=== PATIENT | male | born 1945 | race Caucasian/White ===

== ENCOUNTER → 2018-05-30 06:32 | Outpatient (CLI) | payer MEDICARE, OTHER, SELFPAY ==
[2018-05-16 11:15] VITALS: BMI 34.4
--- NOTE | 2018-05-30 09:03 | STRESSREP_ITS ---
Stress Test Report Pharmacologic myocardial perfusion stress test. 73-year-old man with a history of chest pain. Medications: Amlodipine aspirin simvastatin and lisinopril. Stress protocol: Resting EKG demonstrates normal sinus rhythm with a rate of 77 bpm resting blood pressures 152/74 mmHg. 0.4 mg of regadenoson was infused per usual protocol followed by rapid intravenous saline flush injection continuous EKG monitoring was performed. The maximum heart rate attained was 113 bpm which was 76% of maximum predicted heart rate the maximum workload was 1 metabolic equivalent. At rest there were no ST or T wave changes noted suggest abnormal flow reserve at peak infusion nonspecific ST-T wave changes were noted with normally the criteria for ischemia. No clinical angina was noted resting blood pressures 152/74 final blood pressure 738/62. Myocardial perfusion protocol. 14.6 mCi of technetium 99m sestamibi was injected at rest. 0.4 mg of reg adenoson was infused per usual protocol peak infusion 44.7 mCi of technetium 99m sestamibi was injected stress images were obtained stress and rest images were reconstructed in comparing the short axis vertical long horizontal long axis. Gated images were also obtained Perfusion SPECT analysis: Review of the stress images demonstrate normal uptake of tracer noted in all areas of the myocardium the resting images similarly demonstrate normal uptake of tracer noted in all areas of the myocardium. No areas of reversibility are noted suggest ischemia no previous infarct is noted. Gated SPECT analysis: The gated ejection fraction is noted to be 71%. Conclusion: Normal pharmacologic myocardial perfusion stress test. Preserved ejection fraction.
== END ==
PROVIDERS: Family Provider Family Medicine; PCP Family Medicine; Referring Provider Internal Medicine Cardiovascular Disease; Visit Provider Internal Medicine Cardiovascular Disease
DX: I10 Essential (primary) hypertension (principal); R53.83 Other fatigue; R07.9 Chest pain, unspecified
CPT/HCPCS: 78452; 93017; A9500; A4216; J2785

== ENCOUNTER → 2020-01-13 09:43 | Outpatient (CLI) | payer MEDICARE, OTHER, SELFPAY ==
[2019-12-10 10:30] VITALS: BMI 34.4
--- NOTE | 2020-01-13 09:44 | ECHOCS_ITS ---
Reason For Study: Nonrheumatic aortic stenosis Procedure This was a 2D Doppler, Color Flow transthoracic echocardiogram. Exam performed in department. Left Ventricle Normal LV size. Left ventricular systolic function is normal. The estimated ejection fraction is 60 %. Normal diastology for age. No regional wall motion abnormalities noted. Atria The left atrium is moderately enlarged. Normal right atrium. Mitral Valve Normal mitral valve. Tricuspid Valve Normal tricuspid valve. Aortic Valve Trisinus/trileaflet aortic valve. Peak aortic valve gradient 34 mmHg. Mean aortic valve gradient 21 mmHg. Mild to moderate aortic stenosis. Calculated aortic valve area (continuity equation) is 1.0 cm2. Pulmonic Valve The pulmonic valve is not well visualized. Great Vessels Normal aortic root. The pulmonary artery is normal size. Normal inferior vena cava. Pericardium/Pleural No pericardial effusion. MMode/2D Measurements & Calculations LVIDd: 5.3 cm IVSd: 1.1 cm LVOT diam: 2.0 cm LVIDs: 3.4 cm LVPWd: 1.0 cm LVOT area: 3.1 cm2 RVDd: 3.4 cm FS: 36.2 % Ao root diam: 3.0 cm LAV(MOD-bp): 94.3 ml LA A4 area: 27.3 cm2 LAV(MOD-bp) Indexed: 42.8 ml/m2 LAV(MOD-sp2): 85.4 ml LAV(MOD-sp4): 94.7 ml LA dimension(2D): 4.3 cm RA A4 area: 18.7 cm2 Time Measurements MV dec time: 0.17 sec Doppler Measurements & Calculations MV E max aron: 101.4 cm/sec Lat Peak E' Aron: 11.0 cm/sec Med Peak E' Aron: 6.8 cm/sec MV A max aron: 76.5 cm/sec E/E' lat: 9.2 E/E' med: 14.8 MV E/A: 1.3 Ao V2 max: 293.1 cm/sec LV V1 max: 96.0 cm/sec SV(LVOT): 77.0 ml Ao max P.4 mmHg LV V1 max P.7 mmHg Ao V2 mean: 222.5 cm/sec LV V1 mean P.2 mmHg Ao mean P.2 mmHg LV V1 mean: 71.8 cm/sec Ao V2 VTI: 73.4 cm LV V1 VTI: 24.8 cm HIMANSHU(I,D): 1.0 cm2 HIMANSHU(V,D): 1.0 cm2 PA V2 max: 93.5 cm/sec Interpretation Summary Mean aortic valve gradient 21 mmHg. Mild to moderate aortic stenosis. Normal LV size. Left ventricular systolic function is normal. The estimated ejection fraction is 60 %. Normal diastology for age. Ordering Physician: Donald Holder Referring Physician: Wiliam Ross Performed By: Chani Caraballo, DARCY, RVT
== END ==
PROVIDERS: PCP Family Medicine; Referring Provider Internal Medicine Cardiovascular Disease; Visit Provider Internal Medicine Cardiovascular Disease
DX: I35.0 Nonrheumatic aortic (valve) stenosis (principal)
CPT/HCPCS: 93306; Q9957; A4216; C8929

== ENCOUNTER → 2020-05-04 12:50 | Outpatient (CLI) | payer MEDICARE, OTHER, SELFPAY ==
[2019-12-10 10:30] VITALS: BMI 34.4
--- NOTE | 2020-05-04 12:52 | US_ITS ---
STUDY: RENAL ULTRASOUND - COMPLETE REASON FOR EXAM: Male, 75 years old. CKD TECHNIQUE: Ultrasound evaluation of the kidneys was performed with real-time and static miranda-scale imaging. COMPARISON: None. FINDINGS: RIGHT KIDNEY: Normal location of the right kidney, which is normal in size. The right kidney measures 12 cm x 5.5 cm x 5.8 cm. There is a normal cortex of the right kidney. The renal cortex measures 1.5 cm. There is no right renal mass or cyst. There are no right renal calculi. There is no right hydronephrosis. DISTAL RIGHT URETER: There is non-visualization of the distal right ureter. There is no demonstrated right ureterovesical junction calculus. There is a visualized right ureteral jet. LEFT KIDNEY: Normal location of the left kidney, which is normal in size. The left kidney measures 14.3 cm x 4.9 cm x 7.8 cm. There is a normal cortex of the left kidney. The renal cortex measures 1.9 cm. There is a 1.4 cm x 1.77 x 1.3 cm cyst. There are no left renal calculi. There is no left hydronephrosis. DISTAL LEFT URETER: There is non-visualization of the distal left ureter. There is no demonstrated left ureterovesical junction calculus. There is a visualized left ureteral jet. BLADDER: The distended urinary bladder has a volume of 126 ml. There is a normal wall thickness of the distended urinary bladder. There is no demonstrated mass within the urinary bladder. There are no demonstrated bladder calculi. US/Kidney and Bladder IMPRESSION: Normal ultrasound of the kidneys and urinary bladder. Small left renal cyst. Electronically Signed: Calin Crow MD at 14:16 EST , Service support ,
== END ==
PROVIDERS: PCP Family Medicine; Referring Provider Internal Medicine; Visit Provider Internal Medicine
DX: N18.32 Chronic kidney disease, stage 3b (principal)
CPT/HCPCS: 76770

== ENCOUNTER → 2020-05-12 13:08 | Outpatient (CLI) | payer MEDICARE, OTHER, SELFPAY ==
[2019-12-10 10:30] VITALS: BMI 34.4
[2020-05-12 13:14] LABS: Mucous, Urine 0 SEEN /hpf (<or=2+); Red Blood Cells-Urine 0 SEEN /hpf (0-5); Squamous Epithelial Cells - UA 0 SEEN /hpf (0-5); White Blood Cells 0 SEEN /hpf (0-5)
[2020-05-12 13:38] LABS: 24 Hour Urine Protein 165.6 mg/24HR (<150 MG/24HR); 24HR. UA Prot. Total Volume 2400 mL; Urine Protein (24 Hour) 6.9 mg/dL (<11.9)
[2020-05-12 13:39] LABS: 24HR. Urine Creatinine 1.91 g/24 HR (0.90-2.10)
[2020-05-12 13:56] LABS: Protein:Creat Ratio 116 mg/g CRE (0-200)
[2020-05-12 14:04] LABS: Color, Urine Yellow (Yellow); Glucose, Dipstick 50 mg/dl (Normal); Ketone-Dipstick 5 mg/dl (Negative); Leukocyte Esterase-Dipstick Negative /ul (Negative); Nitrite-Dipstick Negative (Negative); Occult Blood-Urine Negative /ul (Negative); Protein-Dipstick 30 mg/dl (Negative); Specific Gravity, Urine 1.025 (1.002-1.030); Urine Bilirubin Dipstick Negative (Negative); Urine Clarity Sl. Cloudy (Clear); Urine Urobilinogen Normal (Normal)
[2020-05-12 14:08] LABS: Anion Gap 7 (5-15); BUN 17 mg/dL (7-18); Calcium,Total 9.3 mg/dL (8.5-10.1); Chloride 107 mmol/L (98-107); Creatinine, Serum 1.42 mg/dL (0.70-1.30); EST Glomerular Filtration Rate 52 mL/min (>60); Est Glom Filt Rate - Afr Amer 63 mL/min (>60); Glucose 244 mg/dL (74-106); Phosphorus 2.7 mg/dL (2.5-4.9); Potassium 4.1 mmol/L (3.5-5.1); Sodium Level 140 mmol/L (136-145)
[2020-05-12 14:09] LABS: PTHIN 45.8 pg/mL (18.4-80.1)
[2020-05-12 14:10] LABS: Bacteria RARE /hpf (None Seen)
[2020-05-12 14:13] LABS: Vitamin D,25 Hydroxy 19.6 ng/mL
[2020-05-12 14:16] LABS: Creat.Clear Total Volume 2400 mL; Creatinine Clearance 93 ml/min (100-200); Creatinine Serum Creat 1.4 mg/dL (0.8-1.3); Creatinine Urine 78.8 mg/dL (NO RANGE EST.); EST Glomerular Filtration Rate 52 mL/min (>60); Est Glom Filt Rate - Afr Amer 63 mL/min (>60)
[2020-05-15 20:07] LABS: PROEL- A/G Ratio 1.2 (0.7-1.7); PROEL- Albumin 3.8 g/dL (2.9-4.4); PROEL- Alpha-1 Globulin 0.2 g/dL (0.0-0.4); PROEL- Alpha-2 Globulin 0.9 g/dL (0.4-1.0); PROEL- Beta Globulin 1.3 g/dL (0.7-1.3); PROEL- Globulin, Total 3.3 g/dL (2.2-3.9); PROEL- TOTAL PROTEIN 7.1 g/dL (6.0-8.5); PROELU- Alpha-1-Globulin,Ur 1.8 % (.); PROELU- Beta Globulin, Ur 18.7 % (.); PROELU- Gamma Globulin, Ur 15.4 % (.); Total Protein, Ur 18.8 mg/dL (Not Estab.)
== END ==
PROVIDERS: PCP Family Medicine; Referring Provider Internal Medicine; Visit Provider Internal Medicine
DX: N18.32 Chronic kidney disease, stage 3b (principal)
CPT/HCPCS: 36415; 80048; 81001; 81050; 82306; 82570; 82575; 83970; 84100; 84156; 84165; 84166

== ENCOUNTER → 2020-12-03 09:18 | Outpatient (CLI) | payer MEDICARE, OTHER, SELFPAY ==
[2020-12-03 09:47] LABS: Color, Urine Yellow (Yellow); Glucose, Dipstick Normal (Normal); Ketone-Dipstick Negative (Negative); Leukocyte Esterase-Dipstick Negative /ul (Negative); Nitrite-Dipstick Negative (Negative); Occult Blood-Urine Negative /ul (Negative); Protein-Dipstick Negative (Negative); Specific Gravity, Urine 1.015 (1.002-1.030); Urine Bilirubin Dipstick Negative (Negative); Urine Clarity Clear (Clear); Urine Urobilinogen Normal (Normal)
[2020-12-03 09:56] LABS: Protein, Urine (Random) 10.6 mg/dL (<11.9); Protein:Creat Ratio 87 mg/g CRE (0-200)
[2020-12-03 10:42] LABS: PTHIN 54.9 pg/mL (18.4-80.1)
[2020-12-03 10:44] LABS: Anion Gap 4 (5-15); BUN 23 mg/dL (7-18); BUN/Creat Ratio 15.1 RATIO (10-20); Calcium,Total 8.8 mg/dL (8.5-10.1); Chloride 110 mmol/L (98-107); Creatinine, Serum 1.52 mg/dL (0.70-1.30); EST Glomerular Filtration Rate 48 mL/min (>60); Est Glom Filt Rate - Afr Amer 58 mL/min (>60); Glucose 153 mg/dL (74-106); Phosphorus 3.3 mg/dL (2.5-4.9); Potassium 4.3 mmol/L (3.5-5.1); Sodium Level 138 mmol/L (136-145)
[2020-12-03 10:47] LABS: Vitamin D,25 Hydroxy 33.2 ng/mL
== END ==
PROVIDERS: PCP Family Medicine; Referring Provider Internal Medicine; Visit Provider Internal Medicine
DX: N18.32 Chronic kidney disease, stage 3b (principal)
CPT/HCPCS: 36415; 80048; 81002; 82306; 82570; 83970; 84100; 84156

== ENCOUNTER → 2021-12-27 | Outpatient (CLI) | payer MEDICARE, OTHER, SELFPAY ==
[2021-12-27 13:39] LABS: Hematocrit 33.8 % (40-54); Hemoglobin 10.7 g/dL (13.0-16.5); Mean Corp Hgb Conc 31.7 g/dL (32-36); Mean Corpuscular Hgb 33.5 pg (27.0-32.0); Mean Platelet Vol. 10.5 fl (6.2-12.0); Platelet Count 216 K/mm3 (150-450); RBC Distribution Width CV 12.5 % (11.6-14.6); Red Blood Count 3.19 M/mm3 (4.6-6.2); White Blood Count 8.7 K/mm3 (4.4-11.0)
[2021-12-27 13:50] LABS: Protein, Urine (Random) 12.4 mg/dL (<11.9); Protein:Creat Ratio 141 mg/g CRE (0-200)
[2021-12-27 14:03] LABS: Albumin, Serum 3.3 g/dL (3.2-5.0); BUN 21 mg/dL (7-18); Calcium,Total 9.3 mg/dL (8.5-10.1); Chloride 110 mmol/L (98-107); Creatinine, Serum 1.75 mg/dL (0.70-1.30); EST Glomerular Filtration Rate 41 mL/min (>60); Est Glom Filt Rate - Afr Amer 49 mL/min (>60); Glucose 207 mg/dL (74-106); Phosphorus 3.3 mg/dL (2.5-4.9); Potassium 4.3 mmol/L (3.5-5.1); Sodium Level 145 mmol/L (136-145)
[2021-12-27 14:09] LABS: Vitamin D,25 Hydroxy 37.1 ng/mL
[2021-12-27 14:19] LABS: PTHIN 59.2 pg/mL (18.4-80.1)
== END | disposition home or self-care (01) ==
LOC: LAB 13:13
PROVIDERS: PCP Family Medicine; Referring Provider Internal Medicine Nephrology; Visit Provider Internal Medicine Nephrology
DX: I12.9 Hypertensive chronic kidney disease with stage 1 through stage 4 chronic kidney disease, or unspecified chronic kidney disease (principal); N18.32 Chronic kidney disease, stage 3b; E55.9 Vitamin D deficiency, unspecified; R80.9 Proteinuria, unspecified
CPT/HCPCS: 36415; 80069; 82306; 82570; 83970; 84156; 85027

== ENCOUNTER → 2022-01-17 | Outpatient (CLI) | payer MEDICARE, OTHER, SELFPAY ==
--- NOTE | 2022-01-17 12:57 | ECHOCS_ITS ---
Reason For Study: MURMUR Procedure This was a 2D Doppler, Color Flow transthoracic echocardiogram. The study was technically difficult. Contrast injection was performed. Exam performed in department. Left Ventricle Normal LV size. Left ventricular systolic function is normal. The estimated ejection fraction is 65 %. No regional wall motion abnormalities noted. Right Ventricle Normal RV size. Normal systolic function. Atria The left atrium is moderately enlarged. The right atrium is mildly enlarged. Mitral Valve Bileaflet diffuse mitral valve thickening. Tricuspid Valve Normal tricuspid valve. Mild to moderate (1-2+) tricuspid valve insufficiency. Pulmonary artery systolic pressure is 52 mmHg. Aortic Valve Trisinus/trileaflet aortic valve. Moderate focal aortic valve calcification. Peak aortic valve gradient 27 mmHg. Mean aortic valve gradient 17 mmHg. Mild aortic stenosis. Pulmonic Valve Normal pulmonic valve. Great Vessels Normal aortic root. The pulmonary artery is normal size. Normal inferior vena cava. Pericardium/Pleural No pericardial effusion. Medication 22 gauge I.V. with prn adaptor inserted into right arm. Diluted definity 3ml given slow IV push to enhance endocardial definition. MMode/2D Measurements & Calculations LVIDd: 6.2 cm IVSd: 1.00 cm LVOT diam: 2.2 cm LVIDs: 3.9 cm LVPWd: 0.83 cm FS: 36.0 % LVOT area: 3.8 cm2 Ao root diam: 3.4 cm LAV(MOD-sp4): 108.1 ml LVAd ap4: 44.5 cm2 LVLd ap4: 9.0 cm EDV(MOD-sp4): 181.8 ml EDV(sp4-el): 187.1 ml LVAs ap4: 22.2 cm2 LVLs ap4: 7.4 cm ESV(MOD-sp4): 54.4 ml ESV(sp4-el): 56.6 ml EF(MOD-sp4): 70.1 % EF(sp4-el): 69.7 % SV(MOD-sp4): 127.4 ml SV(sp4-el): 130.5 ml LA A4 area: 29.2 cm2 LA dimension(2D): 4.8 cm Time Measurements MV dec time: 0.17 sec Doppler Measurements & Calculations MV E max aron: 100.5 cm/sec Lat Peak E' Aron: 12.0 cm/sec Med Peak E' Aron: 7.6 cm/sec MV A max aron: 81.6 cm/sec E/E' lat: 8.4 E/E' med: 13.2 MV E/A: 1.2 MV V2 max: 98.4 cm/sec Ao V2 max: 260.1 cm/sec MV max P.9 mmHg MV dec slope: 605.2 cm/sec2 Ao max P.7 mmHg MV V2 mean: 64.1 cm/sec Ao V2 mean: 187.7 cm/sec MV mean P.9 mmHg Ao mean P.4 mmHg MV V2 VTI: 33.0 cm Ao V2 VTI: 65.7 cm MVA(VTI): 2.9 cm2 HIMANSHU(I,D): 1.4 cm2 HIMANSHU(V,D): 1.3 cm2 LV V1 max: 90.2 cm/sec SV(LVOT): 94.2 ml PA V2 max: 100.1 cm/sec LV V1 max P.3 mmHg PA V2 mean: 70.8 cm/sec LV V1 mean P.0 mmHg LV V1 mean: 65.8 cm/sec LV V1 VTI: 24.7 cm TR max aron: 342.3 cm/sec TR max P.9 mmHg ECHO/Echo Complete W/ Contrast Interpretation Summary Normal LV size. Left ventricular systolic function is normal. The estimated ejection fraction is 65 %. Moderate focal aortic valve calcification. Peak aortic valve gradient 27 mmHg. Pulmonary artery systolic pressure is 52 mmHg. Mean aortic valve gradient 17 mmHg. Mild aortic stenosis. Contrast injection was performed. Ordering Physician: Hannah Kendrick Referring Physician: Hannah Kendrick Performed By: Demetria Osborn RCS
== END | disposition home or self-care (01) ==
LOC: CVS 12:57
PROVIDERS: PCP Family Medicine; Referring Provider Physician Assistant Medical; Visit Provider Physician Assistant Medical
DX: I35.0 Nonrheumatic aortic (valve) stenosis (principal)
CPT/HCPCS: 93306; Q9957; A4216; C8929

== ENCOUNTER → 2022-11-07 | Outpatient (CLI) | payer MEDICARE, OTHER, SELFPAY ==
[2022-11-07 11:38] LABS: Anion Gap 6 (5-15); BUN 25 mg/dL (7-18); BUN/Creat Ratio 14.1 RATIO (10-20); Calcium,Total 8.8 mg/dL (8.5-10.1); Chloride 117 mmol/L (98-107); Creatinine, Serum 1.77 mg/dL (0.70-1.30); EST Glomerular Filtration Rate 40 mL/min (>60); Est Glom Filt Rate - Afr Amer 48 mL/min (>60); Glucose 144 mg/dL (74-106); Potassium 4.7 mmol/L (3.5-5.1); Protein, Urine (Random) 39.2 mg/dL (<11.9); Protein:Creat Ratio 248 mg/g CRE (0-200); Sodium Level 144 mmol/L (136-145)
[2022-11-07 12:49] LABS: Vitamin D,25 Hydroxy 28.4 ng/mL
== END | disposition home or self-care (01) ==
LOC: LAB 10:46
PROVIDERS: PCP Family Medicine; Referring Provider Internal Medicine Nephrology; Visit Provider Internal Medicine Nephrology
DX: E55.9 Vitamin D deficiency, unspecified (principal); N18.32 Chronic kidney disease, stage 3b; R80.9 Proteinuria, unspecified
CPT/HCPCS: 36415; 80048; 82306; 82570; 84156

== ENCOUNTER → 2023-01-31 | Outpatient (CLI) | payer MEDICARE, OTHER, SELFPAY ==
--- NOTE | 2023-01-31 12:42 | ECHOCS_ITS ---
Reason For Study: Non Rheumatic Aortic Stenosis Procedure This was a 2D Doppler, Color Flow transthoracic echocardiogram. The study was technically difficult. Contrast injection was performed. Exam performed in department. Left Ventricle Normal LV size. Moderate concentric left ventricular hypertrophy. Left ventricular systolic function is normal. The estimated ejection fraction is 55 %. No regional wall motion abnormalities noted. Right Ventricle Normal RV size. Normal systolic function. Atria Normal left atrium. Normal right atrium. Mitral Valve Mitral valve not well visualized. Tricuspid Valve The tricuspid valve is not well visualized. Mild (1+) tricuspid valve insufficiency. Pulmonary artery systolic pressure is 40 mmHg. Aortic Valve Trisinus/trileaflet aortic valve. Mild focal aortic valve calcification. Peak aortic valve gradient 46 mmHg. Mean aortic valve gradient 30 mmHg. Pulmonic Valve The pulmonic valve is not well visualized. Great Vessels Normal aortic root. Pericardium/Pleural No pericardial effusion. Medication 22 gauge I.V. with prn adaptor inserted into right arm. Diluted definity 3ml given slow IV push to enhance endocardial definition. MMode/2D Measurements & Calculations LVIDd: 4.4 cm IVSd: 1.6 cm LVOT diam: 2.1 cm LVIDs: 3.5 cm LVPWd: 1.5 cm RVDd: 3.8 cm FS: 19.0 % LVOT area: 3.3 cm2 Ao root diam: 3.4 cm LAV(MOD-bp): 131.2 ml LA A4 area: 32.3 cm2 LA dimension: 5.1 cm LAV(MOD-bp) Indexed: 61.7 ml/m2 LAV(MOD-sp2): 130.0 ml LAV(MOD-sp4): 123.1 ml TAPSE: 2.1 cm Time Measurements MV dec time: 0.17 sec Doppler Measurements & Calculations MV E max aron: 110.4 cm/sec Lat Peak E' Aron: 12.2 cm/sec Med Peak E' Aron: 9.4 cm/sec MV A max aron: 88.8 cm/sec E/E' lat: 9.0 E/E' med: 11.8 MV E/A: 1.2 MV V2 max: 127.2 cm/sec MV dec slope: 657.0 cm/sec2 Ao V2 max: 340.4 cm/sec MV max P.5 mmHg Ao max P.4 mmHg MV V2 mean: 75.3 cm/sec Ao V2 mean: 260.9 cm/sec MV mean P.7 mmHg Ao mean P.0 mmHg MV V2 VTI: 35.9 cm Ao V2 VTI: 95.4 cm MVA(VTI): 2.4 cm2 AV (velocity ratio): 0.27 HIMANSHU(I,D): 0.90 cm2 HIMANSHU(V,D): 0.94 cm2 LV V1 max: 95.8 cm/sec SV(LVOT): 85.6 ml PA V2 max: 125.8 cm/sec LV V1 max P.7 mmHg PA V2 mean: 96.2 cm/sec LV V1 mean P.1 mmHg LV V1 mean: 68.1 cm/sec LV V1 VTI: 25.6 cm TR max aron: 303.0 cm/sec TR max P.7 mmHg ECHO/Echo Complete W/ Contrast Interpretation Summary Normal LV size. Left ventricular systolic function is normal. The estimated ejection fraction is 55 %. Moderate concentric left ventricular hypertrophy. Mean aortic valve gradient 30 mmHg. Mild focal aortic valve calcification. Compared to the previous the aortic valve gradients are worse and now in the mo derate range, of severity. Contrast injection was performed. Ordering Physician: Donald Holder Referring Physician: Donald Holder Performed By: Kristopher Camacho RCS
== END | disposition home or self-care (01) ==
LOC: CVS 12:41
PROVIDERS: PCP Family Medicine; Referring Provider Internal Medicine Cardiovascular Disease; Visit Provider Internal Medicine Cardiovascular Disease
DX: I35.0 Nonrheumatic aortic (valve) stenosis (principal)
CPT/HCPCS: 93306; Q9957; A4216; C8929

== ENCOUNTER → 2023-11-07 | Outpatient (CLI) | payer MEDICARE, OTHER, SELFPAY ==
[2023-11-07 09:59] LABS: Hematocrit 30.6 % (40-54); Hemoglobin 9.3 g/dL (13.0-16.5); Mean Corp Hgb Conc 30.4 g/dL (32-36); Mean Corpuscular Hgb 32.4 pg (27.0-32.0); Mean Corpuscular Volume 106.6 fL (80-94); Platelet Count 155 K/mm3 (150-450); RBC Distribution Width CV 13.3 % (11.6-14.6); RBC Distribution Width SD 51.9 fl (35.1-43.9); Red Blood Count 2.87 M/mm3 (4.6-6.2); White Blood Count 7.8 K/mm3 (4.4-11.0)
[2023-11-07 11:59] LABS: PTHIN 80.4 pg/mL (18.4-80.1)
[2023-11-07 12:02] LABS: Vitamin D,25 Hydroxy 32.3 ng/mL
[2023-11-07 12:31] LABS: Albumin, Serum 3.2 g/dL (3.2-5.0); BUN 33 mg/dL (7-18); BUN/Creat Ratio 17.6 RATIO (10-20); Calcium,Total 8.9 mg/dL (8.5-10.1); Chloride 115 mmol/L (98-107); Creatinine, Serum 1.88 mg/dL (0.70-1.30); EST Glomerular Filtration Rate 37 mL/min (>60); Est Glom Filt Rate - Afr Amer 45 mL/min (>60); Glucose 151 mg/dL (74-106); Phosphorus 3.2 mg/dL (2.5-4.9); Potassium 4.8 mmol/L (3.5-5.1); Sodium Level 145 mmol/L (136-145)
[2023-11-07 14:43] LABS: Microalbumin,Random Urine 89.5 mg/L (NO RANGE EST.); Microalbumin:Creatinine Ratio 92.4 mg/g CRE (<30 mg/g CRE)
== END | disposition home or self-care (01) ==
PROVIDERS: PCP Family Medicine; Referring Provider Internal Medicine Nephrology; Visit Provider Internal Medicine Nephrology
DX: E55.9 Vitamin D deficiency, unspecified (principal); N18.32 Chronic kidney disease, stage 3b; D47.2 Monoclonal gammopathy
CPT/HCPCS: 36415; 80069; 82043; 82306; 82570; 83970; 85027

== ENCOUNTER → 2024-01-01 | Outpatient (CLI) | payer MEDICARE, OTHER, SELFPAY ==
--- NOTE | 2024-01-01 12:49 | ECHOCS_ITS ---
Reason For Study: MURMUR Procedure This was a 2D Doppler, Color Flow transthoracic echocardiogram. The study was technically difficult. Contrast injection was performed. Exam performed in department. Left Ventricle Normal LV size. Left ventricular systolic function is normal. The left ventricular ejection fraction is 65 %. No regional wall motion abnormalities noted. Right Ventricle Normal RV size. Normal systolic function. Atria Normal left atrium. Normal right atrium. Mitral Valve There is mild mitral annular calcification. Mild-Moderate (1-2+) eccentric mitral valve insufficiency. Tricuspid Valve Normal tricuspid valve. Aortic Valve Trisinus/trileaflet aortic valve. Moderate focal aortic valve calcification. Peak aortic valve gradient 47 mmHg. Mean aortic valve gradient 30 mmHg. Moderate aortic stenosis. Pulmonic Valve The pulmonic valve is not well visualized. Great Vessels Normal aortic root. The pulmonary artery is normal size. Normal inferior vena cava. Pericardium/Pleural No pericardial effusion. Medication 22 gauge I.V. with prn adaptor inserted into right arm. Diluted definity 2ml given slow IV push to enhance endocardial definition. MMode/2D Measurements & Calculations LVOT diam: 2.0 cm Ao root diam: 3.5 cm LAV(MOD-sp4): 58.7 ml LVOT area: 3.3 cm2 SV(MOD-sp4): 129.6 ml SV(sp4-el): 139.9 ml LVAd ap4: 48.4 cm2 LVLd ap4: 9.3 cm EDV(MOD-sp4): 202.5 ml EDV(sp4-el): 213.5 ml LVAs ap4: 26.3 cm2 LVLs ap4: 8.0 cm ESV(MOD-sp4): 72.9 ml ESV(sp4-el): 73.6 ml EF(MOD-sp4): 64.0 % EF(sp4-el): 65.5 % LA dimension(2D): 5.0 cm LA A4 area: 20.5 cm2 RA A4 area: 17.4 cm2 Time Measurements MV dec time: 0.19 sec Doppler Measurements & Calculations MV E max aron: 111.6 cm/sec Lat Peak E' Aron: 12.0 cm/sec Med Peak E' Aron: 5.3 cm/sec MV A max aron: 93.3 cm/sec E/E' lat: 9.3 E/E' med: 21.2 MV E/A: 1.2 MV V2 max: 111.5 cm/sec MV dec slope: 586.8 cm/sec2 Ao V2 max: 341.0 cm/sec MV max P.0 mmHg Ao max P.5 mmHg MV V2 mean: 72.9 cm/sec Ao V2 mean: 263.5 cm/sec MV mean P.6 mmHg Ao mean P.2 mmHg MV V2 VTI: 31.4 cm Ao V2 VTI: 96.4 cm MVA(VTI): 3.9 cm2 AV (velocity ratio): 0.39 HIMANSHU(I,D): 1.3 cm2 HIMANSHU(V,D): 1.4 cm2 LV V1 max: 145.7 cm/sec SV(LVOT): 122.6 ml PA V2 max: 113.6 cm/sec LV V1 max P.5 mmHg PA V2 mean: 87.6 cm/sec LV V1 mean P.6 mmHg LV V1 mean: 97.8 cm/sec LV V1 VTI: 37.3 cm ECHO/Echo Complete W/ Contrast Interpretation Summary Normal LV size. Left ventricular systolic function is normal. The left ventricular ejection fraction is 65 %. Moderate focal aortic valve calcification. Moderate aortic stenosis. Mild-Moderate (1-2+) eccentric mitral valve insufficiency. Contrast injection was performed. Ordering Physician: Hannah Kendrick Referring Physician: Hannah Kendrick Performed By: Demetria Osborn RCS
--- NOTE | 2024-01-01 12:49 | CDU_ITS ---
Reason For Study: Carotid bruit Rt. Velocities/BP Lt. Velocities/BP Prox CCA 86.1/9.1 cm/sec. Prox CCA 88.2/17 cm/sec. Mid CCA 81.7/11.3 cm/sec. Mid CCA 66.3/9.7 cm/sec. Dist CCA 81.7/17.9 cm/sec. Dist CCA 77.7/15.1 cm/sec. Prox ICA 187.2/40.2 cm/sec. Prox ICA 83.9/18.8 cm/sec. Mid ICA 177/37.1 cm/sec. Mid ICA 104.7/27.9 cm/sec. Dist ICA 90/20.6 cm/sec. Dist ICA 117.4/27.9 cm/sec. Rt. ICA/CCA = 2.29. Lt. ICA/CCA = 1.77. Prox ECA 81.4 cm/sec. Prox ECA 74 cm/sec. Rt. Vert. 61.7/14.5 cm/sec. Lt. Vert. 60.8/11.5 cm/sec. Right Extracranial There is homogeneous, smooth atherosclerotic plaque noted in the right common carotid artery. There is heterogeneous, irregular atherosclerotic plaque noted in the right internal carotid artery. There is heterogeneous, irregular atherosclerotic plaque noted in the right external carotid artery. Antegrade flow is noted in the right vertebral artery. Left Extracranial There is heterogeneous, irregular atherosclerotic plaque noted in the left common carotid artery. There is heterogeneous, irregular atherosclerotic plaque noted in the left internal carotid artery. There is heterogeneous, irregular atherosclerotic plaque noted in the left external carotid artery. Antegrade flow is noted in the left vertebral artery. Procedure Carotid Duplex [id number]. This is a Carotid Duplex examination using B-mode, color flow and specral Doppler. Definity contrast agent used on echocardiogram prior to duplex. Exam performed in department. VL/Carotid Duplex Ultrasound Interpretation Summary Moderate (50-69%) stenosis right extracranial internal carotid. Mild (<50%) stenosis left extracranial internal carotid. Patent and antegrade vertebrals bilaterally. Ordering Physician: Hannah Kendrick Referring Physician: Wiliam Ross Performed By: Kathy Ortiz RVT
== END | disposition home or self-care (01) ==
LOC: CVS 12:49
PROVIDERS: PCP Family Medicine; Referring Provider Physician Assistant Medical; Visit Provider Physician Assistant Medical
DX: I65.23 Occlusion and stenosis of bilateral carotid arteries (principal); I35.0 Nonrheumatic aortic (valve) stenosis
CPT/HCPCS: 93306; 93880; Q9957; A4216; C8929

== ENCOUNTER → 2024-10-24 | Outpatient (CLI) | payer MEDICARE, OTHER, SELFPAY ==
[2024-10-24 15:13] LABS: Hematocrit 31.0 % (40-54); Hemoglobin 9.7 g/dL (13.0-16.5); Immature Granulocytes Count 0.030 X10^3/uL (0.0-0.0); Mean Corp Hgb Conc 31.3 g/dL (32-36); Mean Corpuscular Volume 106.2 fL (80-94); Mean Platelet Vol. 11.5 fl (6.2-12.0); NRBC Flagged by Analyzer 0 % (0-5); Platelet Count 181 K/mm3 (150-450); RBC Distribution Width CV 13.9 % (11.6-14.6); RBC Distribution Width SD 54.4 fl (35.1-43.9); Red Blood Count 2.92 M/mm3 (4.6-6.2); White Blood Count 8.0 K/mm3 (4.4-11.0)
[2024-10-24 16:18] LABS: CPK Total, Creatine Kinase 112 U/L (24-195); Ferritin 56 ng/mL (37-417); Free T3 2.1 pg/mL (2.18-3.98); Vitamin B12 1621 pg/mL (180-914)
[2024-10-24 16:40] LABS: CRP < 3.00 mg/L (0.0-3.0); Iron 99 ug/dL (65-175); LDH 209 U/L (87-241)
[2024-10-30 22:07] LABS: Egg, White 2.78 kU/L (Class III); SCALLOP 0.16 kU/L (Class 0/I); SESAME SEED 0.56 kU/L (Class II); Walnut, (Food) 0.28 kU/L (Class 0/I)
== END | disposition home or self-care (01) ==
LOC: LAB 14:24
PROVIDERS: PCP Family Medicine; Referring Provider Internal Medicine Gastroenterology; Visit Provider Internal Medicine Gastroenterology
DX: D64.9 Anemia, unspecified (principal); R19.7 Diarrhea, unspecified; E03.9 Hypothyroidism, unspecified
CPT/HCPCS: 36415; 82085; 82525; 82550; 82607; 82728; 82784; 83516; 83540; 83615; 84165; 84439; 84443; 84481; 85025; 85652; 86003; 86036; 86037; 86140; 86255; 86334; 86671

== ENCOUNTER → 2024-10-29 | Outpatient (CLI) | payer MEDICARE, OTHER, SELFPAY ==
[2024-10-31 08:09] LABS: Calprotectin, Stool 11 ug/g (0-120); Fats, Neutral Normal (.); Fats, Total Normal (.); Pancreatic Elastase, Fecal 517 (>200)
== END | disposition home or self-care (01) ==
LOC: LABSPEC 09:30
PROVIDERS: PCP Family Medicine; Referring Provider Internal Medicine Gastroenterology; Visit Provider Internal Medicine Gastroenterology
DX: R19.7 Diarrhea, unspecified (principal); K58.9 Irritable bowel syndrome, unspecified
CPT/HCPCS: 82274; 82653; 82705; 83630; 83993; 87177; 87209; 87329; 87493

== ENCOUNTER → 2024-11-04 | Outpatient (CLI) | payer MEDICARE, OTHER, SELFPAY ==
[2024-11-04 15:07] LABS: Hematocrit 32.2 % (40-54); Hemoglobin 9.8 g/dL (13.0-16.5); Mean Corp Hgb Conc 30.4 g/dL (32-36); Mean Corpuscular Volume 109.5 fL (80-94); Mean Platelet Vol. 12.0 fl (6.2-12.0); Platelet Count 171 K/mm3 (150-450); RBC Distribution Width CV 14.0 % (11.6-14.6); RBC Distribution Width SD 56.8 fl (35.1-43.9); Red Blood Count 2.94 M/mm3 (4.6-6.2); White Blood Count 8.6 K/mm3 (4.4-11.0)
[2024-11-04 15:55] LABS: PTHIN 76 pg/mL (11-61)
[2024-11-04 16:20] LABS: Albumin, Serum 3.7 g/dL (3.4-4.8); Anion Gap 13 (5-15); BUN 31 mg/dL (4-19); BUN/Creat Ratio 16.9 RATIO (10-20); Calcium,Total 8.9 mg/dL (7.6-11.0); Carbon Dioxide 16.9 mmol/L (21.0-32.0); Chloride 113 mmol/L (98-108); Glucose 238 mg/dL (70-99); Potassium 5.3 mmol/L (3.3-5.1); Vitamin D,25 Hydroxy 24.9 ng/mL (30-100)
[2024-11-04 18:20] LABS: Creatinine, Urine (random) 127.00 mg/dL (39.00-259.00); Microalbumin,Random Urine 85.7 mg/L (<20 mg/L)
== END | disposition home or self-care (01) ==
LOC: LAB 13:28
PROVIDERS: PCP Family Medicine; Referring Provider Internal Medicine Nephrology; Visit Provider Internal Medicine Nephrology
DX: N18.32 Chronic kidney disease, stage 3b (principal); D47.2 Monoclonal gammopathy; E55.9 Vitamin D deficiency, unspecified
CPT/HCPCS: 36415; 80069; 82043; 82306; 82570; 83970; 85027

== ENCOUNTER → 2024-11-18 | Outpatient (CLI) | payer MEDICARE, OTHER, SELFPAY ==
--- NOTE | 2024-11-18 09:57 | US_ITS ---
PROCEDURE: ABD LIMITED W/ ELASTOGRAPHY REASON FOR EXAM: FATTY LIVER DISEASE COMPARISON: None. TECHNIQUE: Procedure Code: [id number] Modality: US Procedure: ABD LIMITED W/ ELASTOGRAPHY Right upper quadrant abdominal ultrasound. [employer] ElastQ Imaging shear wave elastography for non-invasive assessment of liver tissue stiffness. [employer] EPIQ Elite. FINDINGS: LIVER: Size: Unremarkable Length: 15.9 cm Echotexture: Normal Contour: Normal Lesions: None identified Elastography: EQI Med: 6.7 kPa EQI Med Aron: 1.49 m/s IQR/Med: 26.5 %* GALLBLADDER: Diffuse thickening of the wall and region of the fundus. There is a 8 mm x 8 mm cyst. COMMON BILE DUCT: Normal measuring 4 mm . PANCREAS: Obscured by bowel gas. Visualized portions of the right kidney are unremarkable. No right upper quadrant ascites. US/ABD Limited w/ Elastography IMPRESSION: NO TO MILD HEPATIC FIBROSIS Diffuse thickening of the fundal portion of the gallbladder wall with evidence of a small cyst. Reference Values: SRU <1.37 m/s (5.7kPa): No to mild fibrosis 1.37 m/s - 2.2 m/s: Moderate to severe fibrosis >2.2 m/s (15kPa): Significant fibrosis / cirrhosis METAVIR Score F2 or higher: 1.34 m/s (5.7kPa) F3 or higher: 1.55 m/s (7.3kPa) F4: 1.80 m/s (10kPa) * If the IQR/Med is >30%, the variance in the measurements is a large and the a ccuracy of the measurement may be in question. Reading Location: [id number]
== END | disposition home or self-care (01) ==
LOC: US 09:54
PROVIDERS: PCP Family Medicine; Referring Provider Internal Medicine Gastroenterology; Visit Provider Internal Medicine Gastroenterology
DX: R19.7 Diarrhea, unspecified (principal); K76.0 Fatty (change of) liver, not elsewhere classified
CPT/HCPCS: 76705; 76981

== ENCOUNTER 2024-11-28 07:50 | Day surgery (SDC) | payer MEDICARE, OTHER, SELFPAY ==
--- NOTE | 2024-11-26 13:37 | PAT.ANE_ITS ---
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 When Was Last Pacemaker Check QUESTION #4 FULL TEXT: You/Your Family Experience fever (hyperthermia) with Anesthesia Last Oral Intake Last Oral intake: Last Oral Intake NPO since Meds taken in AM with sips of water? Meds patient instructed to take am of surgery PONV PONV - accounting practice manager: PONV - accounting practice manager Female No 11/26/24 09:01 HX of Motion Sickness No 11/26/24 09:01 HX of N/V After Surgery No 11/26/24 09:01 Non-Smoker Yes 11/26/24 09:01 Duration of Surgery greater No 11/26/24 09:01 than 60 minutes Number of Risk Factors 1 11/26/24 09:01 PONV Score Low Risk 11/26/24 09:01 Height & Weight Height & Weight: Anesthesia: Height & Weight Height 5 ft 9 in 12/14/23 11:27 Respiratory Assessment Respiratory Assessment - accounting practice manager: Respiratory Tract Infection Hx - accounting practice manager Hx Respiratory Tract Infection No 11/26/24 09:01 STOP Sleep Apnea STOP Sleep Apnea - accounting practice manager: STOP Sleep Apnea - accounting practice manager Hx Hypertension No 11/26/24 09:01 Hx Sleep Apnea No 11/26/24 09:01 CPAP BIPAP Do you snore loudly (louder No 11/26/24 09:01 than talking or can be heard Do you often feel tired/ No 11/26/24 09:01 fatigued/ sleepy during daytime? Has anyone observed you stop No 11/26/24 09:01 breathing during sleep? STOP Results Negative 11/26/24 09:01 QUESTION #5 FULL TEXT : Do you snore loudly (louder than talking or can be heard through closed doors)? 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 Specify any problems Hx of Preganancy in last 3 N/A 11/26/24 09:01 Months Nurse Filling Out Transfusion [email or web address] 11/26/24 09:01 & Questions: Date: 11/26/24 11/26/24 09:01 Time: 09:10 11/26/24 09:01 Patient unable to answer at this time (ie. confused, unrespo /Reproduction History /Reproductive History - accounting practice manager: /Reproductive Hx- accounting practice manager Hx Now Gestational Age (in weeks): EDC: Hx Hx Para Hx Section SAB PFSH Medical History (Updated 11/26/24 @ 09:18 by Butch Singh) Wears glasses Low iron Gastric reflux Former smoker Kidney stones Leg cramps History of echocardiogram History of stress test Cardiology follow-up encounter Non-rheumatic aortic stenosis Obstructive chronic bronchitis History of radioactive iodine thyroid ablation Ocular histoplasmosis syndrome of left eye Obesity Glaucoma GERD (gastroesophageal reflux disease) Diabetic peripheral neuropathy Benign neoplasm of rectum Hypothyroidism Hyperlipidemia Essential (primary) hypertension Type 2 diabetes mellitus Home Medications ?Medication ?Instructions ?Recorded ?Last Taken ?Type aspirin 81 mg tablet,delayed 81 mg PO DAILY 05/11/18 0 11/24/24 History release (Adult Aspirin Regimen) latanoprost 0.005 % eye drops 1 drp ophthalmic (eye) Q PM 05/11/18 Unknown History (Xalatan) levothyroxine 125 mcg capsule 125 mcg PO DAILY 9 Unknown History pioglitazone 45 mg tablet (Actos) 45 mg PO DAILY 05/11 Unknown History timolol maleate 0.5 % once daily 1 drp ophthalmic (eye ) BID 05/11/18 Unknown History eye drops (Istalol) omega-3 fatty acids 1,000 mg 1,000 mg PO BID 12/10/19 Unknown History capsule (Fish Oil Concentrate) cholecalciferol (vitamin D3) 50 50 mcg PO DAILY Unknown History mcg (2,000 unit) tablet linagliptin 5 mg tablet (Tradjenta) 2.5 mg PO DAILY Unknown History cyanocobalamin (vitamin B-12) 1,000 mcg PO BID 3 Unknown History 1,000 mcg capsule folic acid 1 mg tablet 1 mg PO DAILY 12/13/22 Unkno wn History simvastatin 20 mg tablet 20 mg PO DAILY 12/13/22 Unkn own History copper gluconate 2 mg tablet 2 mg PO QDAY 10/24/24 Unk nown History dexamethasone 0.5 mg/5 mL oral 0.5 mg PO QDAY 11/19/24 Unknown History solution Allergy/AdvReac Type Severity Reaction Status Date / Time [facility] AdvReac myalgia Verified 11/26/24 08:55 Family History Mother Myocardial infarction Diabetes Heart disease Father CVA (cerebral vascular accident) Cancer lung Sister Heart disease Surgical History History of colonoscopy (12/20/16) History of colonoscopy with polypectomy (12/30/03) Social History Smoking Status: Former smoker how long ago did patient quit smokin years, smoked a pipe alcohol intake: current alcohol intake frequency: holidays/special occasions only substance use type: does not use caffeine: Yes what type of physical activity do you participate in: none frequency: does not exercise Audit: Pertinent Findings Pertinent Findings Stress test pertinent findings: 05/30/2018. EF of 71%. No areas of reversibility to suggest ischemia. No previous infarct. Echo (EF%) pertinent findings: 01/01/2024. EF of 65%. Moderate aortic stenosis noted. Peak aortic gradient is 47 mmHg. Mean aortic gradient is 30 mmHg. Consult pertinent findings: 12/14/2023. Mireille COPELAND. 1. Hypertension-controlled. Continue lisinopril and amlodipine. 2. Nonrheumatic aortic stenosis-echo from 2022 demonstrated moderate to severe aortic stenosis. He remained completely asymptomatic. Repeat echo to evaluate for stability. (See above). 3. Carotid stenosis, bilateral-duplex from 2022 shows moderate to severe disease. Repeat to check stability. Additional pertinent findings: 01/01/2024. Carotid duplex. 1. Moderate 50 to 69% stenosis in the right internal carotid. 2. Mild less than 50% stenosis in the left internal carotid. 3. Patent and antegrade vertebral artery bilaterally. Current Visit Impressions Current Visit Impressions: Hemoglobin is 9.8 on 11/04/2024. Potassium is slightly high at 5.3. Recommendation Anesthesia Recommendation Anesthesia recommendation: OPTIMIZED for anesthesia (Potassium is 5.3 on labs from 11/04/2024. Recheck potassium on arrival day of surgery.)
[2024-11-28] VITALS (8 sets, daily range): BP systolic 104–141; BP diastolic 46–85; PULSE 66–74; RESP 16; TEMP 36.2–36.6; O2SAT 98–100; BMI 31.2
[2024-11-28] MEDS: Lactated Ringers 1,000 ML 15 ML IV (08:19)
--- NOTE | 2024-11-28 08:31 | PCM.PRE.AN2 ---
ASA Classification* ASA Classification ASA Classification: 3 Assessment & Plan Anesthesia* Anesthesia Assessment Anesthesia Assessment: Discussed sedation and/or anesthesia options, risks, benefits, and alternatives with patient/parents/legal guardian/POA. Questions invited. The patient/parents/legal guardian/POA seems to understand and agrees to proceed with anesthesia plan. Reviewed the physical assessment, medical history, allergy history and patient home medications list prior to surgery/procedure/anesthetic and documented any changes. Performed airway and anesthesia risk assessments. Anesthesia Type Anesthesia Type: MAC (Patient has moderate aortic stenosis. Avoid increased heart rate and decrease blood pressure. Phenylephrine is drug of choice.) History Source History Obtained from:: Patient and Chart Anesthesia Focused Assessment* Temperature: 97.8 F Pulse Rate: 74 Blood Pressure: 141/85 Respiratory Rate: 16 Pulse Ox: 100 Oxygen Delivery Method: Room Air Airway Assessment Mouth opens: 2 cm Mallampati Score: IV Teeth Condition: Implants (Patient has a couple implants. They are tight.) Neck Range of motion (ROM): Limited ROM (Severe Restriction) Labs Anesthesia Preop lab: CBC WBC, (4.4-11.0) 8.6 K/mm3 11/04/24, 13:30 RBC, (4.6-6.2) 2.94 M/mm3 L 11/04/24, 13:30 Hgb, (13.0-16.5) 9.8 g/dL L 11/04/24, 13:30 Hct, (40-54) 32.2 % L 11/04/24, 13:30 Plt Count, (150-450) 171 K/mm3 11/04/24, 13:30 CHEMISTRY Potassium, (3.3-5.1) 5.3 mmol/L H 11/04/24, 13:30 Sodium, (133-145) 143 mmol/L 11/04/24, 13:30 Phosphorus, (2.7-4.5) 3.2 mg/dL 11/04/24, 13:30 BUN, (4-19) 31 mg/dL H 11/04/24, 13:30 Creatinine, (0.70-1.20) 1.80 mg/dL H 11/04/24, 13:30 Glucose, (70-99) 238 mg/dL H 11/04/24, 13:30 TSH, (0.300-4.200) 0.758 uIU/mL 10/24/24, 14:28 COAG Pre-Assessment Diagnosis/Proposed Procedure Planned Operative Procedure(s): EGD Anesthesia History 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 When Was Last Pacemaker Check QUESTION #4 FULL TEXT: You/Your Family Experience fever (hyperthermia) with Anesthesia Last Oral Intake Last Oral intake: Last Oral Intake NPO since 20:00 11/28/24 08:16 Meds taken in AM with sips of No 11/28/24 08:16 water? Meds patient instructed to take am of surgery PONV PONV - batch records clerk: PONV - batch records clerk Female No 11/26/24 09:01 HX of Motion Sickness No 11/26/24 09:01 HX of N/V After Surgery No 11/26/24 09:01 Non-Smoker Yes 11/26/24 09:01 Duration of Surgery greater No 11/26/24 09:01 than 60 minutes Number of Risk Factors 1 11/26/24 09:01 PONV Score Low Risk 11/26/24 09:01 Height & Weight Height & Weight: Anesthesia: Height & Weight Height 5 ft 9 in 11/28/24 08:16 Weight: 96 kg 11/28/24 08:16 Body Mass Index (BMI) 31.2 11/28/24 08:16 Respiratory Assessment Respiratory Assessment - batch records clerk: Respiratory Tract Infection Hx - batch records clerk Hx Respiratory Tract Infection No 11/26/24 09:01 Any additional information?: Yes Hx Respiratory Tract Infection: Yes History of Anesthesia Respiratory Infection details: Patient has a cough recently. Currently not coughing. STOP Sleep Apnea STOP Sleep Apnea - batch records clerk: STOP Sleep Apnea - batch records clerk Hx Hypertension No 11/26/24 09:01 Hx Sleep Apnea No 11/26/24 09:01 CPAP BIPAP Do you snore loudly (louder No 11/26/24 09:01 than talking or can be heard Do you often feel tired/ No 11/26/24 09:01 fatigued/ sleepy during daytime? Has anyone observed you stop No 11/26/24 09:01 breathing during sleep? STOP Results Negative 11/26/24 09:01 QUESTION #5 FULL TEXT : Do you snore loudly (louder than talking or can be heard through closed doors)? 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 Specify any problems Hx of Preganancy in last 3 N/A 11/26/24 09:01 Months Nurse Filling Out Transfusion [email or web address] 11/26/24 09:01 & Questions: Date: 11/26/24 11/26/24 09:01 Time: 09:10 11/26/24 09:01 Patient unable to answer at this time (ie. confused, unrespo /Reproduction History /Reproductive History - batch records clerk: /Reproductive Hx- batch records clerk Hx Now Gestational Age (in weeks): EDC: Hx Hx Para Hx Section SAB Active Medications Active Medications: Current Medications Generic Name Dose Route Start Last Admin Trade Name Freq PRN Reason Stop Dose Admin Lactated Ringer's 1,000 mls @ 15 mls/hr 11/28/24 08:00 11/28/24 08:19 IV 15 mls/hr .Q48H ROXANNE Administration PFSH Medical History Wears glasses Low iron Gastric reflux Former smoker Kidney stones Leg cramps History of echocardiogram History of stress test Cardiology follow-up encounter Non-rheumatic aortic stenosis Obstructive chronic bronchitis History of radioactive iodine thyroid ablation Ocular histoplasmosis syndrome of left eye Obesity Glaucoma GERD (gastroesophageal reflux disease) Diabetic peripheral neuropathy Benign neoplasm of rectum Hypothyroidism Hyperlipidemia Essential (primary) hypertension Type 2 diabetes mellitus Home Medications ?Medication ?Instructions ?Recorded ?Last Taken ?Type aspirin 81 mg tablet,delayed 81 mg PO DAILY 05/11/18 11/24/24 History release (Adult Aspirin Regimen) latanoprost 0.005 % eye drops 1 drp ophthalmic (eye) QPM 05/11/18 Unknown History (Xalatan) levothyroxine 125 mcg capsule 125 mcg PO DAILY 05/11/18 Unknown History pioglitazone 45 mg tablet (Actos) 45 mg PO DAILY 05/11/18 Unknown History timolol maleate 0.5 % once daily 1 drp ophthalmic (eye) BID 05/11/18 Unknown History eye drops (Istalol) omega-3 fatty acids 1,000 mg 1,000 mg PO BID 12/10/19 Unknown History capsule (Fish Oil Concentrate) cholecalciferol (vitamin D3) 50 50 mcg PO DAILY 10/01/20 Unknown History mcg (2,000 unit) tablet linagliptin 5 mg tablet (Tradjenta) 2.5 mg PO DAILY 10/01/20 11/24/24 History cyanocobalamin (vitamin B-12) 1,000 mcg PO BID 12/13/22 Unknown History 1,000 mcg capsule folic acid 1 mg tablet 1 mg PO DAILY 12/13/22 Unknown History simvastatin 20 mg tablet 20 mg PO DAILY 12/13/22 Unknown History copper gluconate 2 mg tablet 2 mg PO QDAY 10/24/24 Unknown History dexamethasone 0.5 mg/5 mL oral 0.5 mg PO QDAY 11/19/24 Unknown History solution Allergy/AdvReac Type Severity Reaction Status Date / Time sitagliptin (From ) AdvReac myalgia Verified 11/28/24 08:15 Family History Mother Myocardial infarction Diabetes Heart disease Father CVA (cerebral vascular accident) Cancer lung Sister Heart disease Surgical History History of colonoscopy (12/20/16) History of colonoscopy with polypectomy (12/30/03) Social History Smoking Status: Former smoker how long ago did patient quit smokin years, smoked a pipe alcohol intake: current alcohol intake frequency: holidays/special occasions only substance use type: does not use caffeine: Yes what type of physical activity do you participate in: none frequency: does not exercise Review of Systems (Anesthesia) ROS Narrative System reviewed and no additional complaints, except as documented.
--- NOTE | 2024-11-28 08:48 | PCM.HP.STD ---
HPI - General General Date of Admission: 11/28/24 Date of Service: 11/28/24 Chief Complaint: Diarrhea HPI Narrative JOSE BRYANT, is a 79 M who presents with the Chief Complaint: Loose stool I established October 2024 with chronic diarrhea for brian past 6-8 months associated with nausea and abdominal pain. last colonoscopy 5-6 years ago. US with elastography NO TO MILD HEPATIC FIBROSIS Diffuse thickening of the fundal portion of the gallbladder wall with evidence of a small cyst. Biochemical work up; celiac and food allergens positive OV 9.9.25 patient here today for follow-up to review results of testing. He continues to have daily loose stool. He endorses that this has been happening for 20 years. He notes that his daughter and granddaughter have celiac disease. [facility] Medical History Wears glasses Low iron Gastric reflux Former smoker Kidney stones Leg cramps History of echocardiogram History of stress test Cardiology follow-up encounter Non-rheumatic aortic stenosis Obstructive chronic bronchitis History of radioactive iodine thyroid ablation Ocular histoplasmosis syndrome of left eye Obesity Glaucoma GERD (gastroesophageal reflux disease) Diabetic peripheral neuropathy Benign neoplasm of rectum Hypothyroidism Hyperlipidemia Essential (primary) hypertension Type 2 diabetes mellitus Home Medications ?Medication ?Instructions ?Recorded ?Last Taken ?Type aspirin 81 mg tablet,delayed 81 mg PO DAILY 05/11/18 11/24/24 History release (Adult Aspirin Regimen) latanoprost 0.005 % eye drops 1 drp ophthalmic (eye) QPM 05/11/18 Unknown History (Xalatan) levothyroxine 125 mcg capsule 125 mcg PO DAILY 05/11/18 Unknown History pioglitazone 45 mg tablet (Actos) 45 mg PO DAILY 05/11/18 Unknown History timolol maleate 0.5 % once daily 1 drp ophthalmic (eye) BID 05/11/18 Unknown History eye drops (Istalol) omega-3 fatty acids 1,000 mg 1,000 mg PO BID 12/10/19 Unknown History capsule (Fish Oil Concentrate) cholecalciferol (vitamin D3) 50 50 mcg PO DAILY 10/01/20 Unknown History mcg (2,000 unit) tablet linagliptin 5 mg tablet (Tradjenta) 2.5 mg PO DAILY 10/01/20 11/24/24 History cyanocobalamin (vitamin B-12) 1,000 mcg PO BID 12/13/22 Unknown History 1,000 mcg capsule folic acid 1 mg tablet 1 mg PO DAILY 12/13/22 Unknown History simvastatin 20 mg tablet 20 mg PO DAILY 12/13/22 Unknown History copper gluconate 2 mg tablet 2 mg PO QDAY 10/24/24 Unknown History dexamethasone 0.5 mg/5 mL oral 0.5 mg PO QDAY 11/19/24 Unknown History solution Allergy/AdvReac Type Severity Reaction Status Date / Time sitagliptin (From Mar) AdvReac myalgia Verified 11/28/24 08:15 Family History Mother Myocardial infarction Diabetes Heart disease Father CVA (cerebral vascular accident) Cancer lung Sister Heart disease Surgical History History of colonoscopy (12/20/16) History of colonoscopy with polypectomy (12/30/03) Social History Smoking Status: Former smoker how long ago did patient quit smokin years, smoked a pipe alcohol intake: current alcohol intake frequency: holidays/special occasions only substance use type: does not use caffeine: Yes what type of physical activity do you participate in: none frequency: does not exercise ROS Constitutional Constitutional: Denies fatigue, fever(s), poor appetite, weight gain or weight loss Gastrointestinal Gastrointestinal: Denies belching, bloating, change in bowel habits, change in stool character, chewing difficulty, coffee ground emesis, constipation, cramping, diarrhea, dyspepsia, dysphagia, early satiety, excessive flatus, fecal incontinence, heartburn, hematemesis, hematochezia, hemorrhoids, loose stools, melena, nausea, odynophagia, rectal bleeding, tenesmus, vomiting or weight changes Vital Signs Vital Signs Vital Signs: 11/28/24 08:16 11/28/24 08:16 11/28/24 08:38 Temperature 97.8 F 97.8 F Temperature Source Temporal Pulse Rate 74 74 Respiratory Rate 16 16 Respiratory Pattern Normal Blood Pressure 141/85 H 141/85 H Blood Pressure Mean 103 Blood Pressure Source Monitor Blood Pressure Position Sitting Blood Pressure Location Left Arm Pulse Ox 100 100 Oxygen Delivery Method Room Air Room Air Weight Weight: 211 lb 10.3 oz Body Mass Index (BMI) 31.2 Physical Exam Const alert, oriented x3, no apparent distress and healthy appearing General Appearance: cooperative GI normal to inspection, nondistended, normoactive bowel sounds, soft to palpation, non-tender and non-distended Percussion: normal to percussion Rectal Exam: deferred Assessment & Plan Assessment/Plan (1) Diarrhea: PLAN: Assessment and Plan Assessment and Plan (1) Diarrhea: Status: Acute Plan: Jose is a 79-year-old male patient who established with GI office for chronic diarrhea for the past 20 years. Patient underwent extensive biochemical workup which revealed numerous food allergies and celiac disease. Patient had class III allergy to shrimp and egg white. Patient notes that his daughter believes she has celiac. He was advised to avoid shrimp, egg, peanut butter and gluten. He is already scheduled for upper endoscopy and will have evaluation of his duodenum for celiac disease. He continues to have daily diarrhea. Stool testing was positive for blood but negative for inflammation. He prefers to hold off for on colonoscopy at this time. We may consider colonoscopy in the future if diarrhea is refractory to diet change. - Recommend gluten-free diet - Avoid shrimp, peanut butter and egg white - Proceed with EGD - Consider colonoscopy
--- NOTE | 2024-11-28 09:00 | EGD_PTH ---
PATIENT: MEG BRYANT LOC: EN U#:[id number] AGE/SX: 79/M ROOM: RE11/28/[address]: Dr. Caleb Allen DO : 1945 BED: DIS: 11/28/2024 SPEC #: [id number] RECD: 11/28/24 09:37 STATUS: DONA TOMAS #: [id number] MUNDO: 11/28/24 09:[address]: Caleb Allen DEPT: SURGICAL PATHOLOGY RECD BY: Pepito Hansen ENTERED: 11/28/24 10:32 SP TYPE: EGD BIOPSY RONALD DR: Dr. Wiliam Ross MD Tissues: A - Duodenum, NOS Procedures: Surgery Specimen Level IV HEADER OPERATION: EGD, biopsy PRE-OP DIAGNOSIS: Abdominal pain TISSUE SUBMITTED: A- Duodenal ulcer biopsy MICROSCOPIC DIAGNOSIS A. Duodenum, ulcer, biopsy: * Focal granulation tissue consistent with erosion/ulceration. * [place] gland hyperplasia, gastric mucin cell metaplasia and focal acute inflammation, suggestive of peptic injury. * Negative for increased intraepithelial lymphocytes. MICROSCOPIC DESCRIPTION Slides are reviewed. GROSS DESCRIPTION A. Received in fixative is one container labeled with the patient's name and designated Duodenal ulcer biopsy. The specimen consists of three irregular fragments of light gallegos soft tissue, each measuring 0.5 cm. The specimen is totally submitted in one cassette. [place] 11/28/2024 CPT:[id number]
--- NOTE | 2024-11-28 09:14 | PCM.POST.ANE ---
Anesthesia: Postop Eval I Current Vital Signs Temperature: 97.6 F Pulse Rate: 68 Blood Pressure: 104/50 Respiratory Rate: 16 Pulse Ox: 98 Oxygen Delivery Method: Room Air Assessment Airway patent: Yes Spontaneous unlabored respirations: Yes Mental status: Awake and Calm nausea: No Vomiting: No Anesthesia Complication: No Fluid Hydration Crystalloid volume administer (ml): 200 Total IV fluid infused: 200 Progress Note Anesthesia document: Postop Eval 1 completed: Yes
--- NOTE | 2024-11-28 09:16 | OP.PROVAT_ITS ---
11/28/2024 Wiliam Ross MD Re : Upper GI endoscopy procedure for Jose Landrum Dear Dr. Ross This procedure was performed on November. My impressions and recommendations are as follows: Impressions : - Normal esophagus. - Normal stomach. - Non-bleeding duodenal ulcer with no stigmata of bleeding. Biopsied. Recommendations : - Discharge patient to home. - Resume previous diet. - Continue present medications. - Await pathology results. - Use Protonix (pantoprazole) 40 mg PO BID. My findings are described in the full procedure note, which is enclosed. If I can be of further assistance, please feel free to contact me at . Sincerely, Caleb Allen, 11/28/2024 9:15:52 AM This report has been signed electronically.
--- NOTE | 2024-11-28 09:16 | OP.EGD_ITS ---
Patient Name: Jose Landrum Procedure Date: 11/28/2024 8:55 AM Date of : 1945 Age: 79 Procedure: Upper GI endoscopy Indications: Epigastric abdominal pain, Abdominal pain in the left upper quadrant Providers: Caleb Allen DO Referring MD: Wiliam Ross MD Medicines: Monitored Anesthesia Care Patient Profile: This is a 79 year old male. Refer to note in patient chart for documentation of history and physical. Patient has symptoms of acute left upper quadrant abdominal pain and acute epigastric abdominal pain. Complications: No immediate complications. Procedure: Pre-Anesthesia Assessment: - Prior to the procedure, a History and Physical was performed, and patient medications and allergies were reviewed. The patient is competent. The risks and benefits of the procedure and the sedation options and risks were discussed with the patient. All questions were answered and informed consent was obtained. Patient identification and proposed procedure were verified by the physician in the pre-procedure area. Mental Status Examination: alert and oriented. Airway Examination: normal oropharyngeal airway and neck mobility. Respiratory Examination: clear to auscultation. CV Examination: normal. Prophylactic Antibiotics: The patient does not require prophylactic antibiotics. Prior Anticoagulants: The patient has taken no anticoagulant or antiplatelet agents except for NSAID medication. ASA Grade Assessment: II - A patient with mild systemic disease. After reviewing the risks and benefits, the patient was deemed in satisfactory condition to undergo the procedure. The anesthesia plan was to use monitored anesthesia care (MAC). Immediately prior to administration of medications, the patient was re-assessed for adequacy to receive sedatives. The heart rate, respiratory rate, oxygen saturations, blood pressure, adequacy of pulmonary ventilation, and response to care were monitored throughout the procedure. The physical status of the patient was re-assessed after the procedure. After obtaining informed consent, the endoscope was passed under direct vision. Throughout the procedure, the patient's blood pressure, pulse, and oxygen saturations were monitored continuously. The gastroscope was introduced through the mouth, and advanced to the fourth part of the duodenum. Small bowel enteroscopy was deemed necessary. The upper GI endoscopy was accomplished without difficulty. The patient tolerated the procedure well. Scope In: 9:02:12 AM Scope Out: 9:06:56 AM Total Procedure Duration Time 0 hours 4 minutes 44 seconds Findings: The examined esophagus was normal. The entire examined stomach was normal. One non-bleeding cratered duodenal ulcer with no stigmata of bleeding was found in the first portion of the duodenum. The lesion was 20 mm in largest dimension. Biopsies were taken with a cold forceps for histology. Verification of patient identification for the specimen was done. Estimated blood loss was minimal. Impression: - Normal esophagus. - Normal stomach. - Non-bleeding duodenal ulcer with no stigmata of bleeding. Biopsied. Recommendation: - Discharge patient to home. - Resume previous diet. - Continue present medications. - Await pathology results. - Use Protonix (pantoprazole) 40 mg PO BID. Procedure Code(s): --- Professional --- 08705, Small intestinal endoscopy, enteroscopy beyond second portion of duodenum, not including ileum; with biopsy, single or multiple CPT copyright 2021 [employer]. All rights reserved. The codes documented in this report are preliminary and upon jointer machine review may be revised to meet current compliance requirements. Caleb Allen DO 11/28/2024 9:15:52 AM This report has been signed electronically. Number of Addenda: 0 Note Initiated On: 11/28/2024 8:55 AM
--- NOTE | 2024-11-28 12:50 | POSTOPAN2_ITS ---
Anesthesia Postop Eval I Sum Postop Eval Completion status Anesthesia document: Postop Eval 1 completed: Yes Anesthesia Postop Eval I Summary Anesthesia Postop Eval I Summary: Anesthesia Postop Eval I: Assessment Summary Airway patent Yes 11/28/24 09:14 [email or web address] Spontaneous unlabored Yes 11/28/24 09:14 [email or web address] [email or web address] respirations Mental status Awake,Calm 11/28/24 09:14 [email or web address] [email or web address] nausea No 11/28/24 09:14 PRINTING [email or web address] Vomiting No 11/28/24 09:14 [email or web address] Anesthesia Postop Eval I: Fluid Summary Crystalloid volume administer 200 11/28/24 09:14 [email or web address] (ml) Colloids volume administered ( ml) Blood Product volume administered (ml) Total IV fluid infused 200 11/28/24 09:14 [email or web address] [email or web address] Anesthesia Postop Eval I: Summary Notes Anesthesia Complication No 11/28/24 09:14 [email or web address] [email or web address] Anesthesia Complication Comment: Post-operative progress note Anesthesia: Postop Eval II Evaluation Mental status: Awake and Calm Pain Level: 0 nausea: No Vomiting: No Complications Anesthesia Complication: No
--- NOTE | 2024-11-28 12:50 | PCM.POSTANE2 ---
Anesthesia Postop Eval I Sum Postop Eval Completion status Anesthesia document: Postop Eval 1 completed: Yes Anesthesia Postop Eval I Summary Anesthesia Postop Eval I Summary: Anesthesia Postop Eval I: Assessment Summary Airway patent Yes 11/28/24 09:14 HAND II [email or web address] Spontaneous unlabored Yes 11/28/24 09:14 HAND II [email or web address] respirations Mental status Awake,Calm 11/28/24 09:14 HAND II [email or web address] nausea No 11/28/24 09:14 HAND II THERMAL [email or web address] Vomiting No 11/28/24 09:14 HAND II [email or web address] Anesthesia Postop Eval I: Fluid Summary Crystalloid volume administer 200 11/28/24 09:14 HAND II [email or web address] (ml) Colloids volume administered ( ml) Blood Product volume administered (ml) Total IV fluid infused 200 11/28/24 09:14 HAND II [email or web address] [email or web address] Anesthesia Postop Eval I: Summary Notes Anesthesia Complication No 11/28/24 09:14 HAND II [email or web address] [email or web address] Anesthesia Complication Comment: Post-operative progress note Anesthesia: Postop Eval II Evaluation Mental status: Awake and Calm Pain Level: 0 nausea: No Vomiting: No Complications Anesthesia Complication: No
== END 2024-11-28 09:57 | disposition home or self-care (01) ==
LOC: EN 07:51 → AC 07:53
PROVIDERS: PCP Family Medicine; Referring Provider Family Medicine; Visit Provider Internal Medicine Gastroenterology
PROC: 0DJ08ZZ Inspection of Upper Intestinal Tract, Via Natural or Artificial Opening Endoscopic (ICD-10-PCS; CPT 43235; principal; 2024-11-28 08:55)
DX: K31.A19 Gastric intestinal metaplasia without dysplasia, unspecified site (principal); E11.42 Type 2 diabetes mellitus with diabetic polyneuropathy; E78.5 Hyperlipidemia, unspecified; Z87.891 Personal history of nicotine dependence; K26.9 Duodenal ulcer, unspecified as acute or chronic, without hemorrhage or perforation; Z79.82 Long term (current) use of aspirin; I10 Essential (primary) hypertension; K21.9 Gastro-esophageal reflux disease without esophagitis; K29.80 Duodenitis without bleeding
CPT/HCPCS: 44361; 82962; 88305; J2405

== ENCOUNTER → 2025-01-09 | Outpatient (CLI) | payer MEDICARE, OTHER, SELFPAY ==
--- NOTE | 2025-01-09 19:47 | STRESSREP_ITS ---
Stress Test Report
--- NOTE | 2025-01-09 19:47 | STRESSREP ---
Stress Test Report Pharmacologic myocardial perfusion stress test. 79-year-old man with a history of dyspnea on exertion. Resting EKG demonstrates normal sinus rhythm with a rate of 68 bpm. Premature ventricular complexes. Resting blood pressure is 128/74 mmHg. 0.4 mg of regadenoson was infused per usual protocol followed by rapid intravenous saline flush injection. Continuous EKG monitoring was performed. The maximum heart rate was 122 bpm which was 85% of max impacted heart rate the maximum workload was 1 metabolic equivalent. At rest there were no ST or T wave changes noted to suggest ischemia and at peak infusion nonspecific ST changes were noted which did not meet the criteria for ischemia. No clinical angina is noted. The final blood pressure was 108/60 mmHg. Myocardial perfusion protocol. 8.8 mCi of technetium 99m sestamibi was injected at rest. 0.4 mg of regadenoson was infused per usual protocol. At peak infusion 33.3 mCi of technetium 99m sestamibi was injected stress images were obtained stress and rest images were reconstructed and compared in the short axis vertical long and horizontal long axis. Gated images were also obtained. Perfusion SPECT analysis: Review of the stress images demonstrate normal uptake of tracer noted in all areas of the myocardium. The resting images similar demonstrated normal uptake of tracer noted in all areas of the myocardium. No areas of reversibility are noted to suggest ischemia and no previous infarct is noted. Gated SPECT analysis: The gated ejection fraction is 43%. Conclusion: Normal pharmacologic myocardial perfusion stress test. Mildly reduced ejection fraction.
== END | disposition home or self-care (01) ==
PROVIDERS: PCP Family Medicine; Referring Provider Family Medicine; Visit Provider Family Medicine
DX: R06.02 Shortness of breath (principal); R06.09 Other forms of dyspnea; R53.83 Other fatigue
CPT/HCPCS: 78452; 93017; A9500; A4216; J2785

== ENCOUNTER → 2025-01-23 | Outpatient (CLI) | payer MEDICARE, OTHER, SELFPAY ==
--- NOTE | 2025-01-23 14:53 | RAD_ITS ---
PROCEDURE: CHEST PA AND LATERAL 01/23/2025 REASON FOR EXAM: CARDIAC CATH TECHNIQUE: Procedure Code: RADCXR Modality: DX Procedure: CHEST PA AND LATERAL COMPARISON: None FINDINGS: Hardware: None Heart: Heart size and configuration are within normal limits. Arteriosclerotic vascular disease of the aorta is noted. Mediastinum: Mediastinal silhouette is unremarkable. Lungs: Trachea is midline. There is a small left pleural effusion with adjacent compressive atelectasis of the lung base. Left upper lung field is clear. There is fluid in the major fissure. There is no pneumothorax, atelectasis, consolidation, effusion or pneumonic infiltrate of the right lung. Bones: Bony demineralization of the bony thorax is noted. Spondylosis of the thoracic spine is noted. RAD/Chest PA and Lateral IMPRESSION: Small left pleural effusion with adjacent compressive atelectasis of the left l jessica base Arteriosclerotic vascular disease of the aorta. Reading Location: [id number]
[2025-01-23 16:22] LABS: Hematocrit 34.6 % (40-54); Hemoglobin 10.7 g/dL (13.0-16.5); Immature Granulocytes Count 0.020 X10^3/uL (0.0-0.0); Mean Corp Hgb Conc 30.9 g/dL (32-36); Mean Corpuscular Volume 106.1 fL (80-94); Mean Platelet Vol. 11.1 fl (6.2-12.0); NRBC Flagged by Analyzer 0 % (0-5); Platelet Count 177 K/mm3 (150-450); RBC Distribution Width CV 13.3 % (11.6-14.6); RBC Distribution Width SD 52.3 fl (35.1-43.9); Red Blood Count 3.26 M/mm3 (4.6-6.2); White Blood Count 7.1 K/mm3 (4.4-11.0)
[2025-01-23 17:00] LABS: Anion Gap 10 (5-15); BUN 17 mg/dL (4-19); BUN/Creat Ratio 9.7 RATIO (10-20); Calcium,Total 8.6 mg/dL (7.6-11.0); Carbon Dioxide 24.7 mmol/L (21.0-32.0); Chloride 111 mmol/L (98-108); Glucose 166 mg/dL (70-99); Potassium 4.0 mmol/L (3.3-5.1); Pro- Brain NATRIURETIC PEPTIDE 14288 pg/mL (<=1800)
== END | disposition home or self-care (01) ==
LOC: RAD 14:52
PROVIDERS: PCP Family Medicine; Referring Provider Nurse Practitioner Gerontology; Visit Provider Nurse Practitioner Gerontology
DX: I35.0 Nonrheumatic aortic (valve) stenosis (principal); R06.02 Shortness of breath
CPT/HCPCS: 36415; 71046; 80048; 83880; 85025

== ENCOUNTER 2025-02-17 06:46 | Day surgery (SDC) | payer MEDICARE, OTHER, SELFPAY ==
[2025-02-03 15:23] LABS: Anion Gap 14 (5-15); BUN 23 mg/dL (4-19); BUN/Creat Ratio 12.3 RATIO (10-20); Calcium,Total 8.1 mg/dL (7.6-11.0); Carbon Dioxide 22.6 mmol/L (21.0-32.0); Chloride 105 mmol/L (98-108); Glucose 257 mg/dL (70-99); Potassium 4.0 mmol/L (3.3-5.1); Pro- Brain NATRIURETIC PEPTIDE 10409 pg/mL (<=1800)
[2025-02-14 08:10] VITALS: BMI 31.6
--- OUTSIDE RECORDS SUMMARY | 2025-02-17 06:51 | XMS RPT_ITS | CCD ---
Author Organization [facility] Care Team Providers Care Knife Edger Name Role Phone Wiliam Mandel MD Primary Care Provider Eden Dove MD Unavailable [phone] Dr. Wiliam Mandel Primary Care Provider Dr. Wiliam Mandel Referring Provider Dr. Donald Holder Attending Provider DARNELL Ramirez NP Attending Provider Wiliam Mandel MD Primary Care Provider Eden Dove MD R Unavailable Wiliam Mandel MD Primary Care Provider Wiliam Mandel MD Primary Care Provider Brianna CARMONA.Nima MALAVE Unavailable Lilliam Monaco PA-C Unavailable Brianna CARMONA.ANANDA, Nima Unavailable Lilliam Monaco PA-C Unavailable Dr. Wiliam Mandel MD Primary Care Provider Dr. Wiliam Mandel MD Referring Provider Dr. Caleb Allen DO Attending Provider Dr. Caleb Allen DO Referring Provider Dr. Lisa Dove MD Attending Provider Dr. Lisa Dove MD Referring Provider Eden Dove MD R Unavailable Alice Alvarado Attending Provider [phone] Dr. Wiliam Mandel MD Primary Care Physician Dr. Caleb Allen DO Attending Physician Petty CHAMBERLAIN, Dr. Gonzalez Attending Physician Alice Alvarado Attending Physician [phone] Dr. Caleb Allen DO Nurse Practitioner MINISTERIO, WILIAM A Primary Care Unavailable MASCI, A Referring Unavailable MINISTERIO, WILIAM A Primary Care Unavailable MASCI, A Referring Unavailable MINISTERIO, WILIAM A Referring Unavailable MINISTERIO, WILIAM A Primary Care Unavailable MINISTERIO, WILIAM A Referring Unavailable MINISTERIO, WILIAM A Primary Care Unavailable NIMA HOBBS Attending Unavailable MINISTERIO, WILIAM A Primary Care Unavailable MINISTERIO, WILIAM A Referring Unavailable MINISTERIO, WILIAM A Primary Care Unavailable MINISTERIO, WILIAM A Attending Unavailable MINISTERIO, WILIAM A Primary Care Unavailable MINISTERIO, WILIAM A Primary Care Unavailable MASCI, A Attending Unavailable MINISTERIO, WILIAM A Primary Care Unavailable MINISTERIO, WILIAM A Primary Care Unavailable MASCI, A Referring Unavailable MINISTERIO, WILIAM A Primary Care Unavailable MASCI, A Referring Unavailable MINISTERIO, WILIAM A Primary Care Unavailable MASCI, A Referring Unavailable MINISTERIO, WILIAM A Attending Unavailable MINISTERIO, WILIAM A Primary Care Unavailable Ministerio, Wiliam Referring Unavailable Stacy Ramsey Attending Unavailable Ministerio, Wiliam Primary Care Unavailable Ministerio, Wiliam Referring Unavailable Ministerio, Wiliam Primary Care Unavailable Caleb Allen Consulting Unavailable Caleb Allen Attending Unavailable Ministerio, Wiliam Referring Unavailable Ministerio, Wiliam Consulting Unavailable Donald Holder Attending Unavailable Ministerio, Wiliam Primary Care Unavailable Ministerio, Wiliam Primary Care Unavailable Caleb Allen Attending Unavailable Caleb Allen Referring Unavailable MinisterioWiliam fung Attending Unavailable Ministerio, Wiliam Referring Unavailable Ministerio, Wiliam Primary Care Unavailable Lisa Dove Referring Unavailable Ministerio, Wiliam Primary Care Unavailable Lisa Dove Attending Unavailable Ministerio, Wiliam Primary Care Unavailable Caleb Allen Referring Unavailable FriendCaleb Attending Unavailable Ministerio, Wiliam Primary Care Unavailable FriendCaleb Attending Unavailable FriendCaleb Referring Unavailable Wiliam Mandel Referring Unavailable Wiliam Mandel Primary Care Unavailable Friend, Caleb Attending Unavailable Wiliam Mandel Primary Care Unavailable Wiliam Mandel Referring Unavailable Friend, Caleb Attending Unavailable Alice Trejo Attending Unavailable Wiliam Mandel Referring Unavailable Wiliam Mandel Primary Care Unavailable Allergies Allergy Classification Reported Allergen(s) Allergy Type Date of Onset Reaction(s) Facility (20 sources) SITagliptin; Translations: [SITAGLIPTIN] Drug Allergy 12-01-[address] [facility] Work Phone: (1 source) SITagliptin Drug Allergy 11-28-2024 [facility] Medications Current Medications Medication Drug Class(es) Dates Sig (Normalized) Sig (Original) acetaminophen 325 mg / HYDROcodone bitartrate 5 mg oral tablet (2 sources) Opioid Agonist Start: 05-22-2024 End: 05-29-2024 take 1 tablet by mouth every six hours as needed for pain HYDROcodone-acet aminophen (NORCO) 5-325 mg per tablet Indications: Kidney stone Take 1 tablet by mouth every 6 hours as needed for pain for up to 7 days. 15 tablet 05/22/2024 05/29/2024 Active amoxicillin 875 mg / clavulanate 125 mg oral tablet (1 source) Penicillin-class Antibacterial Start: 01-31-2023 End: 02-07-2023 take 1 tablet by mouth twice daily amoxicillin-clav ulanate potassium (AUGMENTIN) 875-125 mg per tablet Indications: Acute otitis media, right Take 1 tablet by mouth two times a day for 7 days. 14 tablet 0 01/31/2023 02/07/2023 Active Comment on above: Take 1 tablet by annita th two times a day for 7 days. aspirin 81 mg delayed release oral tablet (20 sources) Platelet Aggregation Inhibitor, Nonsteroidal Anti-inflammatory Drug Start: 05-11-2018 take 1 tablet by mouth once daily Start: 10-24-2005 take 1 tablet by annita th once daily ASPIRIN 81 MG TAB Take 81 mg by mouth once daily. 0 10/24/2005 Active Comment on above: Take one(1) tablet d ailjn. cholecalciferol 0.05 mg oral tablet (20 sources) Vitamin D Start: 10-01-2020 take 1 tablet by mouth once daily take 1 tablet by mouth once alize y cholecalciferol (VITAMIN D3) 50 mcg (2,000 unit) tablet Take 2,000 Units by mouth once daily. Active Comment on above: Take 2,000 Units by mouth once daily. copper citrate 2 mg capsule (20 sources) take 1 capsule by mouth once daily copper citrate 2 mg capsule Take 2 mg by mouth once daily. Active take 1 capsule by mouth once tyler ly copper citrate 2 mg capsule Take 2 mg by mouth once daily. 0 Active take 1 capsule by mouth twice da scooter copper citrate 2 mg capsule Take 2 mg by mouth twice daily. 0 Active Comment on above: Take 2 mg by mouth t wice daily. Take 2 mg by mouth o nce daily. copper gluconate 2 mg oral tablet (7 sources) Start: 10-24-2024 take 1 tablet by mouth once daily dexamethasone 0.1 mg/ml oral solution (17 sources) Corticosteroid Start: 11-19-2024 take 0.5 mg by mouth once daily End: 11-22-2022 dexAMETHasone (DECADRON) 0.5 mg/5 mL mouthwash Swish & spit 0.5oz by mouth 3-4 times daily as needed. 0 11/22/2022 Discontinued Comment on above: Swish & spit 0.5oz b y mouth 3-4 times daily as needed. DOCOSAHEXANOIC ACID/EPA (FISH OIL ORAL) (20 sources) take 1000 mg by mouth once daily DOCOSAHEXANOIC ACID/EPA (FISH OIL ORAL) Take 1,000 mg by mouth once daily. Active take 1000 mg by mouth once daily DOCOSAHEXANOIC ACID/EPA (FISH OIL ORAL) Take 1,000 mg by mouth once daily. 0 Active take 1000 mg by mouth twice alize y DOCOSAHEXANOIC ACID/EPA (FISH OIL ORAL) Take 1,000 mg by mouth twice daily. 0 Active Comment on above: Take 1,000 mg by annita th twice daily. Take 1,000 mg by annita th once daily. doxycycline hyclate 100 mg oral tablet (1 source) Tetracycline-class Drug Start: 03-13-19 End: 03-20-19 24 take 1 tablet by mouth twice daily doxycycline (VIBRA-TABS) 100 mg tablet Take 1 tablet by mouth two times a day for 7 days. 14 tablet 0 03/13/2023 03/20/2023 Active Comment on above: Take 1 tablet by annita two times a day for 7 days. fluticasone propionate 0.05 mg/actuat metered dose nasal spray (20 sources) Corticosteroid Start: 03-13-19 End: 11-27-19 25 take 1 spray(s) nasal route once daily fluticasone (FLONASE ALLERGY RELIEF) 50 mcg/actuation nasal spray Use 1 [place] in each nostril once daily. 11.1 mL 11/22/2023 11/26/2024 Discontinued Start: 06-25-2018 End: 11-22-2023 take 2 spray(s) by mouth once daily fluticasone (FLONASE) 50 mcg/actuation nasal spray Indications: Dizziness , Dysfunction of both eustachian tubes Use 2 Sprays in each nostril once daily. Rinse mouth after use. 1 Bottle 1 06/25/2018 11/22/2023 Discontinued (Duplicate Entry) Comment on above: Use 2 Sprays in each nostril once daily. Rinse mouth after use. Use 1 Vilas in each nostril once daily. folic acid 1 mg oral tablet (20 sources) Start: 3 End: 5 take 1 tablet by mouth once daily Comment on above: Take 1 tablet by annita once daily. 12 hr guaiFENesin 600 mg extended release oral tablet (1 source) Start: 4 End: 4 take 1 tablet by mouth twice daily as needed guaiFENesin (MUCINEX) 600 mg 12 hr tablet Take 1 tablet by mouth two times a day as needed for cold/allergy symptoms (cough) for up to 7 days. 14 tablet 0 03/13/2023 03/20/2023 Active Comment on above: Take 1 tablet by annita two times a day as needed for cold/allergy symptoms (cough) for up to 7 days. latanoprost 0.05 mg/ml ophthalmic solution (20 sources) Prostaglandin Analog Start: 9 Start: 01-24-2006 take 1 drop(s) into the eye(s) at bedtime XALATAN 0.005 % EYE DROPS one drop each at bedtime 0 01/24/2006 Active Comment on above: one drop each at bed time levothyroxine sodium 0.125 mg oral tablet (20 sources) l-Thyroxine Start: 1 End: 5 take 1 tablet by mouth once daily levothyroxine (SYNTHROID) 125 mcg tablet Take 1 tablet by mouth once daily. 90 tablet 1 08/19/2024 Active Start: 05-11-2018 take 1 capsule by mouth once d aily Comment on above: Take 1 tablet by annita th once daily. linagliptin 5 mg oral tablet (20 sources) Dipeptidyl Peptidase 4 Inhibitor Start: 4 End: 5 take 1 tablet by mouth once daily linaGLIPtin (TRADJENTA) 5 mg tab Indications: type 2 diabetes mellitus Take 1 tablet by mouth once daily. 90 tablet 1 05/01/2024 Active Start: 03-24-2021 End: 11-11-2021 take 1 tablet by mouth once daily linaGLIPtin (TRADJENTA) 5 mg tab Indications: type 2 diabetes mellitus Take 1 tablet by mouth once daily. 90 tablet 1 03/24/2021 11/11/2021 Discontinued Start: 10-01-2020 Start: 05-11-2018 End: 10-01-2020 take 1 tablet by mouth once daily Linagliptin (Tradjenta) 5 mg tablet Discontinued 5 mg PO DAILY May 11, 2018 1:00am October 01, 2020 12:42pm Comment on above: Take 1 tablet by annita once daily. methylPREDNISolone (5 sources) Corticosteroid Start: 2023 End: 2023 methylPREDNISolone (MEDROL, SAMEER,) 4 mg Dose-Pack Follow dosing instructions, take with food. 21 tablet 12/08/2023 12/14/2023 Active Harleigh-3 Fatty Acids (Fish Oil Concentrate) 1,000 mg capsule (9 sources) Start: 2019 take 1 capsule by mouth twice daily Start: 12-10-2019 take 1 capsule by mo uth twice daily Harleigh-3 Fatty Acids (Fish Oil Concentrate) 1,000 mg capsule Active 1000 mg PO TWICE A DAY December 10, 2019 12:00am Start: 12-10-2019 take 1 capsule by mo uth twice daily Harleigh-3 Fatty Acids (Fish Oil Concentrate) 1,000 mg capsule Active 1000 MG PO TWICE A DAY December 09, 2019 11:00pm Start: 12-10-2019 take 1 capsule by mo [facility] twice daily Harleigh-3 Fatty Acids (Fish Oil Concentrate) 1,000 mg capsule Active 1000 MG PO TWICE A DAY December 10, 2019 12:00am pantoprazole 40 mg delayed release oral tablet (1 source) Proton Pump Inhibitor Start: 11-28-2024 take 1 tablet by mouth twice daily pioglitazone 45 mg oral tablet (20 sources) Peroxisome Proliferator Receptor alpha Agonist, Peroxisome Proliferator Receptor gamma Agonist, Thiazolidinedione Start: 05-11-2018 End: 11-18-2024 take 1 tablet by mouth once daily Comment on above: [facility] simvastatin 20 mg oral tablet (20 sources) HMG-CoA Reductase Inhibitor Start: 03-24-2021 End: 10-13-2023 take 1 tablet by mouth once daily simvastatin (ZOCOR) 20 mg tablet Take 1 tablet by mouth once daily. 90 tablet 1 07/30/2024 Active Start: 03-24-2021 End: 03-24-2021 take 1 tablet by mouth every other day simvastatin (ZOCOR) 20 mg tablet Take 1 tablet by mouth every other day. 90 tablet 1 03/24/2021 03/24/2021 Discontinued (Dosage adjustment) Start: 12-08-2020 End: 12-13-2022 Simvastatin 20 mg tablet Discontinued 40 mg PO .QODAY December 08, 2020 10:05am December 13, 2022 11:34am Start: 12-08-2020 End: 12-13-2022 Simvastatin Discontinued 40 MG PO .QODAY December 08, 2020 9:05am December 13, 2022 10:34am Start: 05-11-2018 End: 12-08-2020 Simvastatin 20 mg tablet Discontinued 20 mg PO .QODAY October 01, 2020 12:40pm December 08, 2020 10:06am Comment on above: [facility] Timolol Maleate (20 sources) beta-Adrenergic Aundrea Start: 05-11-2018 Start: 05-11-2018 Timolol Maleat e (Istalol) 0.5 % drops, once daily Active 1 NMA OPHTHALMIC TWICE A DAY May 11, 2018 1:00am Start: 05-11-2018 Timolol Maleat e (Istalol) 0.5 % drops, once daily Active 1 DRP OPHTHALMIC TWICE A DAY May 11, 2018 12:00am Start: 05-11-2018 Timolol Maleat e (Istalol) 0.5 % drops, once daily Active 1 DRP OPHTHALMIC TWICE A DAY May 11, 2018 1:00am Start: 12-14-2009 take 1 drop(s) into the eye(s) once daily timolol maleate (ISTALOL) 0.5 % OPHTHALMIC DrpD Use 1 Drop in the left eye once daily. 12/14/2009 Active Comment on above: One drop daily in le ft eye vitamin b12 1 mg oral tablet (20 sources) Vitamin B12 Start: 05-22-2024 take 1 tablet by mouth once daily cyanocobalamin (VITAMIN B-12) 1,000 mcg tab Take 1 tablet by mouth once daily. 05/22/2024 Active Start: 11-22-2023 End: 05-22-2024 take 1 tablet by mouth twice daily cyanocobalamin (VITAMIN B-12) 1,000 mcg tab Take 1 tablet by mouth two times a day. 11/22/2023 05/22/2024 Discontinued Start: 12-13-2022 take 1 capsule by mo ut twice daily Start: 05-11-2018 End: 12-13-2022 take 2 capsules by mouth once daily Cyanocobalamin (Vitamin B-12) 1,000 mcg capsule Discontinued 2000 ug PO DAILY May 11, 2018 1:00am December 13, 2022 11:34am Start: 05-11-2018 End: 12-13-2022 take 2000 ug by mouth once daily Cyanocobalamin (Vitamin B-12) Discontinued 2000 MCG PO DAILY May 11, 2018 12:00am December 13, 2022 10:34am Start: 10-21-2017 End: 11-22-2023 take 2 tablets by mouth once daily cyanocobalamin (VITAMIN B-12) 1,000 mcg tab Take 2 tablets by mouth once daily. 10/21/2017 11/22/2023 Discontinued (Adjust Sig - Block E-Cancel) Comment on above: Take 2 tablets by mo uth once daily. Completed/Discontinued Medications Medication Drug Class(es) Dates Sig (Normalized) Sig (Original) amLODIPine 2.5 mg oral tablet (20 sources) Dihydropyridine Calcium Channel Aundrea Start: 05-11-2018 End: 12-14-2023 take 1 tablet by mouth once daily Amlodipine 2.5 mg tablet Discontinued 2.5 mg PO DAILY May 11, 2018 1:00am December 14, 2023 11:26am Comment on above: Take 1 tablet by annita th once daily. colchicine 0.6 mg oral tablet (7 sources) Start: 04-12-2021 End: 08-12-2021 colchicine 0.6 mg tablet Indications: Acute wrist pain, right Take 2 tabs by mouth then take 1 tab 1 hour later. 3 tablet 0 04/12/2021 08/12/2021 Discontinued Comment on above: Take 2 tabs by mouth then take 1 tab 1 hour later. docosahexaenoic acid 100 mg oral capsule (7 sources) Start: 05-11-2018 End: 05-16-2018 Docosahexaenoic Acid 100 mg capsule Discontinued mg PO 0 May 11, 2018 1:00am May 16, 2018 12:18pm docosahexanoic acid 100 mg capsule (2 sources) Start: 05-11-2018 End: 05-16-2018 docosahexanoic acid 100 mg capsule Discontinued MG PO May 11, 2018 12:00am May 16, 2018 11:18am Start: 05-11-2018 End: 05-16-2018 docosahexanoic acid 100 mg c apsule Discontinued MG PO May 11, 2018 1:00am May 16, 2018 12:18pm enteric contrast (will be provided with radiology test) (1 source) Start: 03-24-2021 End: 03-24-2021 take 1 dose by mouth once, then take 1 dose by mouth once enteric contrast (will be provided with radiology test) Indications: LLQ pain Take 1 Each by mouth one time only for [address] ABD/PEL WO Routine order Administer, As Directed One Time Only, via Oral, Rectal, both Oral and Rectal, Enteric Tube, Stoma or Indwelling Catheter, Enteric Contrast as designated per enteric contrast guidelines 1 Each 03/24/2021 03/24/2021 lisinopril 10 mg oral tablet (20 sources) Angiotensin Converting Enzyme Inhibitor Start: 12-14-2023 End: 11-19-2024 take 2 tablets by mouth once daily Lisinopril 10 mg tablet Discontinued 20 mg PO DAILY December 14, 2023 11:24am November 19, 2024 1:34pm Start: 11-22-2023 End: 11-26-2024 take 1 tablet by mouth once daily lisinopril (ZESTRIL) 20 mg tablet Take 1 tablet by mouth once daily. 11/22/2023 11/26/2024 Discontinued Start: 11-22-2023 End: 11-22-2023 take 2 tablets by mouth once daily lisinopril (ZESTRIL) 10 mg tablet Take 2 tablets by mouth once daily. 11/22/2023 11/22/2023 Discontinued (Adjust Sig - Block E-Cancel) Start: 12-10-2019 End: 12-14-2023 take 1 tablet by mouth once daily Lisinopril 10 mg tablet Discontinued 10 mg PO DAILY December 10, 2019 12:00am December 14, 2023 11:26am Start: 05-16-2018 End: 12-10-2019 take 10 mg by mouth once daily Lisinopril 20 mg tablet Discontinued 10 mg PO DAILY May 16, 2018 12:16pm December 10, 2019 10:34am Start: 05-16-2018 End: 12-10-2019 take 10 mg by mouth once daily Lisinopril Discontinued 10 MG PO DAILY May 16, 2018 11:16am December 10, 2019 9:34am Start: 05-11-2018 End: 05-16-2018 take 1 tablet by mouth once daily Lisinopril 20 mg tablet Discontinued 20 mg PO DAILY May 11, 2018 1:00am May 16, 2018 12:18pm Comment on above: Take 1 tablet by annita th once daily. meclizine hydrochloride 12.5 mg oral tablet (9 sources) Antiemetic Start: 09-20-19 19 End: 08-13-19 22 take 1 tablet by mouth every six hours as needed for dizziness and dizziness meclizine (ANTIVERT) 12.5 mg tab Indications: Dizziness Take 1 tablet by mouth every 6 hours as needed (dizziness). 30 tablet 09/19/2018 08/12/2021 Discontinued Comment on above: Take 1 tablet by annita th every 6 hours as needed (dizziness). metFORMIN hydrochloride 1000 mg oral tablet (20 sources) Biguanide Start: 12-14-19 24 End: 10-25-19 25 Metformin 1,000 mg tablet Discontinued 500 mg PO ONCE December 14, 2023 11:25am October 24, 2024 1:01pm Start: 11-22-2022 End: 05-22-2024 take 1 tablet by mouth once daily at breakfast metFORMIN ER (GLUCOPHAGE XR) 500 mg 24 hr tablet Take 1 tablet by mouth daily with breakfast. 90 tablet 1 11/22/2023 05/22/2024 Discontinued (Discontinued by Patient) Start: 05-11-2018 End: 12-14-2023 take 1 tablet by mouth twice daily Metformin 1,000 mg tablet Discontinued 1000 mg PO TWICE A DAY May 11, 2018 1:00am December 14, 2023 11:26am Comment on above: Take 1 tablet by annita th twice daily. Take 1 tablet by annita th daily with breakfast. omeprazole 20 mg delayed release oral capsule (9 sources) Proton Pump Inhibitor Start: 2 End: 2 take 1 capsule by mouth once daily before breakfast omeprazole (PRILOSEC) 20 mg capsule Take 1 capsule by mouth daily before breakfast. 1/2 hr before meal. 90 capsule 03/24/2021 08/12/2021 Discontinued Comment on above: Take 1 capsule by mo ut daily before breakfast. 1/2 hr before meal. Problems Active Problems Problem Classification Problem Date Documented Da te Episodic/Chronic Abdominal pain (7 sources) Abdominal pain; Translations: [Unspecified abdominal pain] 10-24-2024 Episodic Chronic kidney disease (20 sources) Chronic kidney disease stage 3; Translations: [CKD (chronic kidney disease) stage 3, GFR 30-59 ml/min] Onset: 9 09-16-2020 Chronic Chronic kidney disease (2 sources) Chronic kidney disease; Translations: [Stage 3a chronic kidney disease (HCC)] Onset: 2 Chronic obstructive pulmonary disease and bronchiectasis (20 sources) Acute exacerbation of chronic bronchitis; Translations: [Chronic obstructive pulmonary disease with (acute) exacerbation] Onset: 9 11-20-2014 Chronic Chronic obstructive pulmonary disease and bronchiectasis (1 source) Chronic obstructive pulmonary disease and bronchiectasis; Translations: [Obstructive chronic bronchitis (HCC)] Onset: 5 Deficiency and other anemia (20 sources) Anemia co-occurrent and due to chronic kidney disease stage 3; Translations: [Anemia due to stage 3a chronic kidney disease (HCC)] Onset: 3 Chronic Deficiency and other anemia (3 sources) Anemia in chronic kidney disease; Translations: [Anemia due to stage 3a chronic kidney disease (HCC)] Onset: 4 Chronic Deficiency and other anemia (1 source) Anemia, unspecified; Translations: [Anemia, unspecified] Onset: 5 Episodic Deficiency and other anemia (3 sources) Deficiency and other anemia; Translations: [Anemia due to stage 3a chronic kidney disease (HCC)] Onset: 4 Diabetes mellitus with complications (20 sources) Type 2 diabetes mellitus; Translations: [Type 2 diabetes mellitus with diabetic nephropathy] Onset: 2 03-22-2021 Chronic Diabetes mellitus without complication (1 source) Type 2 diabetes mellitus without complications; Translations: [Diabetic eye exam ([facility])] Onset: 3 Chronic Diabetes mellitus without complication (1 source) Diabetes mellitus without complication; Translations: [Controlled type 2 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 disease, without long-term current use of insulin ([facility])] Onset: 3 Disorders of lipid metabolism (20 sources) Mixed hyperlipidemia; Translations: [Mixed hyperlipidemia] Onset: 1 09-17-2020 Chronic Esophageal disorders (20 sources) Gastroesophageal reflux disease without esophagitis; Translations: [Gastro-esophageal reflux disease without esophagitis] Onset: 6 04-07-2015 Chronic Essential hypertension (20 sources) Essential hypertension; Translations: [Essential (primary) hypertension] Onset: 6 08-19-2015 Chronic Fluid and electrolyte disorders (1 source) Hyperkalemia; Translations: [Hyperkalemia] Episodic Glaucoma (20 sources) Glaucoma; Translations: [Unspecified glaucoma] 02-27-2019 Chronic Gout and other crystal arthropathies (20 sources) Primary gout; Translations: [Idiopathic gout, unspecified site] Onset: 4 12-11-2023 Chronic Heart valve disorders (20 sources) Nonrheumatic aortic (valve) stenosis; Translations: [Aortic valve disorders] Onset: 9 10-23-2018 Chronic Hepatitis (4 sources) Nonalcoholic steatohepatitis; Translations: [Nonalcoholic steatohepatitis ([facility])] Onset: 5 11-18-2024 Chronic Hyperplasia of prostate (20 sources) Benign prostatic hyperplasia; Translations: [Benign prostatic hyperplasia without lower urinary tract symptoms] Onset: 6 08-19-2015 Chronic Malaise and fatigue (1 source) Other fatigue; Translations: [Decreased stamina] Onset: 5 Episodic Miscellaneous mental health disorders (20 sources) Psychosexual dysfunction; Translations: [Unspecified sexual dysfunction not due to a substance or known physiological condition] Onset: 8 11-20-2014 Chronic Mycoses (20 sources) Histoplasmosis syndrome of left eye; Translations: [Histoplasmosis, unspecified] 2021 Episodic Neoplasms of unspecified nature or uncertain behavior (1 source) Monoclonal gammopathy (clinical); Translations: [Monoclonal gammopathy] Chronic Nonspecific chest pain (1 source) Chest pain; Translations: [Chest pain, unspecified] 11-22-2023 Episodic Occlusion or stenosis of precerebral arteries (20 sources) Bilateral stenosis of carotid arteries; Translations: [Occlusion and stenosis of bilateral carotid arteries] Onset: 9 09-23-2020 Chronic Other and unspecified benign neoplasm (20 sources) History of polyp of colon; Translations: [Personal history of colonic polyps] 11-20-2014 Episodic Other ear and sense organ disorders (1 source) Impacted cerumen in left ear; Translations: [Impacted cerumen, left ear] 05-02-2023 Episodic Other gastrointestinal disorders (1 source) Malabsorption - iron; Translations: [Intestinal malabsorption, unspecified] Onset: 5 11-26-2024 Chronic Other gastrointestinal disorders (1 source) Intestinal malabsorption, unspecified; Translations: [Iron malabsorption (HCC)] Onset: 5 Chronic Other gastrointestinal disorders (18 sources) Diarrhea; Translations: [Diarrhea, unspecified] 05-24-2023 Episodic Other gastrointestinal disorders (2 sources) Diarrhea, unspecified; Translations: [Diarrhea, unspecified] Onset: 5 Episodic Other lower respiratory disease (2 sources) Dyspnea on exertion; Translations: [Other forms of dyspnea] 11-22-2023 Episodic Other lower respiratory disease (3 sources) Shortness of breath; Translations: [SOB (shortness of breath)] Onset: 5 Episodic Other lower respiratory disease (2 sources) Other forms of dyspnea; Translations: [KEY (dyspnea on exertion)] Onset: 5 Episodic Other male genital disorders (1 source) Other specified disorders of the male genital organs; Translations: [Skin ulcer of scrotum] Onset: 5 Episodic Other non-traumatic joint disorders (2 sources) Acute ankle pain; Translations: [Pain in left ankle and joints of left foot] 12-08-2023 Episodic Other non-traumatic joint disorders (1 source) Pain in wrist; Translations: [Pain in right wrist] 04-12-2021 Episodic Other non-traumatic joint disorders (1 source) Bilateral chronic pain of upper limbs; Translations: [Pain in right shoulder] 03-24-2021 Episodic Other nutritional; endocrine; and metabolic disorders (20 sources) Obesity; Translations: [Other obesity due to excess calories] Onset: 8 10-05-2017 Chronic Other nutritional; endocrine; and metabolic disorders (20 sources) Obesity caused by energy imbalance; Translations: [Other obesity due to excess calories] Onset: 8 10-05-2017 Chronic Other nutritional; endocrine; and metabolic disorders (1 source) Other obesity due to excess calories; Translations: [Class 1 obesity due to excess calories without serious comorbidity with body mass index (BMI) of 34.0 to 34.9 in adult] Onset: 8 Chronic Other nutritional; endocrine; and metabolic disorders (1 source) Body mass index (BMI) 34.0-34.9, adult; Translations: [Class 1 obesity due to excess calories without serious comorbidity with body mass index (BMI) of 34.0 to 34.9 in adult] Onset: 8 Chronic Otitis media and related conditions (2 sources) Acute right otitis media; Translations: [Otitis media, unspecified, right ear] 01-31-2023 Episodic Residual codes; unclassified (1 source) Left before being seen; Translations: [Procedure and treatment not carried out due to patient leaving prior to being seen by health care provider] Episodic Residual codes; unclassified (4 sources) Active living will ; Translations: [Personal history of other specified conditions] Onset: 2 Episodic Screening and history of mental health and substance abuse codes (2 sources) Encounter for screening examination for other mental health and behavioral disorders; Translations: [Encounter for screening for depression] Onset: 5 Episodic Thyroid disorders (20 sources) Acquired hypothyroidism; Translations: [Hypothyroidism, unspecified] Onset: 6 04-07-2015 Chronic Unclassified (20 sources) Active living will ; Translations: [Living will on file] Onset: 2 11-11-2021 Unclassified (1 source) Class 1 obesity due to excess calories without serious comorbidity with body mass index (BMI) of 34.0 to 34.9 in adult; Translations: [Class 1 obesity due to excess calories without serious comorbidity with body mass index (BMI) of 34.0 to 34.9 in adult] Onset: 8 Past or Other Problems Problem Classification Problem Date Documented Date Episodic/Chronic Administrative/social admission (20 sources) Advance directive discussed with patient; Translations: [Other specified counseling] Onset: 11-11-2021 Episodic Allergic reactions (20 sources) Inflammatory dermatosis; Translations: [Dermatitis, unspecified] Onset: 11-16-2018 02-27-2019 Episodic Biliary tract disease (20 sources) Cholelithiasis AND cholecystitis without obstruction; Translations: [Calculus of gallbladder with chronic cholecystitis without obstruction] Onset: 03-27-2021 03-27-2021 Episodic Calculus of urinary tract (15 sources) Kidney stone; Translations: [Calculus of kidney] Onset: 05-22-2024 05-22-2024 Episodic Coagulation and hemorrhagic disorders (20 sources) Platelet count below reference range; Translations: [Thrombocytopenia, unspecified] Onset: 01-18-2023 Resolved: 05-25-2023 01-18-2023 Chronic Deficiency and other anemia (20 sources) Vitamin B12 deficiency anemia due to dietary causes; Translations: [Other dietary vitamin B12 deficiency anemia] Onset: 04-06-2017 03-19-2020 Episodic Deficiency and other anemia (20 sources) Macrocytic anemia; Translations: [Nutritional anemia, unspecified] Onset: 06-15-2020 09-16-2020 Episodic Deficiency and other anemia (1 source) Other dietary vitamin B12 deficiency anemia; Translations: [Other dietary vitamin B12 deficiency anemia] Onset: 03-19-2020 Episodic Deficiency and other anemia (1 source) Nutritional anemia, unspecified; Translations: [Macrocytic anemia] Onset: 09-10-2021 Episodic Genitourinary symptoms and ill-defined conditions (20 sources) Albuminuria ; Translations: [Proteinuria, unspecified] Onset: 03-26-2020 03-26-2020 Episodic Noninfectious gastroenteritis (20 sources) Chronic diarrhea; Translations: [Noninfective gastroenteritis and colitis, unspecified] Onset: 11-11-2021 Episodic Other aftercare (20 sources) Patient encounter status; Translations: [Other terminologist (current) drug therapy] Onset: 08-19-2015 09-16-2020 Episodic Other aftercare (1 source) Other terminologist (current) drug therapy; Translations: [Medication management] Onset: 09-16-2020 Episodic Other and unspecified benign neoplasm (20 sources) Benign neoplasm of rectum and anal canal; Translations: [Benign neoplasm of rectum] Onset: 04-05-2011 11-20-2014 Episodic Other ear and sense organ disorders (20 sources) Tinnitus; Translations: [Tinnitus, unspecified ear] Onset: 05-27-2008 11-20-2014 Episodic Other inflammatory condition of skin (20 sources) Lichen simplex chronicus; Translations: [Lichen simplex chronicus] Onset: 11-16-2018 02-27-2019 Episodic Other male genital disorders (20 sources) Disorder of prostate; Translations: [Disorder of prostate, unspecified] Onset: 04-07-2015 04-07-2015 Episodic Other male genital disorders (1 source) Disorder of prostate, unspecified; Translations: [Disorder of prostate] Onset: 04-07-2015 Episodic Other skin disorders (20 sources) Actinic keratosis; Translations: [Actinic keratosis] Onset: 10-23-2018 02-27-2019 Episodic Residual codes; unclassified (18 sources) History of colonoscopy; Translations: [Other specified postprocedural states] Onset: 12-30-2003 12-07-2020 Episodic Comment on above: 04/05/2011 Results Test Name Value Interpretation Reference Range Facility [facility] 01-10-2025 CNOV Office Visit (FAMPWS ) ----- MEG BRYANT ([id number]) 1945 M Date Time Provider Department 01/10/25 2:40 PM NIMA HOBBS During your visit today, we recorded the following information about you: Pulse Blood pressure Weight 74/minute 146/75 96 kg Nima Hobbs APRN.CONGRESSIONAL DISTRICT AIDE 01/10/2025 3:23 PM Signed Chief Complaint Patient presents with: Follow Up HPI Meg Bryant is a 79 year old male who presents here today for Above Complaints. Patient presents for 4 week BP follow up. States that he still has intermittent dizziness that occurs for a few minutes at night while laying in bed. Denies dizziness throughout the day. Has been checking Bps at home running 130-140/60-70. Primarily has noticed an increase in Shortness of Breath but that has been increasing in the last 3 months. States that since last visit he has noticed swelling to bilateral legs with right leg swelling worse and going up to thigh while left is mostly foot/ankle. Pitting edea noted to bilateral legs with right larger than left. Patient denies any pain. Swelling worse at the end of the day. Does not take diuretics. Scheduled to see cardiology January 23. Past medical history, appointments, medications, allergies reviewed. Previous Medical History PAST MEDICAL HISTORY Diagnosis Date Advance directive discussed with patient 11/11/2021 Discussed 10/2021 AK (actinic keratosis) 10/23/2018 right frontal scalp treated with Cryo 10/23/2018 Albuminuria 03/26/2020 Anemia due to stage 3 chronic kidney disease (HCC) 07/28/2022 Arthritis Benign neoplasm of rectum and anal canal Benign non-nodular prostatic hyperplasia without lower urinary tract symptoms 08/19/2015 Bilateral carotid artery stenosis 10/24/2018 US 10/2018: 20-40% tere Calculus of gallbladder with chronic cholecystitis without obstruction 03/27/2021 CT 03/2021 Chronic diarrhea 11/11/2021 Class 1 obesity due to excess calories without serious comorbidity with body mass index (BMI) of 34.0 to 34.9 in adult 10/05/2017 Controlled type 2 diabetes mellitus with diabetic nephropathy, without long-term current use of insulin ([facility]) 08/19/2015 Coronary artery disease Dermatitis 11/16/2018 thigh lesion removed 10/2018 Diabetic eye exam ([facility]) 04/09/2015 Last done: 08/01/2018 No Retinopathy Diabetic peripheral neuropathy (HCC) 03/16/2011 Duodenal ulcer 11/28/2024 On EGD 11/[address] Allen Essential hypertension with goal blood pressure less than 130/85 08/19/2015 Gastroesophageal reflux disease without esophagitis 04/07/2015 Glaucoma Hypothyroidism (acquired) Idiopathic gout 12/11/2023 Idiopathic gout 12/11/2023 Left ankle: patient declined Allopurinol 12/11/2023 Iron malabsorption (HCC) 11/26/2024 Lichenoid dermatitis 11/16/2018 left chest, removed 10/2018 Living will on file 11/11/2021 DPA: Michelle () Macrocytic anemia 06/15/2020 Medicare annual wellness visit, subsequent 09/29/2016 last done: 02/27/2019 Metabolic dysfunction-associated steatohepatitis (MASH) 11/18/[address] Allen. Elestography showed mild to no fibrosis Mixed hyperlipidemia Moderate aortic stenosis 05/03/[address] Holder Obstructive chronic bronchitis with exacerbation ([facility]) 07/29/2008 Ocular histoplasmosis syndrome of left eye at 19yo, vision loss Other dietary vitamin B12 deficiency anemia 04/06/2017 Hg typically 11-11.5 Other proteinuria 03/26/2020 Personal history of colonic polyps Colon polyps Platelets decreased 01/18/2023 Psychosexual dysfunction, unspecified 01/28/2008 Renal stones 05/22/2024 Unspecified tinnitus 05/27/2008 Previous Surgical History PAST SURGICAL HISTORY Procedure Laterality Date 2D ECHO (EXEP) 01/13/2020 EF=60%, mild-mod , COLONOSCOPY AND POLYPECTOMY 12/30/2003 COLONOSCOPY FLX DX W/COLLJ SPEC WHEN PFRMD 04/05/2011 Colonoscopy repeat 5 yrs COLONOSCOPY FLX DX W/COLLJ SPEC WHEN PFRMD 12/20/2016 Colonoscopy EGD W/O BRSH SPEC VARICIES INJ N/A 11/28/2024 NUCLEAR STRESS LEXISCAN (CARD) 05/30/2018 negative REMV CATARACT EXTRACAP,INSERT LENS Right 10/30/2023 SKIN BIOPSY HX Family History FAMILY HISTORY Problem Relation Age of Onset Diabetes Mother Heart Mother IN Stroke Father Cancer Father lung Heart Sister Patient Allergies ALLERGIES Allergen Reactions Januvia [Sitaglipti* Myalgia Current Medications Current Outpatient Medications on File Prior to Visit Medication Sig pantoprazole DR (PROTONIX) 40 mg tablet Take 1 tablet by mouth every 12 hours. lisinopril (ZESTRIL) 5 mg tablet Take 1 tablet by mouth once daily. pioglitazone (ACTOS) 30 mg tablet Take 1 tablet by mouth once daily. dexAMETHasone (DECADRON) 0.5 mg/5 mL oral liquid Take 0.5 mg by mouth once daily. levothyroxine (SYNTHROID) 125 mcg tablet Take 1 tablet by mouth once daily. simvastatin (ZOCOR) 20 mg table (more content not included)... Normal [facility] 01-10-2025 [facility] MEG BRYANT ([id number]) 1945 M Date Time Provider Department 01/10/25 [facility] MANDEL [facility] During your visit today, we recorded the following information about you: Luma Judge MA 01/10/2025 8:23 AM Signed Scan on 01/09/2025 7:52 PM by Provider, DINORAH Lopes: Stress Test Wiliam Mandel MD 01/10/2025 10:39 AM Signed Let patient know his stress test showed no areas of decreased blood flow. It dose show a decrease in function of the left lower chamber. Advise him we will be sending a copy to his coffee maker servicer, Dr. Holder. On cover letter tell them FYI. Even though this stress test is read as normal he appears to have a decrease in his ejection fraction from mid 50's to low 40's. Luma Judge MA 01/10/2025 11:00 AM Signed Call to pt and spoke with his (pt able to hear as well) and notified her of results of below. asked that results be sent to them in mychart message as well. Unsure how well this will help when Dr. Holder's appt in January has been changed to see see a PA/PROSTHETIC AIDES TEACHER [place] also notes pt has an appt with DK this afternoon and pt is supposed to bring BP cuff. expressed agitation with all the questions and constant things on mychart when she goes to look in it and stating it's not user friendly for elderly. Also noting the check in process at the office. Advised pt to not do the stuff on line and to go to a desk in the lobby when checking in. Stress test faxed to [facility] at [phone]. Luam Judge MA Allergies As of Date: 01/10/2025 Noted Allergy Reaction JANUVIA (SITAGLIPTIN) 12/01/2014 17 - Myalgia Date Reviewed: 12/18/2024 Reviewed by: Katie Case RN - Fully Assessed Reason for Visit: Results [95] Cmt: Stress Test Prescriptions as of 01/10/2025 - pantoprazole DR (PROTONIX) 40 mg tablet Take 1 tablet by mouth every 12 hours. - lisinopril (ZESTRIL) 5 mg tablet Take 1 tablet by mouth once daily. - pioglitazone (ACTOS) 30 mg tablet Take 1 tablet by mouth once daily. - dexAMETHasone (DECADRON) 0.5 mg/5 mL oral liquid Take 0.5 mg by mouth once daily. - levothyroxine (SYNTHROID) 125 mcg tablet Take 1 tablet by mouth once daily. - simvastatin (ZOCOR) 20 mg tablet Take 1 tablet by mouth once daily. - folic acid 1 mg tablet Take 1 tablet by mouth once daily. - cyanocobalamin (VITAMIN B-12) 1,000 mcg tab Take 1 tablet by mouth once daily. - linaGLIPtin (TRADJENTA) 5 mg tab Take 1 tablet by mouth once daily. - copper citrate 2 mg capsule Take 2 mg by mouth once daily. - cholecalciferol (VITAMIN D3) 50 mcg (2,000 unit) tablet Take 2,000 Units by mouth once daily. - DOCOSAHEXANOIC ACID/EPA (FISH OIL ORAL) Take 1,000 mg by mouth once daily. - blood sugar diagnostic (BLOOD GLUCOSE TEST) test strip Test blood sugar(s) 1 time daily. Dx: E11.9. Insulin: No - timolol maleate (ISTALOL) 0.5 % OPHTHALMIC DrpD Use 1 Drop in the left eye once daily. - XALATAN 0.005 % EYE DROPS one drop each at bedtime - ASPIRIN 81 MG TAB Take 81 mg by mouth once daily. Problem List As Of Date 01/10/2025 Noted Resolved Mixed hyperlipidemia [E78.2] Hypothyroidism (acquired) [E03.9] Personal history of colonic polyps [Z86.0100] Psychosexual dysfunction, unspecified [F52.9] 01/28/2008 Unspecified tinnitus [H93.19] 05/27/2008 Obstructive chronic bronchitis (HCC) [J44.89] 07/29/2008 Ocular histoplasmosis syndrome of left eye [B39* Benign neoplasm of rectum and anal canal [D12.8*04/05/2011 Gastroesophageal reflux disease without esophag*04/07/2015 Disorder of prostate [N42.9] 04/07/2015 Diabetic eye exam (HCC) [Z01.00, E11.9] 04/09/2015 Essential hypertension with goal blood pressure*08/19/2015 Controlled type 2 diabetes mellitus with stage *08/19/2015 Benign non-nodular prostatic hyperplasia withou*08/19/2015 Colon cancer screening [Z12.11] 08/19/2015 Diabetic peripheral neuropathy (HCC) [E11.42] 03/16/2011 Medicare annual wellness visit, subsequent [Z00*09/29/2016 Other dietary vitamin B12 deficiency anemia [D5*04/06/2017 Class 1 obesity due to excess calories without *10/05/2017 Moderate aortic stenosis [I35.0] 05/03/2018 Glaucoma [H40.9] AK (actinic keratosis) [L57.0] 10/23/2018 Bilateral carotid artery stenosis [I65.23] 10/24/2018 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] 11/16/2018 Dermatitis [L30.9] 11/16/2018 Stage 3a chronic kidney disease (HCC) [N18.31] 02/27/2019 Albuminuria [R80.9] 03/26/2020 Other proteinuria [R80.8] 03/26/2020 Macrocytic anemia [D53.9] 06/15/2020 Medication management [Z79.899] 09/16/2020 Calculus of gallbladder with chronic cholecysti*03/27/2021 Living will on file [ALG2182] 11/11/2021 Advance directive discussed with patient [Z71.8*11/11/2021 Chronic diarrhea [K52.9] 11/11/2021 Anemia due to stage 3 chronic kidney disease (H*07/28/2022 Platelets decreased (H (more content not included)... Normal [facility] Stress Reporton 01-09-2025 Stress Report [facility] [address] [place] [address] MR#: [id number] Acct: [id number] Name: MEG BRYANT Rep #: [id number] : 1945 79 From: Donald Holder MD Primary Care: Dr. Wiliam Mandel MD Status: REG CLI Referring Dr: Wiliam Mandel MD Sex: M C Stress Test Report Pharmacologic myocardial perfusion stress test. 79-year-old man with a history of dyspnea on exertion. Resting EKG demonstrates normal sinus rhythm with a rate of 68 bpm. Premature ventricular complexes. Resting blood pressure is 128/74 mmHg. 0.4 mg of regadenoson was infused per usual protocol followed by rapid intravenous saline flush injection. Continuous EKG monitoring was performed. The maximum heart rate was 122 bpm which was 85% of max impacted heart rate the maximum workload was 1 metabolic equivalent. At rest there were no ST or T wave changes noted to suggest ischemia and at peak infusion nonspecific ST changes were noted which did not meet the criteria for ischemia. No clinical angina is noted. The final blood pressure was 108/60 mmHg. Myocardial perfusion protocol. 8.8 mCi of technetium 99m sestamibi was injected at rest. 0.4 mg of regadenoson was infused per usual protocol. At peak infusion 33.3 mCi of technetium 99m sestamibi was injected stress images were obtained stress and rest images were reconstructed and compared in the short axis vertical long and horizontal long axis. Gated images were also obtained. Perfusion SPECT analysis: Review of the stress images demonstrate normal uptake of tracer noted in all areas of the myocardium. The resting images similar demonstrated normal uptake of tracer noted in all areas of the myocardium. No areas of reversibility are noted to suggest ischemia and no previous infarct is noted. Gated SPECT analysis: The gated ejection fraction is 43%. Conclusion: Normal pharmacologic myocardial perfusion stress test. Mildly reduced ejection fraction. 01/09/251947 Date Donald Holder MD CC: Dr. Wiliam Mandel MD Date Dictated: 01/09/251946 Date Transcribed: 01/09/251946 Law Instructor: [place] Signed Normal [facility] ECHOon 12-25-2024 Echocardiography Echocardiography Rep ort: Transthoracic Echo [facility] Date of service: 12/25/2024 1:21:02 PM SUPPORT CONSULTANT Ordering physician: WILIAM MANDEL Exam indication: Routine surveillance of moderate or severe valvular stenosis (>1yr) Technologist: Anila Mansfield RUST Interpreting physician: Mima Lundy MD PATIENT: Name: MR. MEG BRYANT : 1945 Age: 79 years Gender: M History of hypertension, diabetes mellitus and dyslipidemia. Primary rhythm: sinus. Secondary rhythm: PVC. Height: 172.10 cm BSA: 2.13 m Weight: 95.07 kg BMI: 32.1 kg/m Heart rate 75 bpm Blood pressure 119/74 mmHg Technically difficult exam due to suboptimal positioning, body habitus and probe sensitivity. Color Doppler was utilized to interrogate the cardiac valves assessed and spectral Doppler was utilized to determine the flow velocities and pressure gradients reported in this exam. MEASUREMENTS: Value Indexed Normal Max aortic dimension 3.6 cm Ao < 3.8 Left atrial volume 118 ml (biplane A-L) 55 ml/m Delmis <= 34 LV ID (diastole) 5.0 cm (2D) 2.36 cm/m LV ID (systole) 4.0 cm (2D) 1.86 cm/m IVS, leaflet tips 1.2 cm (2D) Posterior wall thickness 1.3 cm (2D) Left ventricular mass 239 g (2D) 112 g/m LV stroke volume 83 ml (2D biplane) LVOT stroke volume 57 ml 27 ml/m LV end diastolic volume 164 ml (2D biplane) 76.9 ml/m 34<=EDVi<75 LV end systolic volume 81 ml (2D biplane) 37.9 ml/m Ejection Fraction 51 % (2D biplane) EF > 52 FINDINGS: LEFT VENTRICLE The left ventricle is mildly dilated. There is mild concentric left ventricular hypertrophy. Left ventricular systolic function is mildly decreased. Indeterminate left ventricular diastolic function. Wall Motion: All scored segments are normal. RIGHT VENTRICLE The right ventricle is normal in size. Right ventricular systolic function is normal. RV systolic tissue Doppler velocity is 9.0 cm/s. Tricuspid annular displacement is 2.1 cm. Estimated right ventricular systolic pressure is 78 mmHg consistent with moderately severe pulmonary hypertension. Estimated right atrial pressure is 3 mmHg (although IVC not seen). LEFT ATRIUM The left atrial cavity is severely dilated. RIGHT ATRIUM The right atrial cavity is mildly dilated (RA area = 22.0 cm ). Inferior Vena Cava: The inferior vena cava appears dilated measuring 2.20 cm. MITRAL VALVE There is moderate mitral annular calcification observed anterior and posterior. There is mild (1+ - 2+) mitral valve regurgitation. Regurgitant orifice area (PISA) is 0.16 cm . TRICUSPID VALVE The tricuspid valve leaflets are structurally normal. There is mild (1+ - 2+) tricuspid valve regurgitation. AORTIC VALVE There is severe aortic valve stenosis caused by calcified valve. There is trace aortic valve regurgitation. Tricuspid aortic valve. There is severe thickening. There is severe calcification. The peak gradient is 44 mmHg (peak velocity = 332.2 cm/s). The mean gradient is 28 mmHg. The LVOT mean velocity is 47.0 cm/s. The LVOT diameter is 2.2 cm. The aortic VTI is 85.9 cm. The mean velocity in the aortic valve is 249.4 cm/s. The dimensionless valve index is 0.18. AV area is 0.66 cm (0.31 cm /m ) by continuity, VTI. The LVOT stroke volume index is 27 ml/m . PULMONIC VALVE The pulmonic valve cusps are structurally normal. There is trace (trace - 1+) pulmonic valve regurgitation. AORTA The visualized aorta is normal in size. Measurements - Aortic valve annulus 1.7 cm. Mid ascending aorta 3.3 cm. Distal ascending aorta 3.6 cm. INTERATRIAL SEPTUM There is no evidence of intracardiac shunting as detected by Doppler. PERICARDIUM There is no pericardial effusion. There is an epicardial fat pad. CONCLUSIONS: - Technically difficult exam due to suboptimal positioning, body habitus and probe sensitivity. - Exam indication: Routine surveillance of moderate or severe valvular stenosis (>1yr) - The left ventricle is mildly dilated. There is mild concentric left ventricular hypertrophy. Left ventricular systolic function is mildly decreased. EF = 51 5% (2D biplane) Indeterminate left ventricular diastolic function. - The right ventricle is normal in size. Right ventricular systolic function is normal. - The left atrial cavity is severely dilated. - The right atrial cavity is mildly dilated. - Tricuspid aortic valve. There is severe aortic valve stenosis caused by calcified valve. AV area is 0.66 cm (0.31 cm /m ) by continuity, VTI. The peak gradient is 44 mmHg, the mean gradient is 28 mmHg and the dimensionless valve index is 0.18. Prior pk/mn gradients were 37/22 mmHg. - Estimated right ventricular systolic pressure is 78 mmHg consistent with moderately severe pulmonary hypertension. Estimated right atrial pressure is 3 mmHg (although IVC not seen). - Exam was compared with the prior echocardiographic exam pe (more content not included)... Normal [facility] CAROTID ARTERIES TERE VAS LABon 12-25-2024 US CAROTID ARTERIES TERE VAS LAB Non-Invasive Vascular Laboratory [facility] Carotid Duplex Bilateral/Complete Date of service/time: 12/25/2024 12:26:42 PM Name: MR. MEG BRYANT Date of : 1945 Age: 79 years Gender: M Clinical Indication Follow-up study on a patient with known carotid disease. TECHNIQUE -------- A carotid duplex ultrasound examination was performed, including grayscale imaging and color Doppler and spectral Doppler examination of the below mentioned arteries. FINDINGS -------- RIGHT SIDE Common carotid artery: Origin: PSV: 206 cm/s. EDV: 23 cm/s. Proximal: PSV: 91 cm/s. EDV: 10 cm/s. Mid: PSV: 93 cm/s. EDV: 19 cm/s. Distal: PSV: 70 cm/s. EDV: 12 cm/s. Mild heterogeneous plaque at distal. Internal carotid artery: Origin: PSV: 252 cm/s. EDV: 55 cm/s. Proximal: PSV: 296 cm/s. EDV: 56 cm/s. Mid: PSV: 117 cm/s. EDV: 29 cm/s. Distal: PSV: 113 cm/s. EDV: 21 cm/s. Moderate heterogeneous plaque from origin to proximal. ICA/CCA Ratio: 4.2 External carotid artery: Proximal: PSV: 161 cm/s. EDV: 0 cm/s. Moderate heterogeneous plaque at origin. Subclavian artery: Origin: PSV: 250 cm/s. EDV: 29 cm/s. Proximal: PSV: 261 cm/s. EDV: 0 cm/s. Innominate artery: PSV: 90 cm/s. EDV: 13 cm/s. Vertebral artery: PSV: 78 cm/s. EDV: 12 cm/s. LEFT SIDE Common carotid artery: Proximal: PSV: 108 cm/s. EDV: 18 cm/s. Mid: PSV: 88 cm/s. EDV: 20 cm/s. Distal: PSV: 91 cm/s. EDV: 16 cm/s. Moderate heterogeneous plaque from mid to distal. Internal carotid artery: Origin: PSV: 87 cm/s. EDV: 19 cm/s. Proximal: PSV: 160 cm/s. EDV: 43 cm/s. Mid: PSV: 180 cm/s. EDV: 36 cm/s. Distal: PSV: 105 cm/s. EDV: 25 cm/s. Moderate heterogeneous plaque from origin to proximal. ICA/CCA Ratio: 1.8 External carotid artery: Proximal: PSV: 188 cm/s. EDV: 0 cm/s. Moderate heterogeneous plaque from origin to proximal. Subclavian artery: Proximal: PSV: 160 cm/s. EDV: 0 cm/s. Vertebral artery: PSV: 54 cm/s. EDV: 10 cm/s. IMPRESSION Please note: the new carotid interpretation criteria are used as recommended by [employer]. Dr. August Mandel was notified with results at 1:23PM. When compared with the prior study, of 12/25/2024 progression of disease is noted on the right side and progression of disease is noted on the left side. RIGHT SIDE Common carotid artery: Plaque visualized without evidence of hemodynamically significant stenosis. Tortuous vessel at proximal . Internal carotid artery: >70% stenosis consistent with severe carotid artery disease. External carotid artery: Elevated velocities and plaque noted. Vertebral artery: Patent and antegrade flow noted. Innominate artery: Patent. Subclavian artery: 50-99% stenosis. LEFT SIDE Common carotid artery: Plaque visualized without evidence of hemodynamically significant stenosis. Internal carotid artery: <50% stenosis consistent with mild carotid artery disease. External carotid artery: Elevated velocities and plaque noted. Vertebral artery: Patent and antegrade flow noted. Subclavian artery: Patent. Technologist: Denise Mckeon RVT Ordering physician: WILIAM MANDEL Interpreting physician: Keon Mi MD, NICOLE Final CC [employer] Medical Image : [id number] See Link below for Image Normal [facility] CNOVon 12-13-2024 CNOV Office Visit (FAMPWS ) ----- MEG BRYANT ([id number]) 1945 M Date Time Provider Department 12/13/24 2:40 PM WILIAM MANDEL FAMPWS During your visit today, we recorded the following information about you: Pulse Respiration Blood pressure Weight 66/minute 18/minute 96/52 95.1 kg Wiliam Mandel MD 12/13/2024 5:13 PM Signed Chief Complaint Patient presents with: F/U 6 Month HPI Meg Bryant is a 79 year old male who presents here today for a routine follow up. Patient with Hx of DM 2, neuropathy, hyperlipidemia, HTN, obesity, hypothyroidism, carotid stenosis, diabetic proteinuria, GERD, mod aortic Stenosis, COPD, macrocytic anemia as well as those reviewed and addressed below and in ROS. Follows with Nephrology. Due to an episode of lightheadedness Nephrology d/c his Lisinopril completely. Patient states he started taking it again because he knows his body. Currently taking 10 mg daily. Asking for Rx for 10 mg. states that shortness of breath is getting is worse. Was recently started on Protonix 40 mg bid. Meg reports progressively worsening dyspnea over the past 6-8 months, with a noticeable decline in stamina. He experiences dyspnea both at rest and with exertion, and notes a whistle sound occasionally when breathing. He denies any gurgling sounds, but does report chest heaviness, particularly after consuming peanut butter, which he has eaten his entire life. He denies any recent fevers, neck swelling, or palpitations, but does note a dry mouth and difficulty breathing after eating peanut butter-filled pretzels. He denies any lower extremity swelling, heartburn, headaches, seizures, tremors, or syncope. He does not experience dyspnea when lying flat and finds it easier to breathe when on his back. He does not wake up at night with dyspnea unless he has consumed peanut butter. He denies any symptoms of hypoglycemia. Meg also reports a non-healing lesion at the base of the penis, which bleeds occasionally, especially when straining during bowel movements. The lesion is not painful, itchy, or burning, but does leak fluid. He has been applying Neosporin without improvement. He denies any recent trauma or shaving in the area. Meg has a history of multiple kidney stones, with three episodes since his last visit. He describes the most recent episode as particularly painful. He denies any dysuria or hematuria. Meg has been experiencing constipation since discontinuing lisinopril on 11/13. He reports severe pain associated with constipation, stating it was more painful than his kidney stones. He denies any recent diarrhea. Meg has a history of a large gastric ulcer, which caused significant pain, particularly at night. He reports that eating bread and drinking water would alleviate the pain if he acted quickly. He denies any recent ulcer-related pain since starting medication. He is following with Gastro. Meg has been taking 2.5 mg of Tradjenta daily for several months, prior to his last visit. He is currently off metformin. He has a history of allergies to peanut butter, wheat, cow's milk, shrimp, scallops, and clams. He denies any recent eye exams, but has a cataract surgery scheduled for his left eye. 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 He denies any recent trips or vacations. Past medical history, appointments, medications, allergies reviewed. Previous Medical History PAST MEDICAL HISTORY Diagnosis Date Advance directive discussed with patient 11/11/2021 Discussed 10/2021 AK (actinic keratosis) 10/23/2018 right frontal scalp treated with Cryo 10/23/2018 Albuminuria 03/26/2020 Anemia due to stage 3 chronic kidney disease (HCC) 07/28/2022 Arthritis Benign neoplasm of rectum and anal canal Benign non-nodular prostatic hyperplasia without lower urinary tract symptoms 08/19/2015 Bilateral carotid artery stenosis 10/24/2018 US 10/2018: 20-40% tere Calculus of gallbladder with chronic cholecystitis without obstruction 03/27/2021 CT 03/2021 Chronic diarrhea 11/11/2021 Class 1 obesity due to excess calories without serious comorbidity with body mass index (BMI) of 34.0 to 34.9 in adult 10/05/2017 Controlled type 2 diabetes mellitus with diabetic nephropathy, without long-term current use of insulin ([facility]) 08/19/2015 Coronary artery disease Dermatitis 11/16/2018 thigh lesion removed 10/2018 Diabetic eye exam ([facility]) 04/09/2015 Last done: 08/01/2018 No Retinopathy Diabetic peripheral neuropathy (HCC) 03/16/2011 Duodenal ulcer 11/28/2024 On EGD 11/[address] Allen Essential hypertension with goal blood pressure less than 130/85 08/19/2015 Gastroesophageal reflux disease without esophagitis 04/07/2015 Glaucoma Hypothyroidism (acquired) Idiopathic gout 12/11/2023 Idiopat (more content not included)... Normal [facility] Surgical pathology reportOrd ered By: Chandni Almonte on 12-05-2024 Surgical pathology study [facility] Bedside Glucoseon 11-28-2024 FINGERSTICK GLU 172 mg/dL High 74-106 [facility] Comment on above: Result Comment: GENESIS MAYBERRY OF PATIENT CARE PER NURSING PROTOCOL Performed By: #### L 501.080 #### [facility] [address] [place], [address] EGD Reporton 11-28-2024 EGD Report [facility] Medical Records Department [address] [place] [address] EGD Report MR#: [id number] Acct: [id number] Name: MEG BRYANT Rep #: [id number] : 1945 79 From: Caleb Allen DO PCP: Dr. Wiliam Mandel MD Status:REG [facility] Patient Name: Meg Bryant Procedure Date: 11/28/2024 8:55 AM Date of : 1945 Age: 79 Procedure: Upper GI endoscopy Indications: Epigastric abdominal pain, Abdominal pain in the left upper quadrant Providers: Caleb Allen DO Referring MD: Wiliam Mandel MD Medicines: Monitored Anesthesia Care Patient Profile: This is a 79 year old male. Refer to note in patient chart for documentation of history and physical. Patient has symptoms of acute left upper quadrant abdominal pain and acute epigastric abdominal pain. Complications: No immediate complications. Procedure: Pre-Anesthesia Assessment: - Prior to the procedure, a History and Physical was performed, and patient medications and allergies were reviewed. The patient is competent. The risks and benefits of the procedure and the sedation options and risks were discussed with the patient. All questions were answered and informed consent was obtained. Patient identification and proposed procedure were verified by the physician in the pre-procedure area. Mental Status Examination: alert and oriented. Airway Examination: normal oropharyngeal airway and neck mobility. Respiratory Examination: clear to auscultation. CV Examination: normal. Prophylactic Antibiotics: The patient does not require prophylactic antibiotics. Prior Anticoagulants: The patient has taken no anticoagulant or antiplatelet agents except for NSAID medication. ASA Grade Assessment: II - A patient with mild systemic disease. After reviewing the risks and benefits, the patient was deemed in satisfactory condition to undergo the procedure. The anesthesia plan was to use monitored anesthesia care (MAC). Immediately prior to administration of medications, the patient was re-assessed for adequacy to receive sedatives. The heart rate, respiratory rate, oxygen saturations, blood pressure, adequacy of pulmonary ventilation, and response to care were monitored throughout the procedure. The physical status of the patient was re-assessed after the procedure. After obtaining informed consent, the endoscope was passed under direct vision. Throughout the procedure, the patient's blood pressure, pulse, and oxygen saturations were monitored continuously. The gastroscope was introduced through the mouth, and advanced to the fourth part of the duodenum. Small bowel enteroscopy was deemed necessary. The upper GI endoscopy was accomplished without difficulty. The patient tolerated the procedure well. Scope In: 9:02:12 AM Scope Out: 9:06:56 AM Total Procedure Duration Time 0 hours 4 minutes 44 seconds Findings: The examined esophagus was normal. The entire examined stomach was normal. One non-bleeding cratered duodenal ulcer with no stigmata of bleeding was found in the first portion of the duodenum. The lesion was 20 mm in largest dimension. Biopsies were taken with a cold forceps for histology. Verification of patient identification for the specimen was done. Estimated blood loss was minimal. Impression: - Normal esophagus. - Normal stomach. - Non-bleeding duodenal ulcer with no stigmata of bleeding. Biopsied. Recommendation: - Discharge patient to home. - Resume previous diet. - Continue present medications. - Await pathology results. - Use Protonix (pantoprazole) 40 mg PO BID. Procedure Code(s): --- Professional --- 77367, Small intestinal endoscopy, enteroscopy beyond second portion of duodenum, not including ileum; with biopsy, single or multiple CPT copyright 2021 [employer]. All rights reserved. The codes documented in this report are preliminary and upon workers compensation analyst review may be revised to meet current compliance requirements. Caleb Allen DO 11/28/2024 9:15:52 AM This report has been signed electronically. Number of Addenda: 0 Note Initiated On: 11/28/2024 8:55 AM 11/28/24 0916 Date Caleb Allen DO Cosigner Signature: Date (if indicated) CC: Dr. Wiliam Mandel MD; Caleb Allen DO Date Dictated: 11/28/24854 Date Transcribed: Law Instructor: RF Signed Normal [facility] Glucose measurement at bedsi deOrdered By: Caleb Allen on 11-28-2024 Glucose [Mass/Vol] 172 mg/dL High 74-106 [facility] Comment on above: MANAGEMENT OF PATIEN T CARE PER NURSING PROTOCOL MR/OP.PR[facility]ATon [facility]-28[facility]24 [facility] Medical Records Department [address] [place] [address] Provation Physician Letter MR#: [id number] Acct: [id number] Name: MEG BRYANT Rep #: [id number] : 1945 79 From: Caleb Allen DO PCP: Dr. Wiliam Mandel MD Status:REG [facility] 11/28/2024 Wiliam Mandel MD Re : Upper GI endoscopy procedure for Meg Bryant Dear Dr. Mandel This procedure was performed on November. My impressions and recommendations are as follows: Impressions : - Normal esophagus. - Normal stomach. - Non-bleeding duodenal ulcer with no stigmata of bleeding. Biopsied. Recommendations : - Discharge patient to home. - Resume previous diet. - Continue present medications. - Await pathology results. - Use Protonix (pantoprazole) 40 mg PO BID. My findings are described in the full procedure note, which is enclosed. If I can be of further assistance, please feel free to contact me at . Sincerely, Caleb Allen DO 11/28/2024 9:15:52 AM This report has been signed electronically. 11/28/24915 Date Caleb Allen DO Cosigner Signature: Date (if indicated) CC: Dr. Wiliam Mandel MD; Caleb Friend, DO Date Dictated: 11/28/24854 Date Transcribed: Law Instructor: JULIANN Signed [facility] MR/POSTOP.ANEon 11-28-2024 MR/POSTOP.[facility] Medical Records Department [address] [place] [address] Anesthesia Postop Eval I 11/28/24 0914 MR#: [id number] Acct: [id number] Name: MEG BRYANT Rep #: [id number] : 1945 79 From: Evelyn Varela CRNA PCP: Dr. Wiliam Mandel MD Status:REG SDC Y Race: C Location: [place] [address] Anesthesia: Postop Eval I Current Vital Signs Temperature: 97.6 F Pulse Rate: 68 Blood Pressure: 104/50 Respiratory Rate: 16 Pulse Ox: 98 Oxygen Delivery Method: Room Air Assessment Airway patent: Yes Spontaneous unlabored respirations: Yes Mental status: Awake and Calm nausea: No Vomiting: No Anesthesia Complication: No Fluid Hydration Crystalloid volume administer (ml): 200 Total IV fluid infused: 200 Progress Note Anesthesia document: Postop Eval 1 completed: Yes 11/28/24913 Date Evelyn Varela CRNA Cosigner Signature: Date CC: Signed [facility] MR/[id number] 11-28-2024 MR/POSTOPAN2 [facility] Medical Records Department [address] [place] [address] Anesthesia Postop Eval II 11/28/24 1250 MR#: [id number] Acct: [id number] Name: MEG BRYANT Rep #: [id number] : 1945 79 From: Evelyn Varela CRNA PCP: Dr. Wiliam Mandel MD Status:REG SDC Y Race: C Location: [place] [address] Anesthesia Postop Eval I Sum Postop Eval Completion status Anesthesia document: Postop Eval 1 completed: Yes Anesthesia Postop Eval I Summary Anesthesia Postop Eval I Summary: Anesthesia Postop Eval I: Assessment Summary Airway patent Yes 11/28/24 09:14 GAS [email or web address] Spontaneous unlabored Yes 11/28/24 09:14 GAS [email or web address] respirations Mental status Awake,Calm 11/28/24 09:14 GAS [email or web address] nausea No 11/28/24 09:14 GAS [email or web address].[email or web address] Vomiting No 11/28/24 09:14 GAS [email or web address] Anesthesia Postop Eval I: Fluid Summary Crystalloid volume administer 200 11/28/24 09:14 GAS [email or web address] (ml) Colloids volume administered ( ml) Blood Product volume administered (ml) Total IV fluid infused 200 11/28/24 09:14 GAS [email or web address] Anesthesia Postop Eval I: Summary Notes Anesthesia Complication No 11/28/24 09:14 GAS [email or web address] Anesthesia Complication Comment: Post-operative progress note Anesthesia: Postop Eval II Evaluation Mental status: Awake and Calm Pain Level: 0 nausea: No Vomiting: No Complications Anesthesia Complication: No 11/28/24 1250 Date Evelyn Varela GAS TECHNICIAN Cosigner Signature: Date CC: Signed Normal [facility] Surgery Specimen Level Sandy 11-28-2024 Surgery Specimen Level IV Patient Age/Sex Location Account Attending Physician MEG BRYANT 79/M EN [id number] Caleb Allen DO Specimen: [id number] Received: 11/28/24 Status: DONA Nick Num: [id number] Spec Type: EGD BIOPSY Subm Dr: DO LATRELL Farah OPERATION: EGD, biopsy PRE-OP DIAGNOSIS: Abdominal pain TISSUE SUBMITTED: A- Duodenal ulcer biopsy MICROSCOPIC DIAGNOSIS A. Duodenum, ulcer, biopsy: * Focal granulation tissue consistent with erosion/ulceration. * [place] gland hyperplasia, gastric mucin cell metaplasia and focal acute inflammation, suggestive of peptic injury. * Negative for increased intraepithelial lymphocytes. MICROSCOPIC DESCRIPTION Slides are reviewed. GROSS DESCRIPTION A. Received in fixative is one container labeled with the patient's name and designated Duodenal ulcer biopsy. The specimen consists of three irregular fragments of light gallegos soft tissue, each measuring 0.5 cm. The specimen is totally submitted in one cassette. NE 11/28/2024 CPT:35249 Patient Age/Sex Location Account Attending Physician MEG BRYANT 79/M EN [id number] Caleb Allen DO Signed (signature on file) Dr. Chandni Almonte MD 12/05/24 1517 [facility] Comment on above: Performed By: #### L 503.0106, L503.6550, L503.6150, L501.6710, L100.0100, L501.3620, L2100.0000, L3300.1200, L3300.0100, L504.2610, L5500.0410, L3410.2350, L3100.7000, L506.0400, L501.32279, L501.9520, L3100.3425, L101.9900 #### [facility] [place], [address] [facility] 11-26-2024 [facility] Telephone (FAMPWS) ----- ANNETTEMEG Rogers ([id number]) 1945 M Date Time Provider Department 11/26/24 [facility] During your visit today, we recorded the following information about you: Francisca Aldana RN 11/26/2024 1:22 PM Signed Patient calling in and states he has self-diagnosed himself with a kidney stone and requesting pain medication/tx today. Limited information obtained. Advised pt that he would need an evaluation first to determine most appropriate plan of care. No same-day appts available for pt this afternoon, Pt advised to go to for non-severe sx's. Pt agreeable. Francisca Aldana RN Allergies As of Date: 11/26/2024 Noted Allergy Reaction JANUVIA (SITAGLIPTIN) 12/01/2014 17 - Myalgia Date Reviewed: 11/25/2024 Reviewed by: Radha Gomes Ma, MA - Fully Assessed Reason for Visit: Patient Call [Other] Prescriptions as of 11/26/2024 - dexAMETHasone (DECADRON) 0.5 mg/5 mL oral liquid Take 0.5 mg by mouth once daily. - pioglitazone (ACTOS) 45 mg tablet Take 1 tablet by mouth once daily. - levothyroxine (SYNTHROID) 125 mcg tablet Take 1 tablet by mouth once daily. - simvastatin (ZOCOR) 20 mg tablet Take 1 tablet by mouth once daily. - folic acid 1 mg tablet Take 1 tablet by mouth once daily. - cyanocobalamin (VITAMIN B-12) 1,000 mcg tab Take 1 tablet by mouth once daily. - linaGLIPtin (TRADJENTA) 5 mg tab Take 1 tablet by mouth once daily. - copper citrate 2 mg capsule Take 2 mg by mouth once daily. - cholecalciferol (VITAMIN D3) 50 mcg (2,000 unit) tablet Take 2,000 Units by mouth once daily. - DOCOSAHEXANOIC ACID/EPA (FISH OIL ORAL) Take 1,000 mg by mouth once daily. - blood sugar diagnostic (BLOOD GLUCOSE TEST) test strip Test blood sugar(s) 1 time daily. Dx: E11.9. Insulin: No - timolol maleate (ISTALOL) 0.5 % OPHTHALMIC DrpD Use 1 Drop in the left eye once daily. - XALATAN 0.005 % EYE DROPS one drop each at bedtime - ASPIRIN 81 MG TAB Take 81 mg by mouth once daily. 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 [D12.8*04/05/2011 Gastroesophageal reflux disease without esophag*04/07/2015 Disorder of prostate [N42.9] 04/07/2015 Diabetic eye exam (HCC) [Z01.00, E11.9] 04/09/2015 Essential hypertension with goal blood pressure*08/19/2015 Controlled type 2 diabetes mellitus with stage *08/19/2015 Benign non-nodular prostatic hyperplasia withou*08/19/2015 Colon cancer screening [Z12.11] 08/19/2015 Diabetic peripheral neuropathy (HCC) [E11.42] 03/16/2011 Medicare annual wellness visit, subsequent [Z00*09/29/2016 Other dietary vitamin B12 deficiency anemia [D5*04/06/2017 Class 1 obesity due to excess calories without *10/05/2017 Moderate aortic stenosis [I35.0] 05/03/2018 Glaucoma [H40.9] AK (actinic keratosis) [L57.0] 10/23/2018 Bilateral carotid artery stenosis [I65.23] 10/24/2018 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] 11/16/2018 Dermatitis [L30.9] 11/16/2018 Stage 3a chronic kidney disease (HCC) [N18.31] 02/27/2019 Albuminuria [R80.9] 03/26/2020 Other proteinuria [R80.8] 03/26/2020 Macrocytic anemia [D53.9] 06/15/2020 Medication management [Z79.899] 09/16/2020 Calculus of gallbladder with chronic cholecysti*03/27/2021 Living will on file [NGD1701] 11/11/2021 Advance directive discussed with patient [Z71.8*11/11/2021 Chronic diarrhea [K52.9] 11/11/2021 Anemia due to stage 3 chronic kidney disease (H*07/28/2022 Platelets decreased (HCC) [D69.6] 01/18/2023 05/25/2023 Idiopathic gout [M10.00] 12/11/2023 Nonrheumatic mitral valve regurgitation [I34.0] 01/02/2024 Renal stones [N20.0] 05/22/2024 Metabolic dysfunction-associated steatohepatiti*11/18/2024 Encounter Status:Closed by FRANCISCA ALDANA on 11/26/24 [facility] Telephone (HEMTRINI) ----- MEG BRYANT ([id number]) 1945 M Date Time Provider Department 11/26/24 PAUL ARZOLA During your visit today, we recorded the following information about you: Paul Arzola, DO 11/26/2024 2:14 PM Signed Can let her know the finalized lab results show that his iron is low for degree of kidney function. Please schedule for 5 doses of iron sucrose. We did discuss this at yesterday's office visit. He should then have a repeat CBC and iron studies at about 4 to 6 weeks after completing iron. Deanna Merrill LPN 11/26/2024 3:15 PM Signed Patient notified. Please schedule for Iron and labs 4-6 weeks after last iron infusion. Deanna Merrill LPN Danika Julienlyn 11/28/2024 9:45 AM Signed Called patient and left a vm to return our call Jazmine Siegel 11/28/2024 3:11 PM Signed Patient's spouse called back and scheduled. She said to advise Dr. Arzola that his test this morning at [facility] shows he has an ulcer. Sommer Moreno LPN 11/28/2024 3:34 PM Signed EGD report printed and given to Dr. Arzola. LIAT Estrada Paul A, DO 11/29/2024 4:32 PM Signed Thank you. Lets proceed with intravenous iron. I think will help. He probably had some bleeding from the ulcer at 1 point. 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 - pioglitazone (ACTOS) 45 mg tablet Take 1 tablet by mouth once daily. - levothyroxine (SYNTHROID) 125 mcg tablet Take 1 tablet by mouth once daily. - simvastatin (ZOCOR) 20 mg tablet Take 1 tablet by mouth once daily. - folic acid 1 mg tablet Take 1 tablet by mouth once daily. - cyanocobalamin (VITAMIN B-12) 1,000 mcg tab Take 1 tablet by mouth once daily. - linaGLIPtin (TRADJENTA) 5 mg tab Take 1 tablet by mouth once daily. - copper citrate 2 mg capsule Take 2 mg by mouth once daily. - cholecalciferol (VITAMIN D3) 50 mcg (2,000 unit) tablet Take 2,000 Units by mouth once daily. - DOCOSAHEXANOIC ACID/EPA (FISH OIL ORAL) Take 1,000 mg by mouth once daily. - blood sugar diagnostic (BLOOD GLUCOSE TEST) test strip Test blood sugar(s) 1 time daily. Dx: E11.9. Insulin: No - timolol maleate (ISTALOL) 0.5 % OPHTHALMIC DrpD Use 1 Drop in the left eye once daily. - XALATAN 0.005 % EYE DROPS one drop each at bedtime - ASPIRIN 81 MG TAB Take 81 mg by mouth once daily. 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 [D12.8*04/05/2011 Gastroesophageal reflux disease without esophag*04/07/2015 Disorder of prostate [N42.9] 04/07/2015 Diabetic eye exam (HCC) [Z01.00, E11.9] 04/09/2015 Essential hypertension with goal blood pressure*08/19/2015 Controlled type 2 diabetes mellitus with stage *08/19/2015 Benign non-nodular prostatic hyperplasia withou*08/19/2015 Colon cancer screening [Z12.11] 08/19/2015 Diabetic peripheral neuropathy (HCC) [E11.42] 03/16/2011 Medicare annual wellness visit, subsequent [Z00*09/29/2016 Other dietary vitamin B12 deficiency anemia [D5*04/06/2017 Class 1 obesity due to excess calories without *10/05/2017 Moderate aortic stenosis [I35.0] 05/03/2018 Glaucoma [H40.9] AK (actinic keratosis) [L57.0] 10/23/2018 Bilateral carotid artery stenosis [I65.23] 10/24/2018 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] 11/16/2018 Dermatitis [L30.9] 11/16/2018 Stage 3a chronic kidney disease (HCC) [N18.31] 02/27/2019 Albuminuria [R80.9] 03/26/2020 Other proteinuria [R80.8] 03/26/2020 Macrocytic anemia [D53.9] 06/15/2020 Medication management [Z79.899] 09/16/2020 Calculus of gallbladder with chronic cholecysti*03/27/2021 Living will on file [[id number]] 11/11/2021 Advance directive discussed with patient [Z71.8*11/11/2021 Chronic diarrhea [K52.9] 11/11/2021 Anemia due to stage 3 chronic kidney disease (H*07/28/2022 Platelets decreased (HCC) [D69.6] 01/18/2023 05/25/2023 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 Normal [facility] MR/PAT.ANEon 11-26-2024 MR/PAT.[facility] Medical Records Department [address] [place] [address] PAT - Anesthesia 11/26/24 1337 MR#: [id number] Acct: [id number] Name: MEG BRYANT Rep #: [id number] : 1945 79 From: Henok Wall MD PCP: Dr. 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 When Was Last Pacemaker Check QUESTION #4 FULL TEXT: You/Your Family Experience fever (hyperthermia) with Anesthesia Last Oral Intake Last Oral intake: Last Oral Intake NPO since Meds taken in AM with sips of water? Meds patient instructed to take am of surgery PONV PONV - cafe team member: PONV - cafe team member Female No 11/26/24 09:01 HX of Motion Sickness No 11/26/24 09:01 HX of N/V After Surgery No 11/26/24 09:01 Non-Smoker Yes 11/26/24 09:01 Duration of Surgery greater No 11/26/24 09:01 than 60 minutes Number of Risk Factors 1 11/26/24 09:01 PONV Score Low Risk 11/26/24 09:01 Height Weight Height Weight: Anesthesia: Height Weight Height 5 ft 9 in 12/14/23 11:27 Respiratory Assessment Respiratory Assessment - cafe team member: Respiratory Tract Infection Hx - cafe team member Hx Respiratory Tract Infection No 11/26/24 09:01 STOP Sleep Apnea STOP Sleep Apnea - cafe team member: STOP Sleep Apnea - cafe team member Hx Hypertension No 11/26/24 09:01 Hx Sleep Apnea No 11/26/24 09:01 CPAP BIPAP Do you snore loudly (louder No 11/26/24 09:01 than talking or can be heard Do you often feel tired/ No 11/26/24 09:01 fatigued/ sleepy during daytime? Has anyone observed you stop No 11/26/24 09:01 breathing during sleep? STOP Results Negative 11/26/24 09:01 QUESTION #5 FULL TEXT : Do you snore loudly (louder than talking or can be heard through closed doors)? Tobacco Use History Tobacco Use History - cafe team member: Tobacco Use History - cafe team member Tobacco Use Smoking Status Former smoker 11/26/24 09:01 Hx Tobacco Use No 11/26/24 09:01 Years Smoking Packs Smoked per Day Smoking Cessation Date was No - quit smoking greater 11/26/24 09:01 within the last 15 years than 15 years ago Hx Smoking Cessation Date Hx Smoking Cessation Counseling Hematologic Medial History Hematologic Hx - cafe team member: Hematologic Medical Hx - rn international Hx of Blood Transfusion No 11/26/24 09:01 Hx of Transfusion in last 3 No 11/26/24 09:01 Months Date of Last Transfusion (if within last 3 months) Ever experience any problems No 11/26/24 09:01 with transfusion(s)? Specify any problems Hx of Preganancy in last 3 N/A 11/26/24 09:01 Months Nurse Filling Out Transfusion [email or web address] 11/26/24 09:01 Questions: Date: 11/26/24 11/26/24 09:01 Time: 09:10 11/26/24 09:01 Patient unable to answer at this time (ie. confused, unrespo /Reproduction History /Reproductive History - cafe team member: /Reproductive Hx- cafe team member Hx Now Gestational Age (in weeks): EDC: Hx Hx Para Hx Section SAB PFSH Medical History (Updated 11/26/24 @ 09:18 by Butch Singh) Wears glasses Low iron Gastric reflux Former smoker Kidney stones Leg cramps History of echocardiogram History of stress test Cardiology follow-up encounter Non-rheumatic aortic stenosis Obstructive chronic bronchitis History of radioactive iodine thyroid ablation Ocular histoplasmosis syndrome of left eye Obesity Glaucoma GERD (gastroesophageal reflux disease) Diabetic peripheral neuropathy Benign neoplasm of rectum Hypothyroidism Hyperlipidemia Essential (primary) hypertension Type 2 diabetes mellitus Home Medications ???Medication ???Instructions ???Recorded ???Last Taken ???Type aspirin 81 mg tablet,delayed 81 mg PO DAILY 05/11/18 11/24/24 H istory release (Adult Aspirin Regimen) latanoprost 0.005 % eye drops 1 drp ophthalmic (eye) QPM 9 Unknown History (Xalatan) levothyroxine 125 mcg capsule 125 mcg PO DAILY 05/11/18 Unknown History pioglitazone 4 (more content not included)... Normal [facility] Basic metabolic 2000 panelon 11-25-2024 Anion gap [Moles/Vol] 10 mmol/L Normal 8-15 [facility] Comment on above: Order Comment: Speci men Type: BLOOD SPECIMENOrdering Facility: [facility] Address: [address] [place] [address] [place] [address] Performed By: #### 2 4321-2 ####[facility] [id number] [place] [id number] [place] Calcium [Mass/Vol] 9.2 mg/dL Normal 8.5-10.2 [facility] Comment on above: Order Comment: Speci men Type: BLOOD SPECIMENOrdering Facility: [facility] Address: [address] [place] [address] Performed By: #### 2 4321-2 ####[facility] JOHNWNCLIA [id number] [place] [address] [place] Chloride [Moles/Vol] 107 mmol/L Normal 98-107 [facility] Comment on above: Order Comment: Speci men Type: BLOOD SPECIMENOrdering Facility: [facility] Address: [address] [place] [address] Performed By: #### 2 4321-2 ####[facility] [id number] [place] [address] [place] CO2 [Moles/Vol] 23 mmol/L Normal 22-30 [facility] Comment on above: Order Comment: Speci men Type: BLOOD SPECIMENOrdering Facility: [facility] Address: [address] [place] [address] Performed By: #### 2 4321-2 ####[facility] [id number] [place] [address] [place] Creatinine [Mass/Vol] 1.57 mg/dL High 0.73-1.22 [facility] Comment on above: Order Comment: Speci men Type: BLOOD SPECIMENOrdering Facility: [facility] Address: [address] [place] [address] Performed By: #### 2 4321-2 ####[facility] [id number] [place] [address] [place] eGFRcr SerPlBld CKD-EPI 2020 45 mL/min/1.73m??? Low >=60 [facility] Comment on above: Order Comment: Speci men Type: BLOOD SPECIMENOrdering Facility: [facility] Address: [address], [place] [address] Result Comment: Teresita mated Glomerular Filtration Rate (eGFR) is calculated using the 2020 CKD-EPI creatinine equation. This equation utilizes serum creatinine, sex, and age as parameters. The creatinine assay has traceable calibration to isotope dilution-mass spectrometry. Refer to KDIGO guidelines for clinical interpretation. In patients with unstable renal function, e.g. those with acute kidney injury, the eGFR may not accurately reflect actual GFR. Performed By: #### 2 4321-2 ####[facility] [id number] [place] [address] [place] Glucose [Mass/Vol] 227 mg/dL High 74-99 [facility] Comment on above: Order Comment: Cabrera aguilera Type: BLOOD SPECIMENOrdering Facility: [facility] Address: [address] [place] [address] Result Comment: The [place] Diabetes Association (ADA) provides guidance for cutoff values for fasting glucose and random glucose. The ADA defines fasting as no caloric intake for at least 8 hours. Fasting plasma glucose results between 100 to 125 mg/dL indicate increased risk for diabetes (prediabetes). Fasting plasma glucose results greater than or equal to 126 mg/dL meet the criteria for diagnosis of diabetes. In the absence of unequivocal hyperglycemia, results should be confirmed by repeat testing. In a patient with classic symptoms of hyperglycemia or hyperglycemic crisis, random plasma glucose results greater than or equal to 200 mg/dL meet the criteria for diagnosis of diabetes. Reference: Standards of Medical Care in Diabetes 2016, [place] [employer] Association. Diabetes Care. 2016.39(Suppl 1). Performed By: #### 2 4321-2 ####[facility] [id number] [place] [address] [place] Potassium [Moles/Vol] 4.6 mmol/L Normal 3.7-5.1 [facility] Comment on above: Order Comment: Cabrera aguilera Type: BLOOD SPECIMENOrdering Facility: [facility] Address: [address] [place] [address] Performed By: #### 2 4321-2 ####[facility] [id number] [place] [address] [place] Sodium [Moles/Vol] 140 mmol/L Normal 136-144 [facility] Comment on above: Order Comment: Speci men Type: BLOOD SPECIMENOrdering Facility: [facility] Address: [address] [place] [address] Performed By: #### 2 4321-2 ####[facility] JOHNSTEVENWLISAA [id number] [place] [address] [place] Urea nitrogen [Mass/Vol] 22 mg/dL Normal 9-24 [facility] Comment on above: Order Comment: Speci men Type: BLOOD SPECIMENOrdering Facility: [facility] Address: [address] [place] [address] Performed By: #### 2 4321-2 ####[facility] JOHNEloiseNCLIA [id number] [place] [address] [place] CBC W Auto Differential pane l (Bld)on 11-25-2024 Basophils (Bld) [#/Vol] 0.09 10*3/uL Normal <0.11 [facility] Comment on above: Order Comment: Speci men Type: BLOOD SPECIMENOrdering Facility: [facility] Address: [address] [place] [address] Performed By: #### 5 7021-8 ####[facility] [id number] [place] [address] [place] Basophils/100 WBC (Bld) 1.0 % Normal [facility] Comment on above: Order Comment: Speci men Type: BLOOD SPECIMENOrdering Facility: [facility] Address: [address] [place] [address] Performed By: #### 5 7021-8 ####[facility] JOHNZILLAHNCLIA [id number] [place] [address] [place] Differential cell count method Nom (Bld) Auto Normal [facility] Comment on above: Order Comment: Speci men Type: BLOOD SPECIMENOrdering Facility: [facility] Address: [address] [place] [address] Performed By: #### 5 7021-8 ####[facility] JOHNMAURICIO [id number] [place] [address] [place] Eosinophils (Bld) [#/Vol] 0.28 10*3/uL Normal <0.46 [facility] Comment on above: Order Comment: Speci men Type: BLOOD SPECIMENOrdering Facility: [facility] Address: [address] [place] [address] Performed By: #### 5 7021-8 ####[facility] [id number] [place] [address] [place] Eosinophils/100 WBC (Bld) 3.0 % Normal [facility] Comment on above: Order Comment: Speci men Type: BLOOD SPECIMENOrdering Facility: [facility] Address: [address] [place] [address] Performed By: #### 5 7021-8 ####[facility]ONCDiya [id number] [place] [address] [place] Erythrocyte distribution width (RBC) [Ratio] 13.1 % Normal 11.5-15.0 [facility] Comment on above: Order Comment: Speci men Type: BLOOD SPECIMENOrdering Facility: [facility] Address: [address] [place] [address] Performed By: #### 5 7021-8 ####[facility] [id number] [place] [address] [place] Hematocrit (Bld) [Volume fraction] 29.3 % Low 39.0-51.0 [facility] Comment on above: Order Comment: Speci men Type: BLOOD SPECIMENOrdering Facility: [facility] Address: [address] [place] [address] Performed By: #### 5 7021-8 ####[facility] [id number] [place] [address] [place] Hemoglobin (Bld) [Mass/Vol] 9.4 g/dL Low 13.0-17.0 [facility] Comment on above: Order Comment: Speci men Type: BLOOD SPECIMENOrdering Facility: [facility] Address: [address] [place] [address] Performed By: #### 5 7021-8 ####[facility] H[facility]ITALL[facility] [id number] [place] [address] [place] Immature granulocytes (Bld) [#/Vol] 0.05 10*3/uL Normal <0.10 [facility] Comment on above: Order Comment: Speci men Type: BLOOD SPECIMENOrdering Facility: [facility] Address: [address] [place] [address] Performed By: #### 5 7021-8 ####[facility] [id number] [place] [address] [place] Immature granulocytes/100 WBC (Bld) 0.5 % Normal [facility] Comment on above: Order Comment: Speci men Type: BLOOD SPECIMENOrdering Facility: [facility] Address: [address] [place] [address] Performed By: #### 5 7021-8 ####[facility] H[facility]ITALL[facility] [id number] [place] [address] [place] Lymphocytes (Bld) [#/Vol] 2.06 10*3/uL Normal 1.00-4.0 0 [facility] Comment on above: Order Comment: Speci men Type: BLOOD SPECIMENOrdering Facility: [facility] Address: [address] [place] [address] Performed By: #### 5 7021-8 ####[facility] [id number] [place] [address] [place] Lymphocytes/100 WBC (Bld) 22.2 % Normal [facility] Comment on above: Order Comment: Speci men Type: BLOOD SPECIMENOrdering Facility: [facility] Address: [address] [place] [address] Performed By: #### 5 7021-8 ####[facility] [id number] [place] [address] [place] MCH (RBC) [Entitic mass] 34.1 pg High 26.0-34.0 [facility] Comment on above: Order Comment: Speci men Type: BLOOD SPECIMENOrdering Facility: [facility] Address: [address] [place] [address] Performed By: #### 5 7021-8 ####[facility] [id number] [place] [address] [place] MCHC (RBC) [Mass/Vol] 32.1 g/dL Normal 30.5-36.0 [facility] Comment on above: Order Comment: Speci men Type: BLOOD SPECIMENOrdering Facility: [facility] Address: [address] [place] [address] Performed By: #### 5 7021-8 ####[facility] [id number] [place] [address] [place] MCV (RBC) [Entitic vol] 106.2 fL High 80.0-100.0 [facility] Comment on above: Order Comment: Speci men Type: BLOOD SPECIMENOrdering Facility: [facility] Address: [address] [place] [address] Performed By: #### 5 7021-8 ####[facility] [id number] [place] [address] [place] Monocytes (Bld) [#/Vol] 1.15 10*3/uL High <0.87 [facility] Comment on above: Order Comment: Speci men Type: BLOOD SPECIMENOrdering Facility: [facility] Address: [address] [place] [address] Performed By: #### 5 7021-8 ####[facility] [id number] [place] [address] [place] Monocytes/100 WBC (Bld) 12.4 % Normal [facility] Comment on above: Order Comment: Speci men Type: BLOOD SPECIMENOrdering Facility: [facility] Address: [address] [place] [address] Performed By: #### 5 7021-8 ####[facility] [id number] [place] [address] [place] Neutrophils (Bld) [#/Vol] 5.65 10*3/uL Normal 1.45-7.5 0 [facility] Comment on above: Order Comment: Speci men Type: BLOOD SPECIMENOrdering Facility: [facility] Address: [address] [place] [address] Performed By: #### 5 7021-8 ####[facility] [id number] [place] [address] [place] Neutrophils/100 WBC (Bld) 60.9 % Normal [facility] Comment on above: Order Comment: Speci men Type: BLOOD SPECIMENOrdering Facility: [facility] Address: [address] [place] [address] Performed By: #### 5 7021-8 ####[facility] [id number] [place] [address] [place] Nucleated RBC (Bld) [#/Vol] 10*3/uL Normal <0.01 [facility] Comment on above: Order Comment: Speci men Type: BLOOD SPECIMENOrdering Facility: [facility] Address: [address] [place] [address] Performed By: #### 5 7021-8 ####[facility] JOHNZILLAHNCLIA [id number] [place] [address] [place] Nucleated RBC/100 WBC (Bld) [Ratio] 0.0 /100 WBC Normal [facility] Comment on above: Order Comment: Speci men Type: BLOOD SPECIMENOrdering Facility: [facility] Address: [address] [place] [address] Performed By: #### 5 7021-8 ####[facility] [id number] [place] [address] [place] Platelet mean volume (Bld) [Entitic vol] 10.1 fL Normal 9.0-12.7 [facility] Comment on above: Order Comment: Speci men Type: BLOOD SPECIMENOrdering Facility: [facility] Address: [address] [place] [address] Performed By: #### 5 7021-8 ####[facility] [id number] [place] [address] [place] Platelets (Bld) [#/Vol] 182 10*3/uL Normal 150-400 [facility] Comment on above: Order Comment: Speci men Type: BLOOD SPECIMENOrdering Facility: [facility] Address: [address] [place] [address] Performed By: #### 5 7021-8 ####[facility] [id number] [place] [address] [place] RBC (Bld) [#/Vol] 2.76 10*6/uL Low 4.20-6.[address] [facility] Comment on above: Order Comment: Speci men Type: BLOOD SPECIMENOrdering Facility: [facility] Address: [address] [place] [address] Performed By: #### 5 7021-8 ####[facility] [id number] [place] [address] [place] WBC (Bld) [#/Vol] 9.28 10*3/uL Normal 3.70-11.[address] [facility] Comment on above: Order Comment: Speci men Type: BLOOD SPECIMENOrdering Facility: [facility] Address: [address] [place] [address] Performed By: #### 5 7021-8 ####[facility] [id number] [place] [address] [place] CNOVSPon 11-25-2024 CNOVSP Visit (SP) Office (HEMAWS) ----- MEG BRYANT ([id number]) 1945 M Date Time Provider Department 11/25/24 2:50 PM PAUL ARZOLA During your visit today, we recorded the following information about you: Temperature Pulse Blood pressure Weight 98.5 degrees 69/minute 120/81 96.6 kg Paul Arzola DO 11/26/2024 6:12 AM Signed Hematologic problem(s): 1) 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 2) Anemia. HPI: The patient is a 79 year-old male with a past medical history significant for hypothyroidism (received radioactive ablation for hyperthyroidism ~1989), hypertension, type 2 diabetes (Dx ~25 years ago; neuropathy), hypercholesterolemia, GERD, stage 3b chronic kidney disease and B12 deficiency. Patient was noted to have elevated creatinine of 1.27 in August 2019. It was 1.68 in March 2020. UA in March 2020 demonstrated 1+ protein with no evidence of RBCs or WBCs. Creatinine on 03/24/2020 was 1.47 g/dL whereas it had been 1.68 mg/dL on 03/16/2020. He had an ultrasound of the kidneys on 05/04/2020. Was interpreted as a normal ultrasound kidneys and urinary bladder. Patient's recent lab work from 05/12/2020 includes a chemistry panel showing a serum creatinine of 1.42 mg/dL. Serum calcium was 9.3 mg/dL. Patient had a protein electrophoresis of the serum and a random urine sample performed. No M spike was observed on the urine protein electrophoresis but on the serum protein electrophoresis note was made of a faint band in the gamma region suspicious for monoclonal immunoglobulin. However was thought to possibly represent a benign spike as seen in older individuals or potential paraprotein. Immunofixation of the urine and serum had not been performed. Has sensory neuropathy of feet. Noticed ulcers on posterior lower gum about 6-8 months ago. Saw oral surgeon. Biopsy c/w mucous membrane pemphigoid. On steroid mouth rinse and has follow up in August. Seems to be helping. Serum folate from last summer recently posted and was low. Presents for ongoing hematologic management. Interim history: Fatigued. PMH, medications and allergies personally reviewed by me today. Any changes documented in appropriate section. ROS: Constitutional: Denies episodes of fever and night sweats. Not significantly fatigued. Decreased appetite. Neuro: Denies GUTIERREZ, vertigo and dizziness. +Chronic imbalance. HEENT: No recent change in voice, vision or hearing. Resp: Denies cough, wheeze and hemoptysis. Denies shortness of breath at rest. Denies KEY. CVS: Denies exertional chest pain, PND, orthopnea and LE edema. GI: Denies dysgeusia. Denies symptoms of stomatitis. Denies dysphagia and odynophagia. Denies n/v, change in bowel habits and abdominal pain. : Denies dysuria or gross hematuria. No symptoms of bladder outlet obstruction. Endo: Denies hot flashes. Denies polyuria and polydipsia. Denies heat and cold intolerance. Musculoskeletal: Joint pain all the time. Attributes it to his statin drug. Derm: Denies rash. Denies jaundice and diffuse pruritis. Heme: Denies unusual bleeding and unexplained bruising. Psych: Normal mood. PHYSICAL EXAM: Vitals: Blood pressure 120/81, pulse 69, temperature 36.9 ?C (98.5 ?F), temperature source Temporal, weight 96.6 kg (213 lb), SpO2 97%. Well-appearing and in no acute distress. EYES: Sclerae are anicteric bilaterally. LYMPHATIC: There is no palpable cervical or supraclavicular adenopathy. RESPIRATORY: Inspiratory breath sounds are of normal intensity in all peres. No rales, wheezes or rhonchi. CARDIOVASCULAR: Rhythm is regular. ABDOMEN: The abdomen is nondistended. No organomegaly. No tenderness. SKIN: No jaundice or rash. PATHOLOGY: Bone marrow biopsy 08/18/2021: A-C. Bone marrow, aspirate smear and core biopsy, with clot section: - Cellular marrow (variable, 10-40%) with trilineage hematopoiesis. - Multiple lymphoid aggregates, favor reactive process. - Stainable iron present. - See comment. D. Peripheral blood smear: - Macrocytic anemia and monocytosis. The patient has a history of macrocytic anemia. Flow cytometry on this specimen shows no immunophenotypic evidence of lymphoproliferative disorder or abnormal blast population (see flow report). Correlation with clinical findings and pending cytogenetic result to rule out clonal neoplasm is suggested. 2% PCs. DIAGNOSIS: 46,XY[20] INTERPRETATION: Normal, male karyotype ASSESSMENT/PLAN: (D53.9) Macrocytic anemia (primary encounter diagnosis) Assessment: -The patient is a 79-year-old male who has a history of chronic kidney disease. Found to have a questionable serum monoclonal protein on electrophoresis. -Renal function had been stable dating to at least March 2017. -Repeat testing here significant only for a poorly defined region of restricted mobility in the lambda rafita potentiall (more content not included)... Normal [facility] COPPER BLOODon 11-25-2024 Copper [Mass/Vol] 77 ug/dL Normal 70-140 [facility] Comment on above: Order Comment: Speci men Type: BLOOD SPECIMENOrdering Facility: [facility] Address: [address] [place] [address] Result Comment: This test was developed, and its performance characteristics determined by the [facility] Department of Pathology and Laboratory Medicine. It has not been cleared or approved by the FDA. The [facility] Department of Pathology and Laboratory Medicine is regulated under CLIA as qualified to perform high-complexity testing. This test is used for clinical purposes. It should not be regarded as investigational or for research. Performed By: #### C OPPER ####[facility] LABCLIA [id number] [place] [address] [place] Ferritin SerPl-mCncon 2024 Ferritin [Mass/Vol] 60.1 ng/mL Normal 30.3-565.[address] [facility] Comment on above: Order Comment: Speci men Type: BLOOD SPECIMENOrdering Facility: [facility] Address: [address] [place] [address] Performed By: #### 5 0190-8, 2276-4, LIPNF ####[facility] LABCLIA [id number] [place] [address] [place] Folate SerPl-mCncon 11-26-19 25 Folate [Mass/Vol] ng/mL Normal >4.7 [facility] Comment on above: Order Comment: [facility] Type: BLOOD SPECIMENOrdering Facility: [facility] Address: [address] [place] [address] Result Comment: A re sult of > 20 ng/mL is not necessarily indicative of a pathologic or treatable condition: it reflects a limitation of the test methodology. Assay reference range: 4.8 to 24.2 ng/mL. Suitable for detection of folate deficiency. Reference: Folate III (Folate III) [package insert V 1.0 Slovak]. [facility], [place], [place]: January 2015. Performed By: #### 2 132-9, 2284-8 ####[facility] LABCLIA [id number] [place] [address] [place] HbA1c (Bld)on 11-25-2024 Average glucose Estimated from glycated hemoglobin (Bld) [Mass/Vol] 128 mg/dL Normal [facility] Comment on above: Order Comment: Speci men Type: BLOOD SPECIMENOrdering Facility: [facility] Address: [address] [place] [address] Result Comment: eAG: (Estimated average glucose) is a calculated value from HgbA1c and is route sales representative of the average blood glucose level in the last 2-3 month period. Performed By: #### 5 5454-3 ####[facility] LABCLIA [id number] [place] [address] [place] HbA1c (Bld) [Mass fraction] 6.1 % High 4.3-5.6 [facility] Comment on above: Order Comment: Speci men Type: BLOOD SPECIMENOrdering Facility: [facility] Address: [address] [place] [address] Result Comment: Amer ican Diabetes Association guidelines indicate that patients with HgbA1c in the range 5.7-6.4% are at increased risk for development of diabetes, and intervention by lifestyle modification may be beneficial. HgbA1c greater or equal to 6.5% is considered diagnostic of diabetes. Performed By: #### 5 5454-3 ####[facility] LABIA [id number] [place] [address] [place] Iron and Iron binding capaci ty panel 11-25-2024 Iron [Mass/Vol] 71 ug/dL Normal 41-186 [facility] Comment on above: Order Comment: Speci men Type: BLOOD SPECIMENOrdering Facility: [facility] Address: [address] [place] [address] Performed By: #### 5 0190-8, 2276-4, LIPNF ####[facility] [id number] [address] [place] Iron binding capacity [Mass/Vol] 301 ug/dL Normal 232-386 [facility] Comment on above: Order Comment: Speci men Type: BLOOD SPECIMENOrdering Facility: [facility] Address: [address] [place] [address] Performed By: #### 5 0190-8, 2276-4, LIPNF ####[facility] LABIA [id number] [place] [address] [place] Iron/TIBC [Molar ratio] 23.6 % Normal 15.0-57.0 [facility] Comment on above: Order Comment: Speci men Type: BLOOD SPECIMENOrdering Facility: [facility] Address: [address] [place], [place] [address] Performed By: #### 5 0190-8, 6-4, LIPNF ####[facility] LABCLIA [id number] [address] [place] LIPID PANEL, NONFASTINGon Cholesterol [Mass/Vol] 144 mg/dL Normal <200 [facility] Comment on above: Order Comment: Speci men Type: BLOOD SPECIMENOrdering Facility: [facility] Address: [address] [place] [address] Result Comment: <200 mg/dL, Desirable 200-239 mg/dL, Borderline high >239 mg/dL, High Performed By: #### 5 0190-8, 2275-4, LIPNF ####[facility] LABCLIA [id number] [address] [place] HDL CHOLESTEROL, NF 39 mg/dL Low >[address] [facility] Comment on above: Order Comment: Speci men Type: BLOOD SPECIMENOrdering Facility: [facility] Address: [address] [place] [address] Result Comment: 40-5 9 mg/dL, Acceptable >59 mg/dL, High: Negative risk factor for coronary heart disease <40 mg/dL, Low: Positive risk factor for coronary heart disease Performed By: #### 5 0190-8, 2275-4, LIPNF ####[facility] LABIA [id number] [address] [place] LDL CHOLESTEROL CALCULATED, NF 91 mg/dL Normal <100 [facility] Comment on above: Order Comment: Speci [facility] Type: BLOOD SPECIMENOrdering Facility: [facility] Address: [address] [place] [address] Result Comment: <100 mg/dL, Optimal 100-129 mg/dL, Near optimal/above optimal 130-159 mg/dL, Borderline high 160-189 mg/dL, High >189 mg/dL, Very high Secondary prevention optimal LDL Cholesterol levels are recommended to be <70 mg/dL LDL cholesterol is calculated using the Bragg-NIH equation. Performed By: #### 5 0190-8, 6-4, LIPNF ####[facility] LABCLIA [id number] [place] [id number] [place] LDL/HDL RATIO, NF 2.33 mg/dL Normal <2.54 [facility] Comment on above: Order Comment: Speci men Type: BLOOD SPECIMENOrdering Facility: [facility] Address: [address] [place] [address] Result Comment: Refe farhanace: 1. National Cholesterol Education Program ATP III Guideline At-A-Glance Quick Desk Reference: National Heart, Lung, and Blood [place]. National Institutes of Health. 2001: NIH Publication No. 01-3305. 2. An International Atherosclerosis Society position paper: global recommendations for the management of dyslipidemia: executive summary, Atherosclerosis. 2014: 232(2):410-413. Performed By: #### 5 0190-8, 2275-4, LIPNF ####[facility] LABIA [id number] [place] [address] [place] NON HDL CHOL, NF 105 mg/dL Normal <130 [facility] Comment on above: Order Comment: Speci men Type: BLOOD SPECIMENOrdering Facility: [facility] Address: [address] [place] [address] Result Comment: <130 mg/dL, Optimal 130-159 mg/dL, Near optimal/above optimal 160-189 mg/dL, Borderline high 190-219 mg/dL, High >219 mg/dL, Very high Secondary prevention optimal non HDL Cholesterol levels are recommended to be <100 mg/dL Performed By: #### 5 0190-8, 2275-4, LIPNF ####[facility] LABIA [id number] [place] [id number] [place] T CHOL/HDL RATIO NF 3.69 mg/dL Normal <5.[address] [facility] Comment on above: Order Comment: Speci men Type: BLOOD SPECIMENOrdering Facility: [facility] Address: [address] [place] [address] Performed By: #### 5 0190-8, 2276-4, LIPNF ####[facility] LABCLIA [id number] [address] [place] [address] [place] TRIGLYCERIDES, NF 72 mg/dL Normal <150 [facility] Comment on above: Order Comment: Speci men Type: BLOOD SPECIMENOrdering Facility: [facility] Address: [address] [place] [address] Result Comment: <150 mg/dL, Normal 150-199 mg/dL, Borderline high 200-499 mg/dL, High >499 mg/dL, Very high Performed By: #### 5 0190-8, 2276-4, LIPNF ####[facility] LABCLIA [id number] [place] [id number] [place] VLDL CHOLESTEROL, NF 11 mg/dL Normal <30 [facility] Comment on above: Order Comment: Speci men Type: BLOOD SPECIMENOrdering Facility: [facility] Address: [address] [place] [address] Performed By: #### 5 0190-8, 2276-4, LIPNF ####[facility] LABCLIA [id number] [address], [place] [address] [place] Vit B12 [facility] 025 Cobalamin (Vitamin B12) [Mass/Vol] pg/mL High 232-1245 [facility] Comment on above: Order Comment: Speci men Type: BLOOD SPECIMENOrdering Facility: [facility] Address: [address] [place] [address] Performed By: #### 2 132-9, 2284-8 ####[facility] LABIA [id number] [place] [id number] [place] Gastroenterology Visit Repor ton 11-19-2024 Gastroenterology Visit Report [facility]ology [address] [place] [address] OFFICE VISIT Date of Service: 11/19/24 MR#: [id number] Acct: [id number] Name: MEG BRYANT Rep #: [id number] : 1945 Provider: EUGENE Payne Age/Sex: 79/M [place] [facility] Status: Signed Intake Vital Signs 12/14/23 11:27 Height 5 ft 9 in Intake Visit Reasons: RESULTS Chief Complaint: Loose stool Allergies sitagliptin (From Mar) Adverse Reaction (Verified 12/14/23 11:23) myalgia Medications ???Medication ???Instructions ???Recorded ???Confirmed ???Type aspirin 81 mg tablet,delayed 81 mg PO DAILY 05/11/18 11/19/24 H istory release (Adult Aspirin Regimen) latanoprost 0.005 % eye drops 1 drp ophthalmic (eye) QPM 9 11/19/24 History (Xalatan) levothyroxine 125 mcg capsule 125 mcg PO DAILY 05/11/18 11/19/24 History pioglitazone 45 mg tablet (Actos) 45 mg PO DAILY 05/11/18 11/19/24 History timolol maleate 0.5 % once daily 1 drp ophthalmic (eye) BID 9 11/19/24 History eye drops (Istalol) omega-3 fatty acids 1,000 mg 1,000 mg PO BID 12/10/19 11/19/24 History capsule (Fish Oil Concentrate) cholecalciferol (vitamin D3) 50 50 mcg PO DAILY 10/01/20 11/19/24 History mcg (2,000 unit) tablet linagliptin 5 mg tablet (Tradjenta) 2.5 mg PO DAILY 10/01/20 History cyanocobalamin (vitamin B-12) 1,000 mcg PO BID 12/13/22 11/19/24 History 1,000 mcg capsule folic acid 1 mg tablet 1 mg PO DAILY 12/13/22 11/19/24 Hi story simvastatin 20 mg tablet 20 mg PO DAILY 12/13/22 11/19/24 H istory copper gluconate 2 mg tablet 2 mg PO QDAY 10/24/24 11/19/24 His tory dexamethasone 0.5 mg/5 mL oral 0.5 mg PO QDAY 11/19/24 11/19/24 H istory solution Have you fallen in the past year?: No PFSH Medical History Non-rheumatic aortic stenosis Obstructive chronic bronchitis History of radioactive iodine thyroid ablation Ocular histoplasmosis syndrome of left eye Obesity Glaucoma GERD (gastroesophageal reflux disease) Diabetic peripheral neuropathy Benign neoplasm of rectum Hypothyroidism Hyperlipidemia Essential (primary) hypertension Type 2 diabetes mellitus Surgical History History of colonoscopy (12/20/16) History of colonoscopy with polypectomy (12/30/03) Family History Mother Myocardial infarction Diabetes Heart disease Father CVA (cerebral vascular accident) Cancer lung Sister Heart disease Social History Smoking Status: Former smoker how long ago did patient quit smokin years, smoked a pipe alcohol intake: current alcohol intake frequency: holidays/special occasions only substance use type: does not use caffeine: Yes what type of physical activity do you participate in: none frequency: does not exercise HPI HPI Chief Complaint: Loose stool Details: MEG BRYANT, is a 79 M who presents to the office today for follow-up. BGI established October 2024 with chronic diarrhea for brian past 6-8 months associated with nausea and abdominal pain. last colonoscopy 5-6 years ago. US with elastography NO TO MILD HEPATIC FIBROSIS Diffuse thickening of the fundal portion of the gallbladder wall with evidence of a small cyst. Biochemical work up; celiac and food allergens positive OV 9.9.25 patient here today for follow-up to review results of testing. He continues to have daily loose stool. He endorses that this has been happening for 20 years. He notes that his daughter and granddaughter have celiac disease. ROS Const Constitutional: Positive for fatigue and weakness; No fever(s) or weight change ENT ENT: No difficulty swallowing Gastro GI: Positive for abdominal pain, diarrhea and heartburn; No belching, bloating, change in bowel habits, change in stool character, coffee ground emesis, constipation, cramping, difficulty swallowing, feeling full early, excessive flatus, incontinent of stools, Vomiting blood/hematemesis, Blood in stool, loose stools, Black,tarry stools, nausea/dyspepsia, pain with swallowing, vomiting or other Musc Musculoskeletal: Positive for abnormal gait, joint pain, back pain, muscle weakness, numbness, stiffness, tingling and Arthritis Skin Skin: Positive for dry skin and itchy eyes; No yellowing of the eye Neuro Neurology: Positive for abnormal gait, weakness, numbness and tingling Psych Psychiatric: No anxiety and No depression Endo Endocrine: Positive for fatigue; No weight change Aller/Imm Allergy/Immunologic: Positive for itchy eyes Larry/Lymp Hematologic/Lymphatic: Positive for easy bruising; No eas (more content not included)... Normal [facility] ABD Limited w/ Elastographyo n 11-18-2024 ABD Limited w/ Elastography [facility] Imaging Services [address] [place] [address] ABD Limited w/ Elastography MR#: [id number] Acct: [id number] Name: MEG BRYANT Rep #: [id number] : 1945 M 79 From: Calin simon MD PCP: Dr. Wiliam Mandel MD Status: REG CLI Study: ABD Limited w/ Elastography Date of Exam: 11/04 Exam# [id number] Ordering Dr: Caleb Allen DO PROCEDURE: ABD LIMITED W/ ELASTOGRAPHY REASON FOR EXAM: FATTY LIVER DISEASE COMPARISON: None. TECHNIQUE: Procedure Code: USABDLELPARO Modality: US Procedure: ABD LIMITED W/ ELASTOGRAPHY Right upper quadrant abdominal ultrasound. Fatmata ElastQ Imaging shear wave elastography for non- invasive assessment of liver tissue stiffness. Fatmata EPIQ Elite. FINDINGS: LIVER: Size: Unremarkable Length: 15.9 cm Echotexture: Normal Contour: Normal Lesions: None identified Elastography: EQI Med: 6.7 kPa EQI Med Aron: 1.49 m/s IQR/Med: 26.5 %* GALLBLADDER: Diffuse thickening of the wall and region of the fundus. There is a 8 mm x 8 mm cyst. COMMON BILE DUCT: Normal measuring 4 mm . PANCREAS: Obscured by bowel gas. Visualized portions of the right kidney are unremarkable. No right upper quadrant ascites. US/ABD Limited w/ Elastography IMPRESSION: NO TO MILD HEPATIC FIBROSIS Diffuse thickening of the fundal portion of the gallbladder wall with evidence of a small cyst. Reference Values: SRU <1.37 m/s (5.7kPa): No to mild fibrosis 1.37 m/s - 2.2 m/s: Moderate to severe fibrosis >2.2 m/s (15kPa): Significant fibrosis / cirrhosis METAVIR Score F2 or higher: 1.34 m/s (5.7kPa) F3 or higher: 1.55 m/s (7.3kPa) F4: 1.80 m/s (10kPa) * If the IQR/Med is >30%, the variance in the measurements is a large and the accuracy of the measurement may be in question. Reading Location: [id number] CC: Dr. Wiliam Mandel MD; Caleb Allen DO Law Instructor: Signed [facility] [id number] 11-05-2024 M7400.3302 TESTING PERFORMED AT [facility]. ORIGINAL REPORT ON FILE IN LAB CONTAINS ADDITIONAL TEST SITE INFORMATION. Giardia Lamblia EIA NEGATIVE [facility] Comment on above: Performed By: #### L 503.0106, L503.6550, L503.6150, L501.6710, L100.0100, L501.3620, L2100.0000, L3300.1200, L3300.0100, L504.2610, L5500.0410, L3410.2350, L3100.7000, L506.0400, L501.70129, L501.9520, L3100.3425, L101.9900 #### [facility] [address] [place], [place], [address] Ova and Parasites 8623on OP OVA AND PARASITES EX AM, ROUTINE These results were obtained using wet preparation(s) and trichrome stained smear. This test does not include testing for Crytosporidium parvum, Cyclospora, or Microsporidia. One negative specimen does not rule out the possibility of a parasitic infection. TESTING PERFORMED AT [facility]. ORIGINAL REPORT ON FILE IN LAB CONTAINS ADDITIONAL TEST SITE INFORMATION. Ova/Parasite Exam NO OVA, CYSTS, OR PARASITES FOUND. Normal [facility] Comment on above: Performed By: #### L 503.0106, L503.6550, L503.6150, L501.6710, L100.0100, L501.3620, L2100.0000, L3300.1200, L3300.0100, L504.2610, L5500.0410, L3410.2350, L3100.7000, L506.0400, L501.92586, L501.9520, L3100.3425, L101.9900 #### [facility] [address] [place], [place], [address] Anion gap in Serum or Plasma Ordered By: Lisa Dove on 11-04-2024 Anion gap [Moles/Vol] 13 mmol/L - [facility] BUN/creatinine ratioOrdered By: Lisa Dove on 11-04-2024 Urea nitrogen/Creatinine [Mass ratio] 16.9 mg/mg - [facility] CBC-Complete Blood Cnt No Di ffon 11-04-2024 Erythrocyte distribution width (RBC) [Ratio] 14.0 % Normal 11.6-14.6 [facility] Comment on above: Performed By: #### L 503.0106, L503.6550, L503.6150, L501.6710, L100.0100, L501.3620, L2100.0000, L3300.1200, L3300.0100, L504.2610, L5500.0410, L3410.2350, L3100.7000, L506.0400, L501.21372, L501.9520, L3100.3425, L101.9900 #### [facility] [address] [place], [place], [id number] (507) Hematocrit (Bld) [Volume fraction] 32.2 % Low 40-54 [facility] Comment on above: Performed By: #### L 503.0106, L503.6550, L503.6150, L501.6710, L100.0100, L501.3620, L2100.0000, L3300.1200, L3300.0100, L504.2610, L5500.0410, L3410.2350, L3100.7000, L506.0400, L501.19729, L501.9520, L3100.3425, L101.9900 #### [facility] [address] [place], [place], [id number] (439) Hemoglobin (Bld) [Mass/Vol] 9.8 g/dL Low 13.0-16.5 [facility] Comment on above: Performed By: #### L 503.0106, L503.6550, L503.6150, L501.6710, L100.0100, L501.3620, L2100.0000, L3300.1200, L3300.0100, L504.2610, L5500.0410, L3410.2350, L3100.7000, L506.0400, L501.43172, L501.9520, L3100.3425, L101.9900 #### [facility] [address] [facility] [place], [address] MCH (RBC) [Entitic mass] 33.3 pg High 27.0-32.0 [facility] Comment on above: Performed By: #### L 503.0106, L503.6550, L503.6150, L501.6710, L100.0100, L501.3620, L2100.0000, L3300.1200, L3300.0100, L504.2610, L5500.0410, L3410.2350, L3100.7000, L506.0400, L501.82506, L501.9520, L3100.3425, L101.9900 #### [facility] [address] [place], [address] MCHC (RBC) [Mass/Vol] 30.4 g/dL Low 32-36 [facility] Comment on above: Performed By: #### L 503.0106, L503.6550, L503.6150, L501.6710, L100.0100, L501.3620, L2100.0000, L3300.1200, L3300.0100, L504.2610, L5500.0410, L3410.2350, L3100.7000, L506.0400, L501.62988, L501.9520, L3100.3425, L101.9900 #### [facility] [address] [place], [address] MCV (RBC) [Entitic vol] 109.5 fL High 80-94 [facility] Comment on above: Performed By: #### L 503.0106, L503.6550, L503.6150, L501.6710, L100.0100, L501.3620, L2100.0000, L3300.1200, L3300.0100, L504.2610, L5500.0410, L3410.2350, L3100.7000, L506.0400, L501.13128, L501.9520, L3100.3425, L101.9900 #### [facility] [address] [place], [address] Platelet mean volume (Bld) [Entitic vol] 12.0 fL Normal 6.2-12.0 [facility] Comment on above: Performed By: #### L 503.0106, L503.6550, L503.6150, L501.6710, L100.0100, L501.3620, L2100.0000, L3300.1200, L3300.0100, L504.2610, L5500.0410, L3410.2350, L3100.7000, L506.0400, L501.26452, L501.9520, L3100.3425, L101.9900 #### [facility] [address] [place], [address] Platelets (Bld) [#/Vol] 171 10*3/uL Normal 150-450 [facility] Comment on above: Performed By: #### L 503.0106, L503.6550, L503.6150, L501.6710, L100.0100, L501.3620, L2100.0000, L3300.1200, L3300.0100, L504.2610, L5500.0410, L3410.2350, L3100.7000, L506.0400, L501.33248, L501.9520, L3100.3425, L101.9900 #### [facility] [address] [place], [address] RBC (Bld) [#/Vol] 2.94 10*6/uL Low 4.6-6.2 [facility] Comment on above: Performed By: #### L 503.0106, L503.6550, L503.6150, L501.6710, L100.0100, L501.3620, L2100.0000, L3300.1200, L3300.0100, L504.2610, L5500.0410, L3410.2350, L3100.7000, L506.0400, L501.73902, L501.9520, L3100.3425, L101.9900 #### [facility] [address] [place], [place], [id number] RDW SD 56.8 fl High 35.1-43.9 [facility] Comment on above: Performed By: #### L 503.0106, L503.6550, L503.6150, L501.6710, L100.0100, L501.3620, L2100.0000, L3300.1200, L3300.0100, L504.2610, L5500.0410, L3410.2350, L3100.7000, L506.0400, L501.89842, L501.9520, L3100.3425, L101.9900 #### [facility] [address] [place], [address] WBC (Bld) [#/Vol] 8.6 10*3/uL Normal 4.4-11.0 [facility] Comment on above: Performed By: #### L 503.0106, L503.6550, L503.6150, L501.6710, L100.0100, L501.3620, L2100.0000, L3300.1200, L3300.0100, L504.2610, L5500.0410, L3410.2350, L3100.7000, L506.0400, L501.43316, L501.9520, L3100.3425, L101.9900 #### [facility] [address] [place], [place], [id number] Carbon dioxide, total [Moles /volume] in Central venous bloodOrdered By: Lisa Dove on 11-04-2024 CO2 [Moles/Vol] 16.9 mmol/L Low 21.0-32.0 [facility] Chloride assayOrdered By: Tommie Dove on 11-04-2024 Chloride [Moles/Vol] 113 mmol/L High 98-108 [facility] Erythrocyte distribution wid th ratioOrdered By: Lisa Dove on 11-04-2024 Erythrocyte distribution width (RBC) [Ratio] 14.0 % 11.6-14.6 [facility] Erythrocyte distribution wid th standard deviationOrdered By: Lisa Dove on 11-04-2024 Erythrocyte distribution width (RBC) [Ratio] 56.8 fl High 35.1-43.9 [facility] Glomerular filtration rate ( GFR) estimation/1.73 sq m using serum, plasma, or whole bOrdered By: Lisa Dove on 11-04-2024 GFR/1.73 sq M.predicted among non-blacks MDRD (S/P/Bld) [Vol rate/Area] 38 mL/min/{1.73_m2} Low >60 [facility] Comment on above: mL/min/1.73m2 CKD-EP I Creatinine Equation (2020) Hematocrit Auto (Bld) [Volum e fraction]Ordered By: Lisa Dove on 11-04-2024 Hematocrit (Bld) [Volume fraction] 32.2 % Low 40-54 [facility] Hemoglobin measurementOrdere d By: Lisa Dove on 11-04-2024 Hemoglobin (Bld) [Mass/Vol] 9.8 g/dL Low 13.0-16.5 [facility] MCV (mean corpuscular volume ) determinationOrdered By: Lisa Dove on 11-04-2024 MCV (RBC) [Entitic vol] 109.5 fL High 80-94 [facility] Mean corpuscular hemoglobin (MCH) determinationOrdered By: Lisa Dove on 11-04-2024 MCH (RBC) [Entitic mass] 33.3 pg High 27.0-32.0 [facility] Mean corpuscular hemoglobin concentration (MCHC) determinationOrdered By: Lisa Dove on 11-04-2024 MCHC (RBC) [Mass/Vol] 30.4 g/dL Low 32-36 [facility] Mean platelet volume determi nationOrdered By: Lisa Dove on 11-04-2024 Platelet mean volume (Bld) [Entitic vol] 12.0 fL 6.2-12.0 [facility] Microalb:Creat Ratio,Random URon 11-04-2024 Creatinine [Mass/Vol] 127.00 mg/dL Normal 39.00- 259. 00 [facility] Comment on above: Performed By: #### L 503.0106, L503.6550, L503.6150, L501.6710, L100.0100, L501.3620, L2100.0000, L3300.1200, L3300.0100, L504.2610, L5500.0410, L3410.2350, L3100.7000, L506.0400, L501.29627, L501.9520, L3100.3425, L101.9900 #### [facility] [address] [facility] [place], [address] MALB:CREAT 67.5 mg/g CRE High <30 mg/g CRE [facility] Comment on above: Performed By: #### L 503.0106, L503.6550, L503.6150, L501.6710, L100.0100, L501.3620, L2100.0000, L3300.1200, L3300.0100, L504.2610, L5500.0410, L3410.2350, L3100.7000, L506.0400, L501.80887, L501.9520, L3100.3425, L101.9900 #### [facility] [address] [place], [address] MICROALBUMIN,UR 85.7 mg/L Normal <20 mg/L [facility] Comment on above: Performed By: #### L 503.0106, L503.6550, L503.6150, L501.6710, L100.0100, L501.3620, L2100.0000, L3300.1200, L3300.0100, L504.2610, L5500.0410, L3410.2350, L3100.7000, L506.0400, L501.16872, L501.9520, L3100.3425, L101.9900 #### [facility] [address] [place], [address] PTHINon 11-04-2024 PTH 76 pg/mL High 11-61 [facility] Comment on above: Performed By: #### L 503.0106, L503.6550, L503.6150, L501.6710, L100.0100, L501.3620, L2100.0000, L3300.1200, L3300.0100, L504.2610, L5500.0410, L3410.2350, L3100.7000, L506.0400, L501.68722, L501.9520, L3100.3425, L101.9900 #### [facility] [address] [place], [place], [id number] Platelet countOrdered By: Tommie Dove on 11-04-2024 Platelets (Bld) [#/Vol] 171 10*3/uL 150-450 [facility] Potassium measurement (mass/ volume)Ordered By: Lisa Dove on 11-04-2024 Potassium (Unsp spec) [Mass/Vol] 5.3 mmol/L High 3.3-5.1 [facility] RBC Auto (Bld) [#/Vol]Ordere d By: Lisa Dove on 11-04-2024 RBC (Bld) [#/Vol] 2.94 10*6/uL Low 4.6-6.2 [facility] Random urine creatinine pernell urement (mass/volume)Ordered By: Lisa Dove on 11-04-2024 Creatinine Unsp time (U) [Mass/Vol] 127.00 mg/dL 39.00-259. 00 [facility] Renal Profileon 11-04-2024 Albumin [Mass/Vol] 3.7 g/dL Normal 3.4-4.8 [facility] Comment on above: Performed By: #### L 503.0106, L503.6550, L503.6150, L501.6710, L100.0100, L501.3620, L2100.0000, L3300.1200, L3300.0100, L504.2610, L5500.0410, L3410.2350, L3100.7000, L506.0400, L501.19894, L501.9520, L3100.3425, L101.9900 #### [facility] [address] [place], [place], [id number] (619) BUN/CRE 16.9 RATIO Normal 10-20 [facility] Comment on above: Performed By: #### L 503.0106, L503.6550, L503.6150, L501.6710, L100.0100, L501.3620, L2100.0000, L3300.1200, L3300.0100, L504.2610, L5500.0410, L3410.2350, L3100.7000, L506.0400, L501.48185, L501.9520, L3100.3425, L101.9900 #### [facility] [address] [place], [address] Calcium [Mass/Vol] 8.9 mg/dL Normal 7.6-11.0 [facility] Comment on above: Performed By: #### L 503.0106, L503.6550, L503.6150, L501.6710, L100.0100, L501.3620, L2100.0000, L3300.1200, L3300.0100, L504.2610, L5500.0410, L3410.2350, L3100.7000, L506.0400, L501.44164, L501.9520, L3100.3425, L101.9900 #### [facility] [address] [place], [address] Chloride [Moles/Vol] 113 mmol/L High 98-108 [facility] Comment on above: Performed By: #### L 503.0106, L503.6550, L503.6150, L501.6710, L100.0100, L501.3620, L2100.0000, L3300.1200, L3300.0100, L504.2610, L5500.0410, L3410.2350, L3100.7000, L506.0400, L501.61153, L501.9520, L3100.3425, L101.9900 #### [facility] [address] [place], [place], [id number] CO2 [Moles/Vol] 16.9 mmol/L Low 21.0-32.0 [facility] Comment on above: Performed By: #### L 503.0106, L503.6550, L503.6150, L501.6710, L100.0100, L501.3620, L2100.0000, L3300.1200, L3300.0100, L504.2610, L5500.0410, L3410.2350, L3100.7000, L506.0400, L501.17013, L501.9520, L3100.3425, L101.9900 #### [facility] [address] [place], [address] Creatinine [Mass/Vol] 1.80 mg/dL High 0.70-1.20 [facility] Comment on above: Performed By: #### L 503.0106, L503.6550, L503.6150, L501.6710, L100.0100, L501.3620, L2100.0000, L3300.1200, L3300.0100, L504.2610, L5500.0410, L3410.2350, L3100.7000, L506.0400, L501.27331, L501.9520, L3100.3425, L101.9900 #### [facility] [address] [place], [place], [id number] GAP 13 Normal 5-15 [facility] Comment on above: Performed By: #### L 503.0106, L503.6550, L503.6150, L501.6710, L100.0100, L501.3620, L2100.0000, L3300.1200, L3300.0100, L504.2610, L5500.0410, L3410.2350, L3100.7000, L506.0400, L501.82262, L501.9520, L3100.3425, L101.9900 #### [facility] [address] [facility] [place], [place], [id number] (892) GFR/1.73 sq M.predicted among non-blacks MDRD (S/P/Bld) [Vol rate/Area] 38 mL/min/{1.73_m2} Low >60 [facility] Comment on above: Result Comment: mL/m in/1.73m2 CKD-EPI Creatinine Equation (2020) Performed By: #### L 503.0106, L503.6550, L503.6150, L501.6710, L100.0100, L501.3620, L2100.0000, L3300.1200, L3300.0100, L504.2610, L5500.0410, L3410.2350, L3100.7000, L506.0400, L501.47048, L501.9520, L3100.3425, L101.9900 #### [facility] [address] [facility] [place], [place], [id number] Glucose [Mass/Vol] 238 mg/dL High 70-99 [facility] Comment on above: Performed By: #### L 503.0106, L503.6550, L503.6150, L501.6710, L100.0100, L501.3620, L2100.0000, L3300.1200, L3300.0100, L504.2610, L5500.0410, L3410.2350, L3100.7000, L506.0400, L501.11666, L501.9520, L3100.3425, L101.9900 #### [facility] [address] [facility] [place], [place], [id number] (035) Phosphate [Mass/Vol] 3.2 mg/dL Normal 2.7-4.5 [facility] Comment on above: Performed By: #### L 503.0106, L503.6550, L503.6150, L501.6710, L100.0100, L501.3620, L2100.0000, L3300.1200, L3300.0100, L504.2610, L5500.0410, L3410.2350, L3100.7000, L506.0400, L501.20724, L501.9520, L3100.3425, L101.9900 #### [facility] [address] [place], [place], [id number] (659) Potassium [Moles/Vol] 5.3 mmol/L High 3.3-5.1 [facility] Comment on above: Performed By: #### L 503.0106, L503.6550, L503.6150, L501.6710, L100.0100, L501.3620, L2100.0000, L3300.1200, L3300.0100, L504.2610, L5500.0410, L3410.2350, L3100.7000, L506.0400, L501.53790, L501.9520, L3100.3425, L101.9900 #### [facility] [address] [place], [place], [id number] (748) Sodium [Moles/Vol] 143 mmol/L Normal 133-145 [facility] Comment on above: Performed By: #### L 503.0106, L503.6550, L503.6150, L501.6710, L100.0100, L501.3620, L2100.0000, L3300.1200, L3300.0100, L504.2610, L5500.0410, L3410.2350, L3100.7000, L506.0400, L501.32531, L501.9520, L3100.3425, L101.9900 #### [facility] [address] [place], [place], [address] Urea nitrogen [Mass/Vol] 31 mg/dL High 06-29 [facility] Comment on above: Performed By: #### L 503.0106, L503.6550, L503.6150, L501.6710, L100.0100, L501.3620, L2100.0000, L3300.1200, L3300.0100, L504.2610, L5500.0410, L3410.2350, L3100.7000, L506.0400, L501.00897, L501.9520, L3100.3425, L101.9900 #### [facility] [address] [place], [place], [id number] Serum creatinine measurement (mass/volume)Ordered By: Lisa Dove on 11-04-2024 Creatinine [Mass/Vol] 1.80 mg/dL High 0.70-1.20 [facility] Serum glucose measurement (m ass/volume)Ordered By: Lias Dove on 11-04-2024 Glucose [Mass/Vol] 238 mg/dL High 70-99 [facility] Serum or plasma albumin pernell urement (mass/volume)Ordered By: Lisa Dove on 11-04-2024 Albumin [Mass/Vol] 3.7 g/dL 3.4-4.8 [facility] Serum or plasma calcium pernell urement (mass/volume)Ordered By: Lisa Dove on 11-04-2024 Calcium [Mass/Vol] 8.9 mg/dL 7.6-11.0 [facility] Serum or plasma urea nitroge n measurement (mass/volume)Ordered By: Lisa Dove on 11-04-2024 Urea nitrogen [Mass/Vol] 31 mg/dL High - [facility] Sodium levelOrdered By: Yoel Dove on 11-04-2024 Sodium [Moles/Vol] 143 mmol/L 133-145 [facility] Urine albumin measurement wi th detection limit of 20 mg/L or less (mass/volume)Ordered By: Lisa Dove on 11-04-2024 Albumin DL <= 20 mg/L (U) [Mass/Vol] 85.7 mg/L <20 mg/L [facility] Vitamin D,25 Hydroxyon 11-04 Vitamin D 25-OH 24.9 ng/mL Low 30-100 [facility] Comment on above: Result Comment: Krys min D Status Deficiency: <20 ng/mL (50nmol/L) Insufficiency: 20-30 ng/mL (50-75 nmol/L) Sufficiency: 30-100 ng/mL (75-250 nmol/L) Toxicity: >100 ng/mL (>250 nmol/L) Performed By: #### L 503.0106, L503.6550, L503.6150, L501.6710, L100.0100, L501.3620, L2100.0000, L3300.1200, L3300.0100, L504.2610, L5500.0410, L3410.2350, L3100.7000, L506.0400, L501.10074, L501.9520, L3100.3425, L101.9900 #### [facility] [address] [place], [place], [id number] White blood cell (WBC) count Ordered By: Lisa Dove on 11-04-2024 WBC (Bld) [#/Vol] 8.6 10*3/uL 4.4-11.0 [facility] ANCAon 11-02-2024 Atypical pANCA <1:20 Normal Neg:<1:20 [facility] Comment on above: Order Comment: Test( s) 188919-Qktgjt, Serum or Plasmawas developed and its performance characteristicsdetermined by [employer]. It has not been cleared or approvedby the Food and Drug Administration. Result Comment: The atypical pANCA pattern has been observed in a significant percentage of patients with ulcerative colitis, primary sclerosing cholangitis and autoimmune hepatitis. Performed By: #### L 501.080 #### [facility] [address] [place], [place], [address] Cytoplasmic Ab <1:20 Normal Neg:<1:20 [facility] Comment on above: Order Comment: Test( s) 305123-Dowpga, Serum or Plasmawas developed and its performance characteristicsdetermined by [employer]. It has not been cleared or approvedby the Food and Drug Administration. Performed By: #### L 501.080 #### [facility] [address] [place], [place], [address] Perinuclear Ab. <1:20 Normal Neg:<1:20 [facility] Comment on above: Order Comment: Test( s) 832176-Rogcgx, Serum or Plasmawas developed and its performance characteristicsdetermined by [employer]. It has not been cleared or approvedby the Food and Drug Administration. Result Comment: The presence of positive fluorescence exhibiting P-ANCA or C-ANCA patterns alone is not specific for the diagnosis of Jarrod's Granulomatosis (WG) or microscopic polyangiitis. Decisions about treatment should not be based solely on ANCA IFA results. The [employer] ANCA [employer] Consensus recommends follow up testing of positive sera with both IA- 3 and MPO-ANCA enzyme immunoassays. As many as 5% serum samples are positive only by EIA. Ref. AM J Clin Pathol 1999;111:507-513. Performed By: #### L 501.080 #### [facility] [address] [place], [place], [address] Aldolaseon 11-02-2024 ALDOLASE 2.7 U/L Low 3.3-10.3 [facility] Comment on above: Order Comment: Test( s) 590550-Mbnvof, Serum or Plasmawas developed and its performance characteristicsdetermined by [employer]. It has not been cleared or approvedby the Food and Drug Administration. Result Comment: Perf ormed at: [address] [id number] [employer]ter: Gabriele Rasmussen PhD, Phone: [phone] Performed at: [address] [id number] [employer]: Wilbert Long MD, Phone: [phone] Performed By: #### L 501.080 #### [facility] [address] [place], [address] Celiac AB,Comprehensiveon ANTIGLIADIN IGA 23 units Abnormal 0-19 [facility] Comment on above: Order Comment: Test( s) 982076-Frqlqd, Serum or Plasmawas developed and its performance characteristicsdetermined by [employer]. It has not been cleared or approvedby the Food and Drug Administration. Result Comment: Nega tive 0 - 19 Weak Positive 20 - 30 Moderate to Strong Positive >30 Performed By: #### L 501.080 #### [facility] [address] [place], [place], [id number] ANTIGLIADIN IGG 2 units Normal 0-19 [facility] Comment on above: Order Comment: Test( s) 545681-Bvokyr, Serum or Plasmawas developed and its performance characteristicsdetermined by [employer]. It has not been cleared or approvedby the Food and Drug Administration. Result Comment: Nega tive 0 - 19 Weak Positive 20 - 30 Moderate to Strong Positive >30 Performed By: #### L 501.080 #### [facility] [address] [place], [place], [id number] ENDOMYSIAL IGA Negative Normal Negative [facility] Comment on above: Order Comment: Test( s) 889612-Btwshw, Serum or Plasmawas developed and its performance characteristicsdetermined by [employer]. It has not been cleared or approvedby the Food and Drug Administration. Performed By: #### L 501.080 #### [facility] [address] [place], [address] tTG IGA 3 U/mL Normal 0-3 [facility] Comment on above: Order Comment: Test( s) 123862-Qixsux, Serum or Plasmawas developed and its performance characteristicsdetermined by [employer]. It has not been cleared or approvedby the Food and Drug Administration. Result Comment: Nega tive 0 - 3 Weak Positive 4 - 10 Positive >10 Tissue Transglutaminase (tTG) has been identified as the endomysial antigen. Studies have demonstr- ated that endomysial IgA antibodies have over 99% specificity for gluten sensitive enteropathy. Performed By: #### L 501.080 #### [facility] [address] [place], [place], [id number] (992) tTG IGG 5 U/mL Normal 0-5 [facility] Comment on above: Order Comment: Test( s) 966947-Wsfqbh, Serum or Plasmawas developed and its performance characteristicsdetermined by [employer]. It has not been cleared or approvedby the Food and Drug Administration. Result Comment: Nega tive 0 - 5 Weak Positive 6 - 9 Positive >9 Performed By: #### L 501.080 #### [facility] [address] [facility] [place], [place], [id number] (894) Copper, Serum or Plasmaon COPPER, SERUM 80 ug/dL Normal 69-132 [facility] Comment on above: Order Comment: Test( s) 028394-Krdkhq, Serum or Plasmawas developed and its performance characteristicsdetermined by [employer]. It has not been cleared or approvedby the Food and Drug Administration. Result Comment: Dete ction Limit = 5 Performed By: #### L 501.080 #### [facility] [address] [facility] [place], [place], [id number] (732) FRANCISCO + Protein Elect, Serumon 11-02-2024 Albumin [Mass/Vol] 3.2 g/dL Normal 2.9-4.4 [facility] Comment on above: Order Comment: Test( s) 744480-Likczu, Serum or Plasmawas developed and its performance characteristicsdetermined by [employer]. It has not been cleared or approvedby the Food and Drug Administration.N Performed By: #### L 501.080 #### [facility] [address] [facility] [place], [place], [id number] (236) Albumin/Globulin [Mass ratio] 1.1 {ratio} Normal 0.7-1.7 [facility] Comment on above: Order Comment: Test( s) 610831-Tmwvxl, Serum or Plasmawas developed and its performance characteristicsdetermined by [facility]. It has not been cleared or approvedby the Food and Drug Administration.N Performed By: #### L 501.080 #### [facility] [address] [place] [id number] MZKXN-5-RCYT 0.3 g/dL Normal 0.0-0.4 [facility] Comment on above: Order Comment: Test( s) 458398-Npptew, Serum or Plasmawas developed and its performance characteristicsdetermined by [facility]. It has not been cleared or approvedby the Food and Drug Administration.N Performed By: #### L 501.080 #### [facility] [address] [facility] [place] [address] XZYQL-1-VLMT 0.8 g/dL Normal 0.4-1.0 [facility] Comment on above: Order Comment: Test( s) 766220-Ewnuxh, Serum or Plasmawas developed and its performance characteristicsdetermined by [facility]. It has not been cleared or approvedby the Food and Drug Administration.N Performed By: #### L 501.080 #### [facility] [address] [place] [address]. [place] [address] BETA GLOBULIN 1.1 g/dL Normal 0.7-1.3 [facility] Comment on above: Order Comment: Test( s) 919109-Xymiqm, Serum or Plasmawas developed and its performance characteristicsdetermined by [facility]. It has not been cleared or approvedby the Food and Drug Administration.N Performed By: #### L 501.080 #### [facility] [address] [place] [address]. [place] [address] GAMMA GLOBULIN 0.8 g/dL Normal 0.4-1.8 [facility] Comment on above: Order Comment: Test( s) 917677-Ceoqkn, Serum or Plasmawas developed and its performance characteristicsdetermined by [facility]. It has not been cleared or approvedby the Food and Drug Administration.N Performed By: #### L 501.080 #### [facility] [address] [place], [address] Globulin (S) [Mass/Vol] 3.0 g/dL Normal 2.2-3.9 [facility] Comment on above: Order Comment: Test( s) 944462-Gtljce, Serum or Plasmawas developed and its performance characteristicsdetermined by [facility]. It has not been cleared or approvedby the Food and Drug Administration.N Performed By: #### L 501.080 #### [facility] [address] [place], [address] FRANCISCO RESULT,S Comment: Normal . [facility] Comment on above: Order Comment: Test( s) 952101-Itvhgm, Serum or Plasmawas developed and its performance characteristicsdetermined by [employer]. It has not been cleared or approvedby the Food and Drug Administration.N Result Comment: Pres ence of monoclonal protein is unclear at this time. Suggest repeat in 3 to 6 months if clinically indicated. Performed By: #### L 501.080 #### [facility] [address] [place], [address] IMMUNOGLOB A QN 312 mg/dL Normal 61-437 [facility] Comment on above: Order Comment: Test( s) 186859-Uyfphx, Serum or Plasmawas developed and its performance characteristicsdetermined by [employer] [employer]. It has not been cleared or approvedby the Food and Drug Administration.N Performed By: #### L 501.080 #### [facility] [address] [place], [address] IMMUNOGLOB G QN 937 mg/dL Normal 603-1613 [facility] Comment on above: Order Comment: Test( s) 196540-Pnrkox, Serum or Plasmawas developed and its performance characteristicsdetermined by [employer]. It has not been cleared or approvedby the Food and Drug Administration.N Performed By: #### L 501.080 #### [facility] [address] [place], [place], [address] IMMUNOGLOB M QN 33 mg/dL Normal 15-143 [facility] Comment on above: Order Comment: Test( s) 134002-Sxjaqo, Serum or Plasmawas developed and its performance characteristicsdetermined by [facility]. It has not been cleared or approvedby the Food and Drug Administration.N Performed By: #### L 501.080 #### [facility] [address] [place], [address] M-Nando Comment: Normal Not Observed [facility] Comment on above: Order Comment: Test( s) 834882-Wmwpfq, Serum or Plasmawas developed and its performance characteristicsdetermined by [facility]. It has not been cleared or approvedby the Food and Drug Administration.N Result Comment: SPE shows an asymmetrical gamma. Performed By: #### L 501.080 #### [facility] [address] [place], [place], [address] NOTE: Comment Normal . [facility] Comment on above: Order Comment: Test( s) 175079-Yskenw, Serum or Plasmawas developed and its performance characteristicsdetermined by [employer]. It has not been cleared or approvedby the Food and Drug Administration.N Result Comment: Prot ein electrophoresis scan will follow via computer, mail, or human resource professional delivery. Performed By: #### L 501.080 #### [facility] [address] [place], [place], [address] Protein [Mass/Vol] 6.2 g/dL Normal 6.0-8.5 [facility] Comment on above: Order Comment: Test( s) 154576-Sexwag, Serum or Plasmawas developed and its performance characteristicsdetermined by [employer]. It has not been cleared or approvedby the Food and Drug Administration.N Performed By: #### L 501.080 #### [facility] [address] [place], [address] L2100.0000on 11-02-2024 ACCA 27 units Normal 0-90 [facility] Comment on above: Order Comment: Test( s) 121257-Xikurc, Serum or Plasmawas developed and its performance characteristicsdetermined by [facility]. It has not been cleared or approvedby the Food and Drug Administration. Result Comment: Nega tive: <80 Equivocal: 80-90 Positive: >90 Performed By: #### L 501.080 #### [facility] [address] [place], [place], [id number] ALCA 5 units Normal 0-60 [facility] Comment on above: Order Comment: Test( s) 771940-Uqgcrj, Serum or Plasmawas developed and its performance characteristicsdetermined by [facility]. It has not been cleared or approvedby the Food and Drug Administration. Result Comment: Nega tive:<55 Equivocal: 55-60 Positive: >60 Performed By: #### L 501.080 #### [facility] [address] [place], [place], [id number] AMCA 54 units Normal 0-100 [facility] Comment on above: Order Comment: Test( s) 613297-Lpkuwe, Serum or Plasmawas developed and its performance characteristicsdetermined by [facility]. It has not been cleared or approvedby the Food and Drug Administration. Result Comment: Nega tive: <90 Equivocal: 90-100 Positive: >100 This test was developed and its performance characteristics determined by [facility]. It has not been cleared or approved by the Food and Drug Administration. The FDA has determined that such clearance or approval is not necessary. Performed By: #### L 501.080 #### [facility] [address] [place], [place], [id number] Atypical pANCA Negative Normal Negative [facility] Comment on above: Order Comment: Test( s) 811129-Ttemaa, Serum or Plasmawas developed and its performance characteristicsdetermined by [facility]. It has not been cleared or approvedby the Food and Drug Administration. Performed By: #### L 501.080 #### [facility] [address] [place], [place], [id number] COMMENT Comment Normal . [facility] Comment on above: Order Comment: Test( s) 434213-Aplkrc, Serum or Plasmawas developed and its performance characteristicsdetermined by [employer]. It has not been cleared or approvedby the Food and Drug Administration. Result Comment: Kelin arjun is not suggestive of Inflammatory Bowel Disease Performed By: #### L 501.080 #### [facility] [address] [place], [address] Elizabeth 20 units Normal 0-50 [facility] Comment on above: Order Comment: Test( s) 333927-Pekhaf, Serum or Plasmawas developed and its performance characteristicsdetermined by [employer]. It has not been cleared or approvedby the Food and Drug Administration. Result Comment: Nega tive: <45 Equivocal: 45-50 Positive: >50 Performed By: #### L 501.080 #### [facility] Laboratory [address] [facility] [place], [address] L3410.9992on 11-02-2024 [facility] COMMENT Normal . [facility] Comment on above: Order Comment: 34051 4STOOL CULTURE Result Comment: Test Ordered: [id number] Stool Culture Salmonella/Shigella Screen Note: Final report Reference Range: . Result 1 Comment CB Reference Range: . No Salmonella or Shigella recovered. Campylobacter Culture Note: Final report Reference Range: . Result 1 Comment CB Reference Range: . No Campylobacter species isolated. E coli Shiga Toxin EIA Negative Reference Range: Negative Performed at: [address] [id number] [employer] Tool Setter: Gabriele Rasmussen PhD, Phone: [phone] Performed By: #### L 503.0106, L503.6550, L503.6150, L501.6710, L100.0100, L501.3620, L2100.0000, L3300.1200, L3300.0100, L504.2610, L5500.0410, L3410.2350, L3100.7000, L506.0400, L501.36767, L501.9520, L3100.3425, L101.9900 #### [facility] [address] [place], [place], [id number] Calprotectin, Stoolon [address] 11 ug/g Normal 0-120 [facility] Comment on above: Order Comment: Test( s) 496889-Blgz, Neutral; 623554-Rrxl, Totalwas developed and its performance characteristicsdetermined by [employer]. It has not been cleared or approvedby the Food and Drug Administration. Result Comment: Conc entration Interpretation Follow-Up < 5 - 50 ug/g Normal None >50 -120 ug/g Borderline Re-evaluate in 4-6 weeks >120 ug/g Abnormal Repeat as clinically indicated Performed at: [address] [id number] [employer]ter: Garbiele Rasmussen PhD, Phone: [phone] Performed at: [address] [id number] [employer]ter: Wilbert Long MD, Phone: [phone] Performed By: #### L 503.0106, L503.6550, L503.6150, L501.6710, L100.0100, L501.3620, L2100.0000, L3300.1200, L3300.0100, L504.2610, L5500.0410, L3410.2350, L3100.7000, L506.0400, L501.94549, L501.9520, L3100.3425, L101.9900 #### [facility] [address] [place], [place], [address] Fecal Fat, Qualitativeon FATS, NEUTRAL Normal Normal . [facility] Comment on above: Order Comment: Test( s) 337453-Zuru, Neutral; 114969-Qwgp, Totalwas developed and its performance characteristicsdetermined by [employer]. It has not been cleared or approvedby the Food and Drug Administration. Result Comment: Norm al (<60 Droplets/HPF) Performed By: #### L 503.0106, L503.6550, L503.6150, L501.6710, L100.0100, L501.3620, L2100.0000, L3300.1200, L3300.0100, L504.2610, L5500.0410, L3410.2350, L3100.7000, L506.0400, L501.52041, L501.9520, L3100.3425, L101.9900 #### [facility] [address] [place], [place], [address] FATS, TOTAL Normal Normal . [facility] Comment on above: Order Comment: Test( s) 271975-Zjzl, Neutral; 374931-Byrj, Totalwas developed and its performance characteristicsdetermined by [employer]. It has not been cleared or approvedby the Food and Drug Administration. Result Comment: Norm al (<100 Droplets/HPF) Performed By: #### L 503.0106, L503.6550, L503.6150, L501.6710, L100.0100, L501.3620, L2100.0000, L3300.1200, L3300.0100, L504.2610, L5500.0410, L3410.2350, L3100.7000, L506.0400, L501.33708, L501.9520, L3100.3425, L101.9900 #### [facility] [address] [facility] [facility] [address] [place], [place], [id number] L7000.0750on 10-31-2024 P ELASTASE,FECA 517 Normal >200 [facility] Comment on above: Result Comment: Resu lt Units: ug Elast./g Severe Pancreatic Insufficiency: <100 Moderate Pancreatic Insufficiency: 100 - 200 Normal: >200 Performed at: [address] [id number] [employer]ter: Wilbert Long MD, Phone: [phone] Performed By: #### L 503.0106, L503.6550, L503.6150, L501.6710, L100.0100, L501.3620, L2100.0000, L3300.1200, L3300.0100, L504.2610, L5500.0410, L3410.2350, L3100.7000, L506.0400, L501.89872, L501.9520, L3100.3425, L101.9900 #### [facility] [address] [place], [place], [id number] Allergen, Food Profileon CLAM 0.19 kU/L Abnormal Class 0/I [facility] Comment on above: Performed By: #### L 501.080 #### [facility] [address] [place], [place], [address] CODFISH <0.10 Normal Class 0 [facility] Comment on above: Performed By: #### L 501.080 #### [facility] [address] [place], [address] COMMENT Comment Normal . [facility] Comment on above: Result Comment: Sarahy cabello of Specific IgE Class Description of Class ----- < 0.10 0 Negative 0.10 - 0.31 0/I Equivocal/Low 0.32 - 0.55 I Low 0.56 - 1.40 II Moderate 1.41 - 3.90 III High 3.91 - 19.00 IV Very High 19.01 - 100.00 V Very High >100.00 Very High Performed By: #### L 501.080 #### [facility] [address] [place], [place], [address] CORN 0.24 kU/L Abnormal Class 0/I [facility] Comment on above: Performed By: #### L 501.080 #### [facility] [address] [place], [place], [address] EGG, WHITE 2.78 kU/L Abnormal Class III [facility] Comment on above: Performed By: #### L 501.080 #### [facility] [address] [place], [address] MILK (COW) 0.53 kU/L Abnormal Class I [facility] Comment on above: Performed By: #### L 501.080 #### [facility] [address] [place], [address] PEANUT 0.61 kU/L Abnormal Class II [facility] Comment on above: Performed By: #### L 501.080 #### [facility] [address] [place], [address] SCALLOP 0.16 kU/L Abnormal Class 0/I [facility] Comment on above: Performed By: #### L 501.080 #### [facility] [address] [place], [address] SESAME SEED 0.56 kU/L Abnormal Class II [facility] Comment on above: Result Comment: Perf ormed at: - [facility] [id number] [employer] Setter: Wilbert Long MD, Phone: [phone] Performed By: #### L 501.080 #### [facility] [address] [place], [address] SHRIMP 3.71 kU/L Abnormal Class III [facility] Comment on above: Performed By: #### L 501.080 #### [facility] [address] [place], [address] SOYBEAN 0.25 kU/L Abnormal Class 0/I [facility] Comment on above: Performed By: #### L 501.080 #### [facility] [address] [place], [address] WALNUT,(Food) 0.28 kU/L Abnormal Class 0/I [facility] Comment on above: Performed By: #### L 501.080 #### [facility] [address] [facility] [address] [place], [place], [address] WHEAT 0.30 kU/L Abnormal Class 0/I [facility] Comment on above: Performed By: #### L 501.080 #### [facility] [address] [place], [place], [address] CDIFF (PCR)on 10-29-2024 CDIFF Pending 027 027 NAP1-B1 Presumptive Negative *for epidemiolologic???use C. Diff PCR Negative- No toxigenic C. Diff Detected Normal [facility] Comment on above: Performed By: #### L 503.0106, L503.6550, L503.6150, L501.6710, L100.0100, L501.3620, L2100.0000, L3300.1200, L3300.0100, L504.2610, L5500.0410, L3410.2350, L3100.7000, L506.0400, L501.35512, L501.9520, L3100.3425, L101.9900 #### [facility] [address] [facility] [place], [place], [address] Calprotectin stoolOrdered By : Caleb Allen on 10-29-2024 Calprotectin stool 11 ug/g 0-120 [facility] Comment on above: Concentration Interp retation Follow-Up< 5 - 50 ug/g Normal None>50 -120 ug/g Borderline Re-evaluate in 4-6 weeks >120 ug/g Abnormal Repeat as clinically indicatedPerformed at: - [facility] [address] [id number] Director: Gabriele Rasmussen PhD, Phone: [phone] at: - [facility] [address] [id number] Director: Wilbert Long MD, Phone: [phone] Clostridium difficile detect ion by polymerase chain reactionOrdered By: Caleb Allen on 10-29-2024 C. difficile DNA ELIZABETH+probe Ql (Unsp spec) [facility] Fecal fat detectionOrdered B y: Caleb Friend on 10-29-2024 Fat Ql (Stl) Normal . [facility] Comment on above: Normal (<100 Droplet s/HPF) No Panel InformationOrdered By: Caleb Friend on 10-29-2024 Stool Neutral Fats Normal . [facility] Comment on above: Normal (<60 Droplets /HPF) Stool Lactoferrin/WBCon 10-11 WBCST Normal Reference Ran ge = Negative Fecal WBC Lactoferrin Negative: No Fecal WBC Lactoferrin present Normal [facility] Comment on above: Performed By: #### L 503.0106, L503.6550, L503.6150, L501.6710, L100.0100, L501.3620, L2100.0000, L3300.1200, L3300.0100, L504.2610, L5500.0410, L3410.2350, L3100.7000, L506.0400, L501.96032, L501.9520, L3100.3425, L101.9900 #### [facility] [address] [place], [place], [address] Stool Occult Blood iFOBon STOB Positive Normal [facility] Comment on above: Performed By: #### L 503.0106, L503.6550, L503.6150, L501.6710, L100.0100, L501.3620, L2100.0000, L3300.1200, L3300.0100, L504.2610, L5500.0410, L3410.2350, L3100.7000, L506.0400, L501.76215, L501.9520, L3100.3425, L101.9900 #### [facility] [address] [place], [place], [address] Stool gastrointestinal hemog lobin detection by immunologic methodOrdered By: Caleb Friend on 10-29-2024 Lower GI hemoglobin IA Ql (Stl) Positive Abnormal [facility] Stool lactoferrin detection by immunoassayOrdered By: Caleb Allen on 10-29-2024 Lactoferrin IA Ql (Stl) [facility] Stool pancreatic elastase me asurement (mass/mass)Ordered By: Caleb Allen on 10-29-2024 Elastase.pancreatic (Stl) [Mass/Mass] 517 >200 [facility] Comment on above: Result Units: ug Kelly st./g Severe Pancreatic Insufficiency: <100 Moderate Pancreatic Insufficiency: 100 - 200 Normal: >200Performed at: [facility] [id number] Director: Wilbert Long MD, Phone: [phone] Absolute lymphocyte countOrd ered By: Caleb Allen on 10-24-2024 Lymphocytes Auto (Unsp spec) [#/Vol] 1.76 10*3/uL 0.83-4.51 [facility] Absolute neutrophil countOrd ered By: Caleb Allen on 10-24-2024 Neutrophils (Bld) [#/Vol] 5.0 10*3/uL 2.0-7.7 [facility] Albumin Elph [Mass/Vol]Order ed By: Caleb Allen on 10-24-2024 Albumin [Mass/Vol] 3.2 g/dL 2.9-4.4 [facility] Aldolase ser/plasOrdered By: Caleb Allen on 10-24-2024 Aldolase [Catalytic activity/Vol] 2.7 mU/mL Low 3.3-10.3 [facility] Comment on above: Performed at: [address] [id number] Director: Gabriele Rasmussen PhD, Phone: [phone] at: [facility] [id number] Director: Wilbert Long MD, Phone: [phone] Automated lymphocyte count a s percentage of total leukocytesOrdered By: Caleb Allen on 10-24-2024 Lymphocytes/100 WBC Auto (Unsp spec) 22.1 % 19-41 [facility] Basophil percentageOrdered B y: Caleb Allen on 10-24-2024 Basophils/100 WBC (Bld) 1.0 % 0-1 [facility] CBC W/Diff, Automatedon 10-11 Absolute Lymph 1.76 X10 3/uL Normal 0.83-4.51 [facility] Comment on above: Performed By: #### L 503.0106, L503.6550, L503.6150, L501.6710, L100.0100, L501.3620, L2100.0000, L3300.1200, L3300.0100, L504.2610, L5500.0410, L3410.2350, L3100.7000, L506.0400, L501.74055, L501.9520, L3100.3425, L101.9900 #### [facility] [address] [facility] [facility] [place], [place], [id number] (617) Absolute Neut 5.0 X10 3/uL Normal 2.0-7.7 [facility] Comment on above: Performed By: #### L 503.0106, L503.6550, L503.6150, L501.6710, L100.0100, L501.3620, L2100.0000, L3300.1200, L3300.0100, L504.2610, L5500.0410, L3410.2350, L3100.7000, L506.0400, L501.47303, L501.9520, L3100.3425, L101.9900 #### [facility] [address] [place], [place], [id number] Basophils/100 WBC (Bld) 1.0 % Normal 0-1 [facility] Comment on above: Performed By: #### L 503.0106, L503.6550, L503.6150, L501.6710, L100.0100, L501.3620, L2100.0000, L3300.1200, L3300.0100, L504.2610, L5500.0410, L3410.2350, L3100.7000, L506.0400, L501.92586, L501.9520, L3100.3425, L101.9900 #### [facility] [address] [facility] [place], [place], [id number] (165) Eosinophils/100 WBC (Bld) 2.8 % Normal 0-5 [facility] Comment on above: Performed By: #### L 503.0106, L503.6550, L503.6150, L501.6710, L100.0100, L501.3620, L2100.0000, L3300.1200, L3300.0100, L504.2610, L5500.0410, L3410.2350, L3100.7000, L506.0400, L501.30766, L501.9520, L3100.3425, L101.9900 #### [facility] [address] [facility] [place], [place], [id number] (436) Erythrocyte distribution width (RBC) [Ratio] 13.9 % Normal 11.6-14.6 [facility] Comment on above: Performed By: #### L 503.0106, L503.6550, L503.6150, L501.6710, L100.0100, L501.3620, L2100.0000, L3300.1200, L3300.0100, L504.2610, L5500.0410, L3410.2350, L3100.7000, L506.0400, L501.97789, L501.9520, L3100.3425, L101.9900 #### [facility] [address] [facility] [place], [place], [address] Hematocrit (Bld) [Volume fraction] 31.0 % Low 40-54 [facility] Comment on above: Performed By: #### L 503.0106, L503.6550, L503.6150, L501.6710, L100.0100, L501.3620, L2100.0000, L3300.1200, L3300.0100, L504.2610, L5500.0410, L3410.2350, L3100.7000, L506.0400, L501.85299, L501.9520, L3100.3425, L101.9900 #### [facility] [address] [place], [address] Hemoglobin (Bld) [Mass/Vol] 9.7 g/dL Low 13.0-16.5 [facility] Comment on above: Performed By: #### L 503.0106, L503.6550, L503.6150, L501.6710, L100.0100, L501.3620, L2100.0000, L3300.1200, L3300.0100, L504.2610, L5500.0410, L3410.2350, L3100.7000, L506.0400, L501.79477, L501.9520, L3100.3425, L101.9900 #### [facility] [address] [place], [address] IG% 0.400 Normal 0.0-0.9 [facility] Comment on above: Result Comment: IG% - Immature Granulocytes (promyelocytes, myelocytes and metamyelocytes) > 1% indicates that a LEFT SHIFT is Present. Performed By: #### L 503.0106, L503.6550, L503.6150, L501.6710, L100.0100, L501.3620, L2100.0000, L3300.1200, L3300.0100, L504.2610, L5500.0410, L3410.2350, L3100.7000, L506.0400, L501.40431, L501.9520, L3100.3425, L101.9900 #### [facility] [address] [place], [address] Lymphocytes/100 WBC (Bld) 22.1 % Normal 19-41 [facility] Comment on above: Performed By: #### L 503.0106, L503.6550, L503.6150, L501.6710, L100.0100, L501.3620, L2100.0000, L3300.1200, L3300.0100, L504.2610, L5500.0410, L3410.2350, L3100.7000, L506.0400, L501.05941, L501.9520, L3100.3425, L101.9900 #### [facility] [address] [place], [address] MCH (RBC) [Entitic mass] 33.2 pg High 27.0-32.0 [facility] Comment on above: Performed By: #### L 503.0106, L503.6550, L503.6150, L501.6710, L100.0100, L501.3620, L2100.0000, L3300.1200, L3300.0100, L504.2610, L5500.0410, L3410.2350, L3100.7000, L506.0400, L501.57373, L501.9520, L3100.3425, L101.9900 #### [facility] [address] [place], [address] MCHC (RBC) [Mass/Vol] 31.3 g/dL Low 32-36 [facility] Comment on above: Performed By: #### L 503.0106, L503.6550, L503.6150, L501.6710, L100.0100, L501.3620, L2100.0000, L3300.1200, L3300.0100, L504.2610, L5500.0410, L3410.2350, L3100.7000, L506.0400, L501.74580, L501.9520, L3100.3425, L101.9900 #### [facility] [address] [place], [address] MCV (RBC) [Entitic vol] 106.2 fL High 80-94 [facility] Comment on above: Performed By: #### L 503.0106, L503.6550, L503.6150, L501.6710, L100.0100, L501.3620, L2100.0000, L3300.1200, L3300.0100, L504.2610, L5500.0410, L3410.2350, L3100.7000, L506.0400, L501.89990, L501.9520, L3100.3425, L101.9900 #### [facility] [address] [place], [address] Monocytes/100 WBC (Bld) 11.2 % High 0-10 [facility] Comment on above: Performed By: #### L 503.0106, L503.6550, L503.6150, L501.6710, L100.0100, L501.3620, L2100.0000, L3300.1200, L3300.0100, L504.2610, L5500.0410, L3410.2350, L3100.7000, L506.0400, L501.88822, L501.9520, L3100.3425, L101.9900 #### [facility] [address] [place], [address] Neutrophils/100 WBC (Bld) 62.5 % Normal 47-70 [facility] Comment on above: Performed By: #### L 503.0106, L503.6550, L503.6150, L501.6710, L100.0100, L501.3620, L2100.0000, L3300.1200, L3300.0100, L504.2610, L5500.0410, L3410.2350, L3100.7000, L506.0400, L501.98281, L501.9520, L3100.3425, L101.9900 #### [facility] [address] [place], [address] Nucleated RBC (Bld) [#/Vol] 0 10*3/uL Normal 0-5 [facility] Comment on above: Performed By: #### L 503.0106, L503.6550, L503.6150, L501.6710, L100.0100, L501.3620, L2100.0000, L3300.1200, L3300.0100, L504.2610, L5500.0410, L3410.2350, L3100.7000, L506.0400, L501.22221, L501.9520, L3100.3425, L101.9900 #### [facility] [address] [place], [address] Platelet mean volume (Bld) [Entitic vol] 11.5 fL Normal 6.2-12.0 [facility] Comment on above: Performed By: #### L 503.0106, L503.6550, L503.6150, L501.6710, L100.0100, L501.3620, L2100.0000, L3300.1200, L3300.0100, L504.2610, L5500.0410, L3410.2350, L3100.7000, L506.0400, L501.79527, L501.9520, L3100.3425, L101.9900 #### [facility] [address] [facility] [place], [address] Platelets (Bld) [#/Vol] 181 10*3/uL Normal 150-450 [facility] Comment on above: Performed By: #### L 503.0106, L503.6550, L503.6150, L501.6710, L100.0100, L501.3620, L2100.0000, L3300.1200, L3300.0100, L504.2610, L5500.0410, L3410.2350, L3100.7000, L506.0400, L501.07657, L501.9520, L3100.3425, L101.9900 #### [facility] [address] [facility] [place], [address] RBC (Bld) [#/Vol] 2.92 10*6/uL Low 4.6-6.2 [facility] Comment on above: Performed By: #### L 503.0106, L503.6550, L503.6150, L501.6710, L100.0100, L501.3620, L2100.0000, L3300.1200, L3300.0100, L504.2610, L5500.0410, L3410.2350, L3100.7000, L506.0400, L501.18407, L501.9520, L3100.3425, L101.9900 #### [facility] [address] [place], [place], [address] RDW SD 54.4 fl High 35.1-43.9 [facility] Comment on above: Performed By: #### L 503.0106, L503.6550, L503.6150, L501.6710, L100.0100, L501.3620, L2100.0000, L3300.1200, L3300.0100, L504.2610, L5500.0410, L3410.2350, L3100.7000, L506.0400, L501.75127, L501.9520, L3100.3425, L101.9900 #### [facility] [address] [place], [place], [address] WBC (Bld) [#/Vol] 8.0 10*3/uL Normal 4.4-11.0 [facility] Comment on above: Performed By: #### L 503.0106, L503.6550, L503.6150, L501.6710, L100.0100, L501.3620, L2100.0000, L3300.1200, L3300.0100, L504.2610, L5500.0410, L3410.2350, L3100.7000, L506.0400, L501.38421, L501.9520, L3100.3425, L101.9900 #### [facility] [address] [place], [address] CPK Total, Creatine Kinaseon 10-24-2024 CPK TOTAL 112 U/L Normal 24-195 [facility] Comment on above: Performed By: #### L 503.0106, L503.6550, L503.6150, L501.6710, L100.0100, L501.3620, L2100.0000, L3300.1200, L3300.0100, L504.2610, L5500.0410, L3410.2350, L3100.7000, L506.0400, L501.68146, L501.9520, L3100.3425, L101.9900 #### [facility] [address] [place], [address] CRPon 10-24-2024 C-REACTIVE PROT < 3.00 Normal 0.0-3.0 [facility] Comment on above: Performed By: #### L 501.080 #### [facility] [address], [place], [address] Chitobioside IgA antibody as sayOrdered By: Caleb Allen on 10-24-2024 Chitobioside IgA IA Qn 27 units 0-90 [facility] Comment on above: Negative: <80 Equivo judd: 80-90 Positive: >90 Eosinophil percentageOrdered By: Caleb Allen on 10-24-2024 Eosinophils/100 WBC (Bld) 2.8 % 0-5 [facility] Erythrocyte Sed Rateon 10-24 SED RATE 21 mm/hr High 0-20 [facility] Comment on above: Performed By: #### L 503.0106, L503.6550, L503.6150, L501.6710, L100.0100, L501.3620, L2100.0000, L3300.1200, L3300.0100, L504.2610, L5500.0410, L3410.2350, L3100.7000, L506.0400, L501.11404, L501.9520, L3100.3425, L101.9900 #### [facility] [address] [place], [place], [address] Erythrocyte distribution wid th ratioOrdered By: Caleb Allen on 10-24-2024 Erythrocyte distribution width (RBC) [Ratio] 13.9 % 11.6-14.6 [facility] Erythrocyte distribution wid th standard deviationOrdered By: Caleb Friend on 10-24-2024 Erythrocyte distribution width (RBC) [Ratio] 54.4 fl High 35.1-43.9 [facility] Erythrocyte sedimentation ra teOrdered By: Calebshaka Allen on 10-24-2024 ESR (Bld) [Velocity] 21 mm/h High 0-20 [facility] Ferritinon 10-24-2024 Ferritin [Mass/Vol] 56 ng/mL Normal 37-417 [facility] Comment on above: Performed By: #### L 503.0106, L503.6550, L503.6150, L501.6710, L100.0100, L501.3620, L2100.0000, L3300.1200, L3300.0100, L504.2610, L5500.0410, L3410.2350, L3100.7000, L506.0400, L501.98872, L501.9520, L3100.3425, L101.9900 #### [facility] [address] [place], [place], [id number] Free T3on 10-24-2024 Free T3 [Mass/Vol] 2.1 pg/mL Low 2.18-3.98 [facility] Comment on above: Performed By: #### L 503.0106, L503.6550, L503.6150, L501.6710, L100.0100, L501.3620, L2100.0000, L3300.1200, L3300.0100, L504.2610, L5500.0410, L3410.2350, L3100.7000, L506.0400, L501.72897, L501.9520, L3100.3425, L101.9900 #### [facility] [address] [place], [address] Free Y9Etlwrgu By: Caleb saha on 10-24-2024 Free T3 [Mass/Vol] 2.1 pg/mL Low 2.18-3.98 [facility] Gastroenterology Visit Repor ton 10-24-2024 Gastroenterology Visit Report [facility] [address] [place] [address] OFFICE VISIT Date of Service: 10/24/24 MR#: [id number] Acct: [id number] Name: MEG BRYANT Rep #: [id number] : 1945 Provider: Caleb Allen DO Age/Sex: 79/M [place] [facility] Status: Signed Intake Vital Signs 12/14/23 11:27 Height 5 ft 9 in Intake Visit Reasons: Abdominal pain Allergies sitagliptin (From [facility]) Adverse Reaction (Verified 12/14/23 11:23) myalgia Medications ???Medication ???Instructions ???Recorded ???Confirmed ???Type aspirin 81 mg tablet,delayed 81 mg PO DAILY 05/11/18 10/24/24 H istory release (Adult Aspirin Regimen) latanoprost 0.005 % eye drops 1 drp ophthalmic (eye) QPM 9 10/24/24 History (Xalatan) levothyroxine 125 mcg capsule 125 mcg PO DAILY 05/11/18 10/24/24 History pioglitazone 45 mg tablet (Actos) 45 mg PO DAILY 05/11/18 10/24/24 History timolol maleate 0.5 % once daily 1 drp ophthalmic (eye) BID 9 10/24/24 History eye drops (Istalol) omega-3 fatty acids 1,000 mg 1,000 mg PO BID 12/10/19 10/24/24 History capsule (Fish Oil Concentrate) cholecalciferol (vitamin D3) 50 50 mcg PO DAILY 10/01/20 10/24/24 History mcg (2,000 unit) tablet linagliptin 5 mg tablet (Tradjenta) 2.5 mg PO DAILY 10/01/20 History cyanocobalamin (vitamin B-12) 1,000 mcg PO BID 12/13/22 10/24/24 History 1,000 mcg capsule folic acid 1 mg tablet 1 mg PO DAILY 12/13/22 10/24/24 Hi story simvastatin 20 mg tablet 20 mg PO DAILY 12/13/22 10/24/24 H istory lisinopril 10 mg tablet 20 mg PO DAILY 12/14/23 10/24/24 H istory copper gluconate 2 mg tablet 2 mg PO QDAY 10/24/24 10/24/24 His tory Have you fallen in the past year?: No Nurse's Note: Pt was scheduled for EGD on 11.28.24 at the end of their appt today. Reviewed prep instructions and which medications to hold prior to procedure with pt in office. A paper copy of EGD prep instructions were given to pt. Pt denies any questions or concerns at this time. [facility] Medical History Non-rheumatic aortic stenosis Obstructive chronic bronchitis History of radioactive iodine thyroid ablation Ocular histoplasmosis syndrome of left eye Obesity Glaucoma GERD (gastroesophageal reflux disease) Diabetic peripheral neuropathy Benign neoplasm of rectum Hypothyroidism Hyperlipidemia Essential (primary) hypertension Type 2 diabetes mellitus Surgical History History of colonoscopy (12/20/16) History of colonoscopy with polypectomy (12/30/03) Family History Mother Myocardial infarction Diabetes Heart disease Father CVA (cerebral vascular accident) Cancer lung Sister Heart disease Social History Smoking Status: Former smoker how long ago did patient quit smokin years, smoked a pipe alcohol intake: current alcohol intake frequency: holidays/special occasions only substance use type: does not use caffeine: Yes what type of physical activity do you participate in: none frequency: does not exercise HPI HPI Details: MEG BRYANT, is a 79 M who presents to the office today for initial consult. *BGI established 10.24.[address] [facility] for chronic diarrhea. pt reports that for the past 6-8 months he has had nausea and abd pain that radiates to his back if he doesn't eat every few hours. Pt reports the abd pain will wake him up in the middle of the night. Pt reports diminished appetite as well. Pt reports that he is having diarrhea 3-6 times every morning, but usually does not have a bm the rest of the day. Pt also notes that a few times a month, when he is sitting in bed or his chair, he will feel something release in his stomach and then will have extreme nausea and increased saliva in his mouth; states this lasts for 3-5 minutes and then goes away. States his last colonoscopy was 5-6 years ago and has never had an EGD before. ROS Const Constitutional: Positive for fatigue and weakness; No fever(s) or weight change ENT ENT: No difficulty swallowing Gastro GI: Positive for abdominal pain, diarrhea, heartburn and nausea/dyspepsia; No belching, bloating, change in bowel habits, change in stool character, coffee ground emesis, constipation, cramping, difficulty swallowing, feeling full early, excessive flatus, incontinent of stools, Vomiting blood/hematemesis, Blood in stool, loose stools, Black,tarry stools, pain with swallowing, vomiting or other Musc Musculoskeletal: Positive for abnormal gait, joint pain, back pain, muscle weakness, numbness, stiffness, tingling and Arthritis Skin (more content not included)... Normal [facility] Hematocrit Auto (Bld) [Volum e fraction]Ordered By: Caleb Allen on 10-24-2024 Hematocrit (Bld) [Volume fraction] 31.0 % Low 40-54 [facility] Hemoglobin measurementOrdere d By: Caleb Allen on 10-24-2024 Hemoglobin (Bld) [Mass/Vol] 9.7 g/dL Low 13.0-16.5 [facility] Immature granulocytes/100 WB C Auto (Bld)Ordered By: Caleb Allen on 10-24-2024 Immature granulocytes/100 WBC (Bld) 0.400 % 0.0-0.9 [facility] Comment on above: IG% - Immature Granu locytes (promyelocytes, myelocytes and metamyelocytes) > 1% indicates that a LEFT SHIFT is Present. Interpretation of serum or p lasma protein pattern by immunofixation (narrative resultOrdered By: Caleb Allen on 10-24-2024 Protein Fractions Immunofixation Miles [Interp] Comment: g/dL Not Observed [facility] Comment on above: SPE shows an asymmet rical gamma. Ironon 10-24-2024 Iron [Mass/Vol] 99 ug/dL Normal 65-175 [facility] Comment on above: Performed By: #### L 501.080 #### [facility] [address] [place], [address] Iron measurement (mass/mass) Ordered By: Caleb Allen on 10-24-2024 Iron (Unsp spec) [Mass/Mass] 99 ug/dL 65-175 [facility] LDHon 10-24-2024 LDH 209 U/L Normal 87-241 [facility] Comment on above: Order Comment: 1 Performed By: #### L 501.080 #### [facility] [address] [place], [place], [address] Laboratory - Miscellaneous t estsOrdered By: Caleb Allen on 10-24-2024 Laboratory comment Miles (Report) Comment . [facility] Comment on above: Pattern is not sugge stive of Inflammatory Bowel Disease Service comment (Unsp spec) [Interp] Comment . [facility] Comment on above: Levels of Specific I gE Class Description of Class ----- < 0.10 0 Negative 0.10 - 0.31 0/I Equivocal/Low 0.32 - 0.55 I Low 0.56 - 1.40 II Moderate 1.41 - 3.90 III High 3.91 - 19.00 IV Very High 19.01 - 100.00 V Very High >100.00 Very High Lactate dehydrogenase (LDH) measurementOrdered By: Caleb Allen on 10-24-2024 LDH [Catalytic activity/Vol] 209 U/L 87-241 [facility] Laminaribioside carbohydrate IgG antibody assayOrdered By: Caleb Allen on 10-24-2024 Laminaribioside IgG IA Qn 5 units 0-60 [facility] Comment on above: Negative:<55 Equivoc al: 55-60 Positive: >60 MCV (mean corpuscular volume ) determinationOrdered By: Caleb Allen on 10-24-2024 MCV (RBC) [Entitic vol] 106.2 fL High 80-94 [facility] Mean corpuscular hemoglobin (MCH) determinationOrdered By: Caleb Allen on 10-24-2024 MCH (RBC) [Entitic mass] 33.2 pg High 27.0-32.0 [facility] Mean corpuscular hemoglobin concentration (MCHC) determinationOrdered By: Caleb Allen on 10-24-2024 MCHC (RBC) [Mass/Vol] 31.3 g/dL Low 32-36 [facility] Mean platelet volume determi nationOrdered By: Caleb Allen on 10-24-2024 Platelet mean volume (Bld) [Entitic vol] 11.5 fL 6.2-12.0 [facility] Monocyte percentageOrdered B y: Caleb Allen on 10-24-2024 Monocytes/100 WBC (Bld) 11.2 % High 0-10 [facility] Neutrophil percentageOrdered By: Caleb Allen on 10-24-2024 Neutrophils/100 WBC (Bld) 62.5 % 47-70 [facility] No Panel InformationOrdered By: Caleb Allen on 10-24-2024 Addendum Document Comment . [facility] Comment on above: Protein electrophore sis scan will follow via computer,mail, or human resource professional delivery. Tissue Transglutaminase IgG Ab 5 U/mL 0-5 [facility] Comment on above: Negative 0 - 5 Weak Positive 6 - 9 Positive >9 Nucleated red blood cell per centageOrdered By: Caleb Allen on 10-24-2024 Nucleated RBC/100 WBC (Bld) [Ratio] 0 % 0-5 [facility] Platelet countOrdered By: Ra maryann Allen on 10-24-2024 Platelets (Bld) [#/Vol] 181 10*3/uL 150-450 [facility] RBC Auto (Bld) [#/Vol]Ordere d By: Caleb Allen on 10-24-2024 RBC (Bld) [#/Vol] 2.92 10*6/uL Low 4.6-6.2 [facility] Serum black walnut IgE antib nino assay (units/volume)Ordered By: Caleb Allen on 10-24-2024 Black [place] IgE Qn (S) 0.28 kU/L High Class 0/I [facility] Serum clam IgE antibody assa y (units/volume)Ordered By: Caleb Allen on 10-24-2024 Clam IgE Qn (S) 0.19 kU/L High Class 0/I [facility] Serum classic neutrophil cyt oplasmic antibody assay (units/volume)Ordered By: Caleb Allen on 10-24-2024 Neutrophil cytoplasmic Ab.classic Qn (S) <1:20 titer Neg:<1:20 [facility] Serum codfish IgE antibody a ssay (units/volume)Ordered By: Caleb Allen on 10-24-2024 Codfish IgE Qn (S) <0.10 kU/L Class 0 [facility] Serum corn IgE antibody assa y (units/volume)Ordered By: Caleb Aleln on 10-24-2024 [place] IgE Qn (S) 0.24 kU/L High Class 0/I [facility] Serum cow milk IgE antibody assay (units/volume)Ordered By: Caleb Allen on 10-24-2024 Cow milk IgE Qn (S) 0.53 kU/L High Class I [facility] Serum egg white IgE antibody assay (units/volume)Ordered By: Caleb Allen on 10-24-2024 Egg white IgE Qn (S) 2.78 kU/L High Class III [facility] Serum globulin measurement ( mass/volume)Ordered By: Caleb Allen on 10-24-2024 Globulin (S) [Mass/Vol] 3.0 g/dL 2.2-3.9 [facility] Serum or plasma C reactive p rotein measurement (mass/volume)Ordered By: Caleb Allen on 10-24-2024 CRP [Mass/Vol] mg/L 0.0-3.0 [facility] Serum or plasma IgA measurem ent (mass/volume)Ordered By: Caleb Allen on 10-24-2024 IgA [Mass/Vol] 312 mg/dL 61-437 [facility] Serum or plasma IgG measurem ent (mass/volume)Ordered By: Caleb Allen on 10-24-2024 IgG [Mass/Vol] 937 mg/dL 603-1613 [facility] Serum or plasma alpha 1 glob ulin measurement by electrophoresis (mass/volume)Ordered By: Caleb Allen on 10-24-2024 Alpha 1 globulin Elph [Mass/Vol] 0.3 g/dL 0.0-0.4 [facility] Alpha 1 globulin Elph [Mass/Vol] 0.8 g/dL 0.4-1.0 [facility] Serum or plasma beta globuli n measurement by electrophoresis (mass/volume)Ordered By: Caleb Allen on 10-24-2024 Beta globulin Elph [Mass/Vol] 1.1 g/dL 0.7-1.3 [facility] Serum or plasma creatine kin ase activityOrdered By: Caleb Allen on 10-24-2024 CK [Catalytic activity/Vol] 112 U/L 24-195 [facility] Serum or plasma ferritin rajiv surement (mass/volume)Ordered By: Caleb Allen on 10-24-2024 Ferritin [Mass/Vol] 56 ng/mL 37-417 [facility] Serum or plasma gamma globul in measurement by electrophoresis (mass/volume)Ordered By: Caleb Allen on 10-24-2024 Gamma globulin Elph [Mass/Vol] 0.8 g/dL 0.4-1.8 [facility] Serum or plasma immunoelectr ophoresis interpretation (nominal result)Ordered By: Caleb Allen on 10-24-2024 Interpretation IEP [Interp] Comment: . [facility] Comment on above: Presence of monoclon al protein is unclear at this time. Suggestrepeat in 3 to 6 months if clinically indicated. Serum or plasma mannobioside IgG antibody assay by immunoassay (units/volume)Ordered By: Caleb Allen on 10-24-2024 Mannobioside IgG IA Qn 54 units 0-100 [facility] Comment on above: Negative: <90 Equivo judd: 90-100 Positive: >100 This test was developed and its performance characteristics determined by [facility]. It has not been cleared or approved by the Food and Drug Administration. The FDA has determined that such clearance or approval is not necessary. Serum or plasma protein pernell urement (mass/volume)Ordered By: Caleb Allen on 10-24-2024 Protein [Mass/Vol] 6.2 g/dL 6.0-8.5 [facility] Serum peanut IgE antibody as say (units/volume)Ordered By: Caleb Allen on 10-24-2024 Peanut IgE Qn (S) 0.61 kU/L High Class II [facility] Serum perinuclear neutrophil cytoplasmic antibody titer by immunofluorescenceOrdered By: Caleb Allen on 10-24-2024 Neutrophil cytoplasmic Ab.perinuclear IF (S) [Titer] <1:20 titer Neg:<1:20 [facility] Comment on above: The presence of posi tive fluorescence exhibiting P-ANCA orC-ANCA patterns alone is not specific for the diagnosis ofWegener's Granulomatosis (WG) or microscopic polyangiitis.Decisions about treatment should not be based solely onANCA IFA results. The International ANCA Group Consensusrecommends follow up testing of positive sera with both IA-3 and MPO-ANCA enzyme immunoassays. As many as 5% serumsamples are positive only by EIA. Ref. AM J Clin Jotzzz7605;111:507-513. Serum soybean IgE antibody a ssay (units/volume)Ordered By: Caleb Allen on 10-24-2024 Soybean IgE Qn (S) 0.25 kU/L High Class 0/I [facility] Serum tissue transglutaminas e (tTG) IgA antibody assay (units/volume)Ordered By: Caleb Allen on 10-24-2024 tTG IgA Qn (S) 3 U/mL 0-3 [facility] Comment on above: Negative 0 - 3 Weak Positive 4 - 10 Positive >10 Tissue Transglutaminase (tTG) has been identified as the endomysial antigen. Studies have demonstr- ated that endomysial IgA antibodies have over 99% specificity for gluten sensitive enteropathy. Serum wheat IgE antibody ass ay (units/volume)Ordered By: Caleb Allen on 10-24-2024 Wheat IgE Qn (S) 0.30 kU/L High Class 0/I [facility] T4 Free Directon 10-24-2024 T4 FREE DIRECT 1.70 ng/dL High 0.76-1.46 [facility] Comment on above: Performed By: #### L 503.0106, L503.6550, L503.6150, L501.6710, L100.0100, L501.3620, L2100.0000, L3300.1200, L3300.0100, L504.2610, L5500.0410, L3410.2350, L3100.7000, L506.0400, L501.38760, L501.9520, L3100.3425, L101.9900 #### [facility] [address] [place], [address] T4 freeOrdered By: Caleb saha on 10-24-2024 Free T4 [Mass/Vol] 1.70 ng/dL High 0.76-1.46 [facility] TSH DL <= 0.005 mIU/L QnOrde red By: Caleb Allen on 10-24-2024 TSH Qn 0.758 uIU/mL 0.300-4.20 0 [facility] Thyroid Stim Hormone (TSH)on 10-24-2024 TSH 0.758 uIU/mL Normal 0.300-4.20 0 [facility] Comment on above: Performed By: #### L 503.0106, L503.6550, L503.6150, L501.6710, L100.0100, L501.3620, L2100.0000, L3300.1200, L3300.0100, L504.2610, L5500.0410, L3410.2350, L3100.7000, L506.0400, L501.82136, L501.9520, L3100.3425, L101.9900 #### [facility] [address] [place], [address] Vitamin B12on 10-24-2024 Cobalamin (Vitamin B12) [Mass/Vol] 1621 pg/mL High 180-914 [facility] Comment on above: Performed By: #### L 503.0106, L503.6550, L503.6150, L501.6710, L100.0100, L501.3620, L2100.0000, L3300.1200, L3300.0100, L504.2610, L5500.0410, L3410.2350, L3100.7000, L506.0400, L501.05073, L501.9520, L3100.3425, L101.9900 #### [facility] [place], [address] Vitamin B12 ser/plasOrdered By: Caleb Allen on 10-24-2024 Cobalamin (Vitamin B12) [Mass/Vol] 1621 pg/mL High 180-914 [facility] White blood cell (WBC) count Ordered By: Caleb Allen on 10-24-2024 WBC (Bld) [#/Vol] 8.0 10*3/uL 4.4-11.0 [facility] CNOVon 05-22-2024 CNOV Office Visit (FAMPWS ) ----- MEG BRYANT ([id number]) 1945 M Date Time Provider Department 05/22/24 1:00 PM WILIAM MANDEL FAMPWS During your visit today, we recorded the following information about you: Pulse Respiration Blood pressure Weight 70/minute 16/minute 102/58 96.2 kg Height 1.721 m Wiliam Mandel MD 05/22/2024 3:00 PM Signed Meg Sue Bryant is a 79 year old male here for a Medicare wellness visit. Medicare Health Risk Assessment General Health Good Exercise: Minutes/Day 0 min Exercise: Days/Week 0 days Alcohol: Daily Use Monthly or less Alcohol: Drinks/Day 1 or 2 Alcohol: 6 or more drinks Never Feel off balance Yes Concerns: Teeth/Dentures No Concerns: Sexual function No Troubled by feelings Angry Frequency: Eating healthy diet Several days ADLs requiring help None of the above Safety precautions in home/vehicle No Smoke, vape, chews tobacco No Difficulty hearing No Difficulty seeing No Current Providers Specialists: I have reviewed specialist-related care of the patient in the medical record. Current care team: Patient Care Team: Wiliam Mandel MD as PCP - General (Family Medicine) Eden Dove MD as Mlt (Nephrology) Nima Hobbs APRN.CONGRESSIONAL DISTRICT AIDE as Nba Player (Family Medicine) Lilliam Monaco PA-C as Nba Player (Family Medicine) Dr. Tirado Optho Medical/Family history review Reviewed and updated problem list, medical/surgical/family/s ocial history, medications, and allergies. Opioid use review Opioid Medications (last 90 days) No data to display Anxiety/Depression screening PHQ-2 Score: 2 (Lower risk for depression) Recommendation: no further intervention at this time Cognitive screening Score: 5 Cognitive screening reviewed and No further action needed (score 3-5). Functional Observation Was the patient's Timed Up AND Go test unsteady or >= 12 seconds? No Advance Care Planning Surrogate decision maker documented and/or advance directives scanned in chart Measurements BP 102/58 Pulse 70 Resp 16 Ht 172.1 cm (5' 7.75) Wt 96.2 kg (212 lb) BMI 32.47 kg/m? Vision Screening: Follows with optometry/ophthalmology Assessment/Plan Medicare annual wellness visit, subsequent (Z00.00) - Counseled on healthy diet and regular exercise - Fall avoidance information provided - Personalized prevention plan provided See below Chief Complaint Patient presents with: Medicare Wellness Exam HPI Meg Bryant is a 79 year old male who presents here today for Chronic Medical Conditions. and Medicare Annual Visit. Patient with Hx of DM 2, neuropathy, hyperlipidemia, HTN, obesity, hypothyroidism, carotid stenosis, diabetic proteinuria, GERD, mod aortic Stenosis, COPD, macrocytic anemia as well as those reviewed and addressed below and in ROS. Ref Range AND Units 8 d ago (05/14/24) 6 mo ago (11/20/23) 1 yr ago (05/18/23) 1 yr ago (11/16/22) 2 yr ago (05/18/22) 2 yr ago (10/26/21) 3 yr ago (03/18/21) Hemoglobin A1C 4.3 - 5.6 % 6.4 High 6.2 High CM 6.3 High CM 6.2 High CM 6.7 High CM 6.4 High CM 6.6 High Patient D/C Metformin started having stomach cramps once on the Extended release. The pain will go towards his back. The symptoms are less since stopping the metformin but still getting the pain on occasion. Sometimes will get slight nausea with it and a cold sweat. Patient sees ophthalmology last visit 09/[address] Dove last visit 12/2023 Patient sees [facility] Patient sees Dr. Arzola. Past medical history, appointments, medications, allergies reviewed. Previous Medical History PAST MEDICAL HISTORY Diagnosis Date Advance directive discussed with patient 11/11/2021 Discussed 10/2021 AK (actinic keratosis) 10/23/2018 right frontal scalp treated with Cryo 10/23/2018 Albuminuria 03/26/2020 Anemia due to stage 3 chronic kidney disease (HCC) ([facility]) 07/28/2022 Arthritis Benign neoplasm of rectum and anal canal Benign non-nodular prostatic hyperplasia without lower urinary tract symptoms 08/19/2015 Bilateral carotid artery stenosis 10/24/2018 US 10/2018: 20-40% tere Calculus of gallbladder with chronic cholecystitis without obstruction 03/27/2021 CT 03/2021 Chronic diarrhea 11/11/2021 Class 1 obesity due to excess calories without serious comorbidity with body mass index (BMI) of 34.0 to 34.9 in adult 10/05/2017 Controlled type 2 diabetes mellitus with diabetic nephropathy, without long-term current use of insulin ([facility]) 08/19/2015 Coronary artery disease Dermatitis 11/16/2018 thigh lesion removed 10/2018 Diabetic eye exam ([facility]) 04/09/2015 Last done: 08/01/2018 No Retinopathy Diabetic peripheral neuropathy ([facility]) 03/16/2011 Essential hypertension with goal blood pressure less than 130/85 08/19/2015 Gastroesophageal reflux disease without esophagitis 04/07/2015 (more content not included)... Normal [facility] ALBUMIN/CREATININE RATIO, UR INEon 05-14-2024 Albumin Unsp time DL <= 20 mg/L (U) [Mass/Time] <12.0 Normal [facility] Comment on above: Order Comment: Speci men Type: URINE SPECIMENOrdering Facility: [facility] Address: [address] [place] [address] Performed By: #### U ACR ####[facility]ORATORYCLIA [id number] [place] [id number] [place] Albumin/Creatinine (U) [Mass ratio] <7 Normal <30 [facility] Comment on above: Order Comment: Speci men Type: URINE SPECIMENOrdering Facility: [facility] Address: [address] [place] [address] Result Comment: Adul t Male and Female Nephrotic Criteria: <30 mg/g is considered normal to mildly increased 30-300 mg/g is considered moderately increased >300 mg/g is considered severely increased KDIGO. (2013). KDIGO 2012 Clinical Practice Guideline for the Evaluation and Management of Chronic Kidney Disease. Official Journal of the International Society of Nephrology, 3(1), 1-150. Performed By: #### U ACR ####[facility]ATORYCLIA [id number] [address] [place] Creatinine (U) [Mass/Vol] 163.8 mg/dL Normal 46.8-314. 5 [facility] Comment on above: Order Comment: Speci men Type: URINE SPECIMENOrdering Facility: [facility] Address: [address] [place] [address] Performed By: #### U ACR ####[facility]ORATORYCLIA [id number] [place] [address] [place] CBC W Auto Differential pane l (Bld)on 05-14-2024 Basophils (Bld) [#/Vol] 0.09 10*3/uL Normal <0.11 [facility] Comment on above: Order Comment: Speci men Type: BLOOD SPECIMENOrdering Facility: [facility] Address: [address] [place] [address] Performed By: #### 5 7021-8 ####[facility] [id number] [place] [address] [place] Basophils/100 WBC (Bld) 0.8 % Normal [facility] Comment on above: Order Comment: Speci men Type: BLOOD SPECIMENOrdering Facility: [facility] Address: [address] [place] [address] Performed By: #### 5 7021-8 ####[facility] [id number] [place] [address] [place] Differential cell count method Nom (Bld) Auto Normal [facility] Comment on above: Order Comment: Speci men Type: BLOOD SPECIMENOrdering Facility: [facility] Address: [address] [place] [address] Performed By: #### 5 7021-8 ####[facility] [id number] [place] [address] [place] Eosinophils (Bld) [#/Vol] 0.34 10*3/uL Normal <0.46 [facility] Comment on above: Order Comment: Speci men Type: BLOOD SPECIMENOrdering Facility: [facility] Address: [address] [place] [address] Performed By: #### 5 7021-8 ####[facility] [id number] [place] [address] [place] Eosinophils/100 WBC (Bld) 3.1 % Normal [facility] Comment on above: Order Comment: Speci men Type: BLOOD SPECIMENOrdering Facility: [facility] Address: [address] [place] [address] Performed By: #### 5 7021-8 ####[facility] [id number] [place] [address] [place] Erythrocyte distribution width (RBC) [Ratio] 13.3 % Normal 11.5-15.0 [facility] Comment on above: Order Comment: Speci men Type: BLOOD SPECIMENOrdering Facility: [facility] Address: [address] [place] [address] Performed By: #### 5 7021-8 ####[facility] JOHNZILLAHELSYLIA [id number] [place] [address] [place] Hematocrit (Bld) [Volume fraction] 32.1 % Low 39.0-51.0 [facility] Comment on above: Order Comment: Speci men Type: BLOOD SPECIMENOrdering Facility: [facility] Address: [address] [place] [address] Performed By: #### 5 7021-8 ####[facility] [id number] [place] [address] [place] Hemoglobin (Bld) [Mass/Vol] 10.0 g/dL Low 13.0-17.0 [facility] Comment on above: Order Comment: Speci men Type: BLOOD SPECIMENOrdering Facility: [facility] Address: [address] [place] [address] Performed By: #### 5 7021-8 ####[facility] [id number] [place] [address] [place] Immature granulocytes (Bld) [#/Vol] 0.06 10*3/uL Normal <0.10 [facility] Comment on above: Order Comment: Speci men Type: BLOOD SPECIMENOrdering Facility: [facility] Address: [address] [place] [address] Performed By: #### 5 7021-8 ####[facility]ITALL[facility] [id number] [place] [address] [place] Immature granulocytes/100 WBC (Bld) 0.6 % Normal [facility] Comment on above: Order Comment: Speci men Type: BLOOD SPECIMENOrdering Facility: [facility] Address: [address] [place] [address] Performed By: #### 5 7021-8 ####[facility] H[facility]PITALLI [id number] [place] [address] [place] Lymphocytes (Bld) [#/Vol] 2.52 10*3/uL Normal 1.00-4.0 0 [facility] Comment on above: Order Comment: Speci men Type: BLOOD SPECIMENOrdering Facility: [facility] Address: [address] [place] [address] Performed By: #### 5 7021-8 ####[facility] [id number] [place] [address] [place] Lymphocytes/100 WBC (Bld) 23.2 % Normal [facility] Comment on above: Order Comment: Speci men Type: BLOOD SPECIMENOrdering Facility: [facility] Address: [address] [place] [address] Performed By: #### 5 7021-8 ####[facility] [id number] [place] [address] [place] MCH (RBC) [Entitic mass] 33.1 pg Normal 26.0-34.0 [facility] Comment on above: Order Comment: Speci men Type: BLOOD SPECIMENOrdering Facility: [facility] Address: [address] [place] [address] Performed By: #### 5 7021-8 ####[facility] [id number] [place] [address] [place] MCHC (RBC) [Mass/Vol] 31.2 g/dL Normal 30.5-36.0 [facility] Comment on above: Order Comment: Speci men Type: BLOOD SPECIMENOrdering Facility: [facility] Address: [address] [place] [address] Performed By: #### 5 7021-8 ####[facility] [id number] [place] [address] [place] MCV (RBC) [Entitic vol] 106.3 fL High 80.0-100.0 [facility] Comment on above: Order Comment: Speci men Type: BLOOD SPECIMENOrdering Facility: [facility] Address: [address] [place] [address] Performed By: #### 5 7021-8 ####[facility] [id number] [place] [address] [place] Monocytes (Bld) [#/Vol] 1.08 10*3/uL High <0.87 [facility] Comment on above: Order Comment: Speci men Type: BLOOD SPECIMENOrdering Facility: [facility] Address: [address] [place] [address] Performed By: #### 5 7021-8 ####[facility] [id number] [place] [address] [place] Monocytes/100 WBC (Bld) 9.9 % Normal C [facility] Comment on above: Order Comment: Speci men Type: BLOOD SPECIMENOrdering Facility: [facility] Address: [address] [place] [address] Performed By: #### 5 7021-8 ####[facility] [id number] [place] [address] [place] Neutrophils (Bld) [#/Vol] 6.79 10*3/uL Normal 1.45-7.5 0 [facility] Comment on above: Order Comment: Speci men Type: BLOOD SPECIMENOrdering Facility: [facility] Address: [address] [place] [address] Performed By: #### 5 7021-8 ####[facility] [id number] [place] [address] [place] Neutrophils/100 WBC (Bld) 62.4 % Normal [facility] Comment on above: Order Comment: Speci men Type: BLOOD SPECIMENOrdering Facility: [facility] Address: [address] [place] [address] Performed By: #### 5 7021-8 ####[facility] [id number] [place] [address] [place] Nucleated RBC (Bld) [#/Vol] 10*3/uL Normal <0.01 [facility] Comment on above: Order Comment: Speci men Type: BLOOD SPECIMENOrdering Facility: [facility] Address: [address] [place] [address] Performed By: #### 5 7021-8 ####[facility] [id number] [place] [address] [place] Nucleated RBC/100 WBC (Bld) [Ratio] 0.0 /100 WBC Normal [facility] Comment on above: Order Comment: Speci men Type: BLOOD SPECIMENOrdering Facility: [facility] Address: [address] [place] [address] Performed By: #### 5 7021-8 ####[facility] [id number] [place] [address] [place] Platelet mean volume (Bld) [Entitic vol] 11.5 fL Normal 9.0-12.7 [facility] Comment on above: Order Comment: Speci men Type: BLOOD SPECIMENOrdering Facility: [facility] Address: [address] [place] [address] Performed By: #### 5 7021-8 ####[facility] [id number] [place] [address] [place] Platelets (Bld) [#/Vol] 194 10*3/uL Normal 150-400 [facility] Comment on above: Order Comment: Speci men Type: BLOOD SPECIMENOrdering Facility: [facility] Address: [address] [place] [address] Performed By: #### 5 7021-8 ####[facility] [id number] [place] [address] [place] RBC (Bld) [#/Vol] 3.02 10*6/uL Low 4.20-6.[address] [facility] Comment on above: Order Comment: Speci men Type: BLOOD SPECIMENOrdering Facility: [facility] Address: [address] [place] [address] Performed By: #### 5 7021-8 ####[facility] [id number] [place] [address] [place] WBC (Bld) [#/Vol] 10.88 10*3/uL Normal 3.70-11.00 [facility] Comment on above: Order Comment: Speci men Type: BLOOD SPECIMENOrdering Facility: [facility] Address: [address] [place] [address] Performed By: #### 5 7021-8 ####[facility] H[facility]PITALLIDiya [id number] [place] [address] [place] Comprehensive metabolic 2000 panelon 05-14-2024 Albumin [Mass/Vol] 3.9 g/dL Normal 3.9-4.9 [facility] Comment on above: Order Comment: Speci men Type: BLOOD SPECIMENOrdering Facility: [facility] Address: [address] [place] [address] Performed By: #### L IPNF, 3016-3, 2131-11, 82620-6 ####[facility]ORYCLIA [id number] [place] [address] [place] ALP [Catalytic activity/Vol] 59 U/L Normal 38-113 [facility] Comment on above: Order Comment: Speci men Type: BLOOD SPECIMENOrdering Facility: [facility] Address: [address] [place] [address] Performed By: #### L IPNF, 3016-3, 2131-11, 29959-6 ####[facility]ORYCLIA [id number] [address] [place] ALT With P-5'-P [Catalytic activity/Vol] 10 U/L Normal 10-54 [facility] Comment on above: Order Comment: Speci men Type: BLOOD SPECIMENOrdering Facility: [facility] Address: [address] [place] [address] Performed By: #### L IPNF, 6-3, 9, 38547-9 ####[facility] LABORATORYCLIA [id number] [place] [address] [place] Anion gap [Moles/Vol] 12 mmol/L Normal 8-15 [facility] Comment on above: Order Comment: Speci men Type: BLOOD SPECIMENOrdering Facility: [facility] Address: [address] [place] [address] Performed By: #### L IPNF, 6-3, 2131-11, 06665-5 ####[facility] LABORATORYCLIA [id number] [address] [place] AST With P-5'-P [Catalytic activity/Vol] 19 U/L Normal 14-40 [facility] Comment on above: Order Comment: Speci men Type: BLOOD SPECIMENOrdering Facility: [facility] Address: [address] [place] [address] Performed By: #### L IPNF, 6-3, 2131-11, 58672-9 ####[facility] LABORATORYCLIA [id number] [place] [address] [place] Bilirubin [Mass/Vol] 0.3 mg/dL Normal 0.2-1.3 [facility] Comment on above: Order Comment: Speci men Type: BLOOD SPECIMENOrdering Facility: [facility] Address: [address] [place] [address] Performed By: #### L IPNF, 6-3, 9, 97584-2 ####[facility] LABORATORYCLIA [id number] [place] [address] [place] Calcium [Mass/Vol] 9.2 mg/dL Normal 8.5-10.2 [facility] Comment on above: Order Comment: Speci men Type: BLOOD SPECIMENOrdering Facility: [facility] Address: [address] [place] [address] Performed By: #### L IPNF, 6-3, 2131-11, ####[facility]ORYCLIA [id number] [place] [address] [place] Chloride [Moles/Vol] 114 mmol/L High 98-107 [facility] Comment on above: Order Comment: Speci men Type: BLOOD SPECIMENOrdering Facility: [facility] Address: [address] [place] [address] Performed By: #### L IPEDUAR, 3, 2131-11, ####[facility] LABORATORYCLIA [id number] [place] [address] [place] CO2 [Moles/Vol] 17 mmol/L Low 22-30 [facility] Comment on above: Order Comment: Speci men Type: BLOOD SPECIMENOrdering Facility: [facility] Address: [address] [place] [address] Performed By: #### L IPNF, 3, 2131-11, ####[facility]ORYCLIA [id number] [place] [address] [place] Creatinine [Mass/Vol] 1.80 mg/dL High 0.73-1.22 [facility] Comment on above: Order Comment: Speci men Type: BLOOD SPECIMENOrdering Facility: [facility] Address: [address] [place] [address] Performed By: #### L IPNF, 6-3, 2131-11, ####[facility] LABORATORYCLIA [id number] [address] [place] Creatinine and Glomerular filtration rate.predicted panel (S/P/Bld) 38 mL/min/1.73m??? Low >=60 [facility] Comment on above: Order Comment: Speci men Type: BLOOD SPECIMENOrdering Facility: [facility] Address: [address] [place] [address] Result Comment: Teresita mated Glomerular Filtration Rate (eGFR) is calculated using the 2020 CKD-EPI creatinine equation. This equation utilizes serum creatinine, sex, and age as parameters. The creatinine assay has traceable calibration to isotope dilution-mass spectrometry. Refer to KDIGO guidelines for clinical interpretation. In patients with unstable renal function, e.g. those with acute kidney injury, the eGFR may not accurately reflect actual GFR. Performed By: #### L IP, 3016-3, 2131-11, 93927-9 ####[facility] AestheticsBOONE MEMORIAL HOSPITALIA [id number] [place] [address] [place] Glucose [Mass/Vol] 132 mg/dL High 74-99 [facility] Comment on above: Order Comment: Cabrera aguilera Type: BLOOD SPECIMENOrdering Facility: [facility] Address: [address] [place] [address] Result Comment: The [place] Diabetes Association (ADA) provides guidance for cutoff values for fasting glucose and random glucose. The ADA defines fasting as no caloric intake for at least 8 hours. Fasting plasma glucose results between 100 to 125 mg/dL indicate increased risk for diabetes (prediabetes). Fasting plasma glucose results greater than or equal to 126 mg/dL meet the criteria for diagnosis of diabetes. In the absence of unequivocal hyperglycemia, results should be confirmed by repeat testing. In a patient with classic symptoms of hyperglycemia or hyperglycemic crisis, random plasma glucose results greater than or equal to 200 mg/dL meet the criteria for diagnosis of diabetes. Reference: Standards of Medical Care in Diabetes 2016, [place] Diabetes Association. Diabetes Care. 2016.39(Suppl 1). Performed By: #### L IP, 3016-3, 9, 85642-5 ####[facility] LABORATORYCLIA [id number] [place] [id number] [place] Potassium [Moles/Vol] 5.7 mmol/L High 3.7-5.1 [facility] Comment on above: Order Comment: [facility] Type: BLOOD SPECIMENOrdering Facility: [facility] Address: [address] [place] [address] Performed By: #### L IPNF, 6-3, 9, 65224-2 ####[facility] LABORATORYCLIA [id number] [place] [address] [place] Protein [Mass/Vol] 6.6 g/dL Normal 6.3-8.0 [facility] Comment on above: Order Comment: Speci men Type: BLOOD SPECIMENOrdering Facility: [facility] Address: [address] [place] [address] Performed By: #### L IPNF, 6-3, 2131-11, 91506-8 ####[facility] LABORATORYCLIA [id number] [place] [address] [place] Sodium [Moles/Vol] 143 mmol/L Normal 136-144 [facility] Comment on above: Order Comment: Speci men Type: BLOOD SPECIMENOrdering Facility: [facility] Address: [address] [place] [address] Performed By: #### L IPNF, 6-3, 2131-11, 42886-8 ####[facility] LABORATORYCLIA [id number] [place] [address] [place] Urea nitrogen [Mass/Vol] 42 mg/dL High 9-24 [facility] Comment on above: Order Comment: Speci men Type: BLOOD SPECIMENOrdering Facility: [facility] Address: [address] [place] [address] Performed By: #### L IPNF, 6-3, 2131-11, 03662-4 ####[facility] LABORATORYCLIA [id number] [place] [address] [place] HbA1c (Bld)on 05-14-2024 Average glucose Estimated from glycated hemoglobin (Bld) [Mass/Vol] 137 mg/dL Normal [facility] Comment on above: Order Comment: Speci men Type: BLOOD SPECIMENOrdering Facility: [facility] Address: [address] [place] [address] Result Comment: eAG: (Estimated average glucose) is a calculated value from HgbA1c and is route sales representative of the average blood glucose level in the last 2-3 month period. Performed By: #### 5 5454-3 ####[facility] LABCLIA [id number] [place] [address] [place] HbA1c (Bld) [Mass fraction] 6.4 % High 4.3-5.6 [facility] Comment on above: Order Comment: Cabrera aguilera Type: BLOOD SPECIMENOrdering Facility: [facility] Address: [address] [place] [address] Result Comment: [place] Diabetes Association guidelines indicate that patients with HgbA1c in the range 5.7-6.4% are at increased risk for development of diabetes, and intervention by lifestyle modification may be beneficial. HgbA1c greater or equal to 6.5% is considered diagnostic of diabetes. Performed By: #### 5 5454-3 ####[facility] LABCLIA [id number] [place] [address] [place] LIPID PANEL, NONFASTINGon Cholesterol [Mass/Vol] 156 mg/dL Normal <200 [facility] Comment on above: Order Comment: Cabrera aguilera Type: BLOOD SPECIMENOrdering Facility: [facility] Address: [address] [place] [address] Result Comment: <200 mg/dL, Desirable 200-239 mg/dL, Borderline high >239 mg/dL, High Performed By: #### L IPNF, 3, 2131-11, 86779-2 ####[facility] LABORATORYCLIA [id number] [place] [address] [place] HDL CHOLESTEROL, NF 40 mg/dL Normal >[address] [facility] Comment on above: Order Comment: Cabrera aguilera Type: BLOOD SPECIMENOrdering Facility: [facility] Address: [address] [place] [address] Result Comment: 40-5 9 mg/dL, Acceptable >59 mg/dL, High: Negative risk factor for coronary heart disease <40 mg/dL, Low: Positive risk factor for coronary heart disease Performed By: #### L IPNF, 3015-3, 2131-11, ####[facility] LABORATORYCLIA [id number] [place] [address] [place] [facility] LDL CHOLESTEROL, NF 91 mg/dL Normal <[address] [facility] Comment on above: Order Comment: Speci men Type: BLOOD SPECIMENOrdering Facility: [facility] Address: [address] [place] [address] Result Comment: <100 mg/dL, Optimal 100-129 mg/dL, Near optimal/above optimal 130-159 mg/dL, Borderline high 160-189 mg/dL, High >189 mg/dL, Very high Secondary prevention optimal LDL Cholesterol levels are recommended to be < 70 mg/dL Performed By: #### L BLADIMIR, 3015-05, 2131-11, ####[facility] LABORATORYCLIA [id number] [address] [place] LDL/HDL RATIO, NF 2.28 mg/dL Normal <2.54 [facility] Comment on above: Order Comment: Speci men Type: BLOOD SPECIMENOrdering Facility: [facility] Address: [address] [place] [address] Result Comment: Refsue dumont: 1. National Cholesterol Education Program ATP III Guideline At-A-Glance Quick Desk Reference: National Heart, Lung, and Blood [place]. National Institutes of Health. 2001: NIH Publication No. 01-3305. 2. An International Atherosclerosis Society position paper: global recommendations for the management of dyslipidemia: executive summary, Atherosclerosis. 2014: 232(2):410-413. Performed By: #### L CHUCHO, 3015-3, 2131-11, ####[facility] LABORATORYCLIA [id number] [place] [address] [place] NON HDL CHOL, NF 116 mg/dL Normal <130 [facility] Comment on above: Order Comment: Speci men Type: BLOOD SPECIMENOrdering Facility: [facility] Address: [address] [place] [address] Result Comment: <130 mg/dL, Optimal 130-159 mg/dL, Near optimal/above optimal 160-189 mg/dL, Borderline high 190-219 mg/dL, High >219 mg/dL, Very high Secondary prevention optimal non HDL Cholesterol levels are recommended to be <100 mg/dL Performed By: #### L BLADIMIR, 3015-05, 2131-11, ####[facility]ATORYCLIA [id number] [place], [place] [address] [place] [address] [place] T CHOL/HDL RATIO NF 3.90 mg/dL Normal <5.[address] [facility] Comment on above: Order Comment: Speci men Type: BLOOD SPECIMENOrdering Facility: [facility] Address: [address] [place] [address] Performed By: #### Cathi GARRISON, 3015-05, 2131-11, ####[facility] LABORATORYCLIA [id number] [address] OF [facility] TRIGLYCERIDES, NF 126 mg/dL Normal <150 [facility] Comment on above: Order Comment: Speci men Type: BLOOD SPECIMENOrdering Facility: [facility] Address: [address] [place] [address] Result Comment: <150 mg/dL, Normal 150-199 mg/dL, Borderline high 200-499 mg/dL, High >499 mg/dL, Very high Performed By: #### Cathi GARRISON, 3015-05, 2131-11, ####[facility] LABORATORYCLIA [id number] [address] STATES OF [facility] VLDL CHOLESTEROL, NF 25 mg/dL Normal <30 [facility] Comment on above: Order Comment: Speci men Type: BLOOD SPECIMENOrdering Facility: [facility] Address: [address] [place] [address] Performed By: #### Cathi GARRISON, 3015-05, 2131-11, ####[facility] LABORATORYCLIA [id number] [place] [address] [place] [facility] Prostate specific Ag [Mass/Vol] 1.56 ng/mL Normal <2.60 [facility] Comment on above: Order Comment: Speci men Type: BLOOD SPECIMENOrdering Facility: [facility] Address: [address] [place] [address] Result Comment: Clyde diehl PSA test methodology used is the Electrochemiluminescence Immunoassay by [employer]. Total PSA values by differing methodologies cannot be interchanged. Performed By: #### 2 857-1 ####[facility] LABORATORYCLIA [id number] [place] [address] [place] TSH SerPl-aCncon 05-14-2024 TSH Qn 1.020 m[IU]/L Normal 0.270-4.20 0 [facility] Comment on above: Order Comment: Speci men Type: BLOOD SPECIMENOrdering Facility: [facility] Address: [address] [place] [address] Performed By: #### L IPNF, 3016-3, 2132-9, 39403-1 ####[facility] LABORATORYCLIA [id number] [place] [address] [place] Urinalysis complete panel (U )on 05-14-2024 Bacteria LM.HPF (Urine sed) [#/Area] Negative Normal Negative [facility] Comment on above: Order Comment: Speci men Type: URINE SPECIMENOrdering Facility: [facility] Address: [address] [place] [address] Performed By: #### 2 4356-8 ####[facility] LABCLIA [id number] [place] [address] [place] Bilirubin Ql (U) Negative Normal Negative [facility] Comment on above: Order Comment: Speci men Type: URINE SPECIMENOrdering Facility: [facility] Address: [address] [place] [address] Performed By: #### 2 4356-8 ####[facility] LABCLIA [id number] [place] [id number] [place] Clarity (Unsp spec) Clear Normal Clear [facility] Comment on above: Order Comment: Speci men Type: URINE SPECIMENOrdering Facility: [facility] Address: [address] [place] [address] Performed By: #### 2 4356-8 ####[facility] LABCLIA [id number] [place] [address] [place] Color (U) Yellow Normal Yellow [facility] Comment on above: Order Comment: Speci men Type: URINE SPECIMENOrdering Facility: [facility] Address: [address] [place] [address] Performed By: #### 2 4356-8 ####[facility] LABCLIA [id number] [place] [address] [place] Epithelial cells LM.HPF (Urine sed) [#/Area] None Seen Normal [facility] Comment on above: Order Comment: Speci men Type: URINE SPECIMENOrdering Facility: [facility] Address: [address] [place] [address] Performed By: #### 2 4356-8 ####[facility] LABIA [id number] [place] [address] [place] Glucose Test strip (U) [Mass/Vol] Negative Normal Negative [facility] Comment on above: Order Comment: Speci men Type: URINE SPECIMENOrdering Facility: [facility] Address: [address] [place] [address] Performed By: #### 2 4356-8 ####[facility] LABCLIA [id number] [place] [address] [place] Hemoglobin Ql (U) Negative Normal Negative [facility] Comment on above: Order Comment: Speci men Type: URINE SPECIMENOrdering Facility: [facility] Address: [address] [place] [address] Performed By: #### 2 4356-8 ####[facility] LABCLIA [id number] [place] [id number] [place] Hyaline casts (Urine sed) [#/Area] 1-3 /LPF Abnormal 0 /LPF [facility] Comment on above: Order Comment: Speci men Type: URINE SPECIMENOrdering Facility: [facility] Address: [address] [place] [address] Performed By: #### 2 4356-8 ####[facility] LABCLIA [id number] [facility] [address] [place] [address] [place] Ketones Ql (U) Trace Abnormal Negative [facility] Comment on above: Order Comment: Speci men Type: URINE SPECIMENOrdering Facility: [facility] Address: [address] [place] [address] Performed By: #### 2 4356-8 ####[facility] LABCLIA [id number] [address], [facility]95 [place] Leukocyte esterase Test strip Ql (U) Negative Normal Negative [facility] Comment on above: Order Comment: Speci men Type: URINE SPECIMENOrdering Facility: [facility] Address: [address] [place] [address] Performed By: #### 2 4356-8 ####[facility] LABCLIA [id number] [address], [facility] [place] Nitrite Ql (U) Negative Normal Negative [facility] Comment on above: Order Comment: Speci men Type: URINE SPECIMENOrdering Facility: [facility] Address: [address] [place] [address] Performed By: #### 2 4356-8 ####[facility] LABCLIA [id number] [facility] [address] [place] [address] [place] pH (U) 5.5 [pH] Normal <8.5 [facility] Comment on above: Order Comment: Speci men Type: URINE SPECIMENOrdering Facility: [facility] Address: [address] [place] [address] Performed By: #### 2 4356-8 ####[facility] LABCLIA [id number] [address] [place] [address] [place] Protein (U) [Mass/Vol] Negative Normal Negative Cl [facility] Comment on above: Order Comment: Speci men Type: URINE SPECIMENOrdering Facility: [facility] Address: [address] [place] [address] Performed By: #### 2 4356-8 ####[facility] LABIA [id number] [place] [address] [place] RBC LM.HPF (Urine sed) [#/Area] 0-2 /HPF Normal 0-2 /HPF [facility] Comment on above: Order Comment: Speci men Type: URINE SPECIMENOrdering Facility: [facility] Address: [address] [place] [address] Performed By: #### 2 4356-8 ####[facility] [id number] [place] [address] [place] Specific gravity (U) [Rel density] 1.017 Normal 1.005-1.03 0 [facility] Comment on above: Order Comment: Speci men Type: URINE SPECIMENOrdering Facility: [facility] Address: [address] [place] [address] Performed By: #### 2 4356-8 ####[facility] LABIA [id number] [address] [place] Urobilinogen Ql (U) 0.2 EU/dL Normal 0.2-1.0 EU/dL [facility] Comment on above: Order Comment: Speci men Type: URINE SPECIMENOrdering Facility: [facility] Address: [address] [place] [address] Performed By: #### 2 4356-8 ####[facility] LABIA [id number] [place] [address] [place] WBC LM.HPF (Urine sed) [#/Area] 0-5 /HPF Normal 0-5 /HPF [facility] Comment on above: Order Comment: Speci men Type: URINE SPECIMENOrdering Facility: [facility] Address: [address] [place] [address] Performed By: #### 2 4356-8 ####[facility] LABCLIA [id number] [facility] [place] [id number] [place] Vit B12 SerPl-mCncon 025 Cobalamin (Vitamin B12) [Mass/Vol] pg/mL High 232-1245 [facility] Comment on above: Order Comment: Speci men Type: BLOOD SPECIMENOrdering Facility: [facility] Address: [address] [place] [address] Performed By: #### L IP, 3016-3, 2132-9, 97319-5 ####[facility] LABORATORYCLIA [id number] [address] [place] HbA1c (Bld)on 05-19-2023 Average glucose Estimated from glycated hemoglobin (Bld) [Mass/Vol] 134 mg/dL [facility] HbA1c (Bld) [Mass fraction] 6.3 % High 4.3 - 5.6 % [facility] ALBUMIN/CREAT RATIO RND URon 05-18-2023 Albumin DL <= 20 mg/L (U) [Mass/Vol] [facility] Albumin/Creatinine (U) [Mass ratio] <30 mg/g [facility] Creatinine (U) [Mass/Vol] 193.9 mg/dL 20 .0 - 300.0 mg/dL [facility] CBC W Auto Differential pane l (Bld)on 05-18-2023 Basophils (Bld) [#/Vol] 0.09 10*3/uL <0.11 k/uL [facility] Basophils/100 WBC (Bld) 1.2 % [facility] Differential cell count method Nom (Bld) Auto [facility] Eosinophils (Bld) [#/Vol] 0.25 10*3/uL <0.46 k/ uL [facility] Eosinophils/100 WBC (Bld) 3.4 % [facility] Erythrocyte distribution width (RBC) [Ratio] 13.8 % 11.5 - 15.0 % [facility] Hematocrit (Bld) [Volume fraction] 29.1 % Low 39.0 - 51.0 % [facility] Hemoglobin (Bld) [Mass/Vol] 9.2 g/dL Low 13.0 - 17.0 g/dL [facility] Immature granulocytes (Bld) [#/Vol] <0.10 k/uL [facility] Immature granulocytes/100 WBC (Bld) 0.3 % [facility] Lymphocytes (Bld) [#/Vol] 1.76 10*3/uL 1. 00 - 4.00 k/uL [facility] Lymphocytes/100 WBC (Bld) 24.1 % [facility] MCH (RBC) [Entitic mass] 32.4 pg 26. 0 - 34.[address] [facility] MCHC (RBC) [Mass/Vol] 31.6 g/dL 30.5 - 36.0 g/dL [facility] MCV (RBC) [Entitic vol] 102.5 fL High 80.0 - 100.[address] [facility] Monocytes (Bld) [#/Vol] 0.73 10*3/uL <0.87 k/uL [facility] Monocytes/100 WBC (Bld) 10.0 % [facility] Neutrophils (Bld) [#/Vol] 4.45 10*3/uL 1. 45 - 7.50 k/uL [facility] Neutrophils/100 WBC (Bld) 61.0 % [facility] Nucleated RBC (Bld) [#/Vol] <0.01 k/uL [facility] Nucleated RBC/100 WBC (Bld) [Ratio] 0.0 /[address] [facility] Platelet mean volume (Bld) [Entitic vol] 10.6 fL 9.0 - 12.[address] [facility] Platelets (Bld) [#/Vol] 187 10*3/uL 150 - 400 k/uL [facility] RBC (Bld) [#/Vol] 2.84 10*6/uL Low 4.20 - 6.00 m/uL [facility] WBC (Bld) [#/Vol] 7.30 10*3/uL 3.70 - 11.00 k/uL [facility] Comprehensive metabolic 2000 panelon 05-18-2023 Albumin [Mass/Vol] 3.8 g/dL Low 3.9 - 4.9 g/dL [facility] ALP [Catalytic activity/Vol] 44 U/L 38 - 113 U/L [facility] ALT [Catalytic activity/Vol] 6 U/L Low 10 - 54 U/L [facility] Anion gap [Moles/Vol] 8 mmol/L Low 9 - 18 mmol/L [facility] AST [Catalytic activity/Vol] 14 U/L 14 - 40 U/L [facility] Bilirubin [Mass/Vol] 0.4 mg/dL 0.2 - 1 .3 mg/dL [facility] Calcium [Mass/Vol] 9.1 mg/dL 8.5 - 10. 2 mg/dL [facility] Chloride [Moles/Vol] 110 mmol/L High 97 - 10 5 mmol/L [facility] CO2 [Moles/Vol] 23 mmol/L 22 - 30 mmol/L [facility] Creatinine [Mass/Vol] 1.53 mg/dL High 0.73 - 1.22 mg/dL [facility] Estimated Glomerular Filtration Rate 47 mL/min/1.73m Low >=60 mL/min/1.[address] [facility] Glucose [Mass/Vol] 214 mg/dL High 74 - 99 mg/dL [facility] Potassium [Moles/Vol] 4.5 mmol/L 3.7 - 5.1 mmol/L [facility] Protein [Mass/Vol] 6.6 g/dL 6.3 - 8.0 g/dL [facility] Sodium [Moles/Vol] 141 mmol/L 136 - 144 mmol/L [facility] Urea nitrogen [Mass/Vol] 28 mg/dL High 9 - 24 mg/dL [facility] FERRITIN BLDon 05-18-2023 Ferritin [Mass/Vol] 102.0 ng/mL 30.3 - 565.7 ng/mL [facility] Iron and Iron binding capaci ty panelon 05-18-2023 Iron [Mass/Vol] 72 ug/dL 41 - 186 ug/dL [facility] Iron binding capacity [Mass/Vol] 290 ug/dL 232 - 386 ug/dL [facility] Iron/TIBC [Molar ratio] 24.8 % 15.0 - 57.0 % [facility] LIPID PANEL, NONFASTINGon Cholesterol [Mass/Vol] 152 mg/dL <200 mg/dL [facility] HDL Cholesterol, Nonfasting 41 mg/dL >39 mg/dL [facility] LDL Cholesterol, Nonfasting 95 mg/dL <100 mg/dL [facility] LDL/HDL Ratio, Nonfasting 2.32 mg/dL <2 .54 mg/dL [facility] Non HDL Cholesterol, Nonfasting 111 mg/dL <130 mg/dL [facility] Total Chol/HDL Ratio, Nonfasting 3.71 mg/dL <5.10 mg/dL [facility] Triglycerides, Nonfasting 80 mg/dL <150 mg/dL [facility] VLDL Cholesterol, Nonfasting 16 mg/dL <30 mg/dL [facility] PSA/PROSTSPECAG DIAGon 05-17 Prostate specific Ag [Mass/Vol] 1.23 ng/mL <2.60 ng/mL [facility] TSH BLDon 05-18-2023 TSH Qn 1.180 m[IU]/L 0.270 - 4.200 mIU/L [facility] Urinalysis complete panel (U )on 05-18-2023 Bacteria LM.HPF (Urine sed) [#/Area] Negative Negative /HPF [facility] Bilirubin Ql (U) Negative Negative [facility] Clarity (Unsp spec) Clear Clear [facility] Color (U) Yellow Yellow [facility] Epithelial cells LM.HPF (Urine sed) [#/Area] None Seen [facility] Glucose Test strip (U) [Mass/Vol] Negative Negative [facility] Hemoglobin Ql (U) Trace Abnormal Negative [facility] Hyaline casts (Urine sed) [#/Area] 1-3 /LPF Abnormal 0 /LPF [facility] Ketones Ql (U) Negative Negative [facility] Leukocyte esterase Test strip Ql (U) Negative Negative [facility] Nitrite Ql (U) Negative Negative [facility] pH (U) 5.5 [pH] <8.5 [facility] Protein (U) [Mass/Vol] Negative Negative [facility] RBC LM.HPF (Urine sed) [#/Area] 0-2 /HPF 0-2 /HPF [facility] Specific gravity (U) [Rel density] 1.017 1.005 - 1.030 [facility] Urobilinogen Ql (U) 0.2 EU/dL 0.2-1.0 EU/dL [facility] WBC LM.HPF (Urine sed) [#/Area] 0-5 /HPF 0-5 /HPF [facility] VITAMIN B12 BLOODon 03-07-20 24 Cobalamin (Vitamin B12) [Mass/Vol] 1082 pg/mL 232 - 1,245 pg/mL [facility] Basophil percentageOrdered B y: Lisa Dove on 11-07-2022 Chloride [Moles/Vol] 117 mmol/L 98-107 [facility] Glucose [Mass/Vol] 144 mg/dL 74-106 [facility] Comment on above: Fasting Glucose resu lt greater than or equal to 126 mg/dL suggests DIABETES MELLITUS per A.D.A. criteria. Potassium [Moles/Vol] 4.7 mmol/L 3.5-5.1 [facility] Sodium [Moles/Vol] 144 mmol/L 136-145 [facility] Laboratory - Chemistry and C hemistry - challengeOrdered By: Lisa Dove on 11-07-2022 CO2 [Moles/Vol] 21.0 mmol/L 21.0-32.0 [facility] Urea nitrogen/Creatinine [Mass ratio] 14.1 mg/mg 10-20 [facility] No Panel InformationOrdered By: Lisa Dove on 11-07-2022 Estimated GFR (MDRD) Amer 48 mL/min >60 [facility] Comment on above: GFR Calc Estimated GFR (MDRD) Non-Af Amer 40 mL/min >60 [facility] Comment on above: Non- GFR Calc Vitamin D 25-Hydroxy 28.4 ng/mL [facility] Comment on above: Vitamin D 25(OH) Sta tus Range Deficiency <20 ng/mL (50nmol/L) Insufficiency 20 - 30 ng/mL (50 - 75 nmol/L) Sufficiency 30 - 100 ng/mL (75 - 250 nmol/L) Toxicity >100 ng/mL (>250 nmol/L) Serum or plasma calcium pernell urement (mass/volume)Ordered By: Lisa Dove on 11-07-2022 Calcium [Mass/Vol] 8.8 mg/dL 8.5-10.1 [facility] Serum or plasma creatinine m easurement (mass/volume)Ordered By: Lisa Dove on 11-07-2022 Creatinine [Mass/Vol] 1.77 mg/dL 0.70-1.30 [facility] Comment on above: The validity of the calculated GFR & GFRAA in patients over 70 years has not been determined. Clinical correlation is essential. Serum or plasma urea nitroge n measurement (mass/volume)Ordered By: Lisa Dove on 11-07-2022 Urea nitrogen [Mass/Vol] 25 mg/dL 7-18 [facility] Thin prep Papanicolaou smear with manual screeningOrdered By: Lisa Dove on 11-07-2022 Thin prep Papanicolaou smear with manual screening 6 5-15 [facility] Urine creatinine measurement (mass/volume)Ordered By: Lisa Dove on 11-07-2022 Creatinine (U) [Mass/Vol] 158.00 mg/dL NO RANGE EST. [facility] Urine protein measurement (m ass/volume)Ordered By: Lisa Dove on 11-07-2022 Protein (U) [Mass/Vol] 39.2 mg/dL 0.0-11.8 [facility] Urine protein/creatinine mas s ratioOrdered By: Lisa Dove on 11-07-2022 Protein/Creatinine (U) [Mass ratio] 248 mg/g CRE 0-200 [facility] POTASSIUM BLDon 11-11-2021 Potassium [Moles/Vol] 4.9 mmol/L 3.7 - 5.1 mmol/L [facility] XR Wrist - right PA and Late ral and Obliqueon 04-12-2021 IMPRESSION: No acute sonographic abnormalities seen in the right wrist. Degenerative changes in the right wrist and hand as described above. Law Instructor: PSCB Transcribe Date/Time: Apr 12 2021 10:22A Dictated by : GABRIELLA DYER MD This examination was interpreted and the report reviewed and electronically signed by: GABRIELLA DYER MD on Apr 12 2021 10:26AM [facility] DIVISION OF RADIOLOGY * * *Final Report* * * DATE OF EXAM: Apr 12 2021 10:19AM WOX 5271 - XR WRIST 3V PA/LAT/OBL RT / PROCEDURE REASON: Acute wrist pain, right * * * * Physician Interpretation * * * * EXAM TITLE: XR WRIST 3V PA/LAT/OBL RT EXAM DATE/TIME: 04/12/2021 10:19 AM COMPARISON: None. CLINICAL INDICATION/HISTORY: Acute wrist pain. TECHNIQUE: PA, lateral, and oblique views of right wrist are presented. FINDINGS: No acute fractures or subluxations are noted. Carpometacarpal joint space narrowing is demonstrated. There are degenerative changes involving the interphalangeal joint of the first digit and PIP joint of the fifth digit. The radiocarpal joint space is maintained. The mineralization of the bones is normal. There are vascular calcifications. DIVISION OF RADIOLOGY Provider, [facility] - 04/12/2021 * * *Final Report* * * DATE OF EXAM: Apr 12 2021 10:19AM WOX 5271 - XR WRIST 3V PA/LAT/OBL RT / PROCEDURE REASON: Acute wrist pain, right * * * * Physician Interpretation * * * * EXAM TITLE: XR WRIST 3V PA/LAT/OBL RT EXAM DATE/TIME: 04/12/2021 10:19 AM COMPARISON: None. CLINICAL INDICATION/HISTORY: Acute wrist pain. TECHNIQUE: PA, lateral, and oblique views of right wrist are presented. FINDINGS: No acute fractures or subluxations are noted. Carpometacarpal joint space narrowing is demonstrated. There are degenerative changes involving the interphalangeal joint of the first digit and PIP joint of the fifth digit. The radiocarpal joint space is maintained. The mineralization of the bones is normal. There are vascular calcifications. IMPRESSION IMPRESSION: No acute sonographic abnormalities seen in the right wrist. Degenerative changes in the right wrist and hand as described above. Law Instructor: LEDY Transcribe Date/Time: Apr 12 2021 10:22A Dictated by : GABRIELLA DYER MD This examination was interpreted and the report reviewed and electronically signed by: GABRIELLA DYER MD on Apr 12 2021 10:26AM EST [facility] Radiology [facility]narrative[facility] W[facility] - right PA and Late ral and ObliqueOrdered By: Cc Provider on 04-12-2021 [facility] No Panel Informationon 03-24 IMPRESSION: Findings related to right-sided chronic rotator cuff disease. 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 Law Instructor: LEDY Transcribe Date/Time: Mar 24 2021 2:00P Dictated by : ADOLPH HENRIQUEZ MD This examination was interpreted and the report reviewed and electronically signed by: ADOLPH HENRIQUEZ MD on Mar 24 2021 2:04PM [facility] DIVISION OF RADIOLOGY Radiology Study observation (narrative) [facility] No Panel InformationOrdered By: Ccf Provider on 03-24-2021 [facility] XR Shoulder - left 3 Viewson 03-24-2021 * * *Final Report* * * DATE OF EXAM: Mar 24 2021 1:29PM WOX 5252 - XR SHLDR >/=3V AP/AMBER AP/OTHR LT / PROCEDURE REASON: multiple diagnoses * * * * Physician Interpretation * * * * Bilateral shoulder radiographs HISTORY: 76 years old Clinical information: Chronic pain of both shoulders Chronic pain of both shoulders Chronic pain of both shoulders Pain on the top of both shoulders chronically and increasing over time without injury TECHNIQUE: Images: XR SHLDR >/=3V AP/AMBER AP/OTHR LT, XR SHLDR >/=3V AP/AMBER AP/OTHR RT Comparison: None. Left shoulder RESULT: Glenohumeral joint space is maintained. Narrowing of the acromioclavicular joint with associated subjacent osteophytes. No acute fracture or dislocation identified. No soft tissue abnormality identified. Right shoulder RESULT: Glenohumeral joint space is maintained. Superior subluxation of the humeral head. Marginal osteophyte formation involving humeral head. Narrowing of the acromioclavicular joint with associated subjacent osteophytes. No fracture or dislocation. Possible calcific tendinosis posterior to the humeral head. DIVISION OF RADIOLOGY Provider, [facility] - 03/24/2021 * * *Final Report* * * DATE OF EXAM: Mar 24 2021 1:29PM WOX 5252 - XR SHLDR >/=3V AP/AMBER AP/OTHR LT / PROCEDURE REASON: multiple diagnoses * * * * Physician Interpretation * * * * Bilateral shoulder radiographs HISTORY: 76 years old Clinical information: Chronic pain of both shoulders Chronic pain of both shoulders Chronic pain of both shoulders Pain on the top of both shoulders chronically and increasing over time without injury TECHNIQUE: Images: XR SHLDR >/=3V AP/AMBER AP/OTHR LT, XR SHLDR >/=3V AP/AMBER AP/OTHR RT Comparison: None. Left shoulder RESULT: Glenohumeral joint space is maintained. Narrowing of the acromioclavicular joint with associated subjacent osteophytes. No acute fracture or dislocation identified. No soft tissue abnormality identified. Right shoulder RESULT: Glenohumeral joint space is maintained. Superior subluxation of the humeral head. Marginal osteophyte formation involving humeral head. Narrowing of the acromioclavicular joint with associated subjacent osteophytes. No fracture or dislocation. Possible calcific tendinosis posterior to the humeral head. IMPRESSION IMPRESSION: Findings related to right-sided chronic rotator cuff disease. 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 Law Instructor: LEDY Transcribe Date/Time: Mar 24 2021 2:00P Dictated by : ADOLPH HENRIQUEZ MD This examination was interpreted and the report reviewed and electronically signed by: ADOLPH HENRIQUEZ MD on Mar 24 2021 2:04PM [facility] XR Shoulder - right 3 Viewso n 03-24-2021 * * *Final Report* * * DATE OF EXAM: Mar 24 2021 1:29PM WOX 5253 - XR SHLDR >/=3V AP/AMBER AP/OTHR RT / PROCEDURE REASON: multiple diagnoses * * * * Physician Interpretation * * * * Bilateral shoulder radiographs HISTORY: 76 years old Clinical information: Chronic pain of both shoulders Chronic pain of both shoulders Chronic pain of both shoulders Pain on the top of both shoulders chronically and increasing over time without injury TECHNIQUE: Images: XR SHLDR >/=3V AP/AMBER AP/OTHR LT, XR SHLDR >/=3V AP/AMBER AP/OTHR RT Comparison: None. Left shoulder RESULT: Glenohumeral joint space is maintained. Narrowing of the acromioclavicular joint with associated subjacent osteophytes. No acute fracture or dislocation identified. No soft tissue abnormality identified. Right shoulder RESULT: Glenohumeral joint space is maintained. Superior subluxation of the humeral head. Marginal osteophyte formation involving humeral head. Narrowing of the acromioclavicular joint with associated subjacent osteophytes. No fracture or dislocation. Possible calcific tendinosis posterior to the humeral head. DIVISION OF RADIOLOGY Provider, [facility] - 03/24/2021 * * *Final Report* * * DATE OF EXAM: Mar 24 2021 1:29PM WOX 5253 - XR SHLDR >/=3V AP/AMBER AP/OTHR RT / PROCEDURE REASON: multiple diagnoses * * * * Physician Interpretation * * * * Bilateral shoulder radiographs HISTORY: 76 years old Clinical information: Chronic pain of both shoulders Chronic pain of both shoulders Chronic pain of both shoulders Pain on the top of both shoulders chronically and increasing over time without injury TECHNIQUE: Images: XR SHLDR >/=3V AP/AMBER AP/OTHR LT, XR SHLDR >/=3V AP/AMBER AP/OTHR RT Comparison: None. Left shoulder RESULT: Glenohumeral joint space is maintained. Narrowing of the acromioclavicular joint with associated subjacent osteophytes. No acute fracture or dislocation identified. No soft tissue abnormality identified. Right shoulder RESULT: Glenohumeral joint space is maintained. Superior subluxation of the humeral head. Marginal osteophyte formation involving humeral head. Narrowing of the acromioclavicular joint with associated subjacent osteophytes. No fracture or dislocation. Possible calcific tendinosis posterior to the humeral head. IMPRESSION IMPRESSION: Findings related to right-sided chronic rotator cuff disease. 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 Law Instructor: PSCB Transcribe Date/Time: Mar 24 2021 2:00P Dictated by : ADOLPH HENRIQUEZ MD This examination was interpreted and the report reviewed and electronically signed by: ADOLPH HENRIQUEZ MD on Mar 24 2021 2:04PM [facility] Vital Signs Date Time Vital Sign Value Performing Clinician Facility 11-28-2024 09:25-0400 Body temperature 97.1 [degF] Dr. Wiliam Mandel MD Work Phone: [facility] 11-28-2024 09:25-0400 Diastolic blood pressure 55 mm[Hg] Dr. Wiliam Mandel MD Work Phone: [facility] 11-28-2024 09:25-0400 Heart rate 66 /min Dr. Wiliam Mandel MD Work Phone: [phone] [place] [address] 11-28-2024 09:25-0400 Respiratory rate 16 /min Dr. Wiliam Mandel MD Work Phone: [phone] [place] [address] 11-28-2024 09:25-0400 SaO2% (BldA) [Mass fraction] 99 % Dr. Wiliam Mandel MD Work Phone: [phone] [place] [address] 11-28-2024 09:25-0400 Systolic blood pressure 119 mm[Hg] Dr. Wiliam Mandel MD Work Phone: [phone] [place] [address] 11-28-2024 08:16-0400 Body height 175.[address] Wiliam Mandel MD Work Phone: 5([phone] [place] [address] 11-28-2024 08:16-0400 Body mass index (BMI) [Ratio] 31.2 kg/m2 Dr. Wiliam Mandel MD Work Phone: [phone] [place] [address] 11-28-2024 08:16-0400 Body weight [address] Wiliam Mandel MD Work Phone: [facility] 11-25-2024 14:28-0400 Body mass index (BMI) [Ratio] 32.63 kg/m2 Ari DO Work Phone: [facility] 11-25-2024 14:28-0400 Body temperature 98.49 [degF] Masci DO Work Phone: [facility] 11-25-2024 14:28-0400 Body weight 96.62 kg Masci DO Work Phone: [facility] 11-25-2024 14:28-0400 Diastolic blood pressure 81 mm[Hg] Ari DO Work Phone: [facility] 11-25-2024 14:28-0400 Heart rate 69 /min Ari DO Work Phone: [facility] 11-25-2024 14:28-0400 SaO2% (BldA) [Mass fraction] 97 % Paul Arzola DO Work Phone: [facility] 11-25-2024 14:28-0400 Systolic blood pressure 120 mm[Hg] Paul Arzola DO Work Phone: [facility] 05-22-2024 12:59-0400 Body height 172.1 cm Wiliam Mandel MD Work Phone: [facility] 05-22-2024 12:59-0400 Body mass index (BMI) [Ratio] 32.47 kg/m2 Wiliam Mandel MD Work Phone: [facility] 05-22-2024 12:59-0400 Body weight 96.16 kg Wiliam Mandel MD Work Phone: [facility] 05-22-2024 12:59-0400 Diastolic blood pressure 58 mm[Hg] Wiliam Mandel MD Work Phone: [facility] 05-22-2024 12:59-0400 Heart rate 70 /min Wiliam Mandel MD Work Phone: [facility] 05-22-2024 12:59-0400 Respiratory rate 16 /min Wiliam Mandel MD Work Phone: [facility] 05-22-2024 12:59-0400 Systolic blood pressure 102 mm[Hg] Wiliam Mandel MD Work Phone: [facility] 12-26-2023 13:29-0400 Body height 171 cm Pulm Wstr Work Phone: [facility] 12-26-2023 13:29-0400 Body mass index (BMI) [Ratio] 32.89 kg/m2 Pulm Wstr Work Phone: [facility] 12-26-2023 13:29-0400 Body weight 96.16 kg Pulm Wstr Work Phone: [facility] 12-26-2023 13:29-0400 Heart rate 77 /min Pulm Wstr Work Phone: [facility] 12-26-2023 13:29-0400 Respiratory rate 14 /min Pulm Wstr Work Phone: [facility] 12-26-2023 13:29-0400 SaO2% (BldA) [Mass fraction] 98 % Pulm Wstr Work Phone: [facility] 12-08-2023 13:43-0400 Body height 172.7 cm Wiliam Mandel MD Work Phone: [facility] 12-08-2023 13:43-0400 Body mass index (BMI) [Ratio] 31.78 kg/m2 Wiliam Mandel MD Work Phone: [facility] 12-08-2023 13:43-0400 Body weight 94.8 kg Wiliam Mandel MD Work Phone: [facility] 12-08-2023 13:43-0400 Diastolic blood pressure 62 mm[Hg] Wiliam Mandel MD Work Phone: [facility] 12-08-2023 13:43-0400 Heart rate 75 /min Wiliam Mandel MD Work Phone: [facility] 12-08-2023 13:43-0400 Respiratory rate 12 /min Wiliam Mandel MD Work Phone: [facility] 12-08-2023 13:43-0400 SaO2% (BldA) [Mass fraction] 98 % Wiliam Mandel MD Work Phone: [facility] 12-08-2023 13:43-0400 Systolic blood pressure 120 mm[Hg] Wiliam Mandel MD Work Phone: [facility] 11-22-2023 13:41-0400 Body mass index (BMI) [Ratio] 32.08 kg/m2 Wiliam Mandel MD Work Phone: [facility] 11-22-2023 13:41-0400 Body weight 95.71 kg Wiliam Mandel MD Work Phone: [facility] 11-22-2023 13:41-0400 Diastolic blood pressure 60 mm[Hg] Wiliam Mandel MD Work Phone: [facility] 11-22-2023 13:41-0400 Heart rate 70 /min Wiliam Mandel MD Work Phone: [facility] 11-22-2023 13:41-0400 Respiratory rate 16 /min Wiliam Mandel MD Work Phone: [facility] 11-22-2023 13:41-0400 Systolic blood pressure 126 mm[Hg] Wiliam Mandel MD Work Phone: [facility] 11-20-2023 14:38-0400 Body mass index (BMI) [Ratio] 32.31 kg/m2 Masci DO Work Phone: [facility] 11-20-2023 14:38-0400 Body temperature 98.8 [degF] Masci DO Work Phone: [facility] 11-20-2023 14:38-0400 Body weight 96.39 kg Masci DO Work Phone: [facility] 11-20-2023 14:38-0400 Diastolic blood pressure 67 mm[Hg] Masci DO Work Phone: [facility] 11-20-2023 14:38-0400 Heart rate 68 /min Masci DO Work Phone: [facility] 11-20-2023 14:38-0400 SaO2% (BldA) [Mass fraction] 98 % Masci DO Work Phone: [facility] 11-20-2023 14:38-0400 Systolic blood pressure 110 mm[Hg] Masci DO Work Phone: [facility] 05-24-2023 14:50-0400 Diastolic blood pressure 52 mm[Hg] Wiliam Mandel MD Work Phone: [facility] 05-24-2023 14:50-0400 Systolic blood pressure 128 mm[Hg] Wiliam Mandel MD Work Phone: [facility] 05-24-2023 13:40-0400 Body height 172.7 cm Wiliam Mandel MD Work Phone: [facility] 05-24-2023 13:40-0400 Body weight 96.16 kg Wiilam Mandel MD Work Phone: [facility] 05-24-2023 13:40-0400 Heart rate 72 /min Wiliam Mandel MD Work Phone: [facility] 05-24-2023 13:40-0400 Respiratory rate 16 /min Wiliam Mandel MD Work Phone: [facility] 05-18-2023 11:49-0500 Body temperature 97.3 [degF] Masci DO Work Phone: [facility] 05-18-2023 11:49-0500 Body weight 98.43 kg Masci DO Work Phone: [facility] 05-18-2023 11:49-0500 Diastolic blood pressure 47 mm[Hg] Masci DO Work Phone: [facility] 05-18-2023 11:49-0500 Heart rate 72 /min Masci DO Work Phone: [facility] 05-18-2023 11:49-0500 Respiratory rate 14 /min Masci DO Work Phone: [facility] 05-18-2023 11:49-0500 SaO2% (BldA) [Mass fraction] 97 % Masci DO Work Phone: [facility] 05-18-2023 11:49-0500 Systolic blood pressure 130 mm[Hg] Masci DO Work Phone: [facility] 05-02-2023 12:24-0500 Body temperature 96.91 [degF] Jennifer Schafer APRN.CONGRESSIONAL DISTRICT AIDE Work Phone: [facility] 05-02-2023 12:24-0500 Body weight 97.98 kg Jennifer Schafer APRN.CONGRESSIONAL DISTRICT AIDE Work Phone: [facility] 05-02-2023 12:24-0500 Diastolic blood pressure 74 mm[Hg] Jennifer Gilmar SOCIAL WELFARE ADMINISTRATOR.CONGRESSIONAL DISTRICT AIDE Work Phone: [facility] 05-02-2023 12:24-0500 Heart rate 78 /min Jennifer Schafer SOCIAL WELFARE ADMINISTRATOR.CONGRESSIONAL DISTRICT AIDE Work Phone: [facility] 05-02-2023 12:24-0500 Respiratory rate 16 /min Jennifer Schafer SOCIAL WELFARE ADMINISTRATOR.CONGRESSIONAL DISTRICT AIDE Work Phone: [facility] 05-02-2023 12:24-0500 SaO2% (BldA) [Mass fraction] 99 % Jennifer Schafer SOCIAL WELFARE ADMINISTRATOR.CONGRESSIONAL DISTRICT AIDE Work Phone: [facility] 05-02-2023 12:24-0500 Systolic blood pressure 122 mm[Hg] Jennifer Schafer SOCIAL WELFARE ADMINISTRATOR.CONGRESSIONAL DISTRICT AIDE Work Phone: [facility] 03-13-2023 09:21-0500 Body temperature 97.59 [degF] Wiliam Marrero SOCIAL WELFARE ADMINISTRATOR.CONGRESSIONAL DISTRICT AIDE Work Phone: [facility] 03-13-2023 09:21-0500 Body weight 98.61 kg Wiliam Marrero SOCIAL WELFARE ADMINISTRATOR.CONGRESSIONAL DISTRICT AIDE Work Phone: [facility] 03-13-2023 09:21-0500 Diastolic blood pressure 61 mm[Hg] Wiliam Marrero SOCIAL WELFARE ADMINISTRATOR.CONGRESSIONAL DISTRICT AIDE Work Phone: [facility] 03-13-2023 09:21-0500 Heart rate 90 /min Wiliam Marrero SOCIAL WELFARE ADMINISTRATOR.CONGRESSIONAL DISTRICT AIDE Work Phone: [facility] 03-13-2023 09:21-0500 Respiratory rate 18 /min Wiliam Marrero SOCIAL WELFARE ADMINISTRATOR.CONGRESSIONAL DISTRICT AIDE Work Phone: [facility] 03-13-2023 09:21-0500 SaO2% (BldA) [Mass fraction] 95 % Wiliam Marrero SOCIAL WELFARE ADMINISTRATOR.CONGRESSIONAL DISTRICT AIDE Work Phone: [facility] 03-13-2023 09:21-0500 Systolic blood pressure 141 mm[Hg] Wiliam Angulolegamal SOCIAL WELFARE ADMINISTRATOR.CONGRESSIONAL DISTRICT AIDE Work Phone: [facility] 01-31-2023 09:06-0500 Body temperature 97.81 [degF] Jennifer Schafer APRN.CONGRESSIONAL DISTRICT AIDE Work Phone: [facility] 01-31-2023 09:06-0500 Body weight 100.7 kg Jennifer Schafer APRN.CONGRESSIONAL DISTRICT AIDE Work Phone: [facility] 01-31-2023 09:06-0500 Diastolic blood pressure 92 mm[Hg] Jennifer Schafer APRN.CONGRESSIONAL DISTRICT AIDE Work Phone: [facility] 01-31-2023 09:06-0500 Heart rate 75 /min Jennifer Schafer APRN.CONGRESSIONAL DISTRICT AIDE Work Phone: [facility] 01-31-2023 09:06-0500 Respiratory rate 18 /min Jennifer Schafer APRN.CONGRESSIONAL DISTRICT AIDE Work Phone: [facility] 01-31-2023 09:06-0500 SaO2% (BldA) [Mass fraction] 100 % Jennifer Schafer APRN.CONGRESSIONAL DISTRICT AIDE Work Phone: [facility] 01-31-2023 09:06-0500 Systolic blood pressure 141 mm[Hg] Jennifer Schafer APRN.CONGRESSIONAL DISTRICT AIDE Work Phone: [facility] 01-18-2023 15:02-0500 Body temperature 97.39 [degF] Masci DO Work Phone: [facility] 01-18-2023 15:02-0500 Body weight 97.07 kg Masci DO Work Phone: [facility] 01-18-2023 15:02-0500 Diastolic blood pressure 61 mm[Hg] Masci DO Work Phone: [facility] 01-18-2023 15:02-0500 Heart rate 76 /min Masci DO Work Phone: [facility] 01-18-2023 15:02-0500 SaO2% (BldA) [Mass fraction] 98 % Masci DO Work Phone: [facility] 01-18-2023 15:02-0500 Systolic blood pressure 127 mm[Hg] Masci DO Work Phone: [facility] 12-13-2022 11:31-0400 Body height 175.[address] Wiliam Mandel Work Phone: [facility] 12-13-2022 11:31-0400 Body mass index (BMI) [Ratio] 31.6 kg/m2 Dr. Wiliam Mandel Work Phone: [facility] 12-13-2022 11:31-0400 Body weight 97.[address] Wiliam Mandel Work Phone: [facility] 12-13-2022 11:31-0400 Diastolic blood pressure 52 mm[Hg] Dr. Wiliam Mandel Work Phone: 4(862)[phone] [place] [address] 12-13-2022 11:31-0400 Heart rate 71 /min Dr. Wiliam Mandel Work Phone: 1(417)[phone] [place] [address] 12-13-2022 11:31-0400 Respiratory rate 16 /min Dr. Wiliam Mandel Work Phone: [facility] 12-13-2022 11:31-0400 Systolic blood pressure 113 mm[Hg] Dr. Wiliam Mandel Work Phone: [facility] 11-22-2022 13:41-0400 Body weight 97.07 kg Wiliam Mandel MD Work Phone: [facility] 11-22-2022 13:41-0400 Diastolic blood pressure 68 mm[Hg] Wiliam Mandel MD Work Phone: [facility] 11-22-2022 13:41-0400 Heart rate 68 /min Wiliam Mandel MD Work Phone: [facility] 11-22-2022 13:41-0400 Respiratory rate 16 /min Wiliam Mandel MD Work Phone: [facility] 11-22-2022 13:41-0400 Systolic blood pressure 126 mm[Hg] Wiliam Mandel MD Work Phone: [facility] 08-17-2022 13:56-0400 Body temperature 97.59 [degF] Treatment Wstr Work Phone: [facility] 08-17-2022 13:56-0400 Diastolic blood pressure 51 mm[Hg] Treatment Wstr Work Phone: [facility] 08-17-2022 13:56-0400 Heart rate 70 /min Treatment Wstr Work Phone: [facility] 08-17-2022 13:56-0400 Systolic blood pressure 126 mm[Hg] Treatment Wstr Work Phone: [facility] 08-15-2022 14:57-0400 Body temperature 97.7 [degF] Treatment Wstr Work Phone: [facility] 08-15-2022 14:57-0400 Diastolic blood pressure 60 mm[Hg] Treatment Wstr Work Phone: [facility] 08-15-2022 14:57-0400 Heart rate 65 /min Treatment Wstr Work Phone: [facility] 08-15-2022 14:57-0400 Systolic blood pressure 145 mm[Hg] Treatment Wstr Work Phone: [facility] 08-11-2022 15:00-0400 Body temperature 97.11 [degF] Treatment Wstr Work Phone: [facility] 08-11-2022 15:00-0400 Diastolic blood pressure 60 mm[Hg] Treatment Wstr Work Phone: [facility] 08-11-2022 15:00-0400 Heart rate 65 /min Treatment Wstr Work Phone: [facility] 08-11-2022 15:00-0400 Respiratory rate 18 /min Treatment Wstr Work Phone: [facility] 08-11-2022 15:00-0400 SaO2% (BldA) [Mass fraction] 98 % Treatment Wstr Work Phone: [facility] 08-11-2022 15:00-0400 Systolic blood pressure 137 mm[Hg] Treatment Wstr Work Phone: [facility] 03-15-2023 10:40-0400 Body height 172.1 cm Wiliam Mandel MD Work Phone: [facility] 05-25-2022 10:40-0400 Body weight 96.62 kg Wiliam Mandel MD Work Phone: [facility] 05-25-2022 10:40-0400 Diastolic blood pressure 72 mm[Hg] Wiliam Mandel MD Work Phone: [facility] 05-25-2022 10:40-0400 Heart rate 60 /min Wiliam Mandel MD Work Phone: [facility] 05-25-2022 10:40-0400 Respiratory rate 18 /min Wiliam Mandel MD Work Phone: [facility] 05-25-2022 10:40-0400 Systolic blood pressure 120 mm[Hg] Wiliam Mandel MD Work Phone: [facility] 11-11-2021 08:00-0400 Body weight 95.71 kg Wiliam Mandel MD Work Phone: [facility] 11-11-2021 08:00-0400 Diastolic blood pressure 60 mm[Hg] Wiliam Mandel MD Work Phone: [facility] 11-11-2021 08:00-0400 Heart rate 72 /min Wiliam Mandel MD Work Phone: [facility] 11-11-2021 08:00-0400 Respiratory rate 14 /min Wiliam Mandel MD Work Phone: [facility] 11-11-2021 08:00-0400 Systolic blood pressure 120 mm[Hg] Wiliam Mandel MD Work Phone: [facility] 09-06-2021 14:27-0400 Body temperature 98.2 [degF] Paul Arzola DO Work Phone: [facility] 09-06-2021 14:27-0400 Body weight 95.48 kg Paul Joyneri DO Work Phone: [facility] 09-06-2021 14:27-0400 Diastolic blood pressure 70 mm[Hg] Paul Joyneri DO Work Phone: [facility] 09-06-2021 14:27-0400 Heart rate 63 /min Masci DO Work Phone: [facility] 09-06-2021 14:27-0400 Respiratory rate 14 /min Masci DO Work Phone: [facility] 09-06-2021 14:27-0400 SaO2% (BldA) [Mass fraction] 97 % Masci DO Work Phone: [facility] 09-06-2021 14:27-0400 Systolic blood pressure 166 mm[Hg] Masci DO Work Phone: [facility] 08-12-2021 09:50-0400 Body height 172.5 cm Masci DO Work Phone: [facility] 08-12-2021 09:50-0400 Body temperature 97.5 [degF] Masci DO Work Phone: [facility] 08-12-2021 09:50-0400 Body weight 97.98 kg Masci DO Work Phone: [facility] 08-12-2021 09:50-0400 Diastolic blood pressure 50 mm[Hg] Masci DO Work Phone: [facility] 08-12-2021 09:50-0400 Heart rate 78 /min Masci DO Work Phone: [facility] 08-12-2021 09:50-0400 SaO2% (BldA) [Mass fraction] 98 % Masci DO Work Phone: [facility] 08-12-2021 09:50-0400 Systolic blood pressure 132 mm[Hg] Masci DO Work Phone: [facility] Encounters Encounter Date Encounter Type Care Provider Facility Start: 02-05-2025 ambulatory Wiliam Mandel [place] [place]: 01-10-2025 End: 01-10-2025 ambulatory NIMA HOBBS Facility:[facility] Start: 01-09-2025 ambulatory Wiliam Mandel Facility [place] [place] Start: 01-09-2025 End: 01-09-2025 ambulatory Wiliam Mandel Facility:[facility] Start: 12-25-2024 End: 12-25-2024 ambulatory WILIAM MANDEL Facility:[facility] Start: 12-18-2024 End: 12-18-2024 ambulatory WILIAM MANDEL Facility:[facility] Start: 12-16-2024 End: 12-16-2024 ambulatory WILIAM MANDEL Facility:[facility] Start: 12-13-2024 End: 12-13-2024 ambulatory WILIAM MANDEL Facility:[facility] Start: 12-11-2024 End: 12-11-2024 ambulatory WILIAM MANDEL Facility:[facility] Start: 12-09-2024 End: 12-09-2024 ambulatory WILIAM MANDEL Facility:[facility] Start: 12-04-2024 End: 12-04-2024 ambulatory WILIAM MANDEL Facility:[facility] Start: 11-28-2024 Non-patient / Non-visit Caleb Tse nd DO -[facility] Start: 11-28-2024 End: 11-28-2024 Admission to same day surgery center Caleb Allen DO -Endoscopy Work Phone: Start: 11-28-2024 End: 11-28-[address] Wiliam Mandel MD Work Phone: -Endoscopy Start: 11-26-2024 End: 11-26-2024 Telephone encounter Wiliam Mandel MD Work Phone: [facility] Comment on above: Patient Call Start: 11-25-2024 End: 11-25-2024 Patient encounter procedure Paul Arzola DO Work Phone: Hematology/Oncology Start: 11-25-2024 End: 11-25-2024 ambulatory Paul Arzola DO Work Phone: Hematology/Oncology Comment on above: Macrocytic anemia (P rimary Dx); Anemia due to stage 3b chronic kidney disease (HCC) Start: 11-19-2024 End: 11-19-2024 Patient encounter procedure Alice KNIGHT -[facility] Work Phone: Start: 11-19-2024 End: 11-19-[address] Wiliam Mandel MD Work Phone: -[facility] Start: 11-18-2024 End: 11-18-2024 Patient encounter procedure Caleb Friend DO -Ultrasound [facility] Work Phone: Start: 11-18-2024 End: 11-18-2024 Refill Wiliam Mandel MD Work Phone: [facility] Comment on above: Refill Request Start: 11-18-2024 End: 11-18-2024 ambulatory Wiliam Mandel Facility:[facility] Start: 11-04-2024 End: 11-04-[address] Wiliam Mandel MD Work Phone: -Laboratory Start: 11-04-2024 End: 11-04-[address] Lisa Dove MD -Laboratory Work Phone: Start: 11-04-2024 End: 11-04-2024 ambulatory Lisa Dove Facility:[facility] Start: 10-31-2024 End: 10-31-2024 Chart abstracting Wiliam Mandel MD Work Phone: [facility] Comment on above: Outside [id number] Ordered Start: 10-29-2024 End: 10-31-2024 Chart abstracting Margie Sexton [facility] Comment on above: ext document Start: 10-29-2024 End: 10-29-[address] Wiliam Mandel MD Work Phone: -Laboratory Specimen Start: 10-29-2024 End: 10-29-2024 Patient encounter procedure Caleb Allen DO -Laboratory Specimen Work Phone: Start: 10-29-2024 End: 10-29-2024 ambulatory Wiliam Mandel Facility:[facility] Start: 10-24-2024 End: 10-24-[address] Wiliam Mandel MD Work Phone: -Laboratory Start: 10-24-2024 End: 10-24-2024 Patient encounter procedure Caleb Allen DO -Laboratory Work Phone: Start: 10-24-2024 End: 10-24-2024 Patient encounter procedure Caleb Allen DO -[facility] Work Phone: Start: 10-24-2024 End: 10-24-[address] Wiliam Mandel MD Work Phone: -[facility] Start: 10-24-2024 End: 10-24-2024 ambulatory Wiliam Mandel Facility:[facility] Start: 09-03-2024 End: 09-03-2024 ambulatory Wiliam Mandel MD Work Phone: [facility] Start: 09-03-2024 End: 09-03-2024 Patient encounter procedure Wiliam Mandel MD Work Phone: [facility] Comment on above: Referral Request Start: 08-19-2024 End: 08-19-2024 Refill Lilliam Monaco PA-C Work Phone: [facility] Comment on above: Refill Request Start: 06-05-2024 End: 06-05-2024 Refill Paul Arzola DO Work Phone: Hematology/Oncology Comment on above: Refill Request Start: 05-22-2024 End: 05-22-2024 Ophthalmic examination and evaluation Wiliam Mandel MD Work Phone: [facility] Start: 05-22-2024 End: 05-22-2024 Patient encounter procedure Wiliam Madnel MD Work Phone: [facility] Comment on above: Medicare annual well ness visit, subsequent (Primary Dx); Controlled type 2 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 disease, without long-term current use of insulin (HCC); Diabetic peripheral neuropathy (HCC); Diabetic eye exam (HCC); Essential hypertension with goal blood pressure less than 130/85; Mixed hyperlipidemia; Hypothyroidism (acquired); Gastroesophageal reflux disease without esophagitis; Bilateral carotid artery stenosis; Moderate aortic stenosis; Nonrheumatic mitral valve regurgitation; Obstructive chronic bronchitis with exacerbation (HCC); Stage 3a chronic kidney disease (HCC); Anemia due to stage 3b chronic kidney disease (HCC) (HCC); Class 1 obesity due to excess calories without serious comorbidity with body mass index (BMI) of 34.0 to 34.9 in adult; Acute idiopathic gout, unspecified site; Macrocytic anemia; Other dietary vitamin B12 deficiency anemia; Benign non-nodular prostatic hyperplasia without lower urinary tract symptoms; Calculus of gallbladder with chronic cholecystitis without obstruction; Advance directive discussed with patient; Kidney stone; Screening for depression; Renal stones; Chronic diarrhea Change Appointment Start: 05-22-2024 End: 05-22-2024 ambulatory Wiliam Mandel MD Work Phone: [facility] [place] Start: 05-20-2024 End: 05-21-2024 ambulatory Wiliam Mandel MD Work Phone: [facility] [place] Comment on above: Shingrix Vaccine Start: 05-14-2024 End: 05-14-2024 ambulatory WILIAM MANDEL Facility:[facility] Start: 05-01-2024 End: 05-01-2024 Refill Wiliam Mandel MD Work Phone: [facility] [place] Comment on above: Refill Request Start: 02-19-2024 End: 02-19-2024 ambulatory Wiliam Mandel MD Work Phone: [facility] [place] Comment on above: Medical Record Start: 02-05-2024 End: 02-05-2024 Refill Niam Hobbs APRN.CNP Work Phone: [facility] [place] Comment on above: Refill Request Start: 01-11-2024 End: 01-11-2024 ambulatory Wiliam Mandel MD Work Phone: [facility] [place] Comment on above: Vaccinations Start: 01-02-2024 End: 01-02-2024 Chart abstracting Wilima Mandel MD Work Phone: [facility] [place] Comment on above: Outside ECHO Start: 12-28-2023 End: 12-28-2023 Telephone encounter Wiliam Mandel MD Work Phone: [facility] [place] Comment on above: Results Start: 12-26-2023 End: 12-26-2023 ambulatory [facility] Work Phone: [facility] Comment on above: Spirometry Start: 12-26-2023 End: 12-26-2023 Patient encounter procedure [facility] Work Phone: [facility] Start: 12-14-2023 End: 12-14-2023 Telephone encounter Wiliam Mandel MD Work Phone: [facility] [place] Comment on above: Results Start: 12-12-2023 End: 12-12-2023 Refill Wiliam Mandel MD Work Phone: [facility] [place] Comment on above: Refill Request Start: 12-11-2023 End: 12-11-2023 Telephone encounter Wiliam Mandel MD Work Phone: [facility] [place] Comment on above: Results Start: 12-08-2023 End: 12-08-2023 Subsequent hospital visit by physician Xr [facility] [place] Work Phone: Radiology Comment on above: Acute left ankle diogo n [M25.572] Start: 12-08-2023 End: 12-08-2023 Patient encounter procedure Wiliam Mandel MD Work Phone: [facility] [place] Comment on above: Acute left ankle diogo n (Primary Dx) Start: 12-04-2023 End: 12-04-2023 ambulatory Wiliam Mandel MD Work Phone: [facility] [place] Comment on above: Ankle Pain Start: 11-22-2023 End: 11-22-2023 Ophthalmic examination and evaluation Wiliam Mandel MD Work Phone: [facility] Start: 11-22-2023 End: 11-22-2023 Patient encounter procedure Wiliam Mandel MD Work Phone: [facility] [place] Comment on above: Controlled type 2 di abetes mellitus with stage 3 chronic kidney disease, without long-term current use of insulin (HCC) (Primary Dx); Diabetic eye exam (HCC); Diabetic peripheral neuropathy (HCC); Essential hypertension with goal blood pressure less than 130/85; Mixed hyperlipidemia; Hypothyroidism (acquired); Gastroesophageal reflux disease without esophagitis; Obstructive chronic bronchitis with exacerbation (HCC); Bilateral carotid artery stenosis; Moderate aortic stenosis; Stage 3a chronic kidney disease (HCC); Class 1 obesity due to excess calories without serious comorbidity with body mass index (BMI) of 34.0 to 34.9 in adult; Macrocytic anemia; Other dietary vitamin B12 deficiency anemia; Calculus of gallbladder with chronic cholecystitis without obstruction; Chest pain, unspecified type; KEY (dyspnea on exertion); Disorder of prostate ; Medication management Start: 11-20-2023 End: 11-20-2023 ambulatory Paul Arzola DO Work Phone: Hematology/Oncology Comment on above: Macrocytic anemia (P rimary Dx); Anemia due to stage 3b chronic kidney disease (HCC) (HCC) Start: 11-20-2023 End: 11-20-2023 Patient encounter procedure Paul Arzola DO Work Phone: Hematology/Oncology Start: 11-08-2023 End: 11-08-2023 Chart abstracting Wiliam Mandel MD Work Phone: [facility] [place] Comment on above: Outside [id number] Ordered Start: 11-07-2023 End: 11-07-2023 Chart abstracting Wiliam Mandel MD Work Phone: [facility] [place] Comment on above: Outside [id number] Ordered Start: 10-13-2023 Refill Wiliam fung MD Work Phone: [facility] [place] Comment on above: Refill Request Start: 10-06-2023 Chart abstracting Alisa Schafer MA [facility] [place] Comment on above: Consult (Outside Oph thalmology /) Start: 07-27-2023 Refill Wiliam fung MD Work Phone: [facility] [place] Comment on above: Refill Request Start: 06-12-2023 Refill Wiliam fung MD Work Phone: [facility] [place] Comment on above: Refill Request Start: 05-31-2023 Telephone encounter Wiliam Mandel MD Work Phone: [facility] [place] Comment on above: Results Start: 05-24-2023 End: 05-24-2023 Ophthalmic examination and evaluation Wiliam Mandel MD Work Phone: [facility] Work Phone: Start: 05-24-2023 End: 05-24-2023 Patient encounter procedure Wiliam Mandel MD Work Phone: [facility] [place] Comment on above: Medicare annual well ness visit, subsequent (Primary Dx); Controlled type 2 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 disease, without long-term current use of insulin (HCC); Diabetic eye exam (HCC); Essential hypertension with goal blood pressure less than 130/85; Mixed hyperlipidemia; Hypothyroidism (acquired); Obstructive chronic bronchitis with exacerbation (HCC); Gastroesophageal reflux disease without esophagitis; Diabetic peripheral neuropathy (HCC); Moderate aortic stenosis; Albuminuria; Stage 3a chronic kidney disease (HCC); Bilateral carotid artery stenosis; Class 1 obesity due to excess calories without serious comorbidity with body mass index (BMI) of 34.0 to 34.9 in adult; Other dietary vitamin B12 deficiency anemia; Macrocytic anemia; Benign non-nodular prostatic hyperplasia without lower urinary tract symptoms; Calculus of gallbladder with chronic cholecystitis without obstruction; Advance directive discussed with patient; Anemia due to stage 3b chronic kidney disease (HCC) (HCC); Diarrhea, unspecified type Start: 05-19-2023 Telephone encounter Paul sumner DO Work Phone: Hematology/Oncology Start: 05-18-2023 End: 05-18-2023 ambulatory Paul Arzola DO Work Phone: Hematology/Oncology Comment on above: Anemia due to stage 3b chronic kidney disease (HCC) (HCC) (Primary Dx); Macrocytic anemia Start: 05-18-2023 End: 05-18-2023 Patient encounter procedure Paul Arzola DO Work Phone: [place] [facility] Comment on above: Anemia due to stage 3b chronic kidney disease (HCC) (HCC); Platelets decreased (HCC); Controlled type 2 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 disease, without long-term current use of insulin (HCC); Diabetic peripheral neuropathy (HCC); Essential hypertension with goal blood pressure less than 130/85; Mixed hyperlipidemia; Other dietary vitamin B12 deficiency anemia; Stage 3a chronic kidney disease (HCC); Hypothyroidism (acquired); Disorder of prostate Start: 05-17-2023 Orders Only Diya Dariusz Muller Work Phone: Hematology/Oncology Comment on above: Anemia due to stage 3b chronic kidney disease (HCC) (HCC) (Primary Dx); Platelets decreased (HCC) Start: 05-14-2023 ambulatory Wiliam fung MD Work Phone: [facility] [place] Start: 05-14-2023 Patient encounter procedure Wiliam Mandel MD Work Phone: [facility] Comment on above: Blood Work for 2 issa ointments Refill Request Start: 05-02-2023 End: 05-02-2023 Patient encounter procedure Jennifer Schafer APRN.CONGRESSIONAL DISTRICT AIDE Work Phone: [facility] Comment on above: Impacted cerumen of left ear (Primary Dx) Start: 04-13-2023 ambulatory Wiliam fung MD Work Phone: [facility] Comment on above: Medical Record Start: 03-13-2023 End: 03-13-2023 Office outpatient visit 25 minutes Wiliam Marrero APRN.CONGRESSIONAL DISTRICT AIDE Work Phone: [facility] Comment on above: Eustachian tube dysf unction, bilateral (Primary Dx); Acute bronchitis with chronic obstructive pulmonary disease (COPD) (HCC) (HCC) Start: 01-31-2023 Non-patient / Non-visit Dr. Tyree [facility]el [facility] Work Phone: Start: 01-31-2023 Non-patient / Non-visit Dr. Tyree Mandel Work Phone: [facility] Start: 01-31-2023 End: 01-31-[address] Wiliam Mandel Work Phone: [facility] Work Phone: Start: 01-31-2023 End: 01-31-[address] Wiliam Mandel Work Phone: [facility] Work Phone: Start: 01-31-2023 End: 01-31-2023 Patient encounter procedure Jennifer Schafer APRN.CONGRESSIONAL DISTRICT AIDE Work Phone: [facility] Comment on above: Acute otitis media, right (Primary Dx) Start: 01-23-2023 Refill Nima rogers APRN.CONGRESSIONAL DISTRICT AIDE Work Phone: [facility] Comment on above: Refill Request Start: 01-18-2023 End: 01-18-2023 ambulatory Paul Arzola DO Work Phone: Hematology/Oncology Comment on above: Anemia due to stage 3b chronic kidney disease (HCC) (Primary Dx); Platelets decreased (HCC) Start: 01-18-2023 End: 01-18-2023 Patient encounter procedure Paul Arzola DO Work Phone: [facility] Start: 01-13-2023 Orders Only Paul Nolen O Work Phone: Hematology/Oncology Comment on above: Macrocytic anemia (P rimary Dx); Stage 3a chronic kidney disease (HCC); Anemia due to stage 3a chronic kidney disease (HCC) Start: 12-13-2022 End: 12-13-[address] Wiliam Mandel Work Phone: [facility] Work Phone: Start: 12-10-2022 Telephone encounter Lilliam marmolejo PA-C Work Phone: [facility] Comment on above: Results Start: 11-22-2022 End: 11-22-2022 Ophthalmic examination and evaluation Wiliam Mandel MD Work Phone: [facility] Work Phone: Start: 11-22-2022 End: 11-22-2022 Patient encounter procedure Wiliam Mandel MD Work Phone: [facility] Comment on above: Controlled type 2 di abetes mellitus with stage 3 chronic kidney disease, without long-term current use of insulin (HCC) (Primary Dx); Diabetic peripheral neuropathy (HCC); Diabetic eye exam (HCC); Essential hypertension with goal blood pressure less than 130/85; Mixed hyperlipidemia; Gastroesophageal reflux disease without esophagitis; Bilateral carotid artery stenosis; Hypothyroidism (acquired); Moderate aortic stenosis; Obstructive chronic bronchitis with exacerbation (HCC); Stage 3a chronic kidney disease (HCC); Class 1 obesity due to excess calories without serious comorbidity with body mass index (BMI) of 34.0 to 34.9 in adult; Macrocytic anemia; Other dietary vitamin B12 deficiency anemia; Disorder of prostate Start: 11-07-2022 End: 11-07-2022 ambulatory [facility] Work Phone: Start: 11-07-2022 End: 11-07-2022 Patient encounter procedure [facility] Work Phone: Start: 11-04-2022 ambulatory Wiliam fung MD Work Phone: [facility] Comment on above: Pioglitazone new Pioglitazone pre scription Start: 10-17-2022 Refill Wiliam fung MD Work Phone: [facility] Comment on above: Refill Request Start: 09-24-2022 Chart abstracting Wiliam griffin MD Work Phone: [facility] Comment on above: Diabetic Eye Exam Start: 09-24-2022 Ophthalmic examinati on and evaluation Wiliam Mandel MD Work Phone: [facility] Start: 09-20-2022 Orders Only Paul Muller Work Phone: Hematology/Oncology Comment on above: Macrocytic anemia (P rimary Dx); Anemia due to stage 3a chronic kidney disease (HCC); Stage 3a chronic kidney disease (HCC) Start: 08-17-2022 End: 08-17-2022 ambulatory Treatment Rm 13 Larry [facility] Work Phone: Hematology/Oncology Comment on above: Anemia due to stage 3a chronic kidney disease (HCC) (Primary Dx); Stage 3a chronic kidney disease (HCC) Start: 08-15-2022 End: 08-15-2022 ambulatory Treatment Rm 13 Larry [facility] Work Phone: Hematology/Oncology Comment on above: Anemia due to stage 3a chronic kidney disease (HCC) (Primary Dx); Stage 3a chronic kidney disease (HCC) Start: 08-11-2022 End: 08-11-2022 ambulatory Treatment Rm 13 Larry [facility] Work Phone: Hematology/Oncology Comment on above: Anemia due to stage 3a chronic kidney disease (HCC) (Primary Dx); Stage 3a chronic kidney disease (HCC) Start: 07-26-2022 Orders Only Paul Muller Work Phone: Hematology/Oncology Comment on above: Macrocytic anemia (P rimary Dx) Start: 07-25-2022 Telephone encounter Paul sumner DO Work Phone: Hematology/Oncology Comment on above: Results Start: 07-12-2022 Refill Nima rogers APRN.CNP Work Phone: [facility] Comment on above: Refill Request Start: 05-25-2022 End: 05-25-2022 Ophthalmic examination and evaluation Wiliam Mandel MD Work Phone: [facility] [place] Start: 05-25-2022 End: 05-25-2022 Patient encounter procedure Wiliam Mandel MD Work Phone: [facility] Comment on above: Medicare annual well ness visit, subsequent (Primary Dx); Controlled type 2 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 disease, without long-term current use of insulin (HCC); Diabetic peripheral neuropathy (HCC); Diabetic eye exam (HCC); Essential hypertension with goal blood pressure less than 130/85; Mixed hyperlipidemia; Hypothyroidism (acquired); Obstructive chronic bronchitis with exacerbation (HCC); Gastroesophageal reflux disease without esophagitis; Moderate aortic stenosis; Bilateral carotid artery stenosis; Stage 3a chronic kidney disease (HCC); Albuminuria; Other dietary vitamin B12 deficiency anemia; Class 1 obesity due to excess calories without serious comorbidity with body mass index (BMI) of 34.0 to 34.9 in adult; Macrocytic anemia; Benign non-nodular prostatic hyperplasia without lower urinary tract symptoms; Advance directive discussed with patient; Calculus of gallbladder with chronic cholecystitis without obstruction Start: 05-22-2022 ambulatory Paul Muller Work Phone: Hematology/Oncology Comment on above: Folic Acid prescript ion Start: 04-22-2022 Refill Wiliam fung MD Work Phone: [facility] [place] Comment on above: Refill Request Start: 02-16-2022 Refill Wiliam fung MD Work Phone: [facility] [place] Comment on above: Refill Request Start: 01-24-2022 ambulatory Wiliam fung MD Work Phone: [facility] [place] Comment on above: Vaccination record Refill Request Start: 11-24-2021 Telephone encounter Wiliam Mandel MD Work Phone: [facility] [place] Comment on above: Results Start: 11-11-2021 Telephone encounter Wiliam Mandel MD Work Phone: [facility] [place] Comment on above: Results Start: 11-11-2021 End: 11-11-2021 Ophthalmic examination and evaluation Wiliam Mandel MD Work Phone: [facility] [place] Start: 11-11-2021 End: 11-11-2021 Patient encounter procedure Wiliam Mandel MD Work Phone: [facility] [place] Comment on above: Controlled type 2 di abetes mellitus with diabetic nephropathy, without long-term current use of insulin (HCC) (Primary Dx); Diabetic peripheral neuropathy (HCC); Albuminuria; Other proteinuria; Diabetic eye exam (HCC); Essential hypertension with goal blood pressure less than 130/85; Mixed hyperlipidemia; Hypothyroidism (acquired); Gastroesophageal reflux disease without esophagitis; Bilateral carotid artery stenosis; Stage 3a chronic kidney disease (HCC); Moderate aortic stenosis; Obstructive chronic bronchitis with exacerbation (HCC); Class 1 obesity due to excess calories without serious comorbidity with body mass index (BMI) of 34.0 to 34.9 in adult; Macrocytic anemia; Other dietary vitamin B12 deficiency anemia; Living will on file; Advance directive discussed with patient; Chronic diarrhea; Prostate disorder; Hyperkalemia Start: 11-03-2021 End: 11-03-2021 Patient encounter procedure Wiliam Mandel MD Work Phone: [facility] [place] Comment on above: Patient left without being seen (Primary Dx) Start: 09-06-2021 End: 09-06-2021 ambulatory Paul Arzola DO Work Phone: Hematology/Oncology Comment on above: Macrocytic anemia (P rimary Dx) Start: 09-06-2021 End: 09-06-2021 Patient encounter procedure Paul Joyneri DO Work Phone: [facility] Start: 08-16-2021 Orders Only Paul Nolen O Work Phone: Hematology/Oncology Comment on above: Monoclonal gammopath y (Primary Dx); Macrocytic anemia Start: 08-12-2021 Telephone encounter Paul sumner DO Work Phone: Hematology/Oncology Comment on above: Bone Marrow Aspirate /Biopsy Start: 08-12-2021 End: 08-12-2021 ambulatory Paul Arzola DO Work Phone: Hematology/Oncology Comment on above: Macrocytic anemia (P rimary Dx) Start: 08-12-2021 End: 08-12-2021 Patient encounter procedure Paul Joyneri DO Work Phone: [facility] Start: 08-06-2021 Telephone encounter Paul sumner DO Work Phone: Hematology/Oncology Comment on above: Follow Up (Add MMA) Start: 08-04-2021 Orders Only Paul Nolen O Work Phone: Hematology/Oncology Comment on above: Macrocytic anemia (P rimary Dx) Start: 07-19-2021 Refill Wiliam fung MD Work Phone: [facility] [place] Comment on above: Refill Request Start: 07-13-2021 ambulatory Wiliam fung MD Work Phone: [facility] [place] Comment on above: Covid Vaccine Start: 05-31-2021 ambulatory Wiliam fung MD Work Phone: [facility] [place] Comment on above: Lisinopril Refill Request Start: 04-12-2021 End: 04-12-2021 Subsequent hospital visit by physician Xr [facility] [place] Work Phone: Radiology Comment on above: Acute wrist pain, ri ght [M25.531] Start: 03-24-2021 Patient encounter procedure Wiliam Mandel MD Work Phone: [facility] Work Phone: Start: 03-24-2021 End: 03-24-2021 Subsequent hospital visit by physician Xr [facility] [place] Work Phone: Radiology Comment on above: Chronic pain of both shoulders [M25.511, G89.29, M25.512] Start: 08-26-2020 Ophthalmic examinati on and evaluation Wiliam Mandel MD Work Phone: [facility] Procedures Date Procedure Procedure Detail Performing Clinician Start: 11-28-[address] Wiliam cox MD Work Phone: Start: 11-18-20[address] Ultrasound elastography of liver Dr. Vamsi Mandel MD Work Phone: Start: 11-04-[address] Jaydon Mandel MD Work Phone: Start: 11-04-2024 Serum inorganic phosphate measurement Dr. Wiliam Mandel MD Work Phone: Start: 11-04-2024 Urine microalbumin/creatinine ratio measurement Dr. Wiliam Mandel MD Work Phone: Start: 11-04-2024 Vitamin D, 25-hydroxy measurement Dr. Tyree Mandel MD Work Phone: Comment on above: Vitamin D StatusDeficiency: <20 ng/mL (5 0nmol/L)Insufficiency: 20-30 ng/mL (50-75 nmol/L)Sufficiency: 30-100 ng/mL (75-250 nmol/L)Toxicity: >100 ng/mL (>250 nmol/L) Start: 10-29-[address] Jaydon Mandel MD Work Phone: Start: 10-29-2024 End: 10-29-2024 Giardia lamb[address] antigen assay Dr. Razia Mandel MD Work Phone: Start: 10-29-[address] Wiliam fung MD Work Phone: Start: 10-29-2024 Measurement of occult blood in stool specimen using immunoassay Dr. Wiliam Mandel MD Work Phone: Start: 10-29-[address] Wiliam Mandel MD Work Phone: Start: 10-29-2024 Ova OR parasites identification Dr. Jaydon Mandel MD Work Phone: Start: 10-29-[address] Wiliam Mandel MD Work Phone: Comment on above: Test Ordered: [id number] Stool CultureSalmon carlos/Shigella Screen Note: Final report Reference Range: .Result 1 Comment CB Reference Range: .No Salmonella or Shigella recovered.Campylobacter Culture Note: CB Final report Reference Range: .Result 1 Comment CB Reference Range: .No Campylobacter species isolated.E coli Shiga Toxin EIA Negative Reference Range: NegativePerformed at: - [facility] [id number] Director: Gabriele Rasmussen PhD, Phone: [phone] Start: 10-29-2024 Ova&parasites direct smears concentration & id Dr. Wiliam Mandel MD Work Phone: Start: 10-24-2024 Albumin/Globulin ratio Dr. Wiliam ragsdale MD Work Phone: Start: 10-24-[address] Wiliam Mandel MD Work Phone: Comment on above: *Additional results available. Contact l aboratory/see report*The atypical pANCA pattern has been observed in asignificant percentage of patients with ulcerative colitis,primary sclerosing cholangitis and autoimmune hepatitis. Start: 10-24-2024 Copper measurement, serum Dr. Wiliam griffin MD Work Phone: Comment on above: Detection Limit = 5 Start: 10-24-2024 Endomysial antibody IgA level Dr. Razia Mandel MD Work Phone: Start: 10-24-2024 Gliadin antibody, IgA measurement Dr. Tyree Mandel MD Work Phone: Comment on above: Negative 0 - 19 Weak Positive 20 - 30 Mo derate to Strong Positive >30 Start: 10-24-2024 Gliadin antibody, IgG measurement Dr. Tyree Mandel MD Work Phone: Comment on above: Negative 0 - 19 Weak Positive 20 - 30 Mo derate to Strong Positive >30 Start: 10-24-[address] M measurement Dr. Wiliam Mandel MD Work Phone: Start: 10-24-2024 Measurement of fungal antibody Dr. Fabby Mandel MD Work Phone: Comment on above: Negative: <45 Equivocal: 45-50 Positive: >50 Start: 10-24-2024 Scallop SAMREEN Mandel MD Work Phone: Start: 10-24-[address] Wiliam Mandel MD Work Phone: Comment on above: Performed at: [address] [id number] Director: Wilbert Long MD, Phone: [phone] Start: 10-24-[address] Wiliam Mandel MD Work Phone: Start: 05-22-2024 Adult depression screening assessment Wiliam Mandel MD Work Phone: Start: 12-26-2023 Brncdilat rspse spmtry pre&post-brncdilat admn Wiliam Mandel MD Work Phone: Start: 05-18-2023 Urine albumin quantitative Wiliam whitehead MD Work Phone: Start: 05-18-2023 Blood count complete auto&auto difrntl wbc Paul Arzola DO Work Phone: Start: 05-18-2023 Lipid panel Wiliam Mandel MD Work Phone: Start: 04-12-2021 Radex wrist complete minimum 3 views Reed France MD Work Phone: Start: 03-24-2021 Radex shoulder complete minimum 2 views Wiliam Mandel MD Work Phone: Start: 12-20-2016 Colonoscopy Wiliam Mandel MD Work Phone: Plan of Treatment Date Care Activity Detail Author Start: 03-31-2027 Urine microalbumin profile [facility] kirs Start: 11-25-2025 Complete blood count Hemoglobin/Hematocrit [facility] Start: 11-25-2025 Creatinine measurement Serum Creatinine [facility] Start: 11-25-2025 Hepatitis B surface antibody level LDL Cholesterol [facility] Start: 05-25-2025 Hemoglobin A1c measurement HbA1C [facility] kris Start: 05-22-2025 Annual PCP Team Chronic Disease Visit Annual PCP Team Chronic Disease Visit [facility] Start: 05-22-2025 BP Controlled (<130/80) BP Controlled (<130/80) [facility] Start: 05-22-2025 Depression Screening Depression Screening [facility] Start: 05-22-2025 Diabetic foot examination Diabetic Foot Exam [facility] Start: 05-22-2025 Medicare Annual Wellness Visit Medicare Annual Wellness Visit [facility] Start: 05-14-2025 Complete blood count Hemoglobin/Hematocrit [facility] Start: 05-14-2025 Creatinine measurement Serum Creatinine [facility] Start: 05-14-2025 Hepatitis B screening Urine Albumin:Creatinine Ratio [facility] Start: 05-14-2025 Hepatitis B surface antibody level LDL Cholesterol [facility] Start: 12-13-2024 End: 12-13-2024 Patient encounter procedure 12/13/2024 2:40 PM EDT Office Visit [facility] [address] [facility] [place] [id number] Wiliam Mandel MD [address] [place] [id number] 6 month follow up [facility] Comment on above: 6 month follow up Start: 12-07-2024 Annual PCP Team Chronic Disease Visit Annual PCP Team Chronic Disease Visit [facility] Start: 12-07-2024 BP Controlled (<130/80) BP Controlled (<130/80) [facility] Start: 12-03-2024 End: 12-03-2024 Patient encounter procedure 12/03/2024 1:00 PM EDT Office Visit Family [facility] [address] [place] [address] Wiliam Mandel MD [address] [place] [address] 6 month follow up [facility] Comment on above: 6 month follow up Start: 11-28-2024 Patient discharge [facility] Start: 11-25-2024 End: 11-25-2024 ambulatory [facility] Comment on above: CBC/IRON/B12/SERUM FOLATE/COPPER* 1 YR F/U /EARLY LABS * Start: 11-25-2024 End: 02-24-2025 Ferritin [Mass/volume] in Serum or Plasma FERRITIN Lab Routine Anemia due to stage 3b chronic kidney disease (HCC) Expected: 11/25/2024, Expires: 02/24/2025 [facility] Comment on above: Expected: 11/25/2024, Expires: Start: 11-25-2024 End: 02-24-2025 Iron and Iron binding capacity panel - Serum or Plasma IRON AND TIBC Lab Routine Anemia due to stage 3b chronic kidney disease (HCC) Expected: 11/25/2024, Expires: 02/24/2025 [facility] Work Phone: Comment on above: Expected: 11/25/2024, Expires: Start: 11-21-2024 Annual PCP Team Chronic Disease Visit Annual PCP Team Chronic Disease Visit [facility] Start: 11-21-2024 Anxiety Screening Anxiety Screening [facility] Comment on above: Postponed from 1964 (Declined at t his time) Start: 11-21-2024 BP Controlled (<130/80) BP Controlled (<130/80) [facility] Start: 11-21-2024 Covid-19 Vaccine () Covid-19 Vaccine () [facility] Comment on above: Postponed from 11/12/2023 (Currently [facility] eduled) Start: 11-21-2024 Covid-19 Vaccine () Covid-19 Vaccine () [facility] Comment on above: Postponed from 11/12/2023 (Currently [facility] eduled) Start: 11-21-2024 Shingrix Vaccine (2 of 3) Shingrix Vaccine (2 of 3) [facility] Comment on above: Postponed from 11/16/2011 (Insurance Cov erage) Start: 11-19-2024 BP Controlled (<130/80) BP Controlled (<130/80) [facility] Start: 11-19-2024 Complete blood count Hemoglobin/Hematocrit [facility] Start: 11-19-2024 Creatinine measurement Serum Creatinine [facility] Start: 11-19-2024 Hepatitis B surface antibody level LDL Cholesterol [facility] Start: 11-18-2024 End: 11-18-2024 ambulatory [facility] Comment on above: CBC/IRON/B12/SERUM FOLATE/ASHOK* 1 YR F/U /EARLY LABS Start: 11-14-2024 Hemoglobin A1c [facility] Start: 11-11-2024 Influenza vaccination Influenza Vaccine (#1) [facility] Start: 11-08-2024 End: 02-07-2025 Basic metabolic 2000 panel - Serum or Plasma BASIC METABOLIC PANEL Lab Routine Controlled type 2 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 disease, without long-term current use of insulin (HCC) Essential hypertension with goal blood pressure less than 130/85 Mixed hyperlipidemia Stage 3a chronic kidney disease (HCC) Expected: 11/08/2024, Expires: 02/07/2025 [facility] Comment on above: Expected: 11/08/2024, Expires: Start: 11-08-2024 End: 02-07-2025 CBC W Auto Differential panel - Blood COMPLETE BLOOD COUNT AND DIFFERENTIAL Lab Routine Controlled type 2 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 disease, without long-term current use of insulin (HCC) Stage 3a chronic kidney disease (HCC) Other dietary vitamin B12 deficiency anemia Expected: 11/08/2024, Expires: 02/07/2025 [facility] Comment on above: Expected: 11/08/2024, Expires: Start: 11-08-2024 End: 02-07-2025 Cobalamin (Vitamin B12) [Mass/volume] in Serum or Plasma VITAMIN B12 Lab Routine Other dietary vitamin B12 deficiency anemia Expected: 11/08/2024, Expires: 02/07/2025 [facility] Work Phone: Comment on above: Expected: 11/08/2024, Expires: Start: 11-08-2024 End: 02-07-2025 Hemoglobin A1c in Blood HEMOGLOBIN A1C Lab Routine Controlled type 2 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 disease, without long-term current use of insulin (HCC) Expected: 11/08/2024, Expires: 02/07/2025 [facility] Comment on above: Expected: 11/08/2024, Expires: Start: 11-08-2024 End: 02-07-2025 LIPID PANEL, NONFASTING LIPID PANEL, NONFASTING Lab Routine Essential hypertension with goal blood pressure less than 130/85 Mixed hyperlipidemia Expected: 11/08/2024, Expires: 02/07/2025 [facility] Comment on above: Expected: 11/08/2024, Expires: Start: 11-04-2024 Complete blood count [facility] Start: 11-04-2024 Fasting kidney panel [facility] Start: 11-04-2024 Parathyroid hormone measurement [facility] Start: 11-04-2024 Urine microalbumin/creatinine ratio measurement [facility] Start: 11-04-2024 Vitamin D, 25-hydroxy measurement [facility] Start: 10-29-2024 Giardia Antigen (MARCUS) Giardia Antigen (MARCUS) [facility] Start: 10-29-2024 Ova and Parasites Ova and Parasites [facility] Start: 10-29-2024 Procedure [facility] Start: 10-29-2024 Clostridioides difficile DNA [Presence] in Unspecified specimen by ELIZABETH with probe detection [facility] Start: 10-29-2024 Elastase.pancreatic [Presence] in Stool [facility] Start: 10-29-2024 Fat [Presence] in Stool [facility] Start: 10-29-2024 Lactoferrin [Presence] in Stool by Immunoassay [facility] Start: 10-29-2024 Measurement of occult blood in stool specimen using immunoassay [facility] Start: 10-29-2024 Nucleic acid assay [facility] Start: 10-29-2024 Protein measurement [facility] Start: 10-29-2024 [facility] Start: 10-24-2024 Aldolase [Enzymatic activity/volume] in Serum or Plasma [facility] Start: 10-24-2024 Copper [Moles/volume] in Serum or Plasma [facility] Start: 10-24-2024 Laboratory test [facility] Start: 10-24-2024 Serum immunofixation [facility] Start: 10-24-2024 [facility] Start: 10-02-2024 Glaucoma screening Dilated Retinal Exam [facility] Start: 09-09-2024 Influenza [facility] on above: [facility] Start: 07-04-2024 Covid-19 Vaccine ( season) Covid-19 Vaccine () [facility] Start: 05-23-2024 Annual PCP Team Chronic Disease Visit Annual PCP Team Chronic Disease Visit [facility] Start: 05-23-2024 BP Controlled (<130/80) BP Controlled (<130/80) [facility] Start: 05-23-2024 Diabetic foot examination Diabetic Foot Exam [facility] Start: 05-22-2024 End: 05-22-2024 Patient encounter procedure [facility] Comment on above: Medicare wellness Start: 05-19-2024 Hemoglobin A1c measurement HbA1C [facility] Start: 05-17-2024 Complete blood count Hemoglobin/Hematocrit [facility] Start: 05-17-2024 Creatinine measurement Serum Creatinine [facility] Start: 05-17-2024 Hepatitis B screening Urine Albumin:Creatinine Ratio [facility] Start: 05-17-2024 Hepatitis B surface antibody level LDL Cholesterol [facility] Start: 05-10-2024 End: 08-09-2024 CBC W Auto Differential panel - Blood COMPLETE BLOOD COUNT AND DIFFERENTIAL Lab Routine Controlled type 2 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 disease, without long-term current use of insulin (HCC) Stage 3a chronic kidney disease (HCC) Macrocytic anemia Other dietary vitamin B12 deficiency anemia Expected: 05/10/2024, Expires: 08/09/2024 [facility] Comment on above: Expected: 05/10/2024, Expires: Start: 05-10-2024 End: 08-09-2024 Cobalamin (Vitamin B12) [Mass/volume] in Serum or Plasma VITAMIN B12 Lab Routine Other dietary vitamin B12 deficiency anemia Expected: 05/10/2024, Expires: 08/09/2024 [facility] Comment on above: Expected: 05/10/2024, Expires: Start: 05-10-2024 End: 08-09-2024 Comprehensive metabolic 2000 panel - Serum or Plasma COMPREHENSIVE METABOLIC PANEL Lab Routine Controlled type 2 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 disease, without long-term current use of insulin (HCC) Diabetic peripheral neuropathy (HCC) Essential hypertension with goal blood pressure less than 130/85 Mixed hyperlipidemia Stage 3a chronic kidney disease (HCC) Expected: 05/10/2024, Expires: 08/09/2024 [facility] Comment on above: Expected: 05/10/2024, Expires: Start: 05-10-2024 End: 08-09-2024 Hemoglobin A1c in Blood HEMOGLOBIN A1C Lab Routine Controlled type 2 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 disease, without long-term current use of insulin (HCC) Diabetic peripheral neuropathy (HCC) Expected: 05/10/2024, Expires: 08/09/2024 [facility] Comment on above: Expected: 05/10/2024, Expires: Start: 05-10-2024 End: 08-09-2024 LIPID PANEL, NONFASTING LIPID PANEL, NONFASTING Lab Routine Controlled type 2 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 disease, without long-term current use of insulin (HCC) Diabetic peripheral neuropathy (HCC) Essential hypertension with goal blood pressure less than 130/85 Mixed hyperlipidemia Bilateral carotid artery stenosis Expected: 05/10/2024, Expires: 08/09/2024 [facility] Comment on above: Expected: 05/10/2024, Expires: Start: 05-10-2024 End: 08-09-2024 Microalbumin/Creatinine [Mass Ratio] in Urine ALBUMIN/CREATININE RATIO, URINE Lab Routine Controlled type 2 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 disease, without long-term current use of insulin (HCC) Diabetic peripheral neuropathy (HCC) Expected: 05/10/2024, Expires: 08/09/2024 [facility] Comment on above: Expected: 05/10/2024, Expires: Start: 05-10-2024 End: 08-09-2024 Prostate specific Ag [Mass/volume] in Serum or Plasma PROSTATE-SPECIFIC ANTIGEN DIAGNOSTIC Lab Routine Disorder of prostate Expected: 05/10/2024, Expires: 08/09/2024 [facility] Comment on above: Expected: 05/10/2024, Expires: Start: 05-10-2024 End: 08-09-2024 Thyrotropin [Units/volume] in Serum or Plasma THYROID STIMULATING HORMONE Lab Routine Hypothyroidism (acquired) Expected: 05/10/2024, Expires: 08/09/2024 [facility] Comment on above: Expected: 05/10/2024, Expires: Start: 05-10-2024 End: 08-09-2024 Urinalysis complete panel - Urine URINALYSIS, WITH MICROSCOPIC Lab Routine Controlled type 2 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 disease, without long-term current use of insulin (HCC) Diabetic peripheral neuropathy (HCC) Essential hypertension with goal blood pressure less than 130/85 Mixed hyperlipidemia Stage 3a chronic kidney disease (HCC) Expected: 05/10/2024, Expires: 08/09/2024 [facility] Comment on above: Expected: 05/10/2024, Expires: Start: 05-02-2024 BP Controlled (<130/80) BP Controlled (<130/80) [facility] Start: 04-12-2024 Shingrix Vaccine (3 of 3) Shingrix Vaccine (3 of 3) [facility] Start: 03-16-2024 Annual PCP Team Chronic Disease Visit Annual PCP Team Chronic Disease Visit [facility] Start: 03-13-2024 Advance Directive Discussion Advance Directive Discussion [facility] Start: 01-19-2024 BP Controlled (<130/80) BP Controlled (<130/80) [facility] Start: 01-17-2024 Complete blood count Hemoglobin/Hematocrit [facility] Start: 01-17-2024 Hemoglobin/Hematocrit Hemoglobin/Hematocrit [facility] Start: 12-08-2023 End: 2024 Urate [Mass/volume] in Serum or Plasma [facility] Comment on above: Expected: 12/08/2023, Expires: Start: 12-08-2023 End: 12-08-2023 Patient encounter procedure 12/08/2023 1:40 PM EDT Office Visit [facility] [address] [place] [address] Wiliam Mandel MD [address] [place] [address] Left ankle pain / see mychart message [facility] Comment on above: Left ankle pain / see mychart message Start: 11-28-2023 End: 11-28-2023 ambulatory 11/28/2023 1:15 PM EDT Procedure PULM LAB [facility] [address] [place] [address] Wstr, Pulm Lab [facility] [address] [place] [address] Obstructive chronic bronchitis with exacerbation (HCC) [J44.1]; KEY (dyspnea on exertion) [R06.09] [facility] Comment on above: Obstructive chronic bronchitis with exac erbation (HCC) [J44.1]; KEY (dyspnea on exertion) [R06.09] Start: 11-23-2023 Annual PCP Team Chronic Disease Visit Annual PCP Team Chronic Disease Visit [facility] Start: 11-23-2023 BP Controlled (<130/80) BP Controlled (<130/80) [facility] Start: 11-23-2023 Covid-19 Vaccine (6 - Moderna series) Covid-19 Vaccine (6 - Moderna series) [facility] Comment on above: Postponed from 04/22/2022 (Not Currently Available) Start: 11-22-2023 Depression Screening Depression Screening [facility] Comment on above: Postponed from 1964 (Declined at t his time) Start: 11-22-2023 End: 11-22-2023 Patient encounter procedure 11/22/2023 1:40 PM EDT Office Visit [facility] [address] [place] [address] Wiliam Mandel MD [address] [place] [place] [id number] 6 month follow up [facility] Comment on above: 6 month follow up Start: 11-20-2023 End: 11-20-2023 ambulatory [place] [facility] Comment on above: CBC/Iron/B12/Serum folate/Copper 6 MO / CBC/Iron/B12/ Serum folate/Copper * Start: 11-18-2023 Hemoglobin A1c measurement HbA1C [facility] Start: 11-17-2023 Creatinine measurement Serum Creatinine [facility] Start: 11-17-2023 Hepatitis B screening Urine Albumin:Creatinine Ratio [facility] Start: 11-17-2023 Hepatitis B surface antibody level LDL Cholesterol [facility] Start: 11-17-2023 Serum Creatinine Serum Creatinine [facility] Start: 11-12-2023 Covid-19 Vaccine ( season) Covid-19 Vaccine ( season) [facility] Start: 11-12-2023 Influenza vaccination [facility] Start: 11-10-2023 End: 02-09-2024 Basic metabolic 2000 panel - Serum or Plasma BASIC METABOLIC PNL Lab Routine Controlled type 2 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 disease, without long-term current use of insulin (HCC) Essential hypertension with goal blood pressure less than 130/85 Mixed hyperlipidemia Stage 3a chronic kidney disease (HCC) Expected: 11/10/2023, Expires: 02/09/2024 [facility] Work Phone: Comment on above: Expected: 11/10/2023, Expires: Start: 11-10-2023 End: 02-09-2024 Hemoglobin A1c in Blood HGB A1C Lab Routine Controlled type 2 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 disease, without long-term current use of insulin (HCC) Essential hypertension with goal blood pressure less than 130/85 Mixed hyperlipidemia Expected: 11/10/2023, Expires: 02/09/2024 [facility] Work Phone: Comment on above: Expected: 11/10/2023, Expires: 4 Start: 11-10-2023 End: 02-09-2024 LIPID PANEL, NONFASTING LIPID PANEL, NONFASTING Lab Routine Controlled type 2 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 disease, without long-term current use of insulin (HCC) Essential hypertension with goal blood pressure less than 130/85 Mixed hyperlipidemia Expected: 11/10/2023, Expires: 02/09/2024 [facility] Work Phone: Comment on above: Expected: 11/10/2023, Expires: 4 Start: 11-10-2023 End: 02-09-2024 Thyrotropin [Units/volume] in Serum or Plasma TSH BLD Lab Routine Hypothyroidism (acquired) Expected: 11/10/2023, Expires: 02/09/2024 [facility] Work Phone: Comment on above: Expected: 11/10/2023, Expires: Start: 09-24-2023 Glaucoma screening Dilated Retinal Exam [facility] Start: 09-24-2023 Hepatitis C antibody, confirmatory test DILATED RETINAL EXAM [facility] Start: 09-22-2023 HEMOGLOBIN/HEMATOCRIT HEMOGLOBIN/HEMATOCRIT [facility] Start: 07-28-2023 HEMOGLOBIN/HEMATOCRIT HEMOGLOBIN/HEMATOCRIT [facility] Start: 07-28-2023 SERUM CREATININE SERUM CREATININE [facility] Start: 06-30-2023 HEMOGLOBIN/HEMATOCRIT HEMOGLOBIN/HEMATOCRIT [facility] Start: 06-30-2023 SERUM CREATININE SERUM CREATININE [facility] Start: 05-26-2023 3 comp foot exam completed DIABETIC FOOT EXAM [facility] Start: 05-26-2023 ANNUAL PCP TEAM CHRONIC DISEASE VISIT ANNUAL PCP TEAM CHRONIC DISEASE VISIT [facility] Start: 05-26-2023 BP CONTROLLED (<130/80) BP CONTROLLED (<130/80) [facility] Start: 05-26-2023 Diabetic foot examination Diabetic Foot Exam [facility] Start: 05-26-2023 SHINGRIX VACCINE (2 of 3) SHINGRIX VACCINE (2 of 3) [facility] Comment on above: Postponed from 11/16/2011 (Insurance Cov erage) Start: 05-19-2023 HEMOGLOBIN/HEMATOCRIT HEMOGLOBIN/HEMATOCRIT [facility] Start: 05-19-2023 Hepatitis B screening URINE ALBUMIN:CREATININE RATIO [facility] Start: 05-19-2023 Hepatitis B surface antibody level LDL CHOLESTEROL [facility] Start: 05-19-2023 SERUM CREATININE SERUM CREATININE [facility] Start: 05-18-2023 End: 08-17-2023 Basic metabolic 2000 panel - Serum or Plasma BASIC METABOLIC PNL Lab STAT Anemia due to stage 3b chronic kidney disease (HCC) (HCC) Platelets decreased (HCC) Expected: 05/18/2023, Expires: 08/17/2023 [facility] Work Phone: Comment on above: Expected: 05/18/2023, Expires: Start: 05-18-2023 End: 08-17-2023 CBC W Auto Differential panel - Blood CBC + DIFF Lab STAT Anemia due to stage 3b chronic kidney disease (HCC) (HCC) Platelets decreased (HCC) Expected: 05/18/2023, Expires: 08/17/2023 [facility] Work Phone: Comment on above: Expected: 05/18/2023, Expires: 4 Start: 05-18-2023 End: 08-17-2023 Ferritin [Mass/volume] in Serum or Plasma FERRITIN BLD Lab Routine Anemia due to stage 3b chronic kidney disease (HCC) (HCC) Platelets decreased (HCC) Expected: 05/18/2023, Expires: 08/17/2023 [facility] Work Phone: Comment on above: Expected: 05/18/2023, Expires: 4 Start: 05-18-2023 End: 08-17-2023 Iron and Iron binding capacity panel - Serum or Plasma IRON + TIBC Lab Routine Anemia due to stage 3b chronic kidney disease (HCC) (HCC) Platelets decreased (HCC) Expected: 05/18/2023, Expires: 08/17/2023 [facility] Work Phone: Comment on above: Expected: 05/18/2023, Expires: Start: 05-17-2023 Hemoglobin A1c measurement HbA1C [facility] Start: 05-17-2023 Hemoglobin A1c/Hemoglobin.total in Blood HbA1C [facility] Start: 05-12-2023 End: 07-12-2023 ALBUMIN/CREAT RATIO RND UR ALBUMIN/CREAT RATIO RND UR Lab Routine Controlled type 2 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 disease, without long-term current use of insulin (HCC) Diabetic peripheral neuropathy (HCC) Expected: 05/12/2023, Expires: 07/12/2023 [facility] Work Phone: Comment on above: Expected: 05/12/2023, Expires: Start: 05-12-2023 End: 07-12-2023 CBC W Auto Differential panel - Blood CBC + DIFF Lab Routine Controlled type 2 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 disease, without long-term current use of insulin (HCC) Diabetic peripheral neuropathy (HCC) Stage 3a chronic kidney disease (HCC) Macrocytic anemia Expected: 05/12/2023, Expires: 07/12/2023 [facility] Work Phone: Comment on above: Expected: 05/12/2023, Expires: Start: 05-12-2023 End: 07-12-2023 Cobalamin (Vitamin B12) [Mass/volume] in Serum or Plasma VITAMIN B12 BLOOD Lab Routine Other dietary vitamin B12 deficiency anemia Expected: 05/12/2023, Expires: 07/12/2023 [facility] Work Phone: Comment on above: Expected: 05/12/2023, Expires: Start: 05-12-2023 End: 07-12-2023 Comprehensive metabolic 2000 panel - Serum or Plasma COMP METABOLIC PANEL Lab Routine Controlled type 2 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 disease, without long-term current use of insulin (HCC) Diabetic peripheral neuropathy (HCC) Essential hypertension with goal blood pressure less than 130/85 Mixed hyperlipidemia Stage 3a chronic kidney disease (HCC) Expected: 05/12/2023, Expires: 07/12/2023 [facility] Work Phone: Comment on above: Expected: 05/12/2023, Expires: Start: 05-12-2023 End: 07-12-2023 Hemoglobin A1c in Blood HGB A1C Lab Routine Controlled type 2 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 disease, without long-term current use of insulin (HCC) Diabetic peripheral neuropathy (HCC) Expected: 05/12/2023, Expires: 07/12/2023 [facility] Work Phone: Comment on above: Expected: 05/12/2023, Expires: Start: 05-12-2023 End: 07-12-2023 LIPID PANEL, NONFASTING LIPID PANEL, NONFASTING Lab Routine Controlled type 2 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 disease, without long-term current use of insulin (HCC) Diabetic peripheral neuropathy (HCC) Essential hypertension with goal blood pressure less than 130/85 Mixed hyperlipidemia Expected: 05/12/2023, Expires: 07/12/2023 [facility] Work Phone: Comment on above: Expected: 05/12/2023, Expires: Start: 05-12-2023 End: 07-12-2023 Prostate specific Ag [Mass/volume] in Serum or Plasma PSA/PROSTSPECAG DIAG Lab Routine Disorder of prostate Expected: 05/12/2023, Expires: 07/12/2023 [facility] Work Phone: Comment on above: Expected: 05/12/2023, Expires: 4 Start: 05-12-2023 End: 07-12-2023 Thyrotropin [Units/volume] in Serum or Plasma TSH BLD Lab Routine Hypothyroidism (acquired) Expected: 05/12/2023, Expires: 07/12/2023 [facility] Work Phone: Comment on above: Expected: 05/12/2023, Expires: 4 Start: 05-12-2023 End: 07-12-2023 Urinalysis complete panel - Urine URINALYSIS, WITH MICROSCOPIC Lab Routine Controlled type 2 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 disease, without long-term current use of insulin (HCC) Diabetic peripheral neuropathy (HCC) Essential hypertension with goal blood pressure less than 130/85 Mixed hyperlipidemia Expected: 05/12/2023, Expires: 07/12/2023 [facility] Work Phone: Comment on above: Expected: 05/12/2023, Expires: Start: 05-11-2023 Covid-19 Vaccine () Covid-19 Vaccine () [facility] Start: 03-31-2023 Hepatitis C antibody, confirmatory test DILATED RETINAL EXAM [facility] Start: 03-13-2023 Advance Directive Discussion Advance Directive Discussion [facility] Start: 03-13-2023 Behavioral Health Screening Behavioral Health Screening [facility] Start: 03-13-2023 Depression Assessment Depression Assessment [facility] Start: 01-16-2023 End: 04-17-2023 CBC W Auto Differential panel - Blood CBC + DIFF Lab STAT Macrocytic anemia Stage 3a chronic kidney disease (HCC) Anemia due to stage 3a chronic kidney disease (HCC) Expected: 01/16/2023, Expires: 04/17/2023 [facility] Work Phone: Comment on above: Expected: 01/16/2023, Expires: 4 Start: 01-16-2023 End: 04-17-2023 Ferritin [Mass/volume] in Serum or Plasma FERRITIN BLD Lab Routine Macrocytic anemia Stage 3a chronic kidney disease (HCC) Anemia due to stage 3a chronic kidney disease (HCC) Expected: 01/16/2023, Expires: 04/17/2023 [facility] Work Phone: Comment on above: Expected: 01/16/2023, Expires: 4 Start: 01-16-2023 End: 04-17-2023 Iron and Iron binding capacity panel - Serum or Plasma IRON + TIBC Lab Routine Macrocytic anemia Stage 3a chronic kidney disease (HCC) Anemia due to stage 3a chronic kidney disease (HCC) Expected: 01/16/2023, Expires: 04/17/2023 [facility] Work Phone: Comment on above: Expected: 01/16/2023, Expires: 4 Start: 11-18-2022 Hemoglobin A1c/Hemoglobin.total in Blood HBA1C [facility] Start: 11-11-2022 End: 01-11-2023 ALBUMIN/CREAT RATIO RND UR ALBUMIN/CREAT RATIO RND UR Lab Routine Controlled type 2 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 disease, without long-term current use of insulin (HCC) Diabetic peripheral neuropathy (HCC) Expected: 11/11/2022, Expires: 01/11/2023 [facility] Work Phone: Comment on above: Expected: 11/11/2022, Expires: 3 Start: 11-11-2022 ANNUAL PCP TEAM CHRONIC DISEASE VISIT ANNUAL PCP TEAM CHRONIC DISEASE VISIT [facility] Start: 11-11-2022 End: 01-11-2023 Basic metabolic 2000 panel - Serum or Plasma BASIC METABOLIC PNL Lab Routine Controlled type 2 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 disease, without long-term current use of insulin (HCC) Diabetic peripheral neuropathy (HCC) Essential hypertension with goal blood pressure less than 130/85 Stage 3a chronic kidney disease (HCC) Expected: 11/11/2022, Expires: 01/11/2023 [facility] Work Phone: Comment on above: Expected: 11/11/2022, Expires: 3 Start: 11-11-2022 BP CONTROLLED (<130/80) BP CONTROLLED (<130/80) [facility] Start: 11-11-2022 End: 01-11-2023 Hemoglobin A1c in Blood HGB A1C Lab Routine Controlled type 2 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 disease, without long-term current use of insulin (HCC) Diabetic peripheral neuropathy (HCC) Expected: 11/11/2022, Expires: 01/11/2023 [facility] Work Phone: Comment on above: Expected: 11/11/2022, Expires: 3 Start: 11-11-[address] [facility] Start: 11-11-2022 End: 01-11-2023 LIPID PANEL, NONFASTING LIPID PANEL, NONFASTING Lab Routine Controlled type 2 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 disease, without long-term current use of insulin (HCC) Diabetic peripheral neuropathy (HCC) Essential hypertension with goal blood pressure less than 130/85 Mixed hyperlipidemia Expected: 11/11/2022, Expires: 01/11/2023 [facility] Work Phone: Comment on above: Expected: 11/11/2022, Expires: 3 Start: 11-11-2022 End: 01-11-2023 Thyrotropin [Units/volume] in Serum or Plasma TSH BLD Lab Routine Hypothyroidism (acquired) Expected: 11/11/2022, Expires: 01/11/2023 [facility] Work Phone: Comment on above: Expected: 11/11/2022, Expires: 3 Start: 11-03-2022 ANNUAL PCP TEAM CHRONIC DISEASE VISIT ANNUAL PCP TEAM CHRONIC DISEASE VISIT [facility] Start: 10-26-2022 Hepatitis B surface antibody level LDL CHOLESTEROL [facility] Start: 10-26-2022 SERUM CREATININE SERUM CREATININE [facility] Start: 09-21-2022 End: 11-21-2022 CBC W Auto Differential panel - Blood CBC + DIFF Lab STAT Macrocytic anemia Anemia due to stage 3a chronic kidney disease (HCC) Stage 3a chronic kidney disease (HCC) Expected: 09/21/2022, Expires: 11/21/2022 [facility] Work Phone: Comment on above: Expected: 09/21/2022, Expires: 3 Start: 09-21-2022 End: 11-21-2022 Ferritin [Mass/volume] in Serum or Plasma FERRITIN BLD Lab Routine Macrocytic anemia Anemia due to stage 3a chronic kidney disease (HCC) Stage 3a chronic kidney disease (HCC) Expected: 09/21/2022, Expires: 11/21/2022 [facility] Work Phone: Comment on above: Expected: 09/21/2022, Expires: 3 Start: 09-21-2022 End: 11-21-2022 Iron and Iron binding capacity panel - Serum or Plasma IRON + TIBC Lab Routine Macrocytic anemia Anemia due to stage 3a chronic kidney disease (HCC) Stage 3a chronic kidney disease (HCC) Expected: 09/21/2022, Expires: 11/21/2022 [facility] Work Phone: Comment on above: Expected: 09/21/2022, Expires: 3 Start: 09-21-2022 End: 11-21-2022 RETIC COUNT RETIC COUNT Lab Routine Macrocytic anemia Anemia due to stage 3a chronic kidney disease (HCC) Stage 3a chronic kidney disease (HCC) Expected: 09/21/2022, Expires: 11/21/2022 [facility] Work Phone: Comment on above: Expected: 09/21/2022, Expires: 3 Start: 08-18-2022 HEMOGLOBIN/HEMATOCRIT HEMOGLOBIN/HEMATOCRIT [facility] Start: 08-05-2022 HEMOGLOBIN/HEMATOCRIT HEMOGLOBIN/HEMATOCRIT [facility] Start: 07-27-2022 End: 09-26-2022 Basic metabolic 2000 panel - Serum or Plasma BASIC METABOLIC PNL Lab Routine Macrocytic anemia Expected: 07/27/2022, Expires: 09/26/2022 [facility] Work Phone: Comment on above: Expected: 07/27/2022, Expires: 3 Start: 07-27-2022 End: 09-26-2022 CBC W Auto Differential panel - Blood CBC + DIFF Lab STAT Macrocytic anemia Expected: 07/27/2022, Expires: 09/26/2022 [facility] Work Phone: Comment on above: Expected: 07/27/2022, Expires: 3 Start: 07-27-2022 End: 09-26-2022 Ferritin [Mass/volume] in Serum or Plasma FERRITIN BLD Lab Routine Macrocytic anemia Expected: 07/27/2022, Expires: 09/26/2022 [facility] Work Phone: Comment on above: Expected: 07/27/2022, Expires: 3 Start: 07-27-2022 End: 09-26-2022 Iron and Iron binding capacity panel - Serum or Plasma IRON + TIBC Lab Routine Macrocytic anemia Expected: 07/27/2022, Expires: 09/26/2022 [facility] Work Phone: Comment on above: Expected: 07/27/2022, Expires: 3 Start: 07-27-2022 End: 09-26-2022 RETIC COUNT RETIC COUNT Lab Routine Macrocytic anemia Expected: 07/27/2022, Expires: 09/26/2022 [facility] Work Phone: Comment on above: Expected: 07/27/2022, Expires: 3 Start: 04-29-2022 End: 06-29-2022 ALBUMIN/CREAT RATIO RND UR ALBUMIN/CREAT RATIO RND UR Lab Routine Controlled type 2 diabetes mellitus with diabetic nephropathy, without long-term current use of insulin (HCC) Diabetic peripheral neuropathy (HCC) Albuminuria Expected: 04/29/2022, Expires: 06/29/2022 [facility] Work Phone: Comment on above: Expected: 04/29/2022, Expires: 3 Start: 04-29-2022 End: 06-29-2022 CBC W Auto Differential panel - Blood CBC + DIFF Lab Routine Controlled type 2 diabetes mellitus with diabetic nephropathy, without long-term current use of insulin (HCC) Diabetic peripheral neuropathy (HCC) Stage 3a chronic kidney disease (HCC) Other dietary vitamin B12 deficiency anemia Expected: 04/29/2022, Expires: 06/29/2022 [facility] Work Phone: Comment on above: Expected: 04/29/2022, Expires: 3 Start: 04-29-2022 End: 06-29-2022 Cobalamin (Vitamin B12) [Mass/volume] in Serum or Plasma VITAMIN B12 BLOOD Lab Routine Other dietary vitamin B12 deficiency anemia Expected: 04/29/2022, Expires: 06/29/2022 [facility] Work Phone: Comment on above: Expected: 04/29/2022, Expires: 3 Start: 04-29-2022 End: 06-29-2022 Comprehensive metabolic 2000 panel - Serum or Plasma COMP METABOLIC PANEL Lab Routine Controlled type 2 diabetes mellitus with diabetic nephropathy, without long-term current use of insulin (HCC) Diabetic peripheral neuropathy (HCC) Essential hypertension with goal blood pressure less than 130/85 Mixed hyperlipidemia Stage 3a chronic kidney disease (HCC) Expected: 04/29/2022, Expires: 06/29/2022 [facility] Work Phone: Comment on above: Expected: 04/29/2022, Expires: 3 Start: 04-29-2022 End: 06-29-2022 Hemoglobin A1c in Blood HGB A1C Lab Routine Controlled type 2 diabetes mellitus with diabetic nephropathy, without long-term current use of insulin (HCC) Diabetic peripheral neuropathy (HCC) Expected: 04/29/2022, Expires: 06/29/2022 [facility] Work Phone: Comment on above: Expected: 04/29/2022, Expires: 3 Start: 04-29-2022 End: 06-29-2022 LIPID PANEL, NONFASTING LIPID PANEL, NONFASTING Lab Routine Controlled type 2 diabetes mellitus with diabetic nephropathy, without long-term current use of insulin (HCC) Diabetic peripheral neuropathy (HCC) Essential hypertension with goal blood pressure less than 130/85 Mixed hyperlipidemia Bilateral carotid artery stenosis Expected: 04/29/2022, Expires: 06/29/2022 [facility] Work Phone: Comment on above: Expected: 04/29/2022, Expires: 3 Start: 04-29-2022 End: 06-29-2022 Prostate specific Ag [Mass/volume] in Serum or Plasma PSA/PROSTSPECAG DIAG Lab Routine Prostate disorder Expected: 04/29/2022, Expires: 06/29/2022 [facility] Work Phone: Comment on above: Expected: 04/29/2022, Expires: 3 Start: 04-29-2022 End: 06-29-2022 Thyrotropin [Units/volume] in Serum or Plasma TSH BLD Lab Routine Hypothyroidism (acquired) Expected: 04/29/2022, Expires: 06/29/2022 [facility] Work Phone: Comment on above: Expected: 04/29/2022, Expires: 3 Start: 04-29-2022 End: 06-29-2022 Urinalysis complete panel - Urine URINALYSIS, WITH MICROSCOPIC Lab Routine Controlled type 2 diabetes mellitus with diabetic nephropathy, without long-term current use of insulin (HCC) Diabetic peripheral neuropathy (HCC) Essential hypertension with goal blood pressure less than 130/85 Mixed hyperlipidemia Other proteinuria Expected: 04/29/2022, Expires: 06/29/2022 [facility] Work Phone: Comment on above: Expected: 04/29/2022, Expires: 3 Start: 04-28-2022 Hemoglobin A1c/Hemoglobin.total in Blood HBA1C [facility] Start: 04-22-2022 COVID-19 VACCINE (6 - Moderna series) COVID-19 VACCINE (6 - Moderna series) [facility] Start: 04-12-2022 BP CONTROLLED (<130/80) BP CONTROLLED (<130/80) [facility] in Start: 03-24-2022 3 comp foot exam completed DIABETIC FOOT EXAM [facility] kris Start: 03-24-2022 ANNUAL PCP TEAM CHRONIC DISEASE VISIT ANNUAL PCP TEAM CHRONIC DISEASE VISIT [facility] Start: 03-24-2022 SHINGRIX VACCINE (2 of 3) SHINGRIX VACCINE (2 of 3) [facility] Comment on above: Postponed from 11/16/2011 (Insurance Cov erage) Start: 03-18-2022 HEMOGLOBIN/HEMATOCRIT HEMOGLOBIN/HEMATOCRIT [facility] Start: 03-18-2022 Hepatitis B screening URINE ALBUMIN:CREATININE RATIO [facility] Start: 03-18-2022 Hepatitis B surface antibody level LDL CHOLESTEROL [facility] Start: 03-18-2022 SERUM CREATININE SERUM CREATININE [facility] Start: 03-13-2022 ADVANCE DIRECTIVE DISCUSSION ADVANCE DIRECTIVE DISCUSSION [facility] Start: 03-13-2022 DEPRESSION ASSESSMENT DEPRESSION ASSESSMENT [facility] Start: 12-20-[address] [facility] Start: 12-20-2021 COLORECTAL CANCER SCREENING COLORECTAL CANCER SCREENING [facility] Start: 11-11-2021 Influenza vaccination INFLUENZA (#1) [facility] Start: 09-16-2021 BP CONTROLLED (<130/80) BP CONTROLLED (<130/80) [facility] in Start: 07-06-2022 Hemoglobin A1c/Hemoglobin.total in Blood HBA1C [facility] Start: 08-26-2021 Hepatitis C antibody, confirmatory test DILATED RETINAL EXAM [facility] Start: 08-18-2021 End: 10-18-2021 CBC W Auto Differential panel - Blood CBC + DIFF Lab STAT Monoclonal gammopathy Macrocytic anemia Expected: 08/18/2021, Expires: 10/18/2021 [facility] Work Phone: Comment on above: Expected: 08/18/2021, Expires: 2 Start: 08-06-2021 End: 10-06-2021 Methylmalonate [Moles/volume] in Serum or Plasma [facility] Work Phone: Comment on above: Expected: 08/06/2021, Expires: 2 Start: 08-05-2021 End: 10-05-2021 CBC W Auto Differential panel - Blood CBC + DIFF Lab STAT Macrocytic anemia Expected: 08/05/2021, Expires: 10/05/2021 [facility] Work Phone: Comment on above: Expected: 08/05/2021, Expires: 2 Start: 08-05-2021 End: 10-05-2021 COPPER BLOOD COPPER BLOOD Lab Routine Macrocytic anemia Expected: 08/05/2021, Expires: 10/05/2021 [facility] Work Phone: Comment on above: Expected: 08/05/2021, Expires: 2 Start: 08-05-2021 End: 10-05-2021 RBC FOLATE RBC FOLATE Lab Routine Macrocytic anemia Expected: 08/05/2021, Expires: 10/05/2021 [facility] Work Phone: Comment on above: Expected: 08/05/2021, Expires: 2 Start: 08-05-2021 End: 10-05-2021 Thyrotropin [Units/volume] in Serum or Plasma TSH BLD Lab Routine Macrocytic anemia Expected: 08/05/2021, Expires: 10/05/2021 [facility] Work Phone: Comment on above: Expected: 08/05/2021, Expires: 2 Start: 08-05-2021 End: 10-05-2021 VITAMIN B12 BLOOD VITAMIN B12 BLOOD Lab Routine Macrocytic anemia Expected: 08/05/2021, Expires: 10/05/2021 [facility] Work Phone: Comment on above: Expected: 08/05/2021, Expires: 2 Start: 03-13-2021 ADVANCE DIRECTIVE DISCUSSION ADVANCE DIRECTIVE DISCUSSION [facility] Start: 03-13-2021 DEPRESSION ASSESSMENT DEPRESSION ASSESSMENT [facility] Start: 08-25-2016 FECAL OCCULT BLOOD FECAL OCCULT BLOOD [facility] Start: 11-16-2011 SHINGRIX VACCINE (2 of 3) SHINGRIX VACCINE (2 of 3) [facility] Start: 2006 Hepatitis B Vaccine (1 of 3 - Risk 3-dose series) Hepatitis B Vaccine (1 of 3 - Risk 3-dose series) [facility] Start: 2006 RSV Vaccine (1 - 1-dose 60+ series) RSV Vaccine (1 - 1-dose 60+ series) [facility] Start: 1991 COLOGUARD (FIT-DNA) COLOGUARD (FIT-DNA) [facility] Start: [address] [facility] Start: [address] [facility] Start: 1964 Anxiety Screening Anxiety Screening [facility] Start: 1964 Depression Screening Depression Screening [facility] Albumin [Mass/volume ] in Serum or Plasma [facility] Albumin [Moles/volum e] in Serum or Plasma [facility] Albumin/Globulin ratio [facility] Anion gap in Serum o r Plasma [facility] BUN/Creatinine ratio [facility] C reactive protein [Mass/volume] in Serum or Plasma [facility] Calcium [Mass/volume ] in Serum or Plasma [facility] Carbon dioxide, tota l [Moles/volume] in Central venous blood [facility] CBC W Auto Different ial panel - Blood [facility] Chitobioside IgA Ab [Units/volume] in Serum or Plasma by Immunoassay [facility] Clostridioides diffi cile DNA [Presence] in Unspecified specimen by ELIZABETH with probe detection [facility] Clostridioides diffi cile toxin genes [Presence] in Stool by ELIZABETH with probe detection C. DIFFICILE PCR Lab Routine Diarrhea, unspecified type Ordered: 05/24/2023 [facility] Work Phone: Comment on above: Ordered: 05/24/2023 Creatine kinase [Enz ymatic activity/volume] in Serum or Plasma [facility] Creatinine [Mass/vol ume] in Serum or Plasma [facility] Creatinine [Mass/vol ume] in Urine collected for unspecified duration [facility] Elastase.pancreatic [Presence] in Stool [facility] Elastase.pancreatic [Presence] in Stool [facility] Electrophoresis: [id number] [facility] Electrophoresis: lamont ma globulin [facility] Erythrocyte mean corpuscular volume determination [facility] Erythrocyte sediment ation rate [facility] Fat [Mass/mass] in Stool [facility] Fat [Presence] in Stool [facility] Fat.neutral [Presenc e] in Stool [facility] Ferritin [Mass/volum e] in Serum or Plasma [facility] Giardia lamblia anti gen assay [facility] Gliadin peptide IgA Ab [Units/volume] in Serum [facility] Gliadin peptide IgG Ab [Units/volume] in Serum [facility] Globulin measurement [facility] Glucose [Mass/volume ] in Serum or Plasma [facility] Hematocrit [Volume Fraction] of Blood [facility] Hemoglobin [Mass/vol ume] in Blood [facility] IgA [Mass/volume] in Serum or Plasma [facility] IgG [Mass/volume] in Serum or Plasma [facility] IgM [Mass/volume] in Serum or Plasma [facility] Iron [Mass/mass] in Unspecified specimen [facility] Laboratory data interpretation [facility] Lactate dehydrogenas e measurement [facility] Lactoferrin [Presenc e] in Stool by Immunoassay [facility] Laminaribioside IgG Ab [Units/volume] in Serum or Plasma by Immunoassay [facility] Leukocytes [#/volume ] in Blood [facility] Liver stiffness by US.transient elastography [facility] Mannobioside IgG Ab [Units/volume] in Serum or Plasma by Immunoassay [facility] Mean corpuscular hem oglobin concentration determination [facility] Mean corpuscular hem oglobin determination [facility] Measurement of funga l antibody [facility] Measurement of immunoglobulin A in serum specimen [facility] Measurement of occul t blood in stool specimen using immunoassay [facility] Measurement of renal function [facility] Microalbumin [Mass/v olume] in Urine [facility] Neutrophil cytoplasm ic Ab.classic [Units/volume] in Serum [facility] Neutrophil cytoplasm ic Ab.perinuclear.atypical [Titer] in Serum by Immunofluorescence [facility] Nucleic acid assay [facility] Ova OR parasites identification [facility] P-ANCA measurement [facility] Platelets [#/volume] in Blood [facility] Potassium measurement [facility] Protein electrophore sis panel - Serum or Plasma [facility] Protein measurement [facility] Protein measurement [facility] Red blood cell count [facility] Red cell distributio n width determination [facility] Removal impacted cer umen instrumentation unilat REMOVAL OF IMPACTED CERUMEN - INSTRUMENTATION Procedures Routine Impacted cerumen of left ear Ordered: 05/02/2023 [facility] Work Phone: Comment on above: Ordered: 05/02/2023 Serum chloride measurement [facility] Serum inorganic phos phate measurement [facility] Sodium measurement [facility] End: 12-21-2024 SPIROMETRY - BASELINE AND POST DILATOR SPIROMETRY - BASELINE AND POST DILATOR PFT Routine Obstructive chronic bronchitis with exacerbation (HCC) KEY (dyspnea on exertion) 1 Occurrences starting 11/22/2023 until 12/21/2024 [facility] Work Phone: Comment on above: 1 Occurrences starting 11/22/2023 until 12/21/2024 SPIROMETRY - BASELIN E AND POST DILATOR SPIROMETRY - BASELINE AND POST DILATOR PFT Routine Obstructive chronic bronchitis with exacerbation (HCC) KEY (dyspnea on exertion) 12/26/2023 1:32 PM EDT [facility] Work Phone: T4 free measurement [facility] Thyroid stimulating hormone measurement [facility] Tissue transglutamin ase IgA Ab [Units/volume] in Serum [facility] Triiodothyronine, fr ee measurement [facility] Urea nitrogen [Mass/ volume] in Serum or Plasma [facility] End: 11-11-2022 US CAROTID ARTERIES TERE VAS LAB US CAROTID ARTERIES TERE VAS LAB Vascular Lab Routine Bilateral carotid artery stenosis 1 Occurrences starting 11/11/2021 until 11/11/2022 [facility] Work Phone: Comment on above: 1 Occurrences starting 11/11/2021 until 11/11/2022 End: 11-23-2023 US CAROTID ARTERIES TERE VAS LAB US CAROTID ARTERIES TERE VAS LAB Vascular Lab Routine Bilateral carotid artery stenosis 1 Occurrences starting 11/22/2022 until 11/23/2023 [facility] Work Phone: Comment on above: 1 Occurrences starting 11/22/2022 until 11/23/2023 Vitamin B12 measurement [facility] End: 01-06-2025 XR Ankle - left AP and Lateral and oblique XR ANKLE GENERAL 3V AP/LAT/OBL LEFT Radiology Routine Acute left ankle pain 1 Occurrences starting 12/08/2023 until 01/06/2025 [facility] Work Phone: Comment on above: 1 Occurrences starting 12/08/2023 until 01/06/2025 XR Ankle - left AP a nd Lateral and oblique XR ANKLE GENERAL 3V AP/LAT/OBL LEFT Radiology Routine Acute left ankle pain 12/08/2023 2:36 PM EDT [facility] Immunizations Immunization Date Immunization Notes Care Provider Fa cili 05-14-2024 zoster vaccine recombinant Wiliam Mandel MD Work Phone: [facility] 02-16-2024 zoster vaccine recombinant Wiliam Mandel MD Work Phone: [facility] 01-04-2024 COVID-19 vaccine, ag e 12+ yr ([employer] [facility]) Wiliam Mandel MD Work Phone: [facility] 01-04-2024 Seasonal trivalent influenza vaccine, adjuvanted, preservative free Wiliam Mandel MD Work Phone: [facility] 01-04-2024 influenza virus vacc ine, unspecified formulation Margie Sexton MA [facility] 04-10-2023 respiratory syncytia l virus (RSV) vaccine, adjuvanted (AREXVY) Wiliam Mandel MD Work Phone: [facility] 04-10-2023 respiratory syncytia l virus (RSV) vaccine, bivalent (ABRYSVO) Jennifer Schafer APRN.CONGRESSIONAL DISTRICT AIDE Work Phone: [facility] 01-09-2023 COVID-19 vaccine, ag e 12+ yr, season (PFIZER-BIONTECH) Paul Arzola DO Work Phone: [facility] 01-09-2023 influenza (HD-IIV4) vaccine, age 65+ yr, high dose, quadrivalent, PF (FLUZONE HIGH-DOSE) Paul Arzola DO Work Phone: [facility] 01-09-2023 influenza virus vacc ine, unspecified formulation Alisa Schafer MA [facility] 01-07-2022 influenza, high dose seasonal, preservative-free Wiliam Mandel MD Work Phone: [facility] 01-07-2022 influenza virus vacc ine, unspecified formulation Wiliam Mandel MD Work Phone: [facility] 12-20-2021 COVID-19 booster vaccine, age 12+ yr, bivalent (PFIZER-BIONTECH) Wiliam Mandel MD Work Phone: [facility] 07-07-2021 COVID-19 vaccine, fu ll dose (MODERNA) Wiliam Mandel MD Work Phone: [facility] 03-24-2021 pneumococcal polysaccharide vaccine, 23 valent Wiliam Mandel MD Work Phone: [facility] 01-08-2021 COVID-19 vaccine, fu ll dose (MODERNA) Wiliam Mandel MD Work Phone: [facility] 10-03-2021 influenza, high dose seasonal, preservative-free Wiliam Mandel MD Work Phone: [facility] 06-03-2020 COVID-19 vaccine, fu ll dose (MODERNA) Wiliam Mandel MD Work Phone: [facility] 05-10-2020 COVID-19 vaccine, fu ll dose (MODERNA) Wiliam Mandel MD Work Phone: [facility] 12-16-2019 influenza, high dose seasonal, preservative-free Wiliam Mandel MD Work Phone: [facility] 12-09-2018 influenza, high dose seasonal, preservative-free Wiliam Mandel MD Work Phone: [facility] 03-31-2017 tetanus toxoid, redu cayla diphtheria toxoid, and acellular pertussis vaccine, adsorbed Wiliam Mandel MD Work Phone: [facility] 01-08-2017 influenza, high dose seasonal, preservative-free Wiliam Mandel MD Work Phone: [facility] 01-19-2016 influenza, injectabl e, quadrivalent, contains preservative Wiliam Mandel MD Work Phone: [facility] Work Phone: 04-07-2015 pneumococcal conjuga te vaccine, 13 valent Wiliam Mandel MD Work Phone: [facility] Work Phone: 12-01-2014 influenza, high dose seasonal, preservative-free Wiliam Mandel MD Work Phone: [facility] Work Phone: 12-25-2013 influenza, seasonal, injectable Wiliam Mandel MD Work Phone: [facility] Work Phone: 12-25-2013 pneumococcal polysaccharide vaccine, 23 valent Wiliam Mandel MD Work Phone: [facility] Work Phone: 01-30-2013 influenza virus vacc ine, unspecified formulation Wiliam Mandel MD Work Phone: [facility] 01-03-2012 influenza virus vacc ine, unspecified formulation Wiliam Mandel MD Work Phone: [facility] Work Phone: 09-21-2011 zoster vaccine, live Wiliam Mandel MD Work Phone: [facility] 12-06-2010 influenza virus vacc ine, unspecified formulation Wiliam Mandel MD Work Phone: [facility] 12-14-2009 influenza virus vacc ine, unspecified formulation Wiliam Mandel MD Work Phone: [facility] Work Phone: 01-13-2009 influenza virus vacc ine, unspecified formulation Wiliam Mandel MD Work Phone: [facility] 05-27-2008 pneumococcal polysaccharide vaccine, 23 valent Wiliam Mandel MD Work Phone: [facility] Work Phone: 01-15-2007 tetanus toxoid, redu cayla diphtheria toxoid, and acellular pertussis vaccine, adsorbed Wiliam Mandel MD Work Phone: [facility] Work Phone: 12-12-2003 pneumococcal polysaccharide vaccine, 23 valent Wiliam Mandel MD Work Phone: [facility] Work Phone: 03-13-1995 diphtheria and tetan us toxoids, adsorbed for pediatric use Wiliam Mandel MD Work Phone: [facility] Work Phone: Payers Date Payer Category Payer Self-pay [id number] 2011 Medicare MEDICARE MEDICAR E A AND B [id number] 2011-Present [phone] [place] [address] Medicare [id number] 2011 Medicare [id number] 2011 Medicare [id number] 2005 Private Health Insurance [employer] PPO [id number] 2005-Present [phone] [facility] [id number] [place] [address] PPO [id number] 2005 Private Health Insurance [id number] 2005 Private Health Insurance [id number] Unknown [id number] Unknown [id number] Unknown [id number] Unknown [id number] Unknown [id number] Unknown [id number] Unknown [id number] Unknown [id number] Unknown [id number] Unknown [id number] Unknown [id number] Social History Date Type Detail Facility Start: 07-04-2022 End: 11-26-2024 Tobacco smoking status NHIS Ex-smoker [facility] End: 03-13-1989 History of tobacco use Current smoker [facility] End: 03-13-1989 History of tobacco use Pipe Smoker [facility] Start: 04-12-2021 End: 11-26-2024 Alcohol intake Current drinker of alcohol (finding) [facility] Start: 08-27-2019 End: 08-29-2019 History SDOH Alcohol Frequency 1 [facility] Start: 08-27-2019 History SDOH Social Connections Phone 2 [facility] Start: 08-27-2019 History SDOH Social Connections Living 3 [facility] Start: 08-27-2019 History SDOH Physica l Activity DPW 4 [facility] Start: 08-27-2019 History SDOH Physica l Activity MPS 6 [facility] Start: 08-27-[address] [facility] Start: 05-22-2020 Tobacco Comment Pt smoked on & off x [address] [facility] Start: 1945 Sex Assigned At Not on file [facility] Start: 02-22-2021 End: 11-11-2021 Exposure to SARS-CoV-2 (event) Not sure [facility] Start: 08-18-2021 End: 05-25-2022 Tobacco smoking status NHIS Never smoked tobacco [facility] Start: 08-18-2021 End: 07-04-2022 Tobacco use and exposure Smokeless tobacco non-user [facility] Start: 08-27-2019 End: 03-28-2022 History of Social function [facility] Start: 08-27-2019 End: 03-28-2022 Social connection and isolation panel [facility] Do you belong to any clubs or organizations such as amish groups, unions, fraternal or athletic groups, or school groups? No [facility] Start: 02-12-2012 Attends Club or Organization Meetings Not on file [facility] Work Phone: Are you now , , , , never or living with a partner? [facility] How often to you hav e a drink containing alcohol? Never [facility] Work Phone: Do you feel stress - tense, restless, nervous, or anxious, or unable to sleep at night because your mind is troubled all the time - these days [OSQ] Only a little [facility] Start: 12-07-2021 End: 12-13-2022 Tobacco smoking status NHIS Unknown if ever smoked [facility] Start: 1945 Sex Assigned At Male [facility] How often to you hav e a drink containing alcohol? Monthly or less [facility] How many standard dr inks containing alcohol do you have on a typical day? [address] [facility] Medical Equipment Procedure Code Equipment Code Equipment Origin al Text Equipment Identifier Dates Test blood sugar(s) 1 time daily. Dx: E11.9. Insulin: No [id number] Start: 03-31-2017 Comment on above: Test blood sugar(s) 1 time daily. Dx: E11.9. Insulin: No Goals Date Patient Goal Desired Activity /State Functional Status Date Assessment Result Facility 05-22-2024 Total score [AUDIT-C] 1 05/23/19 25 12:50 PM Alisa Valera MA [facility] 07-23-2014 Are you deaf, or do you have serious difficulty hearing No 07/23/2014 10:[address] [facility] 07-23-2014 Are you blind, or do you have serious difficulty seeing, even when wearing glasses No 07/23/2014 10:[address] [facility] 07-23-2014 Do you have serious difficulty walking or climbing stairs No 07/23/2014 10:[address] [facility] 07-23-2014 Do you have difficul ty dressing or bathing No 07/23/2014 10:23 AM MOHSEN ALMEIDA [facility] 07-23-2014 Because of a physica l, mental, or emotional condition, do you have difficulty doing errands alone such as visiting a physician's office or shopping No 07/23/2014 10:23 AM MOHSEN ALMEIDA [facility] Mental Status Date Assessment Result Facility 11-28-2024 Cognitive function Voice/Name [facility] Work Phone: 07-23-2014 Because of a physica l, mental, or emotional condition, do you have serious difficulty concentrating, remembering, or making decisions No 07/23/2014 10:23 AM VIDA RUBIN MOHSEN [facility] Clinical Notes 03-24-2021 to 01-15-2025 Note Date & Type Note Facility 01-15-2025 Note HNO ID: [id number] Author: TARA BUSTILLO LPN Service: ? Author Type: Licensed Nurse Type: Progress Notes Filed: 01/15/2025 12:04 Note Text: Scan on 01/15/2025 11:24 AM by Provider, External, PA-C: Consultation - Ophthalmology [facility] 01-10-2025 Note HNO ID: [id number] Author: NIMA HOBBS APRN.CONGRESSIONAL DISTRICT AIDE Service: ? Author Type: Nurse Practitioner Type: Progress Notes Filed: 01/10/2025 15:23 Note Text: Chief Complaint Patient presents with: Follow Up HPI Meg Bryant is a 79 year old male who presents here today for Above Complaints. Patient presents for 4 week BP follow up. States that he still has intermittent dizziness that occurs for a few minutes at night while laying in bed. Denies dizziness throughout the day. Has been checking Bps at home running 130-140/60-70. Primarily has noticed an increase in Shortness of Breath but that has been increasing in the last 3 months. States that since last visit he has noticed swelling to bilateral legs with right leg swelling worse and going up to thigh while left is mostly foot/ankle. Pitting edea noted to bilateral legs with right larger than left. Patient denies any pain. Swelling worse at the end of the day. Does not take diuretics. Scheduled to see cardiology January 23. Past medical history, appointments, medications, allergies reviewed. Previous Medical History PAST MEDICAL HISTORY Diagnosis Date Advance directive discussed with patient 11/11/2021 Discussed 10/2021 AK (actinic keratosis) 10/23/2018 right frontal scalp treated with Cryo 10/23/2018 Albuminuria 03/26/2020 Anemia due to stage 3 chronic kidney disease (HCC) 07/28/2022 Arthritis Benign neoplasm of rectum and anal canal Benign non-nodular prostatic hyperplasia without lower urinary tract symptoms 08/19/2015 Bilateral carotid artery stenosis 10/24/2018 US 10/2018: 20-40% tere Calculus of gallbladder with chronic cholecystitis without obstruction 03/27/2021 CT 03/2021 Chronic diarrhea 11/11/2021 Class 1 obesity due to excess calories without serious comorbidity with body mass index (BMI) of 34.0 to 34.9 in adult 10/05/2017 Controlled type 2 diabetes mellitus with diabetic nephropathy, without long-term current use of insulin (HCC) 08/19/2015 Coronary artery disease Dermatitis 11/16/2018 thigh lesion removed 10/2018 Diabetic eye exam (HCC) 04/09/2015 Last done: 08/01/2018 No Retinopathy Diabetic peripheral neuropathy (HCC) 03/16/2011 Duodenal ulcer 11/28/2024 On EGD 11/[address] Allen Essential hypertension with goal blood pressure less than 130/85 08/19/2015 Gastroesophageal reflux disease without esophagitis 04/07/2015 Glaucoma Hypothyroidism (acquired) Idiopathic gout 12/11/2023 Idiopathic gout 12/11/2023 Left ankle: patient declined Allopurinol 12/11/2023 Iron malabsorption (HCC) 11/26/2024 Lichenoid dermatitis 11/16/2018 left chest, removed 10/2018 Living will on file 11/11/2021 DPA: Michelle () Macrocytic anemia 06/15/2020 Medicare annual wellness visit, subsequent 09/29/2016 last done: 02/27/2019 Metabolic dysfunction-associated steatohepatitis (MASH) 11/18/[address] Allen. Elestography showed mild to no fibrosis Mixed hyperlipidemia Moderate aortic stenosis 05/03/[address] Holder Obstructive chronic bronchitis with exacerbation ([facility]) 07/29/2008 Ocular histoplasmosis syndrome of left eye at 19yo, vision loss Other dietary vitamin B12 deficiency anemia 04/06/2017 Hg typically 11-11.5 Other proteinuria 03/26/2020 Personal history of colonic polyps Colon polyps Platelets decreased 01/18/2023 Psychosexual dysfunction, unspecified 01/28/2008 Renal stones 05/22/2024 Unspecified tinnitus 05/27/2008 Previous Surgical History PAST SURGICAL HISTORY Procedure Laterality Date 2D ECHO (EXEP) 01/13/2020 EF=60%, mild-mod , COLONOSCOPY AND POLYPECTOMY 12/30/2003 COLONOSCOPY FLX DX W/COLLJ SPEC WHEN PFRMD 04/05/2011 Colonoscopy repeat 5 yrs COLONOSCOPY FLX DX W/COLLJ SPEC WHEN PFRMD 12/20/2016 Colonoscopy EGD W/O [facility] SPEC VARICIES INJ N/A 11/28/2024 NUCLEAR STRESS LEXISCAN (CARD) 05/30/2018 negative REMV CATARACT EXTRACAP,INSERT LENS Right 10/30/2023 SKIN BIOPSY HX Family History FAMILY HISTORY Problem Relation Age of Onset Diabetes Mother Heart Mother IN Stroke Father Cancer Father lung Heart Sister Patient Allergies ALLERGIES Allergen Reactions Januvia [Sitaglipti* Myalgia Current Medications Current Outpatient Medications on File Prior to Visit Medication Sig pantoprazole DR (PROTONIX) 40 mg tablet Take 1 tablet by mouth every 12 hours. lisinopril (ZESTRIL) 5 mg tablet Take 1 tablet by mouth once daily. pioglitazone (ACTOS) 30 mg tablet Take 1 tablet by mouth once daily. dexAMETHasone (DECADRON) 0.5 mg/5 mL oral liquid Take 0.5 mg by mouth once daily. levothyroxine (SYNTHROID) 125 mcg tablet Take 1 tablet by mouth once daily. simvastatin (ZOCOR) 20 mg tablet Take 1 tablet by mouth once daily. folic acid 1 mg tablet Take 1 tablet by mouth once daily. cyanocobalamin (VITAMIN B-12) 1,000 mcg tab Take 1 tablet by mouth once daily. linaGLIPtin (TRADJENTA) 5 mg tab Take 1 tablet by mouth once d (more content not included)... [facility] 01-07-2025 Note HNO ID: [id number] Author: LUMA JUDGE MA Service: ? Author Type: Director Of Strategic Sales Type: Progress Notes Filed: 01/07/2025 15:16 Note Text: Scan on 01/07/2025 2:46 PM by Provider, External, PA-C: Dr. Robles [facility] 12-13-2024 Note HNO ID: [id number] Author: LUMA JUDGE MA Service: ? Author Type: Director Of Strategic Sales Type: Progress Notes Filed: 12/16/2024 09:57 Note Text: Nuclear Stress test order has been faxed to [facility] with all demographic paperwork with updated order from [employer]. Asked to contact pt to schedule. Urology consult faxed to Dr. Robles's office (referral updated in [facility]). Faxed too [phone]. Luma Judge MA [facility] 12-13-2024 Note HNO ID: [id number] Author: WILIAM MANDEL MD Service: ? Author Type: Physician Type: Progress Notes Filed: 12/13/2024 17:13 Note Text: Chief Complaint Patient presents with: F/U 6 Month HPI Meg Bryant is a 79 year old male who presents here today for a routine follow up. Patient with Hx of DM 2, neuropathy, hyperlipidemia, HTN, obesity, hypothyroidism, carotid stenosis, diabetic proteinuria, GERD, mod aortic Stenosis, COPD, macrocytic anemia as well as those reviewed and addressed below and in ROS. Follows with Nephrology. Due to an episode of lightheadedness Nephrology d/c his Lisinopril completely. Patient states he started taking it again because he knows his body. Currently taking 10 mg daily. Asking for Rx for 10 mg. states that shortness of breath is getting is worse. Was recently started on Protonix 40 mg bid. Meg reports progressively worsening dyspnea over the past 6-8 months, with a noticeable decline in stamina. He experiences dyspnea both at rest and with exertion, and notes a whistle sound occasionally when breathing. He denies any gurgling sounds, but does report chest heaviness, particularly after consuming peanut butter, which he has eaten his entire life. He denies any recent fevers, neck swelling, or palpitations, but does note a dry mouth and difficulty breathing after eating peanut butter-filled pretzels. He denies any lower extremity swelling, heartburn, headaches, seizures, tremors, or syncope. He does not experience dyspnea when lying flat and finds it easier to breathe when on his back. He does not wake up at night with dyspnea unless he has consumed peanut butter. He denies any symptoms of hypoglycemia. Meg also reports a non-healing lesion at the base of the penis, which bleeds occasionally, especially when straining during bowel movements. The lesion is not painful, itchy, or burning, but does leak fluid. He has been applying Neosporin without improvement. He denies any recent trauma or shaving in the area. Meg has a history of multiple kidney stones, with three episodes since his last visit. He describes the most recent episode as particularly painful. He denies any dysuria or hematuria. Meg has been experiencing constipation since discontinuing lisinopril on 11/13. He reports severe pain associated with constipation, stating it was more painful than his kidney stones. He denies any recent diarrhea. Meg has a history of a large gastric ulcer, which caused significant pain, particularly at night. He reports that eating bread and drinking water would alleviate the pain if he acted quickly. He denies any recent ulcer-related pain since starting medication. He is following with Gastro. Meg has been taking 2.5 mg of Tradjenta daily for several months, prior to his last visit. He is currently off metformin. He has a history of allergies to peanut butter, wheat, cow's milk, shrimp, scallops, and clams. He denies any recent eye exams, but has a cataract surgery scheduled for his left eye. 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 He denies any recent trips or vacations. Past medical history, appointments, medications, allergies reviewed. Previous Medical History PAST MEDICAL HISTORY Diagnosis Date Advance directive discussed with patient 11/11/2021 Discussed 10/2021 AK (actinic keratosis) 10/23/2018 right frontal scalp treated with Cryo 10/23/2018 Albuminuria 03/26/2020 Anemia due to stage 3 chronic kidney disease (HCC) 07/28/2022 Arthritis Benign neoplasm of rectum and anal canal Benign non-nodular prostatic hyperplasia without lower urinary tract symptoms 08/19/2015 Bilateral carotid artery stenosis 10/24/2018 10/2018: 20-40% tere Calculus of gallbladder with chronic cholecystitis without obstruction 03/27/2021 CT 03/2021 Chronic diarrhea 11/11/2021 Class 1 obesity due to excess calories without serious comorbidity with body mass index (BMI) of 34.0 to 34.9 in adult 10/05/2017 Controlled type 2 diabetes mellitus with diabetic nephropathy, without long-term current use of insulin ([facility]) 08/19/2015 Coronary artery disease Dermatitis 11/16/2018 thigh lesion removed 10/2018 Diabetic eye exam ([facility]) 04/09/2015 Last done: 08/01/2018 No Retinopathy Diabetic peripheral neuropathy (HCC) 03/16/2011 Duodenal ulcer 11/28/2024 On EGD 11/[address] Allen Essential hypertension with goal blood pressure less than 130/85 08/19/2015 Gastroesophageal reflux disease without esophagitis 04/07/2015 Glaucoma Hypothyroidism (acquired) Idiopathic gout 12/11/2023 Idiopathic gout 12/11/2023 Left ankle: patient declined Allopurinol 12/11/2023 Iron malabsorption (HCC) 11/26/2024 Lichenoid dermatitis 11/16/2018 left chest, removed 10/2018 Living will on file 11/11/2021 DPA: Michelle () Macrocytic anemia 06/15/2020 Medicare annual (more content not included)... [facility] 11-28-2024 Consult note Note Date/Time November 28, 2024 12:50pm [facility] Medical Records Department [address] [place] [address] Anesthesia Postop Eval II 11/28/24 1250 MR#: [id number] Acct: [id number] Name: MEG BRYANT Rep #:[id number] : 1945 79 From: Evelyn Malagon RNA PCP: Dr. Wiliam Mandel MD Status:REG [facility] Race: C Location: [place] [address] Anesthesia Postop Eval I Sum Postop Eval Completion status Anesthesia document: Postop Eval 1 completed: Yes Anesthesia Postop Eval I Summary Anesthesia Postop Eval I Summary: Anesthesia Postop Eval I: Assessment Summary Airway patent Yes 11/28/24 09:14 [email or web address] Spontaneous unlabored Yes 11/28/24 09:14 [email or web address] respirations Mental status Awake,Calm 11/28/24 09:14 [email or web address] nausea No 11/28/24 09:14 GAS [email or web address] Vomiting No 11/28/24 09:14 GAS [email or web address] Anesthesia Postop Eval I: Fluid Summary Crystalloid volume administer 200 11/28/24 09:14 GAS [email or web address] (ml) Colloids volume administered ( ml) Blood Product volume administered (ml) Total IV fluid infused 200 11/28/24 09:14 GAS [email or web address] Anesthesia Postop Eval I: Summary Notes Anesthesia Complication No 11/28/24 09:14 [email or web address] Anesthesia Complication Comment: Post-operative progress note Anesthesia: Postop Eval II Evaluation Mental status: Awake and Calm Pain Level: 0 nausea: No Vomiting: No Complications Anesthesia Complication: No 11/28/24 1250 <Electronically signed by Evelyn Varela CRNA> Date _ Evelyn Varela CRNA Cosigner Signature: Date CC: ~ Signed [facility] Work Phone: 1(450) 503-792209-18-2025 Consult note [facility] Medical Records Department [address] [facility] [place] [address] Anesthesia Postop Eval II 11/28/24 1250 MR#: [id number] Acct: [id number] Name: MEG BRYANT Rep #:[id number] : 1945 79 From: Evelyn CONNOLLY PCP: Dr. Wiliam Mandel MD Status:REG [facility] Race: C Location: [place] [address] Anesthesia Postop Eval I Sum Postop Eval Completion status Anesthesia document: Postop Eval 1 completed: Yes Anesthesia Postop Eval I Summary Anesthesia Postop Eval I Summary: Anesthesia Postop Eval I: Assessment Summary Airway patent Yes 11/28/24 09:14 [email or web address] Spontaneous unlabored Yes 11/28/24 09:14 [email or web address] respirations Mental status Awake,Calm 11/28/24 09:14 GAS [email or web address] nausea No 11/28/24 09:14 GAS [email or web address] Vomiting No 11/28/24 09:14 GAS [email or web address] Anesthesia Postop Eval I: Fluid Summary Crystalloid volume administer 200 11/28/24 09:14 GAS [email or web address] (ml) Colloids volume administered ( ml) Blood Product volume administered (ml) Total IV fluid infused 200 11/28/24 09:14 GAS [email or web address] Anesthesia Postop Eval I: Summary Notes Anesthesia Complication No 11/28/24 09:14 GAS [email or web address] Anesthesia Complication Comment: Post-operative progress note Anesthesia: Postop Eval II Evaluation Mental status: Awake and Calm Pain Level: 0 nausea: No Vomiting: No Complications Anesthesia Complication: No 11/28/24 1250 GAS TECHNICIAN> Date _ Evelyn Varela GAS TECHNICIAN Cosigner Signature: Date CC: ~ Signed [facility]09-18-2025 Consult note Author Evelyn Varela [facility] Note Date/Time November 28, 2024 9:14am [facility] Medical Records Department [address] [facility] [place] [address] Anesthesia Postop Eval I 11/28/24913 MR#: [id number] Acct: [id number] Name: MEG BRYANT Rep #:[id number] : 1945 79 From: Evelyn CONNOLLY PCP: Dr. Wiliam Mandel MD Status:REG [facility] Race: C Location: [place] [address] Anesthesia: Postop Eval I Current Vital Signs Temperature: 97.6 F Pulse Rate: 68 Blood Pressure: 104/50 Respiratory Rate: 16 Pulse Ox: 98 Oxygen Delivery Method: Room Air Assessment Airway patent: Yes Spontaneous unlabored respirations: Yes Mental status: Awake and Calm nausea: No Vomiting: No Anesthesia Complication: No Fluid Hydration Crystalloid volume administer (ml): 200 Total IV fluid infused: 200 Progress Note Anesthesia document: Postop Eval 1 completed: Yes 11/28/24913 <Electronically signed by Evelyn Varela CRNA> Date _ Evelyn Pamellaer GAS TECHNICIAN Cosigner Signature: CC: ~ Signed [facility] Work Phone: 1(203) 843-987609-18-2025 History and physical note Author Caleb Allen [facility] Note Date/Time November 28, 2024 8:50am [facility] Medical Records Department [address] [place] [address] History & Physical Exam 11/28/24 0848 MR#: [id number] Acct: [id number] Name: MEG BRYANT Rep #:[id number] : 1945 79 From: Caleb Allen DO PCP: Dr. Wiliam Mandel MD Status:[facility] Location: [place] [address] HPI - General General Date of Admission: 11/28/24 Date of Service: 11/28/24 Chief Complaint: Diarrhea HPI Narrative MEG BRYANT, is a 79 M who presents with the Chief Complaint: Loose stool BGI established October 2024 with chronic diarrhea for brian past 6-8 months associated with nausea and abdominal pain. last colonoscopy 5-6 years ago. US with elastography NO TO MILD HEPATIC FIBROSIS Diffuse thickening of the fundal portion of the gallbladder wall with evidence of a small cyst. Biochemical work up; celiac and food allergens positive OV 9.9.25 patient here today for follow-up to review results of testing. He continues to have daily loose stool. He endorses that this has been happening for 20 years. He notes that his daughter and granddaughter have celiac disease. [facility] Medical History Wears glasses Low iron Gastric reflux Former smoker Kidney stones Leg cramps History of echocardiogram History of stress test Cardiology follow-up encounter Non-rheumatic aortic stenosis Obstructive chronic bronchitis History of radioactive iodine thyroid ablation Ocular histoplasmosis syndrome of left eye Obesity Glaucoma GERD (gastroesophageal reflux disease) Diabetic peripheral neuropathy Benign neoplasm of rectum Hypothyroidism Hyperlipidemia Essential (primary) hypertension Type 2 diabetes mellitus Home Medications ?Medication ?Instructions ?Recorded ?Last Taken ?Type aspirin 81 mg tablet,delayed 81 mg PO DAILY 05/11/18 0 11/24/24 History release (Adult Aspirin Regimen) latanoprost 0.005 % eye drops 1 drp ophthalmic (eye) Q PM 05/11/18 Unknown History (Xalatan) levothyroxine 125 mcg capsule 125 mcg PO DAILY 9 Unknown History pioglitazone 45 mg tablet (Actos) 45 mg PO DAILY 05/11 Unknown History timolol maleate 0.5 % once daily 1 drp ophthalmic (eye ) BID 05/11/18 Unknown History eye drops (Istalol) omega-3 fatty acids 1,000 mg 1,000 mg PO BID 12/10/19 Unknown History capsule (Fish Oil Concentrate) cholecalciferol (vitamin D3) 50 50 mcg PO DAILY Unknown History mcg (2,000 unit) tablet linagliptin 5 mg tablet (Tradjenta) 2.5 mg PO DAILY 11/24/24 History cyanocobalamin (vitamin B-12) 1,000 mcg PO BID 3 Unknown History 1,000 mcg capsule folic acid 1 mg tablet 1 mg PO DAILY 12/13/22 Unkno wn History simvastatin 20 mg tablet 20 mg PO DAILY 12/13/22 Unkn own History copper gluconate 2 mg tablet 2 mg PO QDAY 10/24/24 Unk nown History dexamethasone 0.5 mg/5 mL oral 0.5 mg PO QDAY 11/19/24 Unknown History solution Allergy/AdvReac Type Severity Reaction Status Date / Time sitagliptin (From ) AdvReac myalgia Verified 11/28/24 08:15 Family History Mother Myocardial infarction Diabetes Heart disease Father CVA (cerebral vascular accident) Cancer lung Sister Heart disease Surgical History History of colonoscopy (12/20/16) History of colonoscopy with polypectomy (12/30/03) Social History Smoking Status: Former smoker how long ago did patient quit smokin years, smoked a pipe alcohol intake: current alcohol intake frequency: holidays/special occasions only substance use type: does not use caffeine: Yes what type of physical activity do you participate in: none frequency: does not exercise ROS Constitutional Constitutional: Denies fatigue, fever(s), poor appetite, weight gain or weight loss Gastrointestinal Gastrointestinal: Denies belching, bloating, change in bowel habits, change in stool character, chewing difficulty, coffee ground emesis, constipation, cramping, diarrhea, dyspepsia, dysphagia, early satiety, excessive flatus, fecalincontinence, heartburn, hematemesis, hematochezia, hemorrhoids, loose stools, melena, nausea, odynophagia, rectal bleeding, tenesmus, vomiting or weight changes Vital Signs Vital Signs Vital Signs: 11/28/24 08:16 11/28/24 08:16 11/28/24 08:38 Temperature 97.8 F 97.8 F Temperature Source Temporal Pulse Rate 74 74 Respiratory Rate 16 16 Respiratory Pattern Normal Blood Pressure 141/85 H 141/85 H Blood Pressure Mean 103 Blood Pressure Source Monitor Blood Pressure Position Sitting Blood Pressure Location Left Arm Pulse Ox 100 100 Oxygen Delivery Method Room Air Room Air Weight Weight: 211 lb 10.3 oz Body Mass Index (BMI) 31.2 Physical Exam Const alert, oriented x3, no apparent distress and healthy appearing General Appearance: cooperative GI normal to inspection, nondistended, normoactive bowel sounds, soft to palpation,non-tender and non-distended Percussion: normal to percussion Rectal Exam: deferred Assessment & Plan Assessment/Plan (1) Diarrhea: PLAN: Assessment and Plan Assessment and Plan (1) Diarrhea: Status: Acute Plan: Meg is a 79-year-old male patient who established with GI office for chronic diarrhea for the past 20 years. Patient underwent extensive biochemical workup which revealed numerous food allergies and celiac disease. Patient had class III allergy to shrimp and egg white. Patient notes that his daughter believes she has celiac. He was advised to avoid shrimp, egg, peanut butter and gluten. He is already scheduled for upper endoscopy and will have evaluation of his duodenum for celiac disease. He continues to have daily diarrhea. Stool testing was positive for blood but negative for inflammation. He prefers to hold off for on colonoscopy at this time. We may consider colonoscopy in the future if diarrhea is refractory to diet change. - Recommend gluten-free diet - Avoid shrimp, peanut butter and egg white - Proceed with EGD - Consider colonoscopy 11/28/24 0850 <Electronically signed by Caleb Allen DO> Cosigner Signature (if applicable): CC: Dr. Wiliam Mandel MD; Caleb Allen DO~ Signed [facility] Work Phone: 1(222) 204-564609-18-2025 Consult note Author Henok Wall [facility] Note Date/Time November 28, 2024 8:39am [facility] Medical Records Department [address] [place] [address] Pre-Anesthesia Evaluation 11/28/24830 MR#: [id number] Acct: [id number] Name: MEG BRYANT Rep #:[id number] : 1945 79 From: Henok Wall MD PCP: Dr. Wiliam Mandel MD Status:REG [facility] Y Race: C Location: [place] [address]- ASA Classification* ASA Classification ASA Classification: 3 Assessment & Plan Anesthesia* Anesthesia Assessment Anesthesia Assessment: Discussed sedation and/or anesthesia options, risks, benefits, and alternatives with patient/parents/legal guardian/POA. Questions invited. The patient/parents/legal guardian/POA seems to understand and agrees to proceedwith anesthesia plan. Reviewed the physical assessment, medical history, allergy history and patient home medications list prior to surgery/procedure/anesthetic and documented any changes. Performed airway and anesthesia risk assessments. Anesthesia Type Anesthesia Type: MAC (Patient has moderate aortic stenosis. Avoid increased heart rate and decrease blood pressure. Phenylephrine is drug of choice.) History Source History Obtained from:: Patient and Chart Anesthesia Focused Assessment* Temperature: 97.8 F Pulse Rate: 74 Blood Pressure: 141/85 Respiratory Rate: 16 Pulse Ox: 100 Oxygen Delivery Method: Room Air Airway Assessment Mouth opens: 2 cm Mallampati Score: IV Teeth Condition: Implants (Patient has a couple implants. They are tight.) Neck Range of motion (ROM): Limited ROM (Severe Restriction) Labs Anesthesia Preop lab: CBC WBC, (4.4-11.0) 8.6 K/mm3 11/04/24, 13:30 RBC, (4.6-6.2) 2.94 M/mm3 L 11/04/24, 13:30 Hgb, (13.0-16.5) 9.8 g/dL L 11/04/24, 13:30 Hct, (40-54) 32.2 % L 11/04/24, 13:30 Plt Count, (150-450) 171 K/mm3 11/04/24, 13:30 CHEMISTRY Potassium, (3.3-5.1) 5.3 mmol/L H 11/04/24, 13:30 Sodium, (133-145) 143 mmol/L 11/04/24, 13:30 Phosphorus, (2.7-4.5) 3.2 mg/dL 11/04/24, 13:30 BUN, (4-19) 31 mg/dL H 11/04/24, 13:30 Creatinine, (0.70-1.20) 1.80 mg/dL H 11/04/24, 13:30 Glucose, (70-99) 238 mg/dL H 11/04/24, 13:30 TSH, (0.300-4.200) 0.758 uIU/mL 10/24/24, 14:28 COAG Pre-Assessment Diagnosis/Proposed Procedure Planned Operative Procedure(s): EGD Anesthesia History 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 When Was Last Pacemaker Check QUESTION #4 FULL TEXT: You/Your Family Experience fever (hyperthermia) with Anesthesia Last Oral Intake Last Oral intake: Last Oral Intake NPO since 20:00 11/28/24 08:16 Meds taken in AM with sips of No 11/28/24 08:16 water? Meds patient instructed to take am of surgery PONV PONV - cafe team member: PONV - cafe team member Female No 11/26/24 09:01 HX of Motion Sickness No 11/26/24 09:01 HX of N/V After Surgery No 11/26/24 09:01 Non-Smoker Yes 11/26/24 09:01 Duration of Surgery greater No 11/26/24 09:01 than 60 minutes Number of Risk Factors 1 11/26/24 09:01 PONV Score Low Risk 11/26/24 09:01 Height & Weight Height & Weight: Anesthesia: Height & Weight Height 5 ft 9 in 11/28/24 08:16 Weight: 96 kg 11/28/24 08:16 Body Mass Index (BMI) 31.2 11/28/24 08:16 Respiratory Assessment Respiratory Assessment - cafe team member: Respiratory Tract Infection Hx - cafe team member Hx Respiratory Tract Infection No 11/26/24 09:01 Any additional information?: Yes Hx Respiratory Tract Infection: Yes History of Anesthesia Respiratory Infection details: Patient has a cough recently. Currently not coughing. STOP Sleep Apnea STOP Sleep Apnea - cafe team member: STOP Sleep Apnea - cafe team member Hx Hypertension No 11/26/24 09:01 Hx Sleep Apnea No 11/26/24 09:01 CPAP BIPAP Do you snore loudly (louder No 11/26/24 09:01 than talking or can be heard Do you often feel tired/ No 11/26/24 09:01 fatigued/ sleepy during daytime? Has anyone observed you stop No 11/26/24 09:01 breathing during sleep? STOP Results Negative 11/26/24 09:01 QUESTION #5 FULL TEXT : Do you snore loudly (louder than talking or can be heard through closed doors)? Tobacco Use History Tobacco Use History - cafe team member: Tobacco Use History - cafe team member Tobacco Use Smoking Status Former smoker 11/26/24 09:01 Hx Tobacco Use No 11/26/24 09:01 Years Smoking Packs Smoked per Day Smoking Cessation Date was No - quit smoking greater 11/26/24 09:01 within the last 15 years than 15 years ago Hx Smoking Cessation Date Hx Smoking Cessation Counseling Hematologic Medial History Hematologic Hx - cafe team member: Hematologic Medical Hx - rn international Hx of Blood Transfusion No 11/26/24 09:01 Hx of Transfusion in last 3 No 11/26/24 09:01 Months Date of Last Transfusion (if within last 3 months) Ever experience any problems No 11/26/24 09:01 with transfusion(s)? Specify any problems Hx of Preganancy in last 3 N/A 11/26/24 09:01 Months Nurse Filling Out Transfusion [id number] 11/26/24 09:01 & Questions: Date: 11/26/24 11/26/24 09:01 Time: 09:10 11/26/24 09:01 Patient unable to answer at this time (ie. confused, unrespo /Reproduction History /Reproductive History - cafe team member: /Reproductive Hx- cafe team member Hx Now Gestational Age (in weeks): EDC: Hx Hx Para Hx Section SAB Active Medications Active Medications: Current Medications Generic Name Dose Route Start Last Admin Trade Name Freq PRN Reason Stop Dose Admin Lactated Ringer's 1,000 mls @ 15 mls/hr 11/28/24 08:00 11/28/24 08:19 IV 15 mls/hr .Q48H ROXANNE Administration PFSH Medical History Wears glasses Low iron Gastric reflux Former smoker Kidney stones Leg cramps History of echocardiogram History of stress test Cardiology follow-up encounter Non-rheumatic aortic stenosis Obstructive chronic bronchitis History of radioactive iodine thyroid ablation Ocular histoplasmosis syndrome of left eye Obesity Glaucoma GERD (gastroesophageal reflux disease) Diabetic peripheral neuropathy Benign neoplasm of rectum Hypothyroidism Hyperlipidemia Essential (primary) hypertension Type 2 diabetes mellitus Home Medications ?Medication ?Instructions ?Recorded ?Last Taken ?Type aspirin 81 mg tablet,delayed 81 mg PO DAILY 05/11/18 0 11/24/24 History release (Adult Aspirin Regimen) latanoprost 0.005 % eye drops 1 drp ophthalmic (eye) Q PM 05/11/18 Unknown History (Xalatan) levothyroxine 125 mcg capsule 125 mcg PO DAILY 9 Unknown History pioglitazone 45 mg tablet (Actos) 45 mg PO DAILY 05/11 Unknown History timolol maleate 0.5 % once daily 1 drp ophthalmic (eye ) BID 05/11/18 Unknown History eye drops (Istalol) omega-3 fatty acids 1,000 mg 1,000 mg PO BID 12/10/19 Unknown History capsule (Fish Oil Concentrate) cholecalciferol (vitamin D3) 50 50 mcg PO DAILY Unknown History mcg (2,000 unit) tablet linagliptin 5 mg tablet (Tradjenta) 2.5 mg PO DAILY 11/24/24 History cyanocobalamin (vitamin B-12) 1,000 mcg PO BID 3 Unknown History 1,000 mcg capsule folic acid 1 mg tablet 1 mg PO DAILY 12/13/22 Unkno wn History simvastatin 20 mg tablet 20 mg PO DAILY 12/13/22 Unkn own History copper gluconate 2 mg tablet 2 mg PO QDAY 10/24/24 Unk nown History dexamethasone 0.5 mg/5 mL oral 0.5 mg PO QDAY 11/19/24 Unknown History solution Allergy/AdvReac Type Severity Reaction Status Date / Time sitagliptin (From Maruvia) AdvReac myalgia Verified 11/28/24 08:15 Family History Mother Myocardial infarction Diabetes Heart disease Father CVA (cerebral vascular accident) Cancer lung Sister Heart disease Surgical History History of colonoscopy (12/20/16) History of colonoscopy with polypectomy (12/30/03) Social History Smoking Status: Former smoker how long ago did patient quit smokin years, smoked a pipe alcohol intake: current alcohol intake frequency: holidays/special occasions only substance use type: does not use caffeine: Yes what type of physical activity do you participate in: none frequency: does not exercise Review of Systems (Anesthesia) ROS Narrative System reviewed and no additional complaints, except as documented. 11/28/24 0839 <Electronically signed by Henok allen MD> Date _ Henok Wall MD Cosigner Signature: Date CC: ~ Signed [facility] Work Phone: [phone] 375-226009-18-2025 NoteHNO ID: [id number] Author: TARA BUSTILLO LPN Service: ? Author Type: Licensed Nurse Type: Progress Notes Filed: 11/28/2024 09:34 Note Text: Scan on 11/28/2024 9:20 AM by Provider, External, PA-C: EGD Scan on 11/28/2024 9:21 AM by ProviderMoses PA-C: Letters Scan on 11/28/2024 8:55 AM by Moses Hunter [facility] Procedure note [facility] Medical Records Department [address] [place] [address] EGD Report MR#: [id number] Acct: [id number] Name: MEG BRYANT Rep #:[id number] : 1945 79 From: Caleb Allen DO PCP: Dr. Wiliam Mandel MD Status:REG [facility] Patient Name: Meg Bryant Procedure Date: 11/28/2024 8:55 AM Date of : 1945 Age: 79 Procedure: Upper GI endoscopy Indications: Epigastric abdominal pain, Abdominal pain in the left upper quadrant Providers: Caleb Allen DO Referring MD: Wiliam Mandel MD Medicines: Monitored Anesthesia Care Patient Profile: This is a 79 year old male. Refer to note in patient chart for documentation of history and physical. Patient has symptoms of acute left upper quadrant abdominal pain and acute epigastric abdominal pain. Complications: No immediate complications. Procedure: Pre-Anesthesia Assessment: - Prior to the procedure, a History and Physical was performed, and patient medications and allergies were reviewed. The patient is competent. The risks and benefits of the procedure and the sedation options and risks were discussed with the patient. All questions were answered and informed consent was obtained. Patient identification and proposed procedure were verified by the physician in the pre-procedure area. Mental Status Examination: alert and oriented. Airway Examination: normal oropharyngeal airway and neck mobility. Respiratory Examination: clear to auscultation. CV Examination: normal. Prophylactic Antibiotics: The patient does not require prophylactic antibiotics. Prior Anticoagulants: The patient has taken no anticoagulant or antiplatelet agents except for NSAID medication. ASA Grade Assessment: II - A patient with mild systemic disease. After reviewing the risks and benefits, the patient was deemed in satisfactory condition to undergo the procedure. The anesthesia plan was to use monitored anesthesia care (MAC). Immediately prior to administration of medications, the patient was re-assessed for adequacy to receive sedatives. The heart rate, respiratory rate, oxygen saturations, blood pressure, adequacy of pulmonary ventilation, and response to care were monitored throughout the procedure. The physical status of the patient was re-assessed after the procedure. After obtaining informed consent, the endoscope was passed under direct vision. Throughout the procedure, the patient's blood pressure, pulse, and oxygen saturations were monitored continuously. The gastroscope was introduced through the mouth, and advanced to the fourth part of the duodenum. Small bowel enteroscopy was deemed necessary. The upper GI endoscopy was accomplished without difficulty. The patient tolerated the procedure well. Scope In: 9:02:12 AM Scope Out: 9:06:56 AM Total Procedure Duration Time 0 hours 4 minutes 44 seconds Findings: The examined esophagus was normal. The entire examined stomach was normal. One non-bleeding cratered duodenal ulcer with no stigmata of bleeding was found in the first portion of the duodenum. The lesion was 20 mm in largest dimension. Biopsies were taken with a cold forceps for histology. Verification of patient identification for the specimen was done. Estimated blood loss was minimal. Impression: - Normal esophagus. - Normal stomach. - Non-bleeding duodenal ulcer with no stigmata of bleeding. Biopsied. Recommendation: - Discharge patient to home. - Resume previous diet. - Continue present medications. - Await pathology results. - Use Protonix (pantoprazole) 40 mg PO BID. Procedure Code(s): --- Professional --- 12261, Small intestinal endoscopy, enteroscopy beyond second portion of duodenum, not including ileum; with biopsy, single or multiple CPT copyright 2021 [employer]. All rights reserved. The codes documented in this report are preliminary and upon workers compensation analyst review may be revised to meet current compliance requirements. Caleb Allen DO 11/28/2024 9:15:52 AM This report has been signed electronically. Number of Addenda: 0 Note Initiated On: 11/28/2024 8:55 AM 11/28/24 0916 Date _ Caleb Encinas Signature: Date (if indicated) CC: Dr. Wiliam Mandel MD; Caleb Allen DO ~ Date Dictated: 11/28/24854 Date Transcribed: Law Instructor: RF Signed [facility]09-18-2025 Procedure note [facility] Medical Records Department [address] [place] [address] Provation Physician Letter MR#: [id number] Acct: [id number] Name: MEG BRYANT Rep #:[id number] : 1945 79 From: Caleb Allen DO PCP: Dr. Wiliam Mandel MD Status:[facility] 11/28/2024 Wiliam Mandel MD Re : Upper GI endoscopy procedure for Meg Bryant Dear Dr. Mandel This procedure was performed on November. My impressions and recommendations are as follows: Impressions : - Normal esophagus. - Normal stomach. - Non-bleeding duodenal ulcer with no stigmata of bleeding. Biopsied. Recommendations : - Discharge patient to home. - Resume previous diet. - Continue present medications. - Await pathology results. - Use Protonix (pantoprazole) 40 mg PO BID. My findings are described in the full procedure note, which is enclosed. If I can be of further assistance, please feel free to contact me at . Sincerely, Caleb Allen DO 11/28/2024 9:15:52 AM This report has been signed electronically. 11/28/24915 Date _ Caleb Allen DO Cosigner Signature: Date (if indicated) CC: Dr. Wiliam Mandel MD; Caleb Allen DO ~ Date Dictated: 11/28/24854 Date Transcribed: Law Instructor: RF Signed [facility]09-18-2025 Consult note [facility] Medical Records Department [address] [facility] [place] [address] Anesthesia Postop Eval I 11/28/24913 MR#: [id number] Acct: [id number] Name: MEG BRYANT Rep #:[id number] : 1945 79 From: Evelyn CONNOLLY PCP: Dr. Wiliam Mandel MD Status:REG [facility] Y Race: C Location: [place] [address] Anesthesia: Postop Eval I Current Vital Signs Temperature: 97.6 F Pulse Rate: 68 Blood Pressure: 104/50 Respiratory Rate: 16 Pulse Ox: 98 Oxygen Delivery Method: Room Air Assessment Airway patent: Yes Spontaneous unlabored respirations: Yes Mental status: Awake and Calm nausea: No Vomiting: No Anesthesia Complication: No Fluid Hydration Crystalloid volume administer (ml): 200 Total IV fluid infused: 200 Progress Note Anesthesia document: Postop Eval 1 completed: Yes 11/28/24913 GAS TECHNICIAN> Date _ Evelyn Varela GAS TECHNICIAN Cosigner Signature: Date CC: ~ Signed [facility]09-18-2025 History and physical note [facility] Medical Records Department [address] [facility] [place] [address] History & Physical Exam 11/28/24 0848 MR#: [id number] Acct: [id number] Name: MEG BRYANT Rep #:[id number] : 1945 79 From: Calebshaka Allen DO PCP: Dr. Wiliam Mandel MD Status:[facility] Location: [place] [address] HPI - General General Date of Admission: 11/28/24 Date of Service: 11/28/24 Chief Complaint: Diarrhea HPI Narrative MEG BRYANT, is a 79 M who presents with the Chief Complaint: Loose stool BGI established October 2024 with chronic diarrhea for brian past 6-8 months associated with nausea and abdominal pain. last colonoscopy 5-6 years ago. US with elastography NO TO MILD HEPATIC FIBROSIS Diffuse thickening of the fundal portion of the gallbladder wall with evidence of a small cyst. Biochemical work up; celiac and food allergens positive OV 9.12.05 patient here today for follow-up to review results of testing. He continues to have dailyloose stool. He endorses that this has been happening for 20 years. He notes that his daughter and granddaughter have celiac disease. [facility] Medical History Wears glasses Low iron Gastric reflux Former smoker Kidney stones Leg cramps History of echocardiogram History of stress test Cardiology follow-up encounter Non-rheumatic aortic stenosis Obstructive chronic bronchitis History of radioactive iodine thyroid ablation Ocular histoplasmosis syndrome of left eye Obesity Glaucoma GERD (gastroesophageal reflux disease) Diabetic peripheral neuropathy Benign neoplasm of rectum Hypothyroidism Hyperlipidemia Essential (primary) hypertension Type 2 diabetes mellitus Home Medications ?Medication ?Instructions ?Recorded ?Last Taken ?Type aspirin 81 mg tablet,delayed 81 mg PO DAILY 05/11/18 0 11/24/24 History release (Adult Aspirin Regimen) latanoprost 0.005 % eye drops 1 drp ophthalmic (eye) Q PM 05/11/18 Unknown History (Xalatan) levothyroxine 125 mcg capsule 125 mcg PO DAILY 9 Unknown History pioglitazone 45 mg tablet (Actos) 45 mg PO DAILY 05/11 Unknown History timolol maleate 0.5 % once daily 1 drp ophthalmic (eye ) BID 05/11/18 Unknown History eye drops (Istalol) omega-3 fatty acids 1,000 mg 1,000 mg PO BID 12/10/19 Unknown History capsule (Fish Oil Concentrate) cholecalciferol (vitamin D3) 50 50 mcg PO DAILY Unknown History mcg (2,000 unit) tablet linagliptin 5 mg tablet (Tradjenta) 2.5 mg PO DAILY 11/24/24 History cyanocobalamin (vitamin B-12) 1,000 mcg PO BID 3 Unknown History 1,000 mcg capsule folic acid 1 mg tablet 1 mg PO DAILY 12/13/22 Unkno wn History simvastatin 20 mg tablet 20 mg PO DAILY 12/13/22 Unkn own History copper gluconate 2 mg tablet 2 mg PO QDAY 10/24/24 Unk nown History dexamethasone 0.5 mg/5 mL oral 0.5 mg PO QDAY 11/19/24 Unknown History solution Allergy/AdvReac Type Severity Reaction Status Date / Time sitagliptin (From ) AdvReac myalgia Verified 11/28/24 08:15 Family History Mother Myocardial infarction Diabetes Heart disease Father CVA (cerebral vascular accident) Cancer lung Sister Heart disease Surgical History History of colonoscopy (12/20/16) History of colonoscopy with polypectomy (12/30/03) Social History Smoking Status: Former smoker how long ago did patient quit smokin years, smoked a pipe alcohol intake: current alcohol intake frequency: holidays/special occasions only substance use type: does not use caffeine: Yes what type of physical activity do you participate in: none frequency: does not exercise ROS Constitutional Constitutional: Denies fatigue, fever(s), poor appetite, weight gain or weight loss Gastrointestinal Gastrointestinal: Denies belching, bloating, change in bowel habits, change in stool character, chewing difficulty, coffee ground emesis, constipation, cramping, diarrhea, dyspepsia, dysphagia, earlysatiety, excessive flatus, fecalincontinence, heartburn, hematemesis, hematochezia, hemorrhoids, loose stools, melena, nausea, odynophagia, rectal bleeding, tenesmus, vomiting or weight changes Vital Signs Vital Signs Vital Signs: 11/28/24 08:16 11/28/24 08:16 11/28/24 08:38 Temperature 97.8 F 97.8 F Temperature Source Temporal Pulse Rate 74 74 Respiratory Rate 16 16 Respiratory Pattern Normal Blood Pressure 141/85 H 141/85 H Blood Pressure Mean 103 Blood Pressure Source Monitor Blood Pressure Position Sitting Blood Pressure Location Left Arm Pulse Ox 100 100 Oxygen Delivery Method Room Air Room Air Weight Weight: 211 lb 10.3 oz Body Mass Index (BMI) 31.2 Physical Exam Const alert, oriented x3, no apparent distress and healthy appearing General Appearance: cooperative GI normal to inspection, nondistended, normoactive bowel sounds, soft to palpation,non-tender and non-distended Percussion: normal to percussion Rectal Exam: deferred Assessment & Plan Assessment/Plan (1) Diarrhea: PLAN: Assessment and Plan Assessment and Plan (1) Diarrhea: Status: Acute Plan: Meg is a 79-year-old male patient who established with GI office for chronic diarrhea for the past 20 years. Patient underwent extensive biochemical workup which revealed numerous food allergies and celiac disease. Patient had class III allergy to shrimp and egg white. Patient notes that his daughter believes she has celiac. He was advised to avoid shrimp, egg, peanut butter and gluten. He is already scheduled for upper endoscopy and will have evaluation of his duodenum for celiac disease. He continues to have daily diarrhea. Stool testing was positive for blood but negative for inflammation. He prefers to hold off for on colonoscopy at this time. We may consider colonoscopy in the future if diarrhea is refractory to diet change. - Recommend gluten-free diet - Avoid shrimp, peanut butter and egg white - Proceed with EGD - Consider colonoscopy 11/28/24 0850 Cosigner Signature (if applicable): CC: Dr. Wiliam Mandel MD; Caleb Allen DO~ Signed [facility]09-18-2025 [facility] Medical Records Department [address] [place] [id number] History Physical Exam 11/28/24 0848 MR#: [id number] Acct: [id number] Name: MEG BRYANT Rep #: [id number] : 1945 79 From: Caleb Allen DO PCP: Dr. Wiliam Mandel MD Status:[facility] Location: [place] [address] HPI - General General Date of Admission: 11/28/24 Date of Service: 11/28/24 Chief Complaint: Diarrhea HPI Narrative MEG BRYANT, is a 79 M who presents with the Chief Complaint: Loose stool BGI established October 2024 with chronic diarrhea for brian past 6-8 months associated with nausea and abdominal pain. last colonoscopy 5-6 years ago. US with elastography NO TO MILD HEPATIC FIBROSIS Diffuse thickening of the fundal portion of the gallbladder wall with evidence of a small cyst. Biochemical work up; celiac and food allergens positive OV 9.9.25 patient here today for follow-up to review results of testing. He continues to have daily loose stool. He endorses that this has been happening for 20 years. He notes that his daughter and granddaughter have celiac disease. [facility] Medical History Wears glasses Low iron Gastric reflux Former smoker Kidney stones Leg cramps History of echocardiogram History of stress test Cardiology follow-up encounter Non-rheumatic aortic stenosis Obstructive chronic bronchitis History of radioactive iodine thyroid ablation Ocular histoplasmosis syndrome of left eye Obesity Glaucoma GERD (gastroesophageal reflux disease) Diabetic peripheral neuropathy Benign neoplasm of rectum Hypothyroidism Hyperlipidemia Essential (primary) hypertension Type 2 diabetes mellitus Home Medications ???Medication ???Instructions ???Recorded ???Last Taken ???Type aspirin 81 mg tablet,delayed 81 mg PO DAILY 05/11/18 11/24/24 H istory release (Adult Aspirin Regimen) latanoprost 0.005 % eye drops 1 drp ophthalmic (eye) QPM 9 Unknown History (Xalatan) levothyroxine 125 mcg capsule 125 mcg PO DAILY 05/11/18 Unknown History pioglitazone 45 mg tablet (Actos) 45 mg PO DAILY 05/11/18 Unknown H istory timolol maleate 0.5 % once daily 1 drp ophthalmic (eye) BID 9 Unknown History eye drops (Istalol) omega-3 fatty acids 1,000 mg 1,000 mg PO BID 12/10/19 Unknown H istory capsule (Fish Oil Concentrate) cholecalciferol (vitamin D3) 50 50 mcg PO DAILY 10/01/20 Unknown H istory mcg (2,000 unit) tablet linagliptin 5 mg tablet (Tradjenta) 2.5 mg PO DAILY 10/01/20 History cyanocobalamin (vitamin B-12) 1,000 mcg PO BID 12/13/22 Unknown History 1,000 mcg capsule folic acid 1 mg tablet 1 mg PO DAILY 12/13/22 Unknown His tory simvastatin 20 mg tablet 20 mg PO DAILY 12/13/22 Unknown Hi story copper gluconate 2 mg tablet 2 mg PO QDAY 10/24/24 Unknown Hist ory dexamethasone 0.5 mg/5 mL oral 0.5 mg PO QDAY 11/19/24 Unknown Hi story solution Allergy/AdvReac Type Severity Reaction Status Date / Time sitagliptin (From [employer]) AdvReac myalgia Verified 11/28/24 08:15 Family History Mother Myocardial infarction Diabetes Heart disease Father CVA (cerebral vascular accident) Cancer lung Sister Heart disease Surgical History History of colonoscopy (12/20/16) History of colonoscopy with polypectomy (12/30/03) Social History Smoking Status: Former smoker how long ago did patient quit smokin years, smoked a pipe alcohol intake: current alcohol intake frequency: holidays/special occasions only substance use type: does not use caffeine: Yes what type of physical activity do you participate in: none frequency: does not exercise ROS Constitutional Constitutional: Denies fatigue, fever(s), poor appetite, weight gain or weight loss Gastrointestinal Gastrointestinal: Denies belching, bloating, change in bowel habits, change in stool character, chewing difficulty, coffee ground emesis, constipation, cramping, diarrhea, dyspepsia, dysphagia, early satiety, excessive flatus, fecal incontinence, heartburn, hematemesis, hematochezia, hemorrhoids, loose stools, melena, nausea, odynophagia, rectal bleeding, tenesmus, vomiting or weight changes Vital Signs Vital Signs Vital Signs: 11/28/24 08:16 11/28/24 08:16 11/28/24 08:38 Temperature 97.8 F 97.8 F Temperature Source Temporal Pulse Rate 74 74 Respiratory Rate 16 16 Respiratory Pattern Normal Blood Pressure 141/85 H 141/85 H Blood Pressure Mean 103 Blood Pressure Source Monitor Blood Pressure Position Sitting Blood Pressure Location Left Arm (more content not included)...[facility]09-18-2025 Consult note [facility] Medical Records Department [address] [place] [address] Pre-Anesthesia Evaluation 11/28/24830 MR#: [id number] Acct: [id number] Name: MEG BRYANT Rep #:[id number] : 1945 79 From: Henok Wall MD PCP: Dr. Wiliam Mandel MD Status:REG [facility] Y Race: C Location: [place] [address] ASA Classification* ASA Classification ASA Classification: 3 Assessment & Plan Anesthesia* Anesthesia Assessment Anesthesia Assessment: Discussed sedation and/or anesthesia options, risks, benefits, and alternatives with patient/parents/legal guardian/POA. Questions invited. The patient/parents/legal guardian/POA seems to understand and agrees to proceedwith anesthesia plan. Reviewed the physical assessment, medical history, allergy history and patient home medications list prior to surgery/procedure/anesthetic and documented any changes. Performed airway and anesthesia risk assessments. Anesthesia Type Anesthesia Type: MAC (Patient has moderate aortic stenosis. Avoid increased heart rate and decreaseblood pressure. Phenylephrine is drug of choice.) History Source History Obtained from:: Patient and Chart Anesthesia Focused Assessment* Temperature: 97.8 F Pulse Rate: 74 Blood Pressure: 141/85 Respiratory Rate: 16 Pulse Ox: 100 Oxygen Delivery Method: Room Air Airway Assessment Mouth opens: 2 cm Mallampati Score: IV Teeth Condition: Implants (Patient has a couple implants. They are tight.) Neck Range of motion (ROM): Limited ROM (Severe Restriction) Labs Anesthesia Preop lab: CBC WBC, (4.4-11.0) 8.6 K/mm3 11/04/24, 13:30 RBC, (4.6-6.2) 2.94 M/mm3 L 11/04/24, 13:30 Hgb, (13.0-16.5) 9.8 g/dL L 11/04/24, 13:30 Hct, (40-54) 32.2 % L 11/04/24, 13:30 Plt Count, (150-450) 171 K/mm3 11/04/24, 13:30 CHEMISTRY Potassium, (3.3-5.1) 5.3 mmol/L H 11/04/24, 13:30 Sodium, (133-145) 143 mmol/L 11/04/24, 13:30 Phosphorus, (2.7-4.5) 3.2 mg/dL 11/04/24, 13:30 BUN, (4-19) 31 mg/dL H 11/04/24, 13:30 Creatinine, (0.70-1.20) 1.80 mg/dL H 11/04/24, 13:30 Glucose, (70-99) 238 mg/dL H 11/04/24, 13:30 TSH, (0.300-4.200) 0.758 uIU/mL 10/24/24, 14:28 COAG Pre-Assessment Diagnosis/Proposed Procedure Planned Operative Procedure(s): EGD Anesthesia History 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 When Was Last Pacemaker Check QUESTION #4 FULL TEXT: You/Your Family Experience fever (hyperthermia) with Anesthesia Last Oral Intake Last Oral intake: Last Oral Intake NPO since 20:00 11/28/24 08:16 Meds taken in AM with sips of No 11/28/24 08:16 water? Meds patient instructed to take am of surgery PONV PONV - cafe team member: PONV - cafe team member Female No 11/26/24 09:01 HX of Motion Sickness No 11/26/24 09:01 HX of N/V After Surgery No 11/26/24 09:01 Non-Smoker Yes 11/26/24 09:01 Duration of Surgery greater No 11/26/24 09:01 than 60 minutes Number of Risk Factors 1 11/26/24 09:01 PONV Score Low Risk 11/26/24 09:01 Height & Weight Height & Weight: Anesthesia: Height & Weight Height 5 ft 9 in 11/28/24 08:16 Weight: 96 kg 11/28/24 08:16 Body Mass Index (BMI) 31.2 11/28/24 08:16 Respiratory Assessment Respiratory Assessment - cafe team member: Respiratory Tract Infection Hx - cafe team member Hx Respiratory Tract Infection No 11/26/24 09:01 Any additional information?: Yes Hx Respiratory Tract Infection: Yes History of Anesthesia Respiratory Infection details: Patient has a cough recently. Currently not coughing. STOP Sleep Apnea STOP Sleep Apnea - cafe team member: STOP Sleep Apnea - cafe team member Hx Hypertension No 11/26/24 09:01 Hx Sleep Apnea No 11/26/24 09:01 CPAP BIPAP Do you snore loudly (louder No 11/26/24 09:01 than talking or can be heard Do you often feel tired/ No 11/26/24 09:01 fatigued/ sleepy during daytime? Has anyone observed you stop No 11/26/24 09:01 breathing during sleep? STOP Results Negative 11/26/24 09:01 QUESTION #5 FULL TEXT : Do you snore loudly (louder than talking or can be heard through closeddoors)? Tobacco Use History Tobacco Use History - cafe team member: Tobacco Use History - cafe team member Tobacco Use Smoking Status Former smoker 11/26/24 09:01 Hx Tobacco Use No 11/26/24 09:01 Years Smoking Packs Smoked per Day Smoking Cessation Date was No - quit smoking greater 11/26/24 09:01 within the last 15 years than 15 years ago Hx Smoking Cessation Date Hx Smoking Cessation Counseling Hematologic Medial History Hematologic Hx - cafe team member: Hematologic Medical Hx - rn international Hx of Blood Transfusion No 11/26/24 09:01 Hx of Transfusion in last 3 No 11/26/24 09:01 Months Date of Last Transfusion (if within last 3 months) Ever experience any problems No 11/26/24 09:01 with transfusion(s)? Specify any problems Hx of Preganancy in last 3 N/A 11/26/24 09:01 Months Nurse Filling Out Transfusion [id number] 11/26/24 09:01 & Questions: Date: 11/26/24 11/26/24 09:01 Time: 09:11/26/24 09:01 Patient unable to answer at this time (ie. confused, unrespo /Reproduction History /Reproductive History - cafe team member: /Reproductive Hx- cafe team member Hx Now Gestational Age (in weeks): EDC: Hx Hx Para Hx Section SAB Active Medications Active Medications: Current Medications Generic Name Dose Route Start Last Admin Trade Name Freq PRN Reason Stop Dose Admin Lactated Ringer's 1,000 mls @ 15 mls/hr 11/28/24 08:00 11/28/24 08:19 IV 15 mls/hr .Q48H ROXANNE Administration PFSH Medical History Wears glasses Low iron Gastric reflux Former smoker Kidney stones Leg cramps History of echocardiogram History of stress test Cardiology follow-up encounter Non-rheumatic aortic stenosis Obstructive chronic bronchitis History of radioactive iodine thyroid ablation Ocular histoplasmosis syndrome of left eye Obesity Glaucoma GERD (gastroesophageal reflux disease) Diabetic peripheral neuropathy Benign neoplasm of rectum Hypothyroidism Hyperlipidemia Essential (primary) hypertension Type 2 diabetes mellitus Home Medications ?Medication ?Instructions ?Recorded ?Last Taken ?Type aspirin 81 mg tablet,delayed 81 mg PO DAILY 05/11/18 0 11/24/24 History release (Adult Aspirin Regimen) latanoprost 0.005 % eye drops 1 drp ophthalmic (eye) Q PM 05/11/18 Unknown History (Xalatan) levothyroxine 125 mcg capsule 125 mcg PO DAILY 9 Unknown History pioglitazone 45 mg tablet (Actos) 45 mg PO DAILY 05/11 Unknown History timolol maleate 0.5 % once daily 1 drp ophthalmic (eye ) BID 05/11/18 Unknown History eye drops (Istalol) omega-3 fatty acids 1,000 mg 1,000 mg PO BID 12/10/19 Unknown History capsule (Fish Oil Concentrate) cholecalciferol (vitamin D3) 50 50 mcg PO DAILY Unknown History mcg (2,000 unit) tablet linagliptin 5 mg tablet (Tradjenta) 2.5 mg PO DAILY 11/24/24 History cyanocobalamin (vitamin B-12) 1,000 mcg PO BID 3 Unknown History 1,000 mcg capsule folic acid 1 mg tablet 1 mg PO DAILY 12/13/22 Unkno wn History simvastatin 20 mg tablet 20 mg PO DAILY 12/13/22 Unkn own History copper gluconate 2 mg tablet 2 mg PO QDAY 10/24/24 Unk nown History dexamethasone 0.5 mg/5 mL oral 0.5 mg PO QDAY 11/19/24 Unknown History solution Allergy/AdvReac Type Severity Reaction Status Date / Time sitagliptin (From ) AdvReac myalgia Verified 11/28/24 08:15 Family History Mother Myocardial infarction Diabetes Heart disease Father CVA (cerebral vascular accident) Cancer lung Sister Heart disease Surgical History History of colonoscopy (12/20/16) History of colonoscopy with polypectomy (12/30/03) Social History Smoking Status: Former smoker how long ago did patient quit smokin years, smoked a pipe alcohol intake: current alcohol intake frequency: holidays/special occasions only substance use type: does not use caffeine: Yes what type of physical activity do you participate in: none frequency: does not exercise Review of Systems (Anesthesia) ROS Narrative System reviewed and no additional complaints, except as documented. 11/28/24 0839 tiffany CHAMBERLAIN> Date _ Henok Wall MD Cosigner Signature: Date CC: ~ Signed [facility]09-16-2025 Telephone encounter Note* Telephone Encounter - Francisca Aldana RN - 11/26/2024 1:17 PM EDT Patient calling in and states he has self-diagnosed himself with a kidney stone and requesting painmedication/tx today. Limited information obtained. Advised pt that he would need an evaluation first to determine most appropriate plan of care. No same-day appts available for pt this afternoon, Pt advised to go to for non-severe sx's. Pt agreeable. Francisca Aldana RN [facility]09-16-2025 Miscellaneous Notes* Telephone Encounter - Francisca Aldana RN - 11/26/2024 1:17 PM EDT Patient calling in and states he has self-diagnosed himself with a kidney stone and requesting painmedication/tx today. Limited information obtained. Advised pt that he would need an evaluation first to determine most appropriate plan of care. No same-day appts available for pt this afternoon, Pt advised to go to for non-severe sx's. Pt agreeable. Francisca Aldana RN documented in this encounterSt. [facility]25 NoteHNO ID: [id number] Author: PAUL ARZOLA, DO Service: ? 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 2) Anemia. HPI: The patient is a 79 year-old male with a past medical history significant for hypothyroidism (received radioactive ablation for hyperthyroidism ~1989), hypertension, type 2 diabetes (Dx ~25 years ago; neuropathy), hypercholesterolemia, GERD, stage 3b chronic kidney disease and B12 deficiency. Patient was noted to have elevated creatinine of 1.27 in August 2019. It was 1.68 in March 2020. UA in March 2020 demonstrated 1+ protein with no evidence of RBCs or WBCs. Creatinine on 03/24/2020 was 1.47 g/dL whereas it had been 1.68 mg/dL on 03/16/2020. He had an ultrasound of the kidneys on 05/04/2020. Was interpreted as a normal ultrasound kidneys and urinary bladder. Patient's recent lab work from 05/12/2020 includes a chemistry panel showing a serum creatinine of 1.42 mg/dL. Serum calcium was 9.3 mg/dL. Patient had a protein electrophoresis of the serum and a random urine sample performed. No M spike was observed on the urine protein electrophoresis but on the serum protein electrophoresis note was made of a faint band in the gamma region suspicious for monoclonal immunoglobulin. However was thought to possibly represent a benign spike as seen in older individuals or potential paraprotein. Immunofixation of the urine and serum had not been performed. Has sensory neuropathy of feet. Noticed ulcers on posterior lower gum about 6-8 months ago. Saw oral surgeon. Biopsy c/w mucous membrane pemphigoid. On steroid mouth rinse and has follow up in August. Seems to be helping. Serum folate from last summer recently posted and was low. Presents for ongoing hematologic management. Interim history: Fatigued. PMH, medications and allergies personally reviewed by me today. Any changes documented in appropriate section. ROS: Constitutional: Denies episodes of fever and night sweats. Not significantly fatigued. Decreased appetite. Neuro: Denies GUTIERREZ, vertigo and dizziness. +Chronic imbalance. HEENT: No recent change in voice, vision or hearing. Resp: Denies cough, wheeze and hemoptysis. Denies shortness of breath at rest. Denies KEY. CVS: Denies exertional chest pain, PND, orthopnea and LE edema. GI: Denies dysgeusia. Denies symptoms of stomatitis. Denies dysphagia and odynophagia. Denies n/v, change in bowel habits and abdominal pain. : Denies dysuria or gross hematuria. No symptoms of bladder outlet obstruction. Endo: Denies hot flashes. Denies polyuria and polydipsia. Denies heat and cold intolerance. Musculoskeletal: Joint pain all the time. Attributes it to his statin drug. Derm: Denies rash. Denies jaundice and diffuse pruritis. Heme: Denies unusual bleeding and unexplained bruising. Psych: Normal mood. PHYSICAL EXAM: Vitals: Blood pressure 120/81, pulse 69, temperature 36.9 ?C (98.5 ?F), temperature source Temporal, weight 96.6 kg (213 lb), SpO2 97%. Well-appearing and in no acute distress. EYES: Sclerae are anicteric bilaterally. LYMPHATIC: There is no palpable cervical or supraclavicular adenopathy. RESPIRATORY: Inspiratory breath sounds are of normal intensity in all peres. No rales, wheezes or rhonchi. CARDIOVASCULAR: Rhythm is regular. ABDOMEN: The abdomen is nondistended. No organomegaly. No tenderness. SKIN: No jaundice or rash. PATHOLOGY: Bone marrow biopsy 08/18/2021: A-C. Bone marrow, aspirate smear and core biopsy, with clot section: - Cellular marrow (variable, 10-40%) with trilineage hematopoiesis. - Multiple lymphoid aggregates, favor reactive process. - Stainable iron present. - See comment. D. Peripheral blood smear: - Macrocytic anemia and monocytosis. The patient has a history of macrocytic anemia. Flow cytometry on this specimen shows no immunophenotypic evidence of lymphoproliferative disorder or abnormal blast population (see flow report). Correlation with clinical findings and pending cytogenetic result to rule out clonal neoplasm is suggested. 2% PCs. DIAGNOSIS: 46,XY[20] INTERPRETATION: Normal, male karyotype ASSESSMENT/PLAN: (D53.9) Macrocytic anemia (primary encounter diagnosis) Assessment: -The patient is a 79-year-old male who has a history of chronic kidney disease. Found to have a questionable serum monoclonal protein on electrophoresis. -Renal function had been stable dating to at least March 2017. -Repeat testing here significant only for a poorly defined region of restricted mobility in the lambda rafita potentially route sales representative of low-level lambda monoclonal gammopathy. The serum kappa free light chain was mildly elevated and the lambda light chain was normal as was the ratio. 24-hour urine collection negative for monoclonal protein by both electrophoresis and immunofixation. 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 2) Anemia. HPI: The patient is a 79 year-old male with a past medical history significant for hypothyroidism (received radioactive ablation for hyperthyroidism ~1989), hypertension, type 2 diabetes (Dx ~25 years ago; neuropathy), hypercholesterolemia, GERD, stage 3b chronic kidney disease and B12 deficiency. Patient was noted to have elevated creatinine of 1.27 in August 2019. It was 1.68 in March 2020. UAin March 2020 demonstrated 1+ protein with no evidence of RBCs or WBCs. Creatinine on 03/24/2020 was 1.47 g/dL whereas it had been 1.68 mg/dL on 03/16/2020. He had an ultrasound of the kidneys on 05/04/2020. Was interpreted as a normal ultrasound kidneys and urinary bladder. Patient's recent lab work from 05/12/2020 includes a chemistry panel showing a serum creatinine of 1.42 mg/dL. Serum calcium was 9.3 mg/dL. Patient had a protein electrophoresis of the serum and a random urine sample performed. No M spike was observed on the urine protein electrophoresis but on the serum protein electrophoresis note was made of a faint band in the gamma region suspicious for monoclonal immunoglobulin. However was thought to possibly represent a benign spike as seen in older individuals or potential paraprotein. Immunofixation of the urine and serum had not been performed. Has sensory neuropathy of feet. Noticed ulcers on posterior lower gum about 6-8 months ago. Saw oral surgeon. Biopsy c/w mucous membrane pemphigoid. On steroid mouth rinse and has follow up in August. Seems to be helping. Serum folate from last summer recently posted and was low. Presents for ongoing hematologic management. Interim history: Fatigued. PMH, medications and allergies personally reviewed by me today. Any changes documented in appropriate section. ROS: Constitutional: Denies episodes of fever and night sweats. Not significantly fatigued. Decreased appetite. Neuro: Denies GUTIERREZ, vertigo and dizziness. +Chronic imbalance. HEENT: No recent change in voice, vision or hearing. Resp: Denies cough, wheeze and hemoptysis. Denies shortness of breath at rest. Denies KEY. CVS: Denies exertional chest pain, PND, orthopnea and LE edema. GI: Denies dysgeusia. Denies symptoms of stomatitis. Denies dysphagia and odynophagia. Denies n/v, change in bowel habits and abdominal pain. : Denies dysuria or gross hematuria. No symptoms of bladder outlet obstruction. Endo: Denies hot flashes. Denies polyuria and polydipsia. Denies heat and cold intolerance. Musculoskeletal: Joint pain all the time. Attributes it to his statin drug. Derm: Denies rash. Denies jaundice and diffuse pruritis. Heme: Denies unusual bleeding and unexplained bruising. Psych: Normal mood. PHYSICAL EXAM: Vitals: Blood pressure 120/81, pulse 69, temperature 36.9 C (98.5 F), temperature source Temporal, weight 96.6 kg (213 lb), SpO2 97%. Well-appearing and in no acute distress. EYES: Sclerae are anicteric bilaterally. LYMPHATIC: There is no palpable cervical or supraclavicular adenopathy. RESPIRATORY: Inspiratory breath sounds are of normal intensity in all peres. No rales, wheezes or rhonchi. CARDIOVASCULAR: Rhythm is regular. ABDOMEN: The abdomen is nondistended. No organomegaly. No tenderness. SKIN: No jaundice or rash. PATHOLOGY: Bone marrow biopsy 08/18/2021: A-C. Bone marrow, aspirate smear and core biopsy, with clot section: - Cellular marrow (variable, 10-40%) with trilineage hematopoiesis. - Multiple lymphoid aggregates, favor reactive process. - Stainable iron present. - See comment. D. Peripheral blood smear: - Macrocytic anemia and monocytosis. The patient has a history of macrocytic anemia. Flow cytometry on this specimen shows no immunophenotypic evidence of lymphoproliferative disorder or abnormal blast population (see flow report). Correlation with clinical findings and pending cytogenetic result to rule out clonal neoplasm is suggested. 2% PCs. DIAGNOSIS: 46,XY[20] INTERPRETATION: Normal, male karyotype ASSESSMENT/PLAN: (D53.9) Macrocytic anemia (primary encounter diagnosis) Assessment: -The patient is a 79-year-old male who has a history of chronic kidney disease. Found to have a questionable serum monoclonal protein on electrophoresis. -Renal function had been stable dating to at least March 2017. -Repeat testing here significant only for a poorly defined region of restricted mobility in the lambda rafita potentially route sales representative of low-level lambda monoclonal gammopathy. The serum kappa free light chain was mildly elevated and the lambda light chain was normal as was the ratio. 24-hour urine collection negative for monoclonal protein by both electrophoresis and immunofixation. No evidenceof serum monoclonal protein by both electrophoresis and immunofixation. -Previous bone marrow biopsy with no morphologic evidence of myelodysplastic syndrome or plasma cell disorder. Cytogenetics normal. Myeloid NGS panel negative. -Worsening anemia. Low iron in the past. Renal function slowly worsening. Discussed parenteral ironwhich he has required previously. ANIKA following if indicated. Plan: -Await iron. Portions of this documentation were copied and pasted from my previous office visit note dated 11/20/2023 in order to provide a cohesive continuity of the history. The note has been reviewed and editedand updated as necessary. I spent a total of 2- minutes on the date of the service which included preparing to see the patient, [id number] patient care, completing clinical documentation, obtaining and/or reviewing separately obtained history, counseling and educating the patient/family/caregiver, ordering medications, morena ts, or procedures, communicating with other HCPs (not separately reported), and communicating results to the patient/family/caregiver. Paul Arzola DO documented in [facility] encounter[facility] Telephone encounter Note * Telephone Encounter - Wiliam Mandel MD - 11/18/2024 9:12 PM EDT The following approved medication requests have been transmitted electronically. Requested Prescriptions Signed Prescriptions Disp Refills pioglitazone (ACTOS) 45 mg tablet 90 tablet 1 Sig: Take 1 tablet by mouth once daily. Authorizing Provider: WILIAM MANDEL MD [facility]09-08-2025 Miscellaneous Notes* Telephone Encounter - Wiliam Mandel MD - 11/18/2024 9:12 PM EDT The following approved medication requests have been transmitted electronically. Requested Prescriptions Signed Prescriptions Disp Refills pioglitazone (ACTOS) 45 mg tablet 90 tablet 1 Sig: Take 1 tablet by mouth once daily. Authorizing Provider: WILIAM MANDEL MD * Telephone Encounter - Walter Alexander LPN - 11/18/2024 7:12 PM EDT Prescription Refill Information The patient has been identified by name and date of : Yes Caregiver verified no other encounters exist for this prescription request: Yes Caregiver confirmed with patient/requestor that no other refills are due, in the near future, with this provider at this time: Yes The last office visit in the department: 05/22/24 Does the patient have a future office visit with this provider/department: Yes, 12/13/24 Requested Prescriptions Pending Prescriptions Disp Refills pioglitazone (ACTOS) 45 mg tablet 90 tablet 1 Sig: Take 1 tablet by mouth once daily. Walter Alexander LPN November 18, 2024 7:13 PM documented in this encounterSt. [facility]09-[facility]25 Telephone encounter Note * Telephone Encounter - Walter Alexander LPN - 11/18/2024 7:12 PM EDT Prescription Refill Information The patient has been identified by name and date of : Yes Caregiver verified no other encounters exist for this prescription request: Yes Caregiver confirmed with patient/requestor that no other refills are due, in the near future, with this provider at this time: Yes The last office visit in the department: 05/22/24 Does the patient have a future office visit with this provider/department: Yes, 12/13/24 Requested Prescriptions Pending Prescriptions Disp Refills pioglitazone (ACTOS) 45 mg tablet 90 tablet 1 Sig: Take 1 tablet by mouth once daily. Walter Alexander LPN November 18, 2024 7:[address] [facility]09-08-2025 Radiology Diagnostic study note [facility] Imaging Services [address] [place] [address] [id number] ABD Limited w/ Elastography MR#: [id number] Acct: [id number] Name: MEG BRYANT Rep #: [id number] : 1945 M 79 From: Galen Crow MD PCP: Dr. Wiliam Mandel MD Status: REG CLI Study:ABD Limited w/ Elastography Date of Exa m: 11/18/24 Exam# [id number] Ordering Dr: Alonzo Allen DO PROCEDURE: ABD LIMITED W/ ELASTOGRAPHY REASON FOR EXAM: FATTY LIVER DISEASE COMPARISON: None. TECHNIQUE: Procedure Code: [id number] Modality: US Procedure: ABD LIMITED W/ ELASTOGRAPHY Right upper quadrant abdominal ultrasound. Fatmata ElastQ Imaging shear wave elastography for non-invasive assessment of liver tissue stiffness. Eat Latin EPIQ Elite. FINDINGS: LIVER: Size: Unremarkable Length: 15.9 cm Echotexture: Normal Contour: Normal Lesions: None identified Elastography: EQI Med: 6.7 kPa EQI Med Aron: 1.49 m/s IQR/Med: 26.5 %* GALLBLADDER: Diffuse thickening of the wall and region of the fundus. There is a 8 mm x 8 mm cyst. COMMON BILE DUCT: Normal measuring 4 mm . PANCREAS: Obscured by bowel gas. Visualized portions of the right kidney are unremarkable. No right upper quadrant ascites. US/ABD Limited w/ Elastography IMPRESSION: NO TO MILD HEPATIC FIBROSIS Diffuse thickening of the fundal portion of the gallbladder wall with evidence of a small cyst. Reference Values: SRU <1.37 m/s (5.7kPa): No to mild fibrosis 1.37 m/s - 2.2 m/s: Moderate to severe fibrosis >2.2 m/s (15kPa): Significant fibrosis / cirrhosis METAVIR Score F2 or higher: 1.34 m/s (5.7kPa) F3 or higher: 1.55 m/s (7.3kPa) F4: 1.80 m/s (10kPa) * If the IQR/Med is >30%, the variance in the measurements is a large and the accuracy of the measurement may be in question. Reading Location: [id number] CC: Dr. Wiliam Mandel MD; Caleb Allen, ~ Law Instructor: Signed [facility]08-21-2025 NoteHNO ID: [id number] Author: LUMA JUDGE MA Service: ? Author Type: Licensed Nurse Type: Progress Notes Filed: 11/06/2024 08:46 Note Text: Scan on 10/31/2024 8:32 AM by Provider, External, PA-C: Miscellaneous Lab View External Labs - Miscellaneous Lab [ID [id number]] View External Labs - Miscellaneous Lab [ID [id number]] View External Labs - UR Creat, Microalb Cre UR [ID [id number]] View External Labs - Renal, Vit D [ID [id number]] View External Labs - PTH [ID [id number]] View External Labs - CBC [ID [id number]] View External Labs - Ova and Parasites with Giardia final [ID [id number]] [facility]08-21-2025 History of Present illness Narrative* Tara Bustillo LPN - 10/31/2024 8:41 AM EDT Scan on 10/31/2024 8:32 AM by ProviderMoses PA-C: Miscellaneous Lab documented in this encounterSt. [facility] Hospital08-19-2025 NoteHNO ID: [id number] Author: LUMA JUDGE MA Service: ? Author Type: Director Of Strategic Sales Type: Progress Notes Filed: 10/31/2024 08:26 Note Text: Scan on 10/29/2024 12:38 PM by Moses Hunter PA-C: stool test, Dr. Allen, [facility] External Labs - Allrgn, Prof FD [ID [id number]][facility] 10-29-2024 History of Present illness Narrative* Luma Judge MA - 10/29/2024 1:17 PM EDT Scan on 10/29/2024 12:38 PM by ProviderMoses PA-C: stool test, Dr. Allen, [facility] External Labs - Allrgn, Prof FD [ID [id number]] documented in this encounterSt. [facility]08-[facility]25 Evaluation note* Diagnosis Onset Date Resolution Status Admit Date Diarrhea acute October 24, 2 025 12:53pm Abdominal pain noneactive October 12:53pm [facility] Work Phone: 1(544) 167-364208-14-2025 Evaluation note* Diagnosis Onset Date Resolution Status Admit Date Diarrhea acute October 24, 2 025 12:53pm Abdominal pain noneactive October h2024 12:53pm Diarrhea acute November 19, 2024 1:25pm [facility] Work Phone: 1(568) 481-401208-14-2025 Evaluation note* Diagnosis Onset Date Resolution Status Admit Date Diarrhea acute October 24, 2 025 12:53pm Abdominal pain noneactive October 12:53pm Diarrhea acute November 19, 2024 1:25pm Diarrhea acute November 7:50am [facility] Work Phone: 1(927) 401-619006-24-2025 Telephone encounter Note* Telephone Encounter - Luma Judge MA - 09/03/2024 12:45 PM EDT Faxed current GI order to Dr. Allen with demographics to [phone]. Pt notified of this via App[employer]. If any further issues to contact office. Luma Judge MA [facility]06-24-2025 Miscellaneous Notes* Telephone Encounter - Luma Judge MA - 09/03/2024 12:45 PM EDT Faxed current GI order to Dr. Allen with demographics to [phone]. Pt notified of this via App[employer]. If any further issues to contact office. Luma Judge MA documented in this encounterSt[facility] Telephone encounter Note * Telephone Encounter - Alisa Schafer MA - 08/19/2024 10:19 AM EDT Prescription Refill Information The patient has been identified by name and date of : Yes Caregiver verified no other encounters exist for this prescription request: Yes Caregiver confirmed with patient/requestor that no other refills are due, in the near future, with this provider at this time: Yes The last office visit in the department: 05/22/2024 Does the patient have a future office visit with this provider/department: Yes Requested Prescriptions Pending Prescriptions Disp Refills levothyroxine (SYNTHROID) 125 mcg tablet 90 tablet 1 Sig: Take 1 tablet by mouth once daily. Alisa Schafer MA August 19, 2024 10:[address] [facility]06-09-2025 Miscellaneous Notes* Telephone Encounter - Alisa Schafer MA - 08/19/2024 10:19 AM EDT Prescription Refill Information The patient has been identified by name and date of : Yes Caregiver verified no other encounters exist for this prescription request: Yes Caregiver confirmed with patient/requestor that no other refills are due, in the near future, with this provider at this time: Yes The last office visit in the department: 05/22/2024 Does the patient have a future office visit with this provider/department: Yes Requested Prescriptions Pending Prescriptions Disp Refills levothyroxine (SYNTHROID) 125 mcg tablet 90 tablet 1 Sig: Take 1 tablet by mouth once daily. Alisa Schafer MA August 19, 2024 10:19 AM documented in this encounterSt. [facility] Telephone encounter Note * Telephone Encounter - Wiliam Mandel MD - 06/05/2024 6:08 PM EDT The following approved medication requests have been transmitted electronically. Requested Prescriptions Signed Prescriptions Disp Refills pioglitazone (ACTOS) 45 mg tablet 90 tablet 1 Sig: Take 1 tablet by mouth once daily. Authorizing Provider: WILIAM MANDEL MD [facility]03-26-2025 Miscellaneous Notes* Telephone Encounter - Wiliam Mandel MD - 06/05/2024 6:08 PM EDT The following approved medication requests have been transmitted electronically. Requested Prescriptions Signed Prescriptions Disp Refills pioglitazone (ACTOS) 45 mg tablet 90 tablet 1 Sig: Take 1 tablet by mouth once daily. Authorizing Provider: WILIAM MANDEL MD * Telephone Encounter - Alisa Schafer MA - 06/05/2024 3:18 PM EDT Prescription Refill Information The patient has been identified by name and date of : Yes Caregiver verified no other encounters exist for this prescription request: Yes Caregiver confirmed with patient/requestor that no other refills are due, in the near future, with this provider at this time: Yes The last office visit in the department: 05/2024 Does the patient have a future office visit with this provider/department: Yes Requested Prescriptions Pending Prescriptions Disp Refills pioglitazone (ACTOS) 45 mg tablet 90 tablet 1 Sig: Take 1 tablet by mouth once daily. Alisa Schafer MA June 05, 2024 3:18 PM documented in this encounterSt. [facility]03-[facility]25 Telephone encounter Note * Telephone Encounter - Alisa Schafer MA - 06/05/2024 3:18 PM EDT Prescription Refill Information The patient has been identified by name and date of : Yes Caregiver verified no other encounters exist for this prescription request: Yes Caregiver confirmed with patient/requestor that no other refills are due, in the near future, with this provider at this time: Yes The last office visit in the department: 05/2024 Does the patient have a future office visit with this provider/department: Yes Requested Prescriptions Pending Prescriptions Disp Refills pioglitazone (ACTOS) 45 mg tablet 90 tablet 1 Sig: Take 1 tablet by mouth once daily. Alisa Schafer MA June 05, 2024 3:[address] [facility]03-12-[facility]25 Telephone encounter Note* Telephone Encounter - Alisa Schfaer MA - 05/22/2024 3:30 PM EDT Patient rescheduled. Alisa Schafer MA [facility]03-12-2025 Miscellaneous Notes* Telephone Encounter - Alisa Schafer MA - 05/22/2024 3:30 PM EDT Patient rescheduled. Alisa Schafer MA documented in this encounterSt. [facility]03-12-2025 Instructions* Patient Instructions* Wiliam Mandel MD - 05/22/2024 1:07 PM EDT Screening schedule The following prevention plan is recommended: Depression Screening Never done Advance Directive Discussion due on 03/13/2024 Diabetic Foot Exam due on 05/23/2024 WHAT YOU CAN DO TO PREVENT FALLS Many falls can be prevented. By making some changes, you can lower your chances of falling. Four things YOU can do to prevent falls for you* and your caregiver 1. Begin a regular exercise program Exercise is one of the most important ways to lower your chances of falling. It makes you stronger and helps you feel better. Exercises that improve balance and coordination (like Kulwant Chi) are the most helpful. Lack of exercise leads to weakness and increases your chances of falling. Ask your doctor or health care provider about the best type of exercise program for you. 2. Have your health care provider review your medicines Have your doctor or pharmacist review all the medicines you take, even [id number] medicines. As you get older, the way medicines work in your body can change. Some medicines, or combinations of medicines, can make you sleepy or dizzy andcan cause you to fall. 3. Have your vision checked Have your eyes checked by an eye doctor at least once a year. You may be wearing the wrong glasses or have a condition like glaucoma or cataracts that limits your vision. Poor vision can increase your chances of falling. 4. Make your home safer About half of all falls happen at home. To make your home safer: Remove things you can trip over (like papers, books, clothes, and shoes) from stairs and places where you walk. Remove small throw rugs or use double-sided tape to keep the rugs from slipping. Keep items you use often in cabinets you can reach easily without using a step stool. Have grab bars put in next to your toilet and in the tub or shower. Use non-slip mats in the bathtub and on shower floors. Improve the lighting in your home. As you get older, you need brighter lights to see well. Hang light-weight curtains or shades to reduce glare. Have handrails and lights put in on all staircases. Wear shoes both inside and outside the house. Avoid going barefoot or wearing slippers. For more information, contact: Centers for Disease Control and Prevention www.cdc.gov/injury * This information may not apply if you have certain medical conditions. documented in this encounterSt. [facility]03-[facility]25 History of Present illness Narrative* Wiliam Mandel MD - 05/22/2024 1:00 PM EDT Images from the original note were not included. Meg Bryant is a 79 year old male here for a Medicare wellness visit. Medicare Health Risk Assessment General Health Good Exercise: Minutes/Day 0 min Exercise: Days/Week 0 days Alcohol: Daily Use Monthly or less Alcohol: Drinks/Day 1 or 2 Alcohol: 6 or more drinks Never Feel off balance Yes Concerns: Teeth/Dentures No Concerns: Sexual function No Troubled by feelings Angry Frequency: Eating healthy diet Several days ADLs requiring help None of the above Safety precautions in home/vehicle No Smoke, vape, chews tobacco No Difficulty hearing No Difficulty seeing No Current Providers Specialists: I have reviewed specialist-related care of the patient in the medical record. Current care team: Patient Care Team: Wiliam Mandel MD as PCP - General (Family Medicine) Eden Dove MD as Mlt (Nephrology) Nima Hobbs APRN.CNP as Nba Player (Family Medicine) Lilliam Monaco PA-C as Nba Player (Family Medicine) Dr. Celestino Reilly Medical/Family history review Reviewed and updated problem list, medical/surgical/family/social history, medications, and allergies. Opioid use review Opioid Medications (last 90 days) No data to display Anxiety/Depression screening PHQ-2 Score: 2 (Lower risk for depression) Recommendation: no further intervention at this time Cognitive screening Score: 5 Cognitive screening reviewed and No further action needed (score 3-5). Functional Observation Was the patient's Timed Up & Go test unsteady or >= 12 seconds? No Advance Care Planning Surrogate decision maker documented and/or advance directives scanned in chart Measurements BP 102/58 Pulse 70 Resp 16 Ht 172.1 cm (5' 7.75) Wt 96.2 kg (212 lb) BMI 32.47 kg/m Vision Screening: Follows with optometry/ophthalmology Assessment/Plan Medicare annual wellness visit, subsequent (Z00.00) - Counseled on healthy diet and regular exercise - Fall avoidance information provided - Personalized prevention plan provided See below Chief Complaint Patient presents with: Medicare Wellness Exam HPI Meg Bryant is a 79 year old male who presents here today for Chronic Medical Conditions. and Medicare Annual Visit. Patient with Hx of DM 2, neuropathy, hyperlipidemia, HTN, obesity, hypothyroidism, carotid stenosis, diabetic proteinuria, GERD, mod aortic Stenosis, COPD, macrocytic anemia as well as those reviewedand addressed below and in ROS. Ref Range & Units 8 d ago (05/14/24) 6 mo ago (11/20/23) 1 yr ago (05/18/23) 1 yr ago (11/16/22) 2 yr ago (05/18/22) 2 yr ago (10/26/21) 3 yr ago (03/18/21) Hemoglobin A1C 4.3 - 5.6 % 6.4 High 6.2 High CM 6.3 High CM 6.2 High CM 6.7 High CM 6.4 High CM 6.6 High Patient D/C Metformin started having stomach cramps once on the Extended release. The pain will go towards his back. The symptoms are less since stopping the metformin but still getting the pain on occasion. Sometimes will get slight nausea with it and a cold sweat. Patient sees ophthalmology last visit 09/[address] Dove last visit 12/2023 Patient sees [facility] Patient sees Dr. Arzola. Past medical history, appointments, medications, allergies reviewed. Previous Medical History PAST MEDICAL HISTORY Diagnosis Date Advance directive discussed with patient 11/11/2021 Discussed 10/2021 AK (actinic keratosis) 10/23/2018 right frontal scalp treated with Cryo 10/23/2018 Albuminuria 03/26/2020 Anemia due to stage 3 chronic kidney disease (HCC) (HCC) 07/28/2022 Arthritis Benign neoplasm of rectum and anal canal Benign non-nodular prostatic hyperplasia without lower urinary tract symptoms 08/19/2015 Bilateral carotid artery stenosis 10/24/2018 US 10/2018: 20-40% tere Calculus of gallbladder with chronic cholecystitis without obstruction 03/27/2021 CT 03/2021 Chronic diarrhea 11/11/2021 Class 1 obesity due to excess calories without serious comorbidity with body mass index (BMI) of 34.0 to 34.9 in adult 10/05/2017 Controlled type 2 diabetes mellitus with diabetic nephropathy, without long-term current use of insulin ([facility]) 08/19/2015 Coronary artery disease Dermatitis 11/16/2018 thigh lesion removed 10/2018 Diabetic eye exam (HCC) 04/09/2015 Last done: 08/01/2018 No Retinopathy Diabetic peripheral neuropathy (HCC) 03/16/2011 Essential hypertension with goal blood pressure less than 130/85 08/19/2015 Gastroesophageal reflux disease without esophagitis 04/07/2015 Glaucoma Hypothyroidism (acquired) Idiopathic gout 12/11/2023 Idiopathic gout 12/11/2023 Left ankle: patient declined Allopurinol 12/11/2023 Lichenoid dermatitis 11/16/2018 left chest, removed 10/2018 Living will on file 11/11/2021 DPA: Michelle () Macrocytic anemia 06/15/2020 Medicare annual wellness visit, subsequent 09/29/2016 last done: 02/27/2019 Mixed hyperlipidemia Moderate aortic stenosis 05/03/[address] Holder Obstructive chronic bronchitis with exacerbation ([facility]) 07/29/2008 Ocular histoplasmosis syndrome of left eye at 19yo, vision loss Other dietary vitamin B12 deficiency anemia 04/06/2017 Hg typically 11-11.5 Other proteinuria 03/26/2020 Personal history of colonic polyps Colon polyps Platelets decreased ([facility]) 01/18/2023 Psychosexual dysfunction, unspecified 01/28/2008 Unspecified tinnitus 05/27/2008 Previous Surgical History PAST SURGICAL HISTORY Procedure Laterality Date 2D ECHO (EXEP) 01/13/2020 EF=60%, mild-mod , COLONOSCOPY & POLYPECTOMY 12/30/2003 COLONOSCOPY FLX DX W/COLLJ SPEC WHEN PFRMD 04/05/2011 Colonoscopy repeat 5 yrs COLONOSCOPY FLX DX W/COLLJ SPEC WHEN PFRMD 12/20/2016 Colonoscopy NUCLEAR STRESS LEXISCAN (CARD) 05/30/2018 negative REMV CATARACT EXTRACAP,INSERT LENS Right 10/30/2023 SKIN BIOPSY HX Family History FAMILY HISTORY Problem Relation Age of Onset Diabetes Mother Heart Mother IN Stroke Father Cancer Father lung Heart Sister Patient Allergies ALLERGIES Allergen Reactions Januvia [Sitaglipti* Myalgia Current Medications Current Outpatient Medications on File Prior to Visit Medication Sig linaGLIPtin (TRADJENTA) 5 mg tab Take 1 tablet by mouth once daily. levothyroxine (SYNTHROID) 125 mcg tablet Take 1 tablet by mouth once daily. pioglitazone (ACTOS) 45 mg tablet Take 1 tablet by mouth once daily. cyanocobalamin (VITAMIN B-12) 1,000 mcg tab Take 1 tablet by mouth two times a day. metFORMIN ER (GLUCOPHAGE XR) 500 mg 24 hr tablet Take 1 tablet by mouth daily with breakfast. fluticasone (FLONASE ALLERGY RELIEF) 50 mcg/actuation nasal spray Use 1 [place] in each nostril once daily. lisinopril (ZESTRIL) 20 mg tablet Take 1 tablet by mouth once daily. simvastatin (ZOCOR) 20 mg tablet Take 1 tablet by mouth once daily. folic acid 1 mg tablet Take 1 tablet by mouth once daily. copper citrate 2 mg capsule Take 2 mg by mouth once daily. cholecalciferol (VITAMIN D3) 50 mcg (2,000 unit) tablet Take 2,000 Units by mouth once daily. DOCOSAHEXANOIC ACID/EPA (FISH OIL ORAL) Take 1,000 mg by mouth once daily. blood sugar diagnostic (BLOOD GLUCOSE TEST) test strip Test blood sugar(s) 1 time daily. Dx: E11.9.Insulin: No timolol maleate (ISTALOL) 0.5 % OPHTHALMIC DrpD Use 1 Drop in the left eye once daily. XALATAN 0.005 % EYE DROPS one drop each at bedtime ASPIRIN 81 MG TAB Take 81 mg by mouth once daily. No current facility-administered medications on file prior to visit. Social History Social History Tobacco Use Smoking status: Former Types: Pipe Smokeless tobacco: Never Vaping Use Vaping status: Never Used Substance Use Topics Alcohol use: Yes Comment: rarely Drug use: No Review of Symptoms REVIEW OF SYSTEMS GENERAL: No weight loss, malaise or fevers HEENT: Negative for frequent or significant headaches, No changes in hearing or vision, no nose bleeds or other nasal problems NECK: Negative for lumps, goiter, pain and significant neck swelling RESPIRATORY: Negative for cough, hemoptysis, wheezing, COPD, slight dyspnea or shortness of breath with prolonged walking. CARDIOVASCULAR: Negative for chest pain, leg swelling, hypertension, CHF or palpitations GI: No nausea, vomiting, and No heartburn or reflux symptoms or acid taste. Still has the diarrhea that tends to start after gong to bed and will continue to about noon the next day. Slightly better with stopping the metformin. . No blood : No history of dysuria, frequency or blood MUSCULOSKELETAL: Negative for joint pain or swelling, back pain or muscle pain SKIN: Negative for lesions, rash, and itching PSYCH: Negative for, mood disorder and recent psychosocial stressors. Dose not sleep well with the diarrhea. HEMATOLOGY/LYMPHOLOGY: Negative for prolonged bleeding, bruising easily or swollen nodes ENDOCRINE: Negative for cold or heat intolerance, gets a low BS every once in a great while. NEURO: No history of headaches, syncope, paralysis, seizures or tremors EXAM: BP 102/58 Pulse 70 Resp 16 Ht 172.1 cm (5' 7.75) Wt 96.2 kg (212 lb) BMI 32.47 kg/m Last 6 Encounter Wt Readings: Date: Wt: 05/22/2024 96.2 kg (212 lb) 12/26/2023 96.2 kg (212 lb) 12/08/2023 94.8 kg (209 lb) 11/22/2023 95.7 kg (211 lb) 11/20/2023 96.4 kg (212 lb 8 oz) 05/24/2023 96.2 kg (212 lb) General Appearance: Well appearing, alert, in no acute distress, well-hydrated, well nourished.. Skin: Skin color, texture, turgor normal, no suspicious rashes or lesions. Head: Normocephalic, no masses, lesions, tenderness or abnormalities. Eyes: Anicteric sclera. Pupils are equally round and reactive to light. Extraocular movements are intact. . Ears: External ears, TM's normal, canals clear. Nose/Sinuses: Nares normal, septum midline, mucosa normal, no drainage or sinus tenderness. Oropharynx: Lips, mucosa, and tongue normal, teeth and gums normal, oropharynx normal. Neck: Supple, no adenopathy; thyroid symmetric, normal size, no bruits. Lungs: Lungs clear to auscultation. No wheezing, rhonchi, rales.. Heart: RRR without murmur, gallop, or rubs. No ectopy. Abdomen: Normal abdominal exam, Abdomen soft, non-tender. Bowel sounds normal. No masses, organomegaly. Extremities: No deformities, edema, skin discoloration, clubbing or cyanosis. Good capillary refill. . Musculoskeletal: Muscular strength intact, No joint swelling, deformity, or tenderness. Peripheral Pulses: Normal. Neurologic: Gait normal. Reflexes normal and symmetric. Sensation grossly intact.. Genitalia: declined Rectal: declined. . Health Maintenance List Depression Screening Never done Advance Directive Discussion due on 03/13/2024 Diabetic Foot Exam due on 05/23/2024 Anxiety Screening due on 11/21/2024 Covid-19 Vaccine() due on 07/04/2024 Dilated Retinal Exam due on 10/02/2024 HbA1C due on 11/14/2024 Annual PCP Team Chronic Disease Visit due on 12/07/2024 BP Controlled (<130/80) due on 12/07/2024 Urine Albumin:Creatinine Ratio due on 05/14/2025 LDL Cholesterol due on 05/14/2025 Serum Creatinine due on 05/14/2025 Hemoglobin/Hematocrit due on 05/14/2025 DTaP,Tdap,Td Vaccine(4 - Td or Tdap) due on 03/31/2027 Influenza Vaccine Completed RSV Vaccine Completed Hepatitis C Screening Completed Shingrix Vaccine Completed Pneumococcal Vaccine: 50+ Completed Colorectal Cancer Screening Discontinued Data reviewed Latest Ref Rng 05/18/2023 11/20/2023 12/08/2023 05/14/2024 WBC 3.70 - 11.00 k/uL 7.30 10.88 RBC 4.20 - 6.00 m/uL 2.84 (L) 3.02 (L) Hemoglobin 13.0 - 17.0 g/dL 9.2 (L) 10.0 (L) Hematocrit 39.0 - 51.0 % 29.1 (L) 32.1 (L) MCV 80.0 - 100.0 fL 102.5 (H) 106.3 (H) MCH 26.0 - 34.0 pg 32.4 33.1 MCHC 30.5 - 36.0 g/dL 31.6 31.2 RDW-CV 11.5 - 15.0 % 13.8 13.3 Platelet Count 150 - 400 k/uL 187 194 MPV 9.0 - 12.7 fL 10.6 11.5 Neut% % 61.0 62.4 Abs Neut (ANC) 1.45 - 7.50 k/uL 4.45 6.79 Lymph% % 24.1 23.2 Abs Lymph 1.00 - 4.00 k/uL 1.76 2.52 Henry% % 10.0 9.9 Abs Henry <0.87 k/uL 0.73 1.08 (H) Eosin% % 3.4 3.1 Abs Eosin <0.46 k/uL 0.25 0.34 Baso% % 1.2 0.8 Abs Baso <0.11 k/uL 0.09 0.09 Immature Gran % % 0.3 0.6 IMMATURE GRANS (ABS) <0.10 k/uL <0.03 0.06 NRBC /100 WBC 0.0 0.0 Absolute nRBC <0.01 k/uL <0.01 <0.01 DTYPE Auto Auto Color Yellow Yellow Yellow Clarity Clear Clear Clear Glucose, Urine Negative Negative Negative Bilirubin, Urine Negative Negative Negative Ketones, Urine Negative Negative Trace ! Specific [place], Ur 1.005 - 1.030 1.017 1.017 Hemoglobin/Blood,Ur Negative Trace ! Negative pH, Urine <8.5 5.5 5.5 Protein, Urine Negative Negative Negative Urobilinogen 0.2-1.0 EU/dL 0.2 EU/dL 0.2 EU/dL Nitrites Negative Negative Negative Leukest Negative Negative Negative WBC, Urine 0-5 /HPF 0-5 /HPF 0-5 /HPF RBC, Urine 0-2 /HPF 0-2 /HPF 0-2 /HPF Bacteria Negative /HPF Negative Negative Epithelial Cells /HPF None Seen None Seen Hyaline Cast 0 /LPF 1-3 /LPF ! 1-3 /LPF ! Protein, Total 6.3 - 8.0 g/dL 6.6 6.6 Albumin 3.9 - 4.9 g/dL 3.8 (L) 3.9 Calcium 8.5 - 10.2 mg/dL 9.1 9.5 9.2 Bilirubin, Total 0.2 - 1.3 mg/dL 0.4 0.3 Alkaline Phosphatase 38 - 113 U/L 44 59 AST 14 - 40 U/L 14 19 ALT 10 - 54 U/L 6 (L) 10 Glucose 74 - 99 mg/dL 214 (H) 219 (H) 132 (H) BUN 9 - 24 mg/dL 28 (H) 27 (H) 42 (H) Creatinine 0.73 - 1.22 mg/dL 1.53 (H) 1.50 (H) 1.80 (H) Sodium 136 - 144 mmol/L 141 139 143 Potassium 3.7 - 5.1 mmol/L 4.5 5.0 5.7 (H) Chloride 98 - 107 mmol/L 110 (H) 108 (H) 114 (H) CO2 22 - 30 mmol/L 23 21 (L) 17 (L) Anion Gap 8 - 15 mmol/L 8 (L) 10 12 eGFR >=60 mL/min/1.73m 47 (L) 48 (L) 38 (L) Total Cholesterol, Nonfasting <200 mg/dL 152 172 156 Triglycerides, Nonfasting <150 mg/dL 80 101 126 HDL Cholesterol, Nonfasting >39 mg/dL 41 42 40 LDL Cholesterol, Nonfasting <100 mg/dL 95 110 (H) 91 Non HDL Cholesterol, Nonfasting <130 mg/dL 111 130 (H) 116 VLDL Cholesterol, Nonfasting <30 mg/dL 16 20 25 Total Chol/HDL Ratio, Nonfasting <5.10 mg/dL 3.71 4.10 3.90 LDL/HDL Ratio, Nonfasting <2.54 mg/dL 2.32 2.62 (H) 2.28 Iron 41 - 186 ug/dL 72 TIBC 232 - 386 ug/dL 290 Transferrin Saturation 15.0 - 57.0 % 24.8 Creatinine, Ur Random (UCRR) 46.8 - 314.5 mg/dL 193.9 163.8 Albumin, Urine Random mg/L <12.0 <12.0 Albumin/Creat Ratio <30 mg/g <6 <7 Hemoglobin A1C 4.3 - 5.6 % 6.3 (H) 6.2 (H) 6.4 (H) Estimated Average Glucose mg/dL 134 131 137 Ferritin 30.3 - 565.7 ng/mL 102.0 Vitamin B12 232 - 1,245 pg/mL 1,082 >2,000 (H) TSH 0.270 - 4.200 mIU/L 1.180 1.050 1.020 PSA <2.60 ng/mL 1.23 1.56 Uric Acid 4.0 - 8.1 mg/dL 8.7 (H) A/P ASSESSMENT/PLAN: 1. Medicare annual wellness visit, subsequent - ICD9: V70.0, ICD10: Z00.00 (primary diagnosis) - Counseled on healthy diet and regular exercise - Follow up for annual exam in one year 2. Controlled type 2 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 disease, without long-term current use of insulin (HCC) - ICD9: 250.40, 585.3, ICD10: E11.22, N18.30 - Controlled - Continue current medications - Counseled on healthy diet and regular exercise - eGFR: 38 Worsening, secondary to dehydration. - Counseled on avoiding NSAIDs, adequate hydration - ACEi/ARB prescribed: Yes 3. Diabetic peripheral neuropathy (HCC) - ICD9: 250.60, 357.2, ICD10: E11.42 - as per #2 - neuropathy stable 4. Diabetic eye exam (HCC) - ICD9: V72.0, 250.00, ICD10: Z01.00, E11.9 - up to date 5. Essential hypertension with goal blood pressure less than 130/85 - ICD9: 401.9, ICD10: I10 - Controlled - Continue current medications - Recommend home blood pressure monitoring, to bring results to next visit - Encouraged sodium restriction, DASH or Mediterranean diet - Recommend regular aerobic exercise - work on weight loss. 6. Mixed hyperlipidemia - ICD9: 272.2, ICD10: E78.2 - Controlled - Continue current medications - Counseled on healthy diet and regular exercise - Discussed need for and benefit of weight loss. BMI 32.47 kg/(m^2) 7. Hypothyroidism (acquired) - ICD9: 244.9, ICD10: E03.9 - Instructed patient on importance of taking on an empty stomach either first thing in the morning or at bedtime. - continue current dose of Synthroid 8. Gastroesophageal reflux disease without esophagitis - ICD9: 530.81, ICD10: K21.9 - managed with diet. 9. Bilateral carotid artery stenosis - ICD9: 433.10, 433.30, ICD10: I65.23 - cont current Tx. 10. Moderate aortic stenosis - ICD9: 424.1, ICD10: I35.0 - follows with Cardio 11. Nonrheumatic mitral valve regurgitation - ICD9: 424.0, ICD10: I34.0 - follows with cardio. 12. Obstructive chronic bronchitis with exacerbation (HCC) - ICD9: 491.21, ICD10: J44.1 - clinically stable no changes needed. 13. Stage 3a chronic kidney disease (HCC) - ICD9: 585.3, ICD10: N18.31 - eGFR: 38 Worsening - Counseled on avoiding NSAIDs, adequate hydration - ACEi/ARB prescribed: Yes 14. Anemia due to stage 3b chronic kidney disease (HCC) (HCC) - ICD9: 285.21, 585.3, ICD10: N18.32,D63.1 Stable 15. Class 1 obesity due to excess calories without serious comorbidity with body mass index (BMI) of 34.0 to 34.9 in adult - ICD9: 278.00, V85.34, ICD10: E66.811, E66.09, Z68.34 Stable - Behavioral intervention 16. Acute idiopathic gout, unspecified site - ICD9: 274.01, ICD10: M10.00 - stable with Tx. 17. Macrocytic anemia - ICD9: 281.9, ICD10: D53.9 - cont B12. Patient ok to cut back on B12 to just 1000 mcg a day 18. Other dietary vitamin B12 deficiency anemia - ICD9: 281.1, ICD10: D51.3 - as per #17 19. Benign non-nodular prostatic hyperplasia without lower urinary tract symptoms - ICD9: 600.90, ICD10: N40.0 - stable 20. Calculus of gallbladder with chronic cholecystitis without obstruction - ICD9: 574.10, ICD10: K80.10 - stable no symptoms 21. Advance directive discussed with patient - ICD9: V65.49, ICD10: Z71.89 - up to date 22. Kidney stone - ICD9: 592.0, ICD10: N20.0 Prn - HYDROCODONE 5 MG-ACETAMINOPHEN 325 MG TABLET with episodes 23. Screening for depression - ICD9: V79.0, ICD10: Z13.31 - DEPRESSION SCREENING 24. Renal stones - ICD9: 592.0, ICD10: N20.0 - see #22 25. Chronic diarrhea - ICD9: 787.91, ICD10: K52.9 - abdominal cramping. - CONSULT TO GASTROENTEROLOGY: Dr. Allen. Requested Prescriptions Signed Prescriptions Disp Refills HYDROcodone-acetaminophen (NORCO) 5-325 mg per tablet 15 tablet 0 Sig: Take 1 tablet by mouth every 6 hours as needed for pain for up to 7 days. cyanocobalamin (VITAMIN B-12) 1,000 mcg tab Sig: Take 1 tablet by mouth once daily. F/u in 6 months routine check A1c, B12, CBC, lipid and BMP prior. I spent a total of 53 minutes on the date of the service which included preparing to see the patient, [id number] patient care, completing clinical documentation, performing a medically appropriate examination, counseling and educating the patient/family/caregiver and ordering medications, tests, or procedures. Wiliam Mandel MD documented in this encounterSt[facility] NoteHNO ID: [id number] Author: WILIAM MANDEL MD Service: ? Author Type: Physician Type: Progress Notes Filed: 05/22/2024 15:00 Note Text: Meg Bryant is a 79 year old male here for a Medicare wellness visit. Medicare Health Risk Assessment General Health Good Exercise: Minutes/Day 0 min Exercise: Days/Week 0 days Alcohol: Daily Use Monthly or less Alcohol: Drinks/Day 1 or 2 Alcohol: 6 or more drinks Never Feel off balance Yes Concerns: Teeth/Dentures No Concerns: Sexual function No Troubled by feelings Angry Frequency: Eating healthy diet Several days ADLs requiring help None of the above Safety precautions in home/vehicle No Smoke, vape, chews tobacco No Difficulty hearing No Difficulty seeing No Current Providers Specialists: I have reviewed specialist-related care of the patient in the medical record. Current care team: Patient Care Team: Wiliam Mandel MD as PCP - General (Family Medicine) Eden Dove MD as Mlt (Nephrology) Nima Hobbs APRN.CNP as Nba Player (Family Medicine) Lilliam Monaco PA-C as Nba Player (Family Medicine) Dr. Celestino Reilly Medical/Family history review Reviewed and updated problem list, medical/surgical/family/social history, medications, and allergies. Opioid use review Opioid Medications (last 90 days) No data to display Anxiety/Depression screening PHQ-2 Score: 2 (Lower risk for depression) Recommendation: no further intervention at this time Cognitive screening Score: 5 Cognitive screening reviewed and No further action needed (score 3-5). Functional Observation Was the patient's Timed Up AND Go test unsteady or >= 12 seconds? No Advance Care Planning Surrogate decision maker documented and/or advance directives scanned in chart Measurements BP 102/58 Pulse 70 Resp 16 Ht 172.1 cm (5' 7.75) Wt 96.2 kg (212 lb) BMI 32.47 kg/m? Vision Screening: Follows with optometry/ophthalmology Assessment/Plan Medicare annual wellness visit, subsequent (Z00.00) - Counseled on healthy diet and regular exercise - Fall avoidance information provided - Personalized prevention plan provided See below Chief Complaint Patient presents with: Medicare Wellness Exam HPI Meg Bryant is a 79 year old male who presents here today for Chronic Medical Conditions. and Medicare Annual Visit. Patient with Hx of DM 2, neuropathy, hyperlipidemia, HTN, obesity, hypothyroidism, carotid stenosis, diabetic proteinuria, GERD, mod aortic Stenosis, COPD, macrocytic anemia as well as those reviewed and addressed below and in ROS. Ref Range AND Units 8 d ago (05/14/24) 6 mo ago (11/20/23) 1 yr ago (05/18/23) 1 yr ago (11/16/22) 2 yr ago (05/18/22) 2 yr ago (10/26/21) 3 yr ago (03/18/21) Hemoglobin A1C 4.3 - 5.6 % 6.4 High 6.2 High CM 6.3 High CM 6.2 High CM 6.7 High CM 6.4 High CM 6.6 High Patient D/C Metformin started having stomach cramps once on the Extended release. The pain will go towards his back. The symptoms are less since stopping the metformin but still getting the pain on occasion. Sometimes will get slight nausea with it and a cold sweat. Patient sees ophthalmology last visit 09/[address] Dove last visit 12/2023 Patient sees [facility] Patient sees Dr. Arzola. Past medical history, appointments, medications, allergies reviewed. Previous Medical History PAST MEDICAL HISTORY Diagnosis Date Advance directive discussed with patient 11/11/2021 Discussed 10/2021 AK (actinic keratosis) 10/23/2018 right frontal scalp treated with Cryo 10/23/2018 Albuminuria 03/26/2020 Anemia due to stage 3 chronic kidney disease (HCC) (HCC) 07/28/2022 Arthritis Benign neoplasm of rectum and anal canal Benign non-nodular prostatic hyperplasia without lower urinary tract symptoms 08/19/2015 Bilateral carotid artery stenosis 10/24/2018 US 10/2018: 20-40% tere Calculus of gallbladder with chronic cholecystitis without obstruction 03/27/2021 CT 03/2021 Chronic diarrhea 11/11/2021 Class 1 obesity due to excess calories without serious comorbidity with body mass index (BMI) of 34.0 to 34.9 in adult 10/05/2017 Controlled type 2 diabetes mellitus with diabetic nephropathy, without long-term current use of insulin ([facility]) 08/19/2015 Coronary artery disease Dermatitis 11/16/2018 thigh lesion removed 10/2018 Diabetic eye exam ([facility]) 04/09/2015 Last done: 08/01/2018 No Retinopathy Diabetic peripheral neuropathy ([facility]) 03/16/2011 Essential hypertension with goal blood pressure less than 130/85 08/19/2015 Gastroesophageal reflux disease without esophagitis 04/07/2015 Glaucoma Hypothyroidism (acquired) Idiopathic gout 12/11/2023 Idiopathic gout 12/11/2023 Left ankle: patient declined Allopurinol 12/11/2023 Lichenoid dermatitis 11/16/2018 left chest, removed 10/2018 Living will on file 11/11/2021 DPA: Michelle () Macrocytic anemia 06/15/2020 (more content not included)...[facility]02-19-2025 Telephone encounter Note* Telephone Encounter - Wiliam Mandel MD - 05/01/2024 4:34 PM EST The following approved medication requests have been transmitted electronically. Requested Prescriptions Signed Prescriptions Disp Refills linaGLIPtin (TRADJENTA) 5 mg tab 90 tablet 1 Sig: Take 1 tablet by mouth once daily. Authorizing Provider: WILIAM MANDEL MD [facility]02-19[facility]2025 Miscellaneous Notes* Telephone Encounter - Wiliam Mandel MD - 05/01/2024 4:34 PM EST The following approved medication requests have been transmitted electronically. Requested Prescriptions Signed Prescriptions Disp Refills linaGLIPtin (TRADJENTA) 5 mg tab 90 tablet 1 Sig: Take 1 tablet by mouth once daily. Authorizing Provider: WILIAM MANDEL MD * Telephone Encounter - Walter Alexander LPN - 05/01/2024 3:51 PM EST Prescription Refill Information The patient has been identified by name and date of : Yes Caregiver verified no other encounters exist for this prescription request: Yes Caregiver confirmed with patient/requestor that no other refills are due, in the near future, with this provider at this time: Yes The last office visit in the department: 12/08/23 Does the patient have a future office visit with this provider/department: Yes, 05/22/24 Requested Prescriptions Pending Prescriptions Disp Refills linaGLIPtin (TRADJENTA) 5 mg tab 90 tablet 1 Sig: Take 1 tablet by mouth once daily. Walter Alexander LPN May 01, 2024 3:51 PM documented in this encounterSt. [facility]02-19-2025 Telephone encounter Note * Telephone Encounter - Walter Alexander LPN - 05/01/2024 3:51 PM EST Prescription Refill Information The patient has been identified by name and date of : Yes Caregiver verified no other encounters exist for this prescription request: Yes Caregiver confirmed with patient/requestor that no other refills are due, in the near future, with this provider at this time: Yes The last office visit in the department: 12/08/23 Does the patient have a future office visit with this provider/department: Yes, 05/22/24 Requested Prescriptions Pending Prescriptions Disp Refills linaGLIPtin (TRADJENTA) 5 mg tab 90 tablet 1 Sig: Take 1 tablet by mouth once daily. Walter Alexander LPN May 01, 2024 3:[address] [facility]12-09-2024 Telephone encounter Note* Telephone Encounter - Alisa Schafer MA - 02/19/2024 12:53 PM EST Updated. Alisa Schafer MA [facility]12-09-2024 Miscellaneous Notes* Telephone Encounter - Alisa Schafer MA - 02/19/2024 12:53 PM EST Updated. Alisa Schafer MA documented in this encounterSt. [facility]11-25-2024 Telephone encounter Note * Telephone Encounter - Jessy Bradley LPN - 02/05/2024 12:38 PM EST Prescription Refill Information The patient has been identified by name and date of : Yes Caregiver verified no other encounters exist for this prescription request: Yes Caregiver confirmed with patient/requestor that no other refills are due, in the near future, with this provider at this time: Yes The last office visit in the department: 11/22/2023 Does the patient have a future office visit with this provider/department: Yes Requested Prescriptions Pending Prescriptions Disp Refills levothyroxine (SYNTHROID) 125 mcg tablet 90 tablet 1 Sig: Take 1 tablet by mouth once daily. Jessy Bradley LPN February 05, 2024 12:[address] [facility] Miscellaneous Notes* Telephone Encounter - Jessy Bradley LPN - 02/05/2024 12:38 PM EST Prescription Refill Information The patient has been identified by name and date of : Yes Caregiver verified no other encounters exist for this prescription request: Yes Caregiver confirmed with patient/requestor that no other refills are due, in the near future, with this provider at this time: Yes The last office visit in the department: 11/22/2023 Does the patient have a future office visit with this provider/department: Yes Requested Prescriptions Pending Prescriptions Disp Refills levothyroxine (SYNTHROID) 125 mcg tablet 90 tablet 1 Sig: Take 1 tablet by mouth once daily. Jessy Bradley LPN February 05, 2024 12:39 PM documented in this encounterSt. [facility]10-22-2024 History of Present illness Narrative* Tara Bustillo LPN - 01/02/2024 7:22 AM EDT Scan on 01/01/2024 6:38 PM by Provider, Moses, DINORAH: Echo documented in this encounterSt. [facility]10-17-2024 Telephone encounter Note * Telephone Encounter - Alice Delacruz MA - 12/28/2023 3:53 PM EDT Patient informed and verbalized understanding. Alice Delacruz MA [facility]-17-2024 Miscellaneous Notes* Telephone Encounter - Alice Delacruz MA - 12/28/2023 3:53 PM EDT Patient informed and verbalized understanding. Alice Delacruz MA * Telephone Encounter - Wiliam Mandel MD - 12/28/2023 3:41 PM EDT Let patient know his breathing test was normal. documented in this encounterSt. [facility]10-17-2024 Telephone encounter Note * Telephone Encounter - Wiliam Mandel MD - 12/28/2023 3:41 PM EDT Let patient know his breathing test was normal. [facility] History of Present illness Narrative* Xiao Rocha RPFT - 12/26/2023 1:25 PM EDT PULM FUNCTION: Provider: Wiliam Mandel MD Assisting Tech: Xiao Rocha RPFT Spirometry w/BD: 1 documented in this encounterSt. [facility]10-03-2024 Telephone encounter Note * Telephone Encounter - Stepan Elder RN - 12/14/2023 10:22 AM EDT Pt returned call and given provider's message below with verbalized understanding. [facility] Miscellaneous Notes* Telephone Encounter - Stepan Elder RN - 12/14/2023 10:22 AM EDT Pt returned call and given provider's message below with verbalized understanding. * Telephone Encounter - Tara Bustillo LPN - 12/14/2023 8:55 AM EDT Left message for pt to contact office. Tara Bustillo LPN * Telephone Encounter - Wiliam Mandel MD - 12/14/2023 8:05 AM EDT Let patient know ankle x-ray was ok. documented in this encounterSt. [facility]10-[facility]-2024 Telephone encounter Note * Telephone Encounter - Tara Bustillo LPN - 12/14/2023 8:55 AM EDT Left message for pt to contact office. Tara Bustillo LPN [facility] Telephone encounter Note* Telephone Encounter - Wiliam Mandel MD - 12/14/2023 8:05 AM EDT Let patient know ankle x-ray was ok. [facility] Telephone encounter Note* Telephone Encounter - Wiliam Mandel MD - 12/12/2023 9:45 PM EDT The following approved medication requests have been transmitted electronically. Requested Prescriptions Signed Prescriptions Disp Refills pioglitazone (ACTOS) 45 mg tablet 90 tablet 1 Sig: Take 1 tablet by mouth once daily. Authorizing Provider: WILIAM MANDEL MD [facility]10-01-2024 Miscellaneous Notes* Telephone Encounter - Wiliam Mandel MD - 12/12/2023 9:45 PM EDT The following approved medication requests have been transmitted electronically. Requested Prescriptions Signed Prescriptions Disp Refills pioglitazone (ACTOS) 45 mg tablet 90 tablet 1 Sig: Take 1 tablet by mouth once daily. Authorizing Provider: WILIAM MANDEL MD * Telephone Encounter - Tara Bustillo LPN - 12/12/2023 11:46 AM EDT Prescription Refill Information The patient has been identified by name and date of : Yes Caregiver verified no other encounters exist for this prescription request: Yes Caregiver confirmed with patient/requestor that no other refills are due, in the near future, with this provider at this time: Yes The last office visit in the department: 12/08/23 Does the patient have a future office visit with this provider/department: Yes Requested Prescriptions Pending Prescriptions Disp Refills pioglitazone (ACTOS) 45 mg tablet 90 tablet 1 Sig: Take 1 tablet by mouth once daily. Tara Bustillo LPN December 12, 2023 11:46 AM documented in this encounterSt. [facility]10-01-2024 Telephone encounter Note * Telephone Encounter - Tara Bustillo LPN - 12/12/2023 11:46 AM EDT Prescription Refill Information The patient has been identified by name and date of : Yes Caregiver verified no other encounters exist for this prescription request: Yes Caregiver confirmed with patient/requestor that no other refills are due, in the near future, with this provider at this time: Yes The last office visit in the department: 12/08/23 Does the patient have a future office visit with this provider/department: Yes Requested Prescriptions Pending Prescriptions Disp Refills pioglitazone (ACTOS) 45 mg tablet 90 tablet 1 Sig: Take 1 tablet by mouth once daily. Tara Bustillo LPN December 12, 2023 11:[address] [facility] Telephone encounter Note* Telephone Encounter - Wiliam Mandel MD - 12/11/2023 9:[address] [facility] Miscellaneous Notes* Telephone Encounter - Wiliam Mandel MD - 12/11/2023 9:05 PM EDT Noted. * Telephone Encounter - Miley Quinonez LPN - 12/11/2023 5:00 PM EDT Pt notified of pcp message concerning allopurinol. Pt reports he does not want to take another daily medication. Pt also advised xray was still in process. Miley Quinonez LPN * Telephone Encounter - Addis Miller LPN - 12/11/2023 4:20 PM EDT Spoke with pts , will have return call. * Telephone Encounter - Wiliam Mandel MD - 12/11/2023 3:51 PM EDT Let patient know I can place him on a medication called allopurinol to take once a day to help keepthe uric acid level down and prevent gout attacks in the future. If ok with taking I will send in ascript and place a lab to recheck the Uric acid in 2 months. * Telephone Encounter - Tara Bustillo LPN - 12/11/2023 1:58 PM EDT Pt notified of results. Pt advises that his foot is a lot better. States he is walking without a cane. Pt asked about x-ray results. Advised him they are still in process at this time and he would becontacted once Dr Mandel has gotten the results. Tara Bustillo LPN * Telephone Encounter - Wiliam Mandel MD - 12/11/2023 1:38 PM EDT Let patient know his Uric acid level is elevated indicating a gout attack. See how the foot is doing today? documented in this encounterSt. [facility]09-30-2024 Telephone encounter Note * Telephone Encounter - Miley Quinonez LPN - 12/11/2023 5:00 PM EDT Pt notified of pcp message concerning allopurinol. Pt reports he does not want to take another daily medication. Pt also advised xray was still in process. Miley Quinonez LPN [facility] Telephone encounter Note* Telephone Encounter - Addis Miller LPN - 12/11/2023 4:20 PM EDT Spoke with pts , will have return call. [facility] Telephone encounter Note* Telephone Encounter - Wiliam Mandel MD - 12/11/2023 3:51 PM EDT Let patient know I can place him on a medication called allopurinol to take once a day to help keepthe uric acid level down and prevent gout attacks in the future. If ok with taking I will send in ascript and place a lab to recheck the Uric acid in [address] [facility] Telephone encounter Note* Telephone Encounter - Tara Bustillo LPN - 12/11/2023 1:58 PM EDT Pt notified of results. Pt advises that his foot is a lot better. States he is walking without a cane. Pt asked about x-ray results. Advised him they are still in process at this time and he would becontacted once Dr Mandel has gotten the results. Tara Bustillo LPN [facility]-30-[facility] Telephone encounter Note* Telephone Encounter - Wiliam Mandel MD - 12/11/2023 1:38 PM EDT Let patient know his Uric acid level is elevated indicating a gout attack. See how the foot is doing today? [facility] History of Present illness Narrative* Alesia Seals RT(R) - 12/08/2023 2:30 PM EDT Radiology Service Progress Note PATIENT NAME: Meg Bryant DATE OF SERVICE: December 08, 2023 TIME: 2:26 PM PATIENT IDENTITY VERIFICATION COMPLETED USING TWO (2) IDENTIFIERS: Name and Date of confirmedby patient verbally. FALL SCREENING: Has the patient had 2 falls in the last year or 1 fall with injury or currently using an Ambulatory Assistive Device (Walker, Cane, Wheelchair, Crutches, etc.)? Yes, Patient High Riskfor Falls What interventions were put in place to prevent falls during this visit? Offered Assistance with Transfers/Clothing, Instructed Patient to Remain Seated (Not on Exam Table) Until Exam, and Increased Observations by Caregivers PATIENT GENDER DATA: Male PATIENT RELEVANT IMPLANT DATA REVIEWED: Yes PATIENT PRESENTS WITH AN IMPLANTABLE OR ATTACHED CHEMICAL ENGINEER: No RADIOLOGY DEPARTMENT: General X-ray: Exam(s) Completed: Lower Extremity X- Ray(s): Ankle, Left PERIPHERAL IV DATA: Not applicable SIGNED BY: RT Wanda(R) December 08, 2023 2:26 PM documented in this encounterSt. [facility]09-27-2024 History of Present illness Narrative* Wiliam Mandel MD - 12/08/2023 1:40 PM EDT Chief Complaint No chief complaint on file. HPI Meg Bryant is a 78 year old male who presents here today for left foot pain. Patient with Hx of DM 2, neuropathy, hyperlipidemia, HTN, obesity, hypothyroidism, carotid stenosis, diabetic proteinuria, GERD, mod aortic Stenosis, COPD, macrocytic anemia as well as those reviewedand addressed below and in ROS. Patient indicated that he was weeding a ditch didn't have any known injury. Monday he noticed left foot was swollen and painful. No erythema and not very warm. Patient did some icing and epison salt and it is slowly getting better. Right knee has also been painful after the left ankle started to hurt. 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 Patient used some hydrocodone he had athome and this helped. Took some tylenol with minimal relief. No NSAID's used. Past medical history, appointments, medications, allergies reviewed. Previous Medical History PAST MEDICAL HISTORY Diagnosis Date Advance directive discussed with patient 11/11/2021 Discussed 10/2021 AK (actinic keratosis) 10/23/2018 right frontal scalp treated with Cryo 10/23/2018 Albuminuria 03/26/2020 Anemia due to stage 3 chronic kidney disease (HCC) ([facility]) 07/28/2022 Arthritis Benign neoplasm of rectum and anal canal Benign non-nodular prostatic hyperplasia without lower urinary tract symptoms 08/19/2015 Bilateral carotid artery stenosis 10/24/2018 10/2018: 20-40% tere Calculus of gallbladder with chronic cholecystitis without obstruction 03/27/2021 CT 03/2021 Chronic diarrhea 11/11/2021 Class 1 obesity due to excess calories without serious comorbidity with body mass index (BMI) of 34.0 to 34.9 in adult 10/05/2017 Controlled type 2 diabetes mellitus with diabetic nephropathy, without long-term current use of insulin ([facility]) 08/19/2015 Coronary artery disease Dermatitis 11/16/2018 thigh lesion removed 10/2018 Diabetic eye exam ([facility]) 04/09/2015 Last done: 08/01/2018 No Retinopathy Diabetic peripheral neuropathy ([facility]) 03/16/2011 Essential hypertension with goal blood pressure less than 130/85 08/19/2015 Gastroesophageal reflux disease without esophagitis 04/07/2015 Glaucoma Hypothyroidism (acquired) Lichenoid dermatitis 11/16/2018 left chest, removed 10/2018 Living will on file 11/11/2021 DPA: Michelle () Macrocytic anemia 06/15/2020 Medicare annual wellness visit, subsequent 09/29/2016 last done: 02/27/2019 Mixed hyperlipidemia Moderate aortic stenosis 05/03/[address] Holder Obstructive chronic bronchitis with exacerbation ([facility]) 07/29/2008 Ocular histoplasmosis syndrome of left eye at 19yo, vision loss Other dietary vitamin B12 deficiency anemia 04/06/2017 Hg typically 11-11.5 Other proteinuria 03/26/2020 Personal history of colonic polyps Colon polyps Platelets decreased ([facility]) 01/18/2023 Psychosexual dysfunction, unspecified 01/28/2008 Unspecified tinnitus 05/27/2008 Previous Surgical History PAST SURGICAL HISTORY Procedure Laterality Date 2D ECHO (EXEP) 01/13/2020 EF=60%, mild-mod , COLONOSCOPY & POLYPECTOMY 12/30/2003 COLONOSCOPY FLX DX W/COLLJ SPEC WHEN PFRMD 04/05/2011 Colonoscopy repeat 5 yrs COLONOSCOPY FLX DX W/COLLJ SPEC WHEN PFRMD 12/20/2016 Colonoscopy NUCLEAR STRESS LEXISCAN (CARD) 05/30/2018 negative REMV CATARACT EXTRACAP,INSERT LENS Right 10/30/2023 SKIN BIOPSY HX Family History FAMILY HISTORY Problem Relation Age of Onset Diabetes Mother Heart Mother IN Stroke Father Cancer Father lung Heart Sister Patient Allergies ALLERGIES Allergen Reactions Januvia [Sitaglipti* Myalgia Current Medications Current Outpatient Medications on File Prior to Visit Medication Sig cyanocobalamin (VITAMIN B-12) 1,000 mcg tab Take 1 tablet by mouth two times a day. metFORMIN ER (GLUCOPHAGE XR) 500 mg 24 hr tablet Take 1 tablet by mouth daily with breakfast. fluticasone (FLONASE ALLERGY RELIEF) 50 mcg/actuation nasal spray Use 1 [place] in each nostril once daily. lisinopril (ZESTRIL) 20 mg tablet Take 1 tablet by mouth once daily. simvastatin (ZOCOR) 20 mg tablet Take 1 tablet by mouth once daily. levothyroxine (SYNTHROID) 125 mcg tablet Take 1 tablet by mouth once daily. folic acid 1 mg tablet Take 1 tablet by mouth once daily. linaGLIPtin (TRADJENTA) 5 mg tab Take 1 tablet by mouth once daily. pioglitazone (ACTOS) 45 mg tablet Take 1 tablet by mouth once daily. copper citrate 2 mg capsule Take 2 mg by mouth once daily. cholecalciferol (VITAMIN D3) 50 mcg (2,000 unit) tablet Take 2,000 Units by mouth once daily. DOCOSAHEXANOIC ACID/EPA (FISH OIL ORAL) Take 1,000 mg by mouth once daily. blood sugar diagnostic (BLOOD GLUCOSE TEST) test strip Test blood sugar(s) 1 time daily. Dx: E11.9.Insulin: No timolol maleate (ISTALOL) 0.5 % OPHTHALMIC DrpD Use 1 Drop in the left eye once daily. XALATAN 0.005 % EYE DROPS one drop each at bedtime ASPIRIN 81 MG TAB Take 81 mg by mouth once daily. No current facility-administered medications on file prior to visit. Social History Social History Tobacco Use Smoking status: Former Types: Pipe Smokeless tobacco: Never Vaping Use Vaping status: Never Used Substance Use Topics Alcohol use: Yes Comment: rarely Drug use: No Review of Symptoms REVIEW OF SYSTEMS See HPI EXAM: BP 120/62 (BP Site: Right Arm, BP Position: Sitting, BP Cuff Size: Large Adult) Pulse 75 Resp 12 Ht 172.7 cm (5' 8) Wt 94.8 kg (209 lb) SpO2 98% BMI 31.78 kg/m General Appearance: Well appearing, alert, in no acute distress, well-hydrated, well nourished.. Musculoskeletal: right ankle is mildly swollen with no erythema or increased warmth. There is significant tenderness to the Achillis at its insertion point. Mild tenderness on both sides of the ankle. Health Maintenance List Depression Screening Never done Influenza Vaccine(1) due on 09/09/2024 Anxiety Screening due on 11/21/2024 Shingrix Vaccine(2 of 3) due on 11/21/2024 Covid-19 Vaccine( season) due on 11/21/2024 Urine Albumin:Creatinine Ratio due on 05/17/2024 HbA1C due on 05/19/2024 Diabetic Foot Exam due on 05/23/2024 Dilated Retinal Exam due on 10/02/2024 LDL Cholesterol due on 11/19/2024 Serum Creatinine due on 11/19/2024 Hemoglobin/Hematocrit due on 11/19/2024 Annual PCP Team Chronic Disease Visit due on 11/21/2024 BP Controlled (<130/80) due on 11/21/2024 DTaP,Tdap,Td Vaccine(4 - Td or Tdap) due on 03/31/2027 Advance Directive Discussion Completed RSV Vaccine Completed Hepatitis C Screening Completed Pneumococcal Vaccine: 65+ Completed Colorectal Cancer Screening Discontinued Data reviewed A/P ASSESSMENT/PLAN: 1. Acute left ankle pain - ICD9: 719.47, ICD10: M25.572 Check - XR ANKLE GENERAL 3V AP/LAT/OBL LEFT - URIC ACID Suspect achillis tendonitis from over use. Tx with medrol dose pack. Requested Prescriptions Signed Prescriptions Disp Refills methylPREDNISolone (MEDROL, SAMEER,) 4 mg Dose-Pack 21 tablet 0 Sig: Follow dosing instructions, take with food. F/u prn. Wiliam Mandel MD documented in this encounterSt. [facility] Telephone encounter Note * Telephone Encounter - Luma Judge MA - 12/04/2023 12:49 PM EDT Pt confirmed this appt in another message. Luma Judge MA [facility] Miscellaneous Notes* Telephone Encounter - Luma Judge MA - 12/04/2023 12:49 PM EDT Pt confirmed this appt in another message. Luma Judge MA documented in this encounterSt. [facility]09-11-2024 Instructions* Patient Instructions* Wiliam Mandel MD - 11/22/2023 2:22 PM EDT Please get labs done on or after 05/10/2024 prior to your next visit. documented in this encounterSt. Elizabeth Hospital09-11-2024 History of Present illness Narrative* Wiliam Mandel MD - 11/22/2023 1:40 PM EDT Chief Complaint Patient presents with: F/U 6 months HPI Meg Bryant is a 78 year old male who presents here today for 6 month follow up . Patient with Hx of DM 2, neuropathy, hyperlipidemia, HTN, obesity, hypothyroidism, carotid stenosis, diabetic proteinuria, GERD, mod aortic Stenosis, COPD, macrocytic anemia as well as those reviewedand addressed below and in ROS. Patient indicated that he was weeding a ditch didn't have any known injury. Monday he noticed left foot was swollen and painful. Patient did some icing and epison salt and it is slowly getting better. Right knee was also painful. Patient does see Dr. Dove Patient sees Ophthalmology last visit 09/2023 Ref Range & Units 2 d ago (11/20/23) 6 mo ago (05/18/23) 1 yr ago (11/16/22) 1 yr ago (05/18/22) 2 yr ago (10/26/21) 2 yr ago (03/18/21) 3 yr ago (09/11/20) Hemoglobin A1C 4.3 - 5.6 % 6.2 High 6.3 High CM 6.2 High CM 6.7 High CM 6.4 High CM 6.6 High CM 6.[address] Arzola last visit 11/20/2023 Patient sees [facility] Last visit 09/2023 Past medical history, appointments, medications, allergies reviewed. Previous Medical History PAST MEDICAL HISTORY 11/11/2021: Advance directive discussed with patient Comment: Discussed 10/202110/23/2018: AK (actinic keratosis) Comment: right frontal scalp treated with Cryo 10/23/2018 03/26/2020: Albuminuria 07/28/2022: Anemia due to stage 3 chronic kidney disease (HCC) ([facility]) No date: Arthritis No date: Benign neoplasm of rectum and anal canal 08/19/2015: Benign non-nodular prostatic hyperplasia without lower urinary tract symptoms 10/24/2018: Bilateral carotid artery stenosis Comment: US 10/2018: 20-40% tere 03/27/2021: Calculus of gallbladder with chronic cholecystitis without obstruction Comment: CT 03/202111/11/2021: Chronic diarrhea 10/05/2017: Class 1 obesity due to excess calories without serious comorbidity with body mass index (BMI) of 34.0 to 34.9 in adult 08/19/2015: Controlled type 2 diabetes mellitus with diabetic nephropathy, without long-term current use of insulin ([facility]) No date: Coronary artery disease 11/16/2018: Dermatitis Comment: thigh lesion removed 10/201804/09/2015: Diabetic eye exam ([facility]) Comment: Last done: 08/01/2018 No Retinopathy 03/16/2011: Diabetic peripheral neuropathy (HCC) 08/19/2015: Essential hypertension with goal blood pressure less than 130/85 04/07/2015: Gastroesophageal reflux disease without esophagitis No date: Glaucoma No date: Hypothyroidism (acquired) 11/16/2018: Lichenoid dermatitis Comment: left chest, removed 10/201811/11/2021: Living will on file Comment: DPA: Michelle () 06/15/2020: Macrocytic anemia 09/29/2016: Medicare annual wellness visit, subsequent Comment: last done: 02/27/2019 No date: Mixed hyperlipidemia 05/03/2018: Moderate aortic stenosis Comment: Seeing Dr. Holder 07/29/2008: Obstructive chronic bronchitis with exacerbation (HCC) No date: Ocular histoplasmosis syndrome of left eye Comment: at 19yo, vision loss 04/06/2017: Other dietary vitamin B12 deficiency anemia Comment: Hg typically 11-11.5 03/26/2020: Other proteinuria No date: Personal history of colonic polyps Comment: Colon polyps 01/18/2023: Platelets decreased (HCC) 01/28/2008: Psychosexual dysfunction, unspecified 05/27/2008: Unspecified tinnitus Previous Surgical History PAST SURGICAL HISTORY 01/13/2020: 2D ECHO (EXEP) Comment: EF=60%, mild-mod , 12/30/03: COLONOSCOPY & POLYPECTOMY 04/05/2011: COLONOSCOPY FLX DX W/COLLJ SPEC WHEN PFRMD Comment: Colonoscopy repeat 5 yrs 12/20/2016: COLONOSCOPY FLX DX W/COLLJ SPEC WHEN PFRMD Comment: Colonoscopy 05/30/2018: NUCLEAR STRESS LEXISCAN (CARD) Comment: negative No date: SKIN BIOPSY HX Family History FAMILY HISTORY Problem Relation Age of Onset Diabetes Mother Heart Mother IN Stroke Father Cancer Father lung Heart Sister Patient Allergies ALLERGIES Allergen Reactions Januvia [Sitaglipti* Myalgia Current Medications Current Outpatient Medications on File Prior to Visit Medication Sig simvastatin (ZOCOR) 20 mg tablet Take 1 tablet by mouth once daily. levothyroxine (SYNTHROID) 125 mcg tablet Take 1 tablet by mouth once daily. metFORMIN ER (GLUCOPHAGE XR) 500 mg 24 hr tablet Take 1 tablet by mouth daily with breakfast. (Patient taking differently: Take 1,000 mg by mouth two times a day.) lisinopril (ZESTRIL) 10 mg tablet Take 1 tablet by mouth once daily. (Patient taking differently: Take 20 mg by mouth once daily.) folic acid 1 mg tablet Take 1 tablet by mouth once daily. linaGLIPtin (TRADJENTA) 5 mg tab Take 1 tablet by mouth once daily. pioglitazone (ACTOS) 45 mg tablet Take 1 tablet by mouth once daily. fluticasone (FLONASE ALLERGY RELIEF) 50 mcg/actuation nasal spray Use 1 Vilas in each nostril once daily. (Patient not taking: Reported on 11/20/2023) copper citrate 2 mg capsule Take 2 mg by mouth once daily. cholecalciferol (VITAMIN D3) 50 mcg (2,000 unit) tablet Take 2,000 Units by mouth once daily. fluticasone (FLONASE) 50 mcg/actuation nasal spray Use 2 Sprays in each nostril once daily. Rinse mouth after use. cyanocobalamin (VITAMIN B-12) 1,000 mcg tab Take 2 tablets by mouth once daily. (Patient taking differently: Take 1,000 mcg by mouth two times a day.) DOCOSAHEXANOIC ACID/EPA (FISH OIL ORAL) Take 1,000 mg by mouth once daily. blood sugar diagnostic (BLOOD GLUCOSE TEST) test strip Test blood sugar(s) 1 time daily. Dx: E11.9.Insulin: No timolol maleate (ISTALOL) 0.5 % OPHTHALMIC DrpD Use 1 Drop in the left eye once daily. XALATAN 0.005 % EYE DROPS one drop each at bedtime ASPIRIN 81 MG TAB Take 81 mg by mouth once daily. No current facility-administered medications on file prior to visit. Social History Social History Tobacco Use Smoking status: Former Types: Pipe Smokeless tobacco: Never Vaping Use Vaping status: Never Used Substance Use Topics Alcohol use: Yes Comment: rarely Drug use: No Review of Symptoms REVIEW OF SYSTEMS GENERAL: No weight loss, malaise or fevers NECK: Negative for lumps, goiter, pain and significant neck swelling RESPIRATORY: Negative for cough, hemoptysis, wheezing, COPD, dyspnea. Some shortness of breath withprolong walking. CARDIOVASCULAR: Negative for, leg swelling, hypertension, CHF or palpitations. Some chest pain withwalking. Resolves with rest. GI: No nausea, vomiting, or increased diarrhea and No heartburn or reflux symptoms : No history of dysuria, blood ENDOCRINE: Negative for symptoms of low BS's NEURO: No history of headaches, syncope, paralysis, seizures or tremors EXAM: BP 126/60 (BP Site: Right Arm, BP Position: Sitting, BP Cuff Size: Regular Adult) Pulse 70 Resp16 Wt 95.7 kg (211 lb) BMI 32.08 kg/m Last 5 Encounter Wt Readings: Date: Wt: 11/22/2023 95.7 kg (211 lb) 11/20/2023 96.4 kg (212 lb 8 oz) 05/24/2023 96.2 kg (212 lb) 05/18/2023 98.4 kg (217 lb) 05/02/2023 98 kg (216 lb) General Appearance: Well appearing, alert, in no acute distress, well-hydrated, well nourished. andObese. Eyes: Anicteric sclera. Pupils are equally round and reactive to light. Extraocular movements are intact. . Neck: Supple, no adenopathy; thyroid symmetric, normal size, no bruits. Lungs: Lungs clear to auscultation. No wheezing, rhonchi, rales.. Heart: RRR without murmur, gallop, or rubs. No ectopy. Abdomen: Normal abdominal exam, Abdomen soft, non-tender. Bowel sounds normal. No masses, organomegaly. Extremities: No deformities, edema, skin discoloration, Good capillary refill. . Musculoskeletal: Muscular strength intact, No joint swelling, deformity, or tenderness. Peripheral Pulses: Normal. Neurologic: Gait normal. Sensation to light touch and crainal nerves 2-12 intact.. Health Maintenance List Depression Screening Never done Anxiety Screening Never done Shingrix Vaccine(2 of 3) due on 11/16/2011 Covid-19 Vaccine( season) due on 11/12/2023 Influenza Vaccine(1) due on 11/12/2023 Urine Albumin:Creatinine Ratio due on 05/17/2024 HbA1C due on 05/19/2024 Diabetic Foot Exam due on 05/23/2024 Annual PCP Team Chronic Disease Visit due on 05/23/2024 Dilated Retinal Exam due on 10/02/2024 LDL Cholesterol due on 11/19/2024 Serum Creatinine due on 11/19/2024 Hemoglobin/Hematocrit due on 11/19/2024 BP Controlled (<130/80) due on 11/19/2024 DTaP,Tdap,Td Vaccine(4 - Td or Tdap) due on 03/31/2027 Advance Directive Discussion Completed RSV Vaccine Completed Hepatitis C Screening Completed Pneumococcal Vaccine: 65+ Completed Colorectal Cancer Screening Discontinued Data reviewed Latest Ref Rng 05/18/2023 11/20/2023 Protein, Total 6.3 - 8.0 g/dL 6.6 Albumin 3.9 - 4.9 g/dL 3.8 (L) Calcium 8.5 - 10.2 mg/dL 9.1 9.5 Bilirubin, Total 0.2 - 1.3 mg/dL 0.4 Alkaline Phosphatase 38 - 113 U/L 44 AST 14 - 40 U/L 14 ALT 10 - 54 U/L 6 (L) Glucose 74 - 99 mg/dL 214 (H) 219 (H) BUN 9 - 24 mg/dL 28 (H) 27 (H) Creatinine 0.73 - 1.22 mg/dL 1.53 (H) 1.50 (H) Sodium 136 - 144 mmol/L 141 139 Potassium 3.7 - 5.1 mmol/L 4.5 5.0 Chloride 98 - 107 mmol/L 110 (H) 108 (H) CO2 22 - 30 mmol/L 23 21 (L) Anion Gap 8 - 15 mmol/L 8 (L) 10 eGFR >=60 mL/min/1.73m 47 (L) 48 (L) Total Cholesterol, Nonfasting <200 mg/dL 152 172 Triglycerides, Nonfasting <150 mg/dL 80 101 HDL Cholesterol, Nonfasting >39 mg/dL 41 42 LDL Cholesterol, Nonfasting <100 mg/dL 95 110 (H) Non HDL Cholesterol, Nonfasting <130 mg/dL 111 130 (H) VLDL Cholesterol, Nonfasting <30 mg/dL 16 20 Total Chol/HDL Ratio, Nonfasting <5.10 mg/dL 3.71 4.10 LDL/HDL Ratio, Nonfasting <2.54 mg/dL 2.32 2.62 (H) Creatinine, Ur Random (UCRR) 20.0 - 300.0 mg/dL 193.9 Albumin, Urine Random mg/L <12.0 Albumin/Creat Ratio <30 mg/g <6 Hemoglobin A1C 4.3 - 5.6 % 6.3 (H) 6.2 (H) Estimated Average Glucose mg/dL 134 131 Vitamin B12 232 - 1,245 pg/mL 1,082 TSH 0.270 - 4.200 mIU/L 1.180 1.050 A/P ASSESSMENT/PLAN: 1. Controlled type 2 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 disease, without long-term current use of insulin (HCC) - ICD9: 250.40, 585.3, ICD10: E11.22, N18.30 (primary diagnosis) - Controlled - Continue current medications - Counseled on healthy diet and regular exercise - Discussed need for and benefit of weight loss. BMI 32.08 kg/(m^2) - eGFR: 48 Stable - Follow up with kidney medicine 2. Diabetic eye exam (HCC) - ICD9: V72.0, 250.00, ICD10: Z01.00, E11.9 - up to date. 3. Diabetic peripheral neuropathy (HCC) - ICD9: 250.60, 357.2, ICD10: E11.42 - Controlled - Continue current medications - Counseled on healthy diet and regular exercise - Discussed need for and benefit of weight loss. BMI 32.08 kg/(m^2) 4. Essential hypertension with goal blood pressure less than 130/85 - ICD9: 401.9, ICD10: I10 - Controlled - Continue current medications - Recommend home blood pressure monitoring, to bring results to next visit - Encouraged sodium restriction, DASH or Mediterranean diet - Recommend regular aerobic exercise - Discussed need for and benefit of weight loss. BMI 32.08 kg/(m^2) 5. Mixed hyperlipidemia - ICD9: 272.2, ICD10: E78.2 - Uncontrolled - Worsening control - Continue current medications - Counseled on healthy diet and regular exercise - Discussed need for and benefit of weight loss. BMI 32.08 kg/(m^2) 6. Hypothyroidism (acquired) - ICD9: 244.9, ICD10: E03.9 - Instructed patient on importance of taking on an empty stomach either first thing in the morning or at bedtime. - continue current dose of Synthroid 7. Gastroesophageal reflux disease without esophagitis - ICD9: 530.81, ICD10: K21.9 - controlled with diet. 8. Obstructive chronic bronchitis with exacerbation (HCC) - ICD9: 491.21, ICD10: J44.1 - check PFT's 9. Bilateral carotid artery stenosis - ICD9: 433.10, 433.30, ICD10: I65.23 - discussed getting US and patient would like to wait till next year. - cont zocor 10. Moderate aortic stenosis - ICD9: 424.1, ICD10: I35.0 - my be contributing to his shortness of breath. Discussed getting Echo or waiting till he sees cardio early next month and her prefers the later. 11. Stage 3a chronic kidney disease (HCC) - ICD9: 585.3, ICD10: N18.31 - eGFR: 48 Stable - Counseled on avoiding NSAIDs, adequate hydration - Follow up with kidney medicine 12. Class 1 obesity due to excess calories without serious comorbidity with body mass index (BMI) of 34.0 to 34.9 in adult - ICD9: 278.00, V85.34, ICD10: E66.09, Z68.34 Stable - Behavioral intervention 13. Macrocytic anemia - ICD9: 281.9, ICD10: D53.9 - being managed per hematology 14. Other dietary vitamin B12 deficiency anemia - ICD9: 281.1, ICD10: D51.3 - cont B12 replacement 15. Calculus of gallbladder with chronic cholecystitis without obstruction - ICD9: 574.10, ICD10: K80.10 - no clinical symptoms. 16. Chest pain, unspecified type - ICD9: 786.50, ICD10: R07.9 Discussed getting stress test or waiting till he sees cardio early next month and her prefers the later. 17. KEY (dyspnea on exertion) - ICD9: 786.09, ICD10: R06.09 - check PFT's Requested Prescriptions Signed Prescriptions Disp Refills cyanocobalamin (VITAMIN B-12) 1,000 mcg tab Sig: Take 1 tablet by mouth two times a day. metFORMIN ER (GLUCOPHAGE XR) 500 mg 24 hr tablet 90 tablet 1 Sig: Take 1 tablet by mouth daily with breakfast. fluticasone (FLONASE ALLERGY RELIEF) 50 mcg/actuation nasal spray 11.1 mL 0 Sig: Use 1 Vilas in each nostril once daily. lisinopril (ZESTRIL) 20 mg tablet Sig: Take 1 tablet by mouth once daily. F/u in 6 months extensive. Check CMP, lipid, UA, urine micro albumin, A1c, CBC, B12 Wiliam Mandel MD documented in this encounterSt. 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 2) Anemia. HPI: The patient is a 78 year-old male with a past medical history significant for hypothyroidism (received radioactive ablation for hyperthyroidism ~1989), hypertension, type 2 diabetes (Dx ~25 years ago; neuropathy), hypercholesterolemia, GERD, stage 3b chronic kidney disease and B12 deficiency. Patient was noted to have elevated creatinine of 1.27 in August 2019. It was 1.68 in March 2020. UAin March 2020 demonstrated 1+ protein with no evidence of RBCs or WBCs. Creatinine on 03/24/2020 was 1.47 g/dL whereas it had been 1.68 mg/dL on 03/16/2020. He had an ultrasound of the kidneys on 05/04/2020. Was interpreted as a normal ultrasound kidneys and urinary bladder. Patient's recent lab work from 05/12/2020 includes a chemistry panel showing a serum creatinine of 1.42 mg/dL. Serum calcium was 9.3 mg/dL. Patient had a protein electrophoresis of the serum and a random urine sample performed. No M spike was observed on the urine protein electrophoresis but on the serum protein electrophoresis note was made of a faint band in the gamma region suspicious for monoclonal immunoglobulin. However was thought to possibly represent a benign spike as seen in older individuals or potential paraprotein. Immunofixation of the urine and serum had not been performed. Has sensory neuropathy of feet. Noticed ulcers on posterior lower gum about 6-8 months ago. Saw oral surgeon. Biopsy c/w mucous membrane pemphigoid. On steroid mouth rinse and has follow up in August. Seems to be helping. Serum folate from last summer recently posted and was low. Presents for ongoing hematologic management. Interim history: Continues on folic acid supplement-continues. Continues on copper and B12 supplement. Stable chronic sensory neuropathy symptoms in the feet. Twisted left ankle last Monday. Has been keeping elevated. Not icing it. Was advised to stop amlodipine. PMH, medications and allergies personally reviewed by me today. Any changes documented in appropriate section. ROS: Constitutional: Denies episodes of fever and night sweats. Not significantly fatigued. Decreased appetite. Neuro: Denies GUTIERREZ, vertigo and dizziness. +Chronic imbalance. HEENT: No recent change in voice, vision or hearing. Resp: Denies cough, wheeze and hemoptysis. Denies shortness of breath at rest. Denies KEY. CVS: Denies exertional chest pain, PND, orthopnea and LE edema. GI: Denies dysgeusia. Denies symptoms of stomatitis. Denies dysphagia and odynophagia. Denies n/v, change in bowel habits and abdominal pain. : Denies dysuria or gross hematuria. No symptoms of bladder outlet obstruction. Endo: Denies hot flashes. Denies polyuria and polydipsia. Denies heat and cold intolerance. Musculoskeletal: Joint pain all the time. Attributes it to his statin drug. Derm: Denies rash. Denies jaundice and diffuse pruritis. Heme: Denies unusual bleeding and unexplained bruising. Psych: Normal mood. PHYSICAL EXAM: Vitals: Blood pressure 110/67, pulse 68, temperature 37.1 C (98.8 F), temperature source Temporal, weight 96.4 kg (212 lb 8 oz), SpO2 98%. Well-appearing and in no acute distress. EYES: Sclerae are anicteric bilaterally. LYMPHATIC: There is no palpable cervical or supraclavicular adenopathy. RESPIRATORY: Inspiratory breath sounds are of normal intensity in all peres. No rales, wheezes or rhonchi. CARDIOVASCULAR: Rhythm is regular. ABDOMEN: The abdomen is nondistended. No organomegaly. No tenderness. SKIN: No jaundice or rash. LABS: Latest Ref [facility] 11/20/2023 WBC 3.70 - 11.00 k/uL 8.47 RBC 4.20 - 6.00 m/uL 3.10 (L) Hemoglobin 13.0 - 17.0 g/dL 10.2 (L) Hematocrit 39.0 - 51.0 % 32.3 (L) MCV 80.0 - 100.0 fL 104.2 (H) MCH 26.0 - 34.0 pg 32.9 MCHC 30.5 - 36.0 g/dL 31.6 RDW-CV 11.5 - 15.0 % 13.2 Platelet Count 150 - 400 k/uL 184 MPV 9.0 - 12.7 fL 10.9 Neut% % 65.7 Abs Neut (ANC) 1.45 - 7.50 k/uL 5.57 Lymph% % 20.0 Abs Lymph 1.00 - 4.00 k/uL 1.69 Henry% % 9.9 Abs Henry <0.87 k/uL 0.84 Eosin% % 2.8 Abs Eosin <0.46 k/uL 0.24 Baso% % 1.1 Abs Baso <0.11 k/uL 0.09 Immature Gran % % 0.5 IMMATURE GRANS (ABS) <0.10 k/uL 0.04 NRBC /100 WBC 0.0 Absolute nRBC <0.01 k/uL <0.01 DTYPE Auto PATHOLOGY: Bone marrow biopsy 08/18/2021: A-C. Bone marrow, aspirate smear and core biopsy, with clot section: - Cellular marrow (variable, 10-40%) with trilineage hematopoiesis. - Multiple lymphoid aggregates, favor reactive process. - Stainable iron present. - See comment. D. Peripheral blood smear: - Macrocytic anemia and monocytosis. The patient has a history of macrocytic anemia. Flow cytometry on this specimen shows no immunophenotypic evidence of lymphoproliferative disorder or abnormal blast population (see flow report). Correlation with clinical findings and pending cytogenetic result to rule out clonal neoplasm is suggested. 2% PCs. DIAGNOSIS: 46,XY[20] INTERPRETATION: Normal, male karyotype ASSESSMENT/PLAN: (D53.9) Macrocytic anemia (primary encounter diagnosis) Assessment: -The patient is a 78-year-old male who has a history of chronic kidney disease. Found to have a questionable serum monoclonal protein on electrophoresis. -Renal function had been stable dating to at least March 2017. -Repeat testing here significant only for a poorly defined region of restricted mobility in the lambda rafita potentially route sales representative of low-level lambda monoclonal gammopathy. The serum kappa free light chain was mildly elevated and the lambda light chain was normal as was the ratio. 24-hour urine collection negative for monoclonal protein by both electrophoresis and immunofixation. No evidenceof serum monoclonal protein by both electrophoresis and immunofixation. -Previous bone marrow biopsy with no morphologic evidence of myelodysplastic syndrome or plasma cell disorder. Cytogenetics normal. Myeloid NGS panel negative. -Macrocytic anemia likely anemia secondary to chronic kidney disease. -Reviewed CBC. Hgb increased. -No indication for ANIKA therapy. Plan: -Recheck in 12 months. -Advised him to ice ankle--sees Dr. Mandel Monday. Portions of this documentation were copied and pasted from previous office visit notes in order to provide a cohesive continuity of the history. The note has been reviewed and edited and updated as necessary. I spent a total of 15 minutes on the date of the service which included preparing to see the patient, [id number] patient care, completing clinical documentation, obtaining and/or reviewing separately obtained history, performing a medically appropriate examination, counseling and educating the pat ient/family/caregiver, ordering medications, tests, or procedures, communicating with other HCPs (not separately reported), and communicating results to the patient/family/caregiver. Paul Arzola DO documented in this encounterSt. [facility]08-28-2024 History of Present illness Narrative* Tara Bustillo LPN - 11/08/2023 9:17 AM EDT Scan on 11/07/2023 3:14 PM by Moses Hunter PA-C: Microbiology documented in this encounterSt. [facility] Hospital08-27-2024 History of Present illness Narrative* Tara Bustillo LPN - 11/07/2023 10:29 AM EDT Scan on 11/07/2023 10:12 AM by Moses Hunter PA-C: Hematology Scan on 11/07/2023 12:18 PM by Moses Hunter PA-C: Chemistry Scan on 11/07/2023 12:40 PM by Moses Hunter PA-C: Chemistry Scan on 11/07/2023 12:22 PM by Moses Hunter PA-C: Chemistry documented in this encounterSt. [facility]08-02-2024 Telephone encounter Note * Telephone Encounter - Jessy Bradley LPN - 10/13/2023 12:47 PM EDT Prescription Refill Information The patient has been identified by name and date of : Yes Caregiver verified no other encounters exist for this prescription request: Yes Caregiver confirmed with patient/requestor that no other refills are due, in the near future, with this provider at this time: Yes The last office visit in the department: 05/24/2023 Does the patient have a future office visit with this provider/department: Yes Requested Prescriptions Pending Prescriptions Disp Refills simvastatin (ZOCOR) 20 mg tablet 90 tablet 1 Sig: Take 1 tablet by mouth once daily. Jessy Bradley LPN October 13, 2023 12:[address] [facility]08-02-2024 Miscellaneous Notes* Telephone Encounter - Jessy Bradley LPN - 10/13/2023 12:47 PM EDT Prescription Refill Information The patient has been identified by name and date of : Yes Caregiver verified no other encounters exist for this prescription request: Yes Caregiver confirmed with patient/requestor that no other refills are due, in the near future, with this provider at this time: Yes The last office visit in the department: 05/24/2023 Does the patient have a future office visit with this provider/department: Yes Requested Prescriptions Pending Prescriptions Disp Refills simvastatin (ZOCOR) 20 mg tablet 90 tablet 1 Sig: Take 1 tablet by mouth once daily. Jessy Bradley LPN October 13, 2023 12:48 PM documented in this encounterSt. [facility]07-[facility] History of Present illness Narrative* Alisa Schafer MA - 10/06/2023 12:52 PM EDT Scan on 10/03/2023 2:08 PM by Provider, DINORAH Lopes: Consultation - Ophthalmology [facility]. HM updated. Alisa Schafer MA documented in this encounterSt. [facility]05-16-2024 Telephone encounter Note * Telephone Encounter - Yovana Rockwell LPN - 07/27/2023 1:46 PM EDT Patient has been identified by name and date of : Yes, Provider Ministerio Patient phones for refill(s): Requested Prescriptions Pending Prescriptions Disp Refills levothyroxine (SYNTHROID) 125 mcg tablet 90 tablet 1 Sig: Take 1 tablet by mouth once daily. Date of last office visit in primary care: 05/24/2023 Date of next office visit in primary care: 11/22/2023 Please advise. Thank you. Yovana Rockwell LPN. [facility] Miscellaneous Notes* Telephone Encounter - Yovana Rockwell LPN - 07/27/2023 1:46 PM EDT Patient has been identified by name and date of : Yes, Provider Ministerio Patient phones for refill(s): Requested Prescriptions Pending Prescriptions Disp Refills levothyroxine (SYNTHROID) 125 mcg tablet 90 tablet 1 Sig: Take 1 tablet by mouth once daily. Date of last office visit in primary care: 05/24/2023 Date of next office visit in primary care: 11/22/2023 Please advise. Thank you. Yovana Rockwell LPN. documented in this encounterSt. [facility]04-01-2024 Miscellaneous Notes* Telephone Encounter - Radha Diop LPN - 06/12/2023 1:46 PM EDT Patient has been identified by name and date of : Yes, Provider Dr Mandel Patient phones for refill(s): Requested Prescriptions Pending Prescriptions Disp Refills metFORMIN ER (GLUCOPHAGE XR) 500 mg 24 hr tablet 90 tablet 1 Sig: Take 1 tablet by mouth daily with breakfast. lisinopril (ZESTRIL) 10 mg tablet 90 tablet 1 Sig: Take 1 tablet by mouth once daily. amLODIPine (NORVASC) 2.5 mg tablet 90 tablet 1 Sig: Take 1 tablet by mouth once daily. Date of last office visit in primary care: 05/24/2023 Date of next office visit in primary care: 11/22/2023 Please advise. Thank you. Radha Diop LPN. documented in this encounterSt. [facility]03-20-2024 Miscellaneous Notes* Telephone Encounter - Alisa Schafer MA - 05/31/2023 2:08 PM EDT Patient notified and voiced understanding. Alisa Schafer MA * Telephone Encounter - Wiliam Mandel MD - 05/31/2023 1:40 PM EDT Let patient know test for C. Diff was negative. documented in this encounterSt. Elizabeth Hospital03-13-2024 Instructions* Patient Instructions* Wiliam Mandel MD - 05/24/2023 2:54 PM EDT Please get labs done on or after 11/10/2023 prior to your next visit. Consider getting the shingrix vaccine for the prevention of shingles from a local pharmacy documented in this encounterSt. Elizabeth Hospital03-13-2024 History of Present illness Narrative* Wiliam Mandel MD - 05/24/2023 1:36 PM EDT Images from the original note were not included. Medicare Yearly Visit Medical B eligibilty date not able to find Date of last exam 05/25/2022 PAST MEDICAL HISTORY PAST MEDICAL HISTORY Diagnosis Date Benign neoplasm of rectum and anal canal Diabetic peripheral neuropathy (HCC) 03/16/2011 ESOPHAGITIS REFLUX 04/26/2005 Essential hypertension, benign Glaucoma Glaucoma OBESITY NOS 05/09/2006 Ocular histoplasmosis syndrome of left eye at 19yo, vision loss Other and unspecified hyperlipidemia Other dietary vitamin B12 deficiency anemia 04/06/2017 Snoring Type II or unspecified type diabetes mellitus without mention of complication, not stated as uncontrolled Unspecified hypothyroidism s/p radioactive iodine PAST SURGICAL HISTORY PAST SURGICAL HISTORY Procedure Laterality Date COLONOSCOP W/ OR W/O [facility] SPEC 04/05/2011 Colonoscopy repeat 5 yrs COLONOSCOP W/ OR W/O [facility] SPEC 12/20/2016 Colonoscopy COLONOSCOPY & POLYPECTOMY 12/30/03 Januvia [Sitagliptin] Medications reviewed: Yes FAMILY HISTORY FAMILY HISTORY Problem Relation Age of Onset Diabetes Mother Heart Mother [place] Stroke Father Cancer Father lung Heart Sister SOCIAL HISTORY: Social History Marital status: Spouse name: Years of education: Number of children: 2 Occupational History 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 He watches his diet for sodium, but regarding low fat and low cholesterol has tried to reduce intake List of current specialists seen: Dr. Holder (cardio) Dr. Dove (renal) Dr. Dariusz reilly End of Live Planning discussed including patients advanced directive wishes: Yes I am willing to follow Meg's advanced directives. mini coag score: 5 Depression screen Depression Screening PHQ-2 Score 05/24/2023 0 Depression screening tool completed and reviewed. Based on score and interview, patient is not at risk for depression. Screening tool discussed with patient, and I recommended no further interventionat this time. Functional Ability/Safety Screen 1. Was the patient's timed Up and Go test unsteady or longer than 30 seconds? No 2. Does the patient need help with the phone, transportation, shopping,preparing meals, housework, laundry, medications or managing money? No 3. Does your home have rugs in the hallway, lack of grab bars in the bathroom, lack of handrails onthe stairs or have poor lighting? No Hearing Evaluation: normal PHYSICAL EXAM BP 140/68 (BP Site: Right Arm, BP Position: Sitting, BP Cuff Size: Regular Adult) Pulse 72 Resp16 Ht 172.7 cm (5' 8) Wt 96.2 kg (212 lb) BMI 32.23 kg/m Alert and oriented X 3: YES Body mass index is 32.23 kg/m . seeing optho See below ASSESSMENT/PLAN: 78 year old male The following prevention plan was discussed during the office visit and provided to the patient: See below Wiliam Mandel MD Chief Complaint Patient presents with: Medicare Wellness Exam HPI Meg Bryant is a 78 year old male who presents here today for Chronic Medical Conditions. and Medicare Annual Visit. Patient with Hx of DM 2, neuropathy, hyperlipidemia, HTN, obesity, hypothyroidism, carotid stenosis, diabetic proteinuria, GERD, mod aortic Stenosis, COPD, macrocytic anemia as well as those reviewedand addressed below and in ROS. Any new concerns today? None Any recent ER/hospital visits? None Office visit 11/22/2022 6 month follow up Patient with Hx of DM 2, neuropathy, hyperlipidemia, HTN, obesity, hypothyroidism, carotid stenosis, diabetic proteinuria, GERD, mod aortic Stenosis, COPD, macrocytic anemia as well as those reviewedand addressed below and in ROS. Patient has been doing ok. Patient continues to do better with less diarrhea with taking the metformin only once a day. List of current specialists seen Dr. Holder (cardio) last visit 12/07/2021 Dr. Dove (renal) last visit 11/16/2022 [facility] - last visit 09/23/2022 - No retinopathy. Dr. Arzola - -last office visit 06/2022 was receiving iron surcose for his macrocystic anemia. Past medical history, appointments, medications, allergies reviewed. Previous Medical History PAST MEDICAL HISTORY Diagnosis Date Advance directive discussed with patient 11/11/2021 Discussed 10/2021 AK (actinic keratosis) 10/23/2018 right frontal scalp treated with Cryo 10/23/2018 Albuminuria 03/26/2020 Anemia due to stage 3 chronic kidney disease (HCC) (HCC) 07/28/2022 Arthritis Benign neoplasm of rectum and anal canal Benign non-nodular prostatic hyperplasia without lower urinary tract symptoms 08/19/2015 Bilateral carotid artery stenosis 10/24/2018 US 10/2018: 20-40% tere Calculus of gallbladder with chronic cholecystitis without obstruction 03/27/2021 CT 03/2021 Chronic diarrhea 11/11/2021 Class 1 obesity due to excess calories without serious comorbidity with body mass index (BMI) of 34.0 to 34.9 in adult 10/05/2017 Controlled type 2 diabetes mellitus with diabetic nephropathy, without long-term current use of insulin (HCC) 08/19/2015 Coronary artery disease Dermatitis 11/16/2018 thigh lesion removed 10/2018 Diabetic eye exam (HCC) 04/09/2015 Last done: 08/01/2018 No Retinopathy Diabetic peripheral neuropathy (HCC) 03/16/2011 Essential hypertension with goal blood pressure less than 130/85 08/19/2015 Gastroesophageal reflux disease without esophagitis 04/07/2015 Glaucoma Hypothyroidism (acquired) Lichenoid dermatitis 11/16/2018 left chest, removed 10/2018 Living will on file 11/11/2021 DPA: Michelle () Macrocytic anemia 06/15/2020 Medicare annual wellness visit, subsequent 09/29/2016 last done: 02/27/2019 Mixed hyperlipidemia Moderate aortic stenosis 05/03/[address] Holder Obstructive chronic bronchitis with exacerbation ([facility]) 07/29/2008 Ocular histoplasmosis syndrome of left eye at 19yo, vision loss Other dietary vitamin B12 deficiency anemia 04/06/2017 Hg typically 11-11.5 Other proteinuria 03/26/2020 Personal history of colonic polyps Colon polyps Psychosexual dysfunction, unspecified 01/28/2008 Unspecified tinnitus 05/27/2008 Previous Surgical History PAST SURGICAL HISTORY Procedure Laterality Date 2D ECHO (EXEP) 01/13/2020 EF=60%, mild-mod , COLONOSCOPY & POLYPECTOMY 12/30/03 COLONOSCOPY FLX DX W/COLLJ SPEC WHEN PFRMD 04/05/2011 Colonoscopy repeat 5 yrs COLONOSCOPY FLX DX W/COLLJ SPEC WHEN PFRMD 12/20/2016 Colonoscopy NUCLEAR STRESS LEXISCAN (CARD) 05/30/2018 negative SKIN BIOPSY HX Family History FAMILY HISTORY Problem Relation Age of Onset Diabetes Mother Heart Mother IN Stroke Father Cancer Father lung Heart Sister Patient Allergies ALLERGIES Allergen Reactions Januvia [Sitaglipti* Myalgia Current Medications Current Outpatient Medications on File Prior to Visit Medication Sig folic acid 1 mg tablet Take 1 tablet by mouth once daily. linaGLIPtin (TRADJENTA) 5 mg tab Take 1 tablet by mouth once daily. pioglitazone (ACTOS) 45 mg tablet Take 1 tablet by mouth once daily. levothyroxine (SYNTHROID) 125 mcg tablet Take 1 tablet by mouth once daily. lisinopril (ZESTRIL) 10 mg tablet Take 1 tablet by mouth once daily. amLODIPine (NORVASC) 2.5 mg tablet Take 1 tablet by mouth once daily. metFORMIN ER (GLUCOPHAGE XR) 500 mg 24 hr tablet Take 1 tablet by mouth daily with breakfast. simvastatin (ZOCOR) 20 mg tablet Take 1 tablet by mouth once daily. copper citrate 2 mg capsule Take 2 mg by mouth once daily. cholecalciferol (VITAMIN D3) 50 mcg (2,000 unit) tablet Take 2,000 Units by mouth once daily. fluticasone (FLONASE) 50 mcg/actuation nasal spray Use 2 Sprays in each nostril once daily. Rinse mouth after use. cyanocobalamin (VITAMIN B-12) 1,000 mcg tab Take 2 tablets by mouth once daily. (Patient taking differently: Take 1,000 mcg by mouth two times a day.) DOCOSAHEXANOIC ACID/EPA (FISH OIL ORAL) Take 1,000 mg by mouth once daily. blood sugar diagnostic (BLOOD GLUCOSE TEST) test strip Test blood sugar(s) 1 time daily. Dx: E11.9.Insulin: No timolol maleate (ISTALOL) 0.5 % OPHTHALMIC DrpD One drop daily in left eye XALATAN 0.005 % EYE DROPS one drop each at bedtime ASPIRIN 81 MG TAB Take one(1) tablet daily. fluticasone (FLONASE ALLERGY RELIEF) 50 mcg/actuation nasal spray Use 1 Vil[place] in each nostril once daily. No current facility-administered medications on file prior to visit. Social History Social History Tobacco Use Smoking status: Former Types: Pipe Smokeless tobacco: Never Vaping Use Vaping Use: Never used Substance Use Topics Alcohol use: Yes Comment: rarely Drug use: No Review of Symptoms REVIEW OF SYSTEMS GENERAL: No weight loss, malaise or fevers HEENT: Negative for frequent or significant headaches, No changes in hearing or vision, no nose bleeds or other nasal problems NECK: Negative for lumps, goiter, pain and significant neck swelling RESPIRATORY: Negative for cough, hemoptysis, wheezing, COPD, dyspnea or shortness of breath CARDIOVASCULAR: Negative for chest pain, leg swelling, hypertension, CHF or palpitations GI: No nausea, vomiting. Since having two courses of antibiotics patient has been having diarrhea, No heartburn or reflux symptoms, and no blood : No history of dysuria, frequency or blood MUSCULOSKELETAL: Negative for joint pain or swelling, back pain or muscle pain SKIN: Negative for lesions, rash, and itching PSYCH: Negative for sleep disturbance, mood disorder and recent psychosocial stressors HEMATOLOGY/LYMPHOLOGY: Negative for prolonged bleeding, bruising easily or swollen nodes ENDOCRINE: Negative for cold or heat intolerance, symptoms of low BS's NEURO: No history of headaches, syncope, paralysis, seizures or tremors EXAM: BP 140/68 (BP Site: Right Arm, BP Position: Sitting, BP Cuff Size: Regular Adult) Pulse 72 Resp16 Ht 172.7 cm (5' 8) Wt 96.2 kg (212 lb) BMI 32.23 kg/m BP 128/52 Pulse 72 Resp 16 Ht 172.7 cm (5' 8) Wt 96.2 kg (212 lb) BMI 32.23 kg/m Last 4 Encounter Wt Readings: Date: Wt: 05/24/2023 96.2 kg (212 lb) 05/18/2023 98.4 kg (217 lb) 05/02/2023 98 kg (216 lb) 03/16/2023 96.2 kg (212 lb) General Appearance: Well appearing, alert, in no acute distress, well-hydrated, well nourished. andObese. Skin: Skin color, texture, turgor normal, no suspicious rashes or lesions. Inn areas able to be seen. Did not want to put on a gown. Head: Normocephalic, no masses, lesions, tenderness or abnormalities. Eyes: Anicteric sclera. Pupils are equally round and reactive to light. Extraocular movements are intact. . Ears: External ears, TM's normal, canals clear. Nose/Sinuses: Nares normal, septum midline, mucosa normal, no drainage or sinus tenderness. Oropharynx: Lips, mucosa, and tongue normal, teeth and gums normal, oropharynx normal. Neck: Supple, no adenopathy; thyroid symmetric, normal size, no bruits. Lungs: Lungs clear to auscultation. No wheezing, rhonchi, rales.. Heart: RRR without murmur, gallop, or rubs. No ectopy. Abdomen: Normal abdominal exam, Abdomen soft, non-tender. Bowel sounds normal. No masses, organomegaly. Extremities: No deformities, edema, skin discoloration, clubbing or cyanosis. Good capillary refill. . Musculoskeletal: No joint swelling, deformity, or tenderness. Peripheral Pulses: Normal. Neurologic: Gait normal. Reflexes normal and symmetric. Sensation grossly intact.. Genitalia: Normal. Rectal: Normal exam. Prostate slightly enlarged with firm smooth capsule. Diabetic Foot Exam: Feet: Shoes and socks removed, no deformities, ulcers, calluses, normal distal pulses, sensitive to10 gm microfilament, and vibratory exam normal on the right and absent on the right. Skin: warm, dry, and no callouses or ulcer Vascular Pulses: Normal SEMMES-CECE MONOFILAMENT TESTING Left Foot Right Foot Dorsal Surface Intact Dorsal Surface Intact Plantar Surface Intact Plantar Surface Intact Health Maintenance List BP Controlled (<130/80) due on 11/11/2022 Advance Directive Discussion due on 03/13/2023 Depression Assessment due on 03/13/2023 Diabetic Foot Exam due on 05/26/2023 Shingrix Vaccine(2 of 3) due on 05/26/2023 Dilated Retinal Exam due on 09/24/2023 HbA1C due on 11/18/2023 Annual PCP Team Chronic Disease Visit due on 03/16/2024 Urine Albumin:Creatinine Ratio due on 05/17/2024 LDL Cholesterol due on 05/17/2024 Serum Creatinine due on 05/17/2024 Hemoglobin/Hematocrit due on 05/17/2024 DTaP,Tdap,Td Vaccine(4 - Td or Tdap) due on 03/31/2027 Influenza Vaccine Completed RSV Vaccine Completed Hepatitis C Screening Completed Covid-19 Vaccine Completed Pneumococcal Vaccine: 65+ Completed Colorectal Cancer Screening Discontinued Data reviewed Latest Ref Rng 05/18/2022 11/16/2022 05/18/2023 WBC 3.70 - 11.00 k/uL 8.56 7.30 RBC 4.20 - 6.00 m/uL 3.12 (L) 2.84 (L) Hemoglobin 13.0 - 17.0 g/dL 10.1 (L) 9.2 (L) Hematocrit 39.0 - 51.0 % 31.5 (L) 29.1 (L) MCV 80.0 - 100.0 fL 101.0 (H) 102.5 (H) MCH 26.0 - 34.0 pg 32.4 32.4 MCHC 30.5 - 36.0 g/dL 32.1 31.6 RDW-CV 11.5 - 15.0 % 13.0 13.8 Platelet Count 150 - 400 k/uL 117 (L) 187 MPV 9.0 - 12.7 fL 12.1 10.6 Neut% % 50.7 61.0 Abs Neut (ANC) 1.45 - 7.50 k/uL 4.35 4.45 Lymph% % 33.2 24.1 Abs Lymph 1.00 - 4.00 k/uL 2.84 1.76 Henry% % 11.0 10.0 Abs Henry <0.87 k/uL 0.94 (H) 0.73 Eosin% % 3.6 3.4 Abs Eosin <0.46 k/uL 0.31 0.25 Baso% % 1.1 1.2 Abs Baso <0.11 k/uL 0.09 0.09 Immature Gran % % 0.4 0.3 IMMATURE GRANS (ABS) <0.10 k/uL 0.03 <0.03 NRBC /100 WBC 0.0 0.0 Absolute nRBC <0.01 k/uL <0.01 <0.01 DTYPE Auto Auto Color Yellow Light Yellow Yellow Clarity Clear Clear Clear Glucose, Urine Negative Negative Negative Bilirubin, Urine Negative Negative Negative Ketones, Urine Negative Negative Negative Specific [place], Ur 1.005 - 1.030 1.011 1.017 Hemoglobin/Blood,Ur Negative Negative Trace ! pH, Urine <8.5 5.5 5.5 Protein, Urine Negative Trace Negative Urobilinogen 0.2-1.0 EU/dL Negative 0.2 EU/dL Nitrites Negative Negative Negative Leukest Negative Negative Negative WBC, Urine 0-5 /HPF 0-5 /HPF 0-5 /HPF RBC, Urine 0-2 /HPF 0-3 /HPF 0-2 /HPF Bacteria Negative /HPF Negative Epithelial Cells /HPF None Seen Hyaline Cast 0 /LPF 1-3 /LPF ! Protein, Total 6.3 - 8.0 g/dL 6.7 6.6 Albumin 3.9 - 4.9 g/dL 3.9 3.8 (L) Calcium 8.5 - 10.2 mg/dL 9.5 9.1 Bilirubin, Total 0.2 - 1.3 mg/dL 0.3 0.4 Alkaline Phosphatase 38 - 113 U/L 50 44 AST 14 - 40 U/L 15 14 ALT 10 - 54 U/L 10 6 (L) Glucose 74 - 99 mg/dL 157 (H) 214 (H) BUN 9 - 24 mg/dL 22 28 (H) Creatinine 0.73 - 1.22 mg/dL 1.44 (H) 1.53 (H) Sodium 136 - 144 mmol/L 147 (H) 141 Potassium 3.7 - 5.1 mmol/L 4.2 4.5 Chloride 97 - 105 mmol/L 112 (H) 110 (H) CO2 22 - 30 mmol/L 24 23 Anion Gap 9 - 18 mmol/L 11 8 (L) eGFR >=60 mL/min/1.73m 50 (L) 47 (L) Total Cholesterol, Nonfasting <200 mg/dL 156 157 152 Triglycerides, Nonfasting <150 mg/dL 94 99 80 HDL Cholesterol, Nonfasting >39 mg/dL 41 40 41 LDL Cholesterol, Nonfasting <100 mg/dL 96 97 95 Non HDL Cholesterol, Nonfasting <130 mg/dL 115 117 111 VLDL Cholesterol, Nonfasting <30 mg/dL 19 20 16 Total Chol/HDL Ratio, Nonfasting <5.10 mg/dL 3.80 3.93 3.71 LDL/HDL Ratio, Nonfasting <2.54 mg/dL 2.34 2.43 2.32 Creatinine, Ur Random (UCRR) 20.0 - 300.0 mg/dL 80.5 193.9 Albumin, Urine Random mg/L 54.4 <12.0 Albumin/Creat Ratio <30 mg/g 68 (H) <6 Hemoglobin A1C 4.3 - 5.6 % 6.7 (H) 6.2 (H) 6.3 (H) Estimated Average Glucose mg/dL 146 131 134 Vitamin B12 232 - 1,245 pg/mL 1,614 (H) 1,082 PSA <2.60 ng/mL 1.34 1.23 TSH 0.270 - 4.200 mIU/L 0.838 0.633 1.180 A/P ASSESSMENT/PLAN: 1. Medicare annual wellness visit, subsequent - ICD9: V70.0, ICD10: Z00.00 (primary diagnosis) - Counseled on healthy diet and regular exercise - Discussed need for and benefit of weight loss. BMI 32.23 kg/(m^2) - Follow up for annual exam in one year 2. Controlled type 2 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 disease, without long-term current use of insulin (HCC) - ICD9: 250.40, 585.3, ICD10: E11.22, N18.30 - Controlled - Continue current medications - Discussed need for and benefit of weight loss. BMI 32.23 kg/(m^2) - cont f/u with renal 3. Diabetic eye exam (HCC) - ICD9: V72.0, 250.00, ICD10: Z01.00, E11.9 - up to date. 4. Essential hypertension with goal blood pressure less than 130/85 - ICD9: 401.9, ICD10: I10 - Controlled - Continue current medications - Recommend home blood pressure monitoring, to bring results to next visit - Encouraged sodium restriction, DASH or Mediterranean diet - Recommend regular aerobic exercise - Discussed need for and benefit of weight loss. BMI 32.23 kg/(m^2) 5. Mixed hyperlipidemia - ICD9: 272.2, ICD10: E78.2 - Controlled - Continue current medications - Counseled on healthy diet and regular exercise 6. Hypothyroidism (acquired) - ICD9: 244.9, ICD10: E03.9 - Instructed patient on importance of taking on an empty stomach either first thing in the morning or at bedtime. - continue current dose of Synthroid 7. Obstructive chronic bronchitis with exacerbation (HCC) - ICD9: 491.21, ICD10: J44.1 - clinically stable no changes. 8. Gastroesophageal reflux disease without esophagitis - ICD9: 530.81, ICD10: K21.9 - managed with diet. 9. Diabetic peripheral neuropathy (HCC) - ICD9: 250.60, 357.2, ICD10: E11.42 - Controlled - Continue current medications - Counseled on healthy diet and regular exercise - Discussed need for and benefit of weight loss. BMI 32.23 kg/(m^2) Stale 10. Moderate aortic stenosis - ICD9: 424.1, ICD10: I35.0 - management per cardio 11. Albuminuria - ICD9: 791.0, ICD10: R80.9 - last lab was normal. 12. Stage 3a chronic kidney disease (HCC) - ICD9: 585.3, ICD10: N18.31 - management per renal 13. Bilateral carotid artery stenosis - ICD9: 433.10, 433.30, ICD10: I65.23 - cont current Tx. 14. Class 1 obesity due to excess calories without serious comorbidity with body mass index (BMI) of 34.0 to 34.9 in adult - ICD9: 278.00, V85.34, ICD10: E66.09, Z68.34 Stable - Behavioral intervention 15. Other dietary vitamin B12 deficiency anemia - ICD9: 281.1, ICD10: D51.3 - cont replacement 16. Macrocytic anemia - ICD9: 281.9, ICD10: D53.9 - management per hematology 17. Benign non-nodular prostatic hyperplasia without lower urinary tract symptoms - ICD9: 600.90, ICD10: N40.0 - stable no changes. 18. Calculus of gallbladder with chronic cholecystitis without obstruction - ICD9: 574.10, ICD10: K80.10 - no active issues. 19. Advance directive discussed with patient - ICD9: V65.49, ICD10: Z71.89 - up to date 20. Anemia due to stage 3b chronic kidney disease (HCC) (HCC) - ICD9: 285.21, 585.3, ICD10: N18.32,D63.1 - management per hematology 21. Diarrhea, unspecified type - ICD9: 787.91, ICD10: R19.7 Check - C. DIFFICILE PCR F/u 6 months routine check TSH, lipid and A1c. I spent a total of 40 minutes on the date of the service which included preparing to see the patient, [id number] patient care, completing clinical documentation, performing a medically appropriate examination, counseling and educating the patient/family/caregiver and ordering medications, tests, or procedures. Wiliam Mandel MD documented in this encounterSt[facility]20[facility] Miscellaneous Notes* Telephone Encounter - Deanna Merrill LPN - 05/19/2023 11:23 AM EST Mychart message sent. Deanna Merrill LPN * Telephone Encounter - Deanna Merrill LPN - 05/19/2023 11:22 AM EST ----- Message from Paul Arzola DO sent at 05/19/2023 9:41 AM EST ----- Iron levels normal. Recheck in 6 months as scheduled. documented in this encounterSt. [facility]2024 Miscellaneous Notes* Result Encounter Note - Paul Arzola DO - 05/19/2023 9:41 AM EST Iron levels normal. Recheck in 6 months as scheduled. documented in this encounterSt. 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 2) Anemia. HPI: The patient is a 78 year-old male with a past medical history significant for hypothyroidism (received radioactive ablation for hyperthyroidism ~1989), hypertension, type 2 diabetes (Dx ~25 years ago; neuropathy), hypercholesterolemia, GERD, stage 3b chronic kidney disease and B12 deficiency. Patient was noted to have elevated creatinine of 1.27 in August 2019. It was 1.68 in March 2020. UAin March 2020 demonstrated 1+ protein with no evidence of RBCs or WBCs. Creatinine on 03/24/2020 was 1.47 g/dL whereas it had been 1.68 mg/dL on 03/16/2020. He had an ultrasound of the kidneys on 05/04/2020. Was interpreted as a normal ultrasound kidneys and urinary bladder. Patient's recent lab work from 05/12/2020 includes a chemistry panel showing a serum creatinine of 1.42 mg/dL. Serum calcium was 9.3 mg/dL. Patient had a protein electrophoresis of the serum and a random urine sample performed. No M spike was observed on the urine protein electrophoresis but on the serum protein electrophoresis note was made of a faint band in the gamma region suspicious for monoclonal immunoglobulin. However was thought to possibly represent a benign spike as seen in older individuals or potential paraprotein. Immunofixation of the urine and serum had not been performed. Has sensory neuropathy of feet. Noticed ulcers on posterior lower gum about 6-8 months ago. Saw oral surgeon. Biopsy c/w mucous membrane pemphigoid. On steroid mouth rinse and has follow up in August. Seems to be helping. Serum folate from last summer recently posted and was low. Presents for ongoing hematologic management. Interim history: Continues on folic acid supplement-continues. Continues on copper and B12 supplement. Takes care of 2 [place]2 [address] property. No limitations. Stable chronic sensory neuropathy symptoms in the feet. PMH, medications and allergies personally reviewed by me today. Any changes documented in appropriate section. ROS: Constitutional: Denies episodes of fever and night sweats. Not significantly fatigued. Decreased appetite. Neuro: Denies GUTIERREZ, vertigo and dizziness. +Chronic imbalance. HEENT: No recent change in voice, vision or hearing. Resp: Denies cough, wheeze and hemoptysis. Denies shortness of breath at rest. Denies KEY. CVS: Denies exertional chest pain, PND, orthopnea and LE edema. GI: Denies dysgeusia. Denies symptoms of stomatitis. Denies dysphagia and odynophagia. Denies n/v, change in bowel habits and abdominal pain. : Denies dysuria or gross hematuria. No symptoms of bladder outlet obstruction. Endo: Denies hot flashes. Denies polyuria and polydipsia. Denies heat and cold intolerance. Musculoskeletal: Joint pain all the time. Attributes it to his statin drug. Derm: Denies rash. Denies jaundice and diffuse pruritis. Heme: Denies unusual bleeding and unexplained bruising. Psych: Normal mood. PHYSICAL EXAM: Vitals: Blood pressure (!) 130/47, pulse 72, temperature 36.3 C (97.3 F), resp. rate 14, weight 98.4 kg (217 lb), SpO2 97%. Well-appearing and in no acute distress. EYES: Sclerae are anicteric bilaterally. LYMPHATIC: There is no palpable cervical or supraclavicular adenopathy. RESPIRATORY: Inspiratory breath sounds are of normal intensity in all peres. No rales, wheezes or rhonchi. CARDIOVASCULAR: Rhythm is regular. ABDOMEN: The abdomen is nondistended. No organomegaly. No tenderness. Extremities: No swelling or edema. SKIN: No jaundice or rash. NEUROLOGIC: helpdesk analyst II-XII are grossly intact. No focal motor weakness. LABS: Component Latest Ref Rng & Units 05/18/2023 WBC 3.70 - 11.00 k/uL 7.30 RBC 4.20 - 6.00 m/uL 2.84 (L) Hemoglobin 13.0 - 17.0 g/dL 9.2 (L) Hematocrit 39.0 - 51.0 % 29.1 (L) MCV 80.0 - 100.0 fL 102.5 (H) MCH 26.0 - 34.0 pg 32.4 MCHC 30.5 - 36.0 g/dL 31.6 RDW-CV 11.5 - 15.0 % 13.8 Platelet Count 150 - 400 k/uL 187 MPV 9.0 - 12.7 fL 10.6 Neut% % 61.0 Abs Neut (ANC) 1.45 - 7.50 k/uL 4.45 Lymph% % 24.1 Abs Lymph 1.00 - 4.00 k/uL 1.76 Henry% % 10.0 Abs Henry <0.87 k/uL 0.73 Eosin% % 3.4 Abs Eosin <0.46 k/uL 0.25 Baso% % 1.2 Abs Baso <0.11 k/uL 0.09 Immature Gran % % 0.3 IMMATURE GRANS (ABS) <0.10 k/uL <0.03 NRBC /100 WBC 0.0 Absolute nRBC <0.01 k/uL <0.01 DTYPE Auto PATHOLOGY: Bone marrow biopsy 08/18/2021: A-C. Bone marrow, aspirate smear and core biopsy, with clot section: - Cellular marrow (variable, 10-40%) with trilineage hematopoiesis. - Multiple lymphoid aggregates, favor reactive process. - Stainable iron present. - See comment. D. Peripheral blood smear: - Macrocytic anemia and monocytosis. The patient has a history of macrocytic anemia. Flow cytometry on this specimen shows no immunophenotypic evidence of lymphoproliferative disorder or abnormal blast population (see flow report). Correlation with clinical findings and pending cytogenetic result to rule out clonal neoplasm is suggested. 2% PCs. DIAGNOSIS: 46,XY[20] INTERPRETATION: Normal, male karyotype ASSESSMENT/PLAN: (D53.9) Macrocytic anemia (primary encounter diagnosis) Assessment: -The patient is a 78-year-old male who has a history of chronic kidney disease. Found to have a questionable serum monoclonal protein on electrophoresis. -Renal function had been stable dating to at least March 2017. -Repeat testing here significant only for a poorly defined region of restricted mobility in the lambda rafita potentially route sales representative of low-level lambda monoclonal gammopathy. The serum kappa free light chain was mildly elevated and the lambda light chain is normal as is the ratio. 24-hour urine collection negative for monoclonal protein by both electrophoresis and immunofixation. No evidence of serum monoclonal protein by both electrophoresis and immunofixation. -Previous bone marrow biopsy with no morphologic evidence of myelodysplastic syndrome or plasma cell disorder. Cytogenetics normal. Myeloid NGS panel negative. -Likely anemia secondary to chronic kidney disease. -Iron pending. Again discussed potentially starting ANIKA, but he feels well and is not limited in his activities by dyspnea and would like to continue observation. Plan: -He will be contacted with the results of today's iron studies. Parenteral iron if indicated otherwise, CBC/BMP/Iron studies then OV in about 6 months. Portions of this documentation were copied and pasted from previous office visit notes in order to provide a cohesive continuity of the history. The note has been reviewed and edited and updated as necessary. I spent a total of 15 minutes on the date of the service which included preparing to see the patient, [id number] patient care, completing clinical documentation, performing a medically appropriate examination, counseling and educating the patient/family/caregiver, communicating with other HCPs (not separately reported), and communicating results to the patient/family/caregiver. Paul Arzola DO documented in this encounterSt[facility] Miscellaneous Notes* Telephone Encounter - Ramya Rai LPN - 05/15/2023 8:12 AM EST Patient has been identified by name and date of : Yes Requested Prescriptions Pending Prescriptions Disp Refills folic acid 1 mg tablet 90 tablet 3 Sig: Take 1 tablet by mouth once daily. RX INSTRUCTIONS: Patient aware RX will be sent to pharmacy. No need to notify patient. Ramya Rai LPN documented in this encounterSt. [facility]03-[facility]24 Evaluation note* Diagnosis Stage 3a chronic kidney disease (HCC)- Primary Mixed hyperlipidemia Hypothyroidism (acquired) Unspecified hypothyroidism Gastroesophageal reflux disease without esophagitis Esophageal reflux Controlled type 2 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 disease, without long-term current use of insulin (HCC) Bilateral carotid artery stenosis Occlusion and stenosis of carotid artery without mention of cerebral infarction Other dietary vitamin B12 deficiency anemia Macrocytic anemia Unspecified deficiency anemia Medication management Encounter for long-term (current) use of other medications Anemia due to stage 3b chronic kidney disease (HCC) (HCC) [facility] Nurse Note* Nay Spears - 05/02/2023 12:38 PM EST Ambulatory Ear Lavage Pre-treatment: Warm water Treatment: Left ear Equipment and Irrigation solution and Volume used: Single use syringe with single use irrigation tip Water Return flow appearance: Brown Yellow Patient tolerated procedure: yes Tympanic membrane assessment: Tympanic membrane assessed by LIP pre and post procedure Nay Spears documented in this encounterSt. [facility]02-[facility] History of Present illness Narrative* Jennifer Schafer APRN.CONGRESSIONAL DISTRICT AIDE - 05/02/2023 12:29 PM EST CC: Patient presents with: Ear Problem: left ear ? fluid x 2 weeks, dizziness x 1 day HPI: Meg Bryant is a 78 year old male who presents to the office with complaint of ear symptoms forthe past day. Symptoms are worsening Associated symptoms includes ear pain and ear pressure . Denies fever, nausea, vomiting , and diarrhea. Treatments tried include nothing so far. with no relief of symptoms. Sick contacts: unknown. History of asthma, frequent episodes of bronchitis, chronic bronchitis, bronchiectasis or COPD: No Smoker: No Seasonal/environmental allergies: No The ROS is otherwise negative. The patient's pmh, medications, allergies, and past visits are reviewed. PHYSICAL EXAM: BP 122/74 Pulse 78 Temp 36.1 C (96.9 F) Resp 16 Wt 98 kg (216 lb) SpO2 99% BMI 33.09 kg/m General appearance: alert, cooperative, pleasant, in no acute distress Head: Normocephalic Eyes: EOM's intact, conjunctiva pink and moist, no icterus, sclera white, non-injected Ears: Right ear: External ear/canal- Normal, TM - clear with good landmarks. Left ear: External ear/canal- cerumen impaction, PAST MEDICAL HISTORY Diagnosis Date Advance directive discussed with patient 11/11/2021 Discussed 10/2021 AK (actinic keratosis) 10/23/2018 right frontal scalp treated with Cryo 10/23/2018 Albuminuria 03/26/2020 Anemia due to stage 3 chronic kidney disease (HCC) ([facility]) 07/28/2022 Arthritis Benign neoplasm of rectum and anal canal Benign non-nodular prostatic hyperplasia without lower urinary tract symptoms 08/19/2015 Bilateral carotid artery stenosis 10/24/2018 US 10/2018: 20-40% tere Calculus of gallbladder with chronic cholecystitis without obstruction 03/27/2021 CT 03/2021 Chronic diarrhea 11/11/2021 Class 1 obesity due to excess calories without serious comorbidity with body mass index (BMI) of 34.0 to 34.9 in adult 10/05/2017 Controlled type 2 diabetes mellitus with diabetic nephropathy, without long-term current use of insulin ([facility]) 08/19/2015 Coronary artery disease Dermatitis 11/16/2018 thigh lesion removed 10/2018 Diabetic eye exam ([facility]) 04/09/2015 Last done: 08/01/2018 No Retinopathy Diabetic peripheral neuropathy ([facility]) 03/16/2011 Essential hypertension with goal blood pressure less than 130/85 08/19/2015 Gastroesophageal reflux disease without esophagitis 04/07/2015 Glaucoma Hypothyroidism (acquired) Lichenoid dermatitis 11/16/2018 left chest, removed 10/2018 Living will on file 11/11/2021 DPA: Michelle () Macrocytic anemia 06/15/2020 Medicare annual wellness visit, subsequent 09/29/2016 last done: 02/27/2019 Mixed hyperlipidemia Moderate aortic stenosis 05/03/[address] Holder Obstructive chronic bronchitis with exacerbation ([facility]) 07/29/2008 Ocular histoplasmosis syndrome of left eye at 19yo, vision loss Other dietary vitamin B12 deficiency anemia 04/06/2017 Hg typically 11-11.5 Other proteinuria 03/26/2020 Personal history of colonic polyps Colon polyps Psychosexual dysfunction, unspecified 01/28/2008 Unspecified tinnitus 05/27/2008 PAST SURGICAL HISTORY Procedure Laterality Date 2D ECHO (EXEP) 01/13/2020 EF=60%, mild-mod , COLONOSCOPY & POLYPECTOMY 10/19/04 COLONOSCOPY FLX DX W/COLLJ SPEC WHEN PFRMD 04/05/2011 Colonoscopy repeat 5 yrs COLONOSCOPY FLX DX W/COLLJ SPEC WHEN PFRMD 12/20/2016 Colonoscopy NUCLEAR STRESS LEXISCAN (CARD) 05/30/2018 negative SKIN BIOPSY HX ALLERGIES Januvia [Sitagliptin] MEDICATIONS linaGLIPtin (TRADJENTA) 5 mg tab Take 1 tablet by mouth once daily. pioglitazone (ACTOS) 45 mg tablet Take 1 tablet by mouth once daily. fluticasone (FLONASE ALLERGY RELIEF) 50 mcg/actuation nasal spray Use 1 Vil[place] in each nostril once daily. levothyroxine (SYNTHROID) 125 mcg tablet Take 1 tablet by mouth once daily. lisinopril (ZESTRIL) 10 mg tablet Take 1 tablet by mouth once daily. amLODIPine (NORVASC) 2.5 mg tablet Take 1 tablet by mouth once daily. metFORMIN ER (GLUCOPHAGE XR) 500 mg 24 hr tablet Take 1 tablet by mouth daily with breakfast. simvastatin (ZOCOR) 20 mg tablet Take 1 tablet by mouth once daily. folic acid 1 mg tablet Take 1 tablet by mouth once daily. copper citrate 2 mg capsule Take 2 mg by mouth once daily. cholecalciferol (VITAMIN D3) 50 mcg (2,000 unit) tablet Take 2,000 Units by mouth once daily. fluticasone (FLONASE) 50 mcg/actuation nasal spray Use 2 Sprays in each nostril once daily. Rinse mouth after use. cyanocobalamin (VITAMIN B-12) 1,000 mcg tab Take 2 tablets by mouth once daily. (Patient taking differently: Take 1,000 mcg by mouth two times a day.) DOCOSAHEXANOIC ACID/EPA (FISH OIL ORAL) Take 1,000 mg by mouth once daily. blood sugar diagnostic (BLOOD GLUCOSE TEST) test strip Test blood sugar(s) 1 time daily. Dx: E11.9.Insulin: No timolol maleate (ISTALOL) 0.5 % OPHTHALMIC DrpD One drop daily in left eye XALATAN 0.005 % EYE DROPS one drop each at bedtime ASPIRIN 81 MG TAB Take one(1) tablet daily. FAMILY HISTORY Problem Relation Age of Onset Diabetes Mother Heart Mother [place] Stroke Father Cancer Father lung Heart Sister Social History Tobacco Use Smoking status: Former Types: Pipe Smokeless tobacco: Never Vaping Use Vaping Use: Never used Substance Use Topics Alcohol use: Yes Comment: rarely Drug use: No ASSESSMENT/PLAN: 1. Impacted cerumen of left ear - ICD9: 380.4, ICD10: H61.22 - REMOVAL OF IMPACTED CERUMEN - I MA successfully flushed patient's left ear. Patient's tympanic membrane is visible and within normal limits. Patient states he feels much better now has no pain. Potential red flag symptoms discussed with the patient. Reviewed appropriate action plan to take ifred flag symptoms occur. Patient agreeable to treatment plan. Jennifer Schafer APRN.CONGRESSIONAL DISTRICT AIDE documented in this encounterSt. [facility]02-[facility] Miscellaneous Notes* Telephone Encounter - Jessy Bradley LPN - 04/13/2023 2:41 PM EST HM updated. documented in this encounterSt. [facility]01-[facility] History of Present illness Narrative* Wiliam Marrero APRN.ANANDA - 03/13/2023 9:29 AM EST Subjective HPI Nontoxic-appearing male presents urgent care chief complaint ear pain. Duration of symptoms last few days. Associated symptoms right ear discomfort nasal drainage cough chest congestion. Duration of symptoms nasal drainage cough chest congestion 4 days. Feels like it is improving slightly. Has had increased mucus production. Has been using some OTC medications this is helped some. No ear trauma or loss of hearing. No otorrhea. Denies any fevers chest pain hemoptysis nausea vomiting abdominal pain change in bowel or bladder habits. Past medical history prescription medications allergies reviewed. .Patient presents with: Ear Pain: R ear pain x1.5 months, recent ear infection PAST MEDICAL HISTORY Diagnosis Date Advance directive discussed with patient 11/11/2021 Discussed 10/2021 AK (actinic keratosis) 10/23/2018 right frontal scalp treated with Cryo 10/23/2018 Albuminuria 03/26/2020 Anemia due to stage 3 chronic kidney disease (HCC) (HCC) 07/28/2022 Arthritis Benign neoplasm of rectum and anal canal Benign non-nodular prostatic hyperplasia without lower urinary tract symptoms 08/19/2015 Bilateral carotid artery stenosis 10/24/2018 US 10/2018: 20-40% tere Calculus of gallbladder with chronic cholecystitis without obstruction 03/27/2021 CT 03/2021 Chronic diarrhea 11/11/2021 Class 1 obesity due to excess calories without serious comorbidity with body mass index (BMI) of 34.0 to 34.9 in adult 10/05/2017 Controlled type 2 diabetes mellitus with diabetic nephropathy, without long-term current use of insulin ([facility]) 08/19/2015 Coronary artery disease Dermatitis 11/16/2018 thigh lesion removed 10/2018 Diabetic eye exam ([facility]) 04/09/2015 Last done: 08/01/2018 No Retinopathy Diabetic peripheral neuropathy ([facility]) 03/16/2011 Essential hypertension with goal blood pressure less than 130/85 08/19/2015 Gastroesophageal reflux disease without esophagitis 04/07/2015 Glaucoma Hypothyroidism (acquired) Lichenoid dermatitis 11/16/2018 left chest, removed 10/2018 Living will on file 11/11/2021 DPA: Michelle () Macrocytic anemia 06/15/2020 Medicare annual wellness visit, subsequent 09/29/2016 last done: 02/27/2019 Mixed hyperlipidemia Moderate aortic stenosis 05/03/[address] oHlder Obstructive chronic bronchitis with exacerbation ([facility]) 07/29/2008 Ocular histoplasmosis syndrome of left eye at 19yo, vision loss Other dietary vitamin B12 deficiency anemia 04/06/2017 Hg typically 11-11.5 Other proteinuria 03/26/2020 Personal history of colonic polyps Colon polyps Psychosexual dysfunction, unspecified 01/28/2008 Unspecified tinnitus 05/27/2008 PAST SURGICAL HISTORY Procedure Laterality Date 2D ECHO (EXEP) 01/13/2020 EF=60%, mild-mod , COLONOSCOPY & POLYPECTOMY 12/30/03 COLONOSCOPY FLX DX W/COLLJ SPEC WHEN PFRMD 04/05/2011 Colonoscopy repeat 5 yrs COLONOSCOPY FLX DX W/COLLJ SPEC WHEN PFRMD 12/20/2016 Colonoscopy NUCLEAR STRESS LEXISCAN (CARD) 05/30/2018 negative SKIN BIOPSY HX ALLERGIES Januvia [Sitagliptin] MEDICATIONS levothyroxine (SYNTHROID) 125 mcg tablet Take 1 tablet by mouth once daily. lisinopril (ZESTRIL) 10 mg tablet Take 1 tablet by mouth once daily. amLODIPine (NORVASC) 2.5 mg tablet Take 1 tablet by mouth once daily. metFORMIN ER (GLUCOPHAGE XR) 500 mg 24 hr tablet Take 1 tablet by mouth daily with breakfast. pioglitazone (ACTOS) 45 mg tablet Take 1 tablet by mouth once daily. simvastatin (ZOCOR) 20 mg tablet Take 1 tablet by mouth once daily. folic acid 1 mg tablet Take 1 tablet by mouth once daily. linaGLIPtin (TRADJENTA) 5 mg tab Take 1 tablet by mouth once daily. copper citrate 2 mg capsule Take 2 mg by mouth once daily. cholecalciferol (VITAMIN D3) 50 mcg (2,000 unit) tablet Take 2,000 Units by mouth once daily. fluticasone (FLONASE) 50 mcg/actuation nasal spray Use 2 Sprays in each nostril once daily. Rinse mouth after use. cyanocobalamin (VITAMIN B-12) 1,000 mcg tab Take 2 tablets by mouth once daily. (Patient taking differently: Take 1,000 mcg by mouth two times a day.) DOCOSAHEXANOIC ACID/EPA (FISH OIL ORAL) Take 1,000 mg by mouth once daily. blood sugar diagnostic (BLOOD GLUCOSE TEST) test strip Test blood sugar(s) 1 time daily. Dx: E11.9.Insulin: No timolol maleate (ISTALOL) 0.5 % OPHTHALMIC DrpD One drop daily in left eye XALATAN 0.005 % EYE DROPS one drop each at bedtime ASPIRIN 81 MG TAB Take one(1) tablet daily. FAMILY HISTORY Problem Relation Age of Onset Diabetes Mother Heart Mother IN Stroke Father Cancer Father lung Heart Sister Social History Tobacco Use Smoking status: Former Types: Pipe Quit date: 03/13/1989 Years since quittin.0 Smokeless tobacco: Never Vaping Use Vaping Use: Never used Substance Use Topics Alcohol use: Yes Comment: rarely Drug use: No BP 141/61 Pulse 90 Temp 36.4 C (97.6 F) Resp 18 Wt 98.6 kg (217 lb 6.4 oz) SpO2 95% BMI33.30 kg/m 97% Review of Systems Constitutional: Negative for chills, fever and malaise/fatigue. HENT: Positive for congestion and ear pain. Negative for ear discharge, sinus pain and sore throat. Eyes: Negative for blurred vision, pain, discharge and redness. Respiratory: Positive for cough and sputum production. Negative for hemoptysis, shortness of breath, wheezing and stridor. Cardiovascular: Negative for chest pain. Gastrointestinal: Negative for abdominal pain, diarrhea, nausea and vomiting. Musculoskeletal: Negative for myalgias. Skin: Negative for itching and rash. Neurological: Negative for dizziness and headaches. Objective Physical Exam Constitutional: General: He is not in acute distress. Appearance: He is not diaphoretic. HENT: Head: Normocephalic. Jaw: No trismus, tenderness, swelling or pain on movement. Right Ear: Tympanic membrane, ear canal and external ear normal. Left Ear: Tympanic membrane, ear canal and external ear normal. Ears: Comments: Clear fluid noted behind bilateral TMs. Nose: Congestion present. Mouth/Throat: Mouth: Mucous membranes are moist. Pharynx: Oropharynx is clear. Uvula midline. No pharyngeal swelling, oropharyngeal exudate, posterior oropharyngeal erythema or uvula swelling. Eyes: Conjunctiva/sclera: Conjunctivae normal. Pupils: Pupils are equal, round, and reactive to light. Cardiovascular: Rate and Rhythm: Normal rate and regular rhythm. Heart sounds: Normal heart sounds. Pulmonary: Effort: Pulmonary effort is normal. No tachypnea, accessory muscle usage or respiratory distress. Breath sounds: No stridor. Wheezing present. No rhonchi or rales. Abdominal: General: There is no distension. Palpations: Abdomen is soft. Tenderness: There is no abdominal tenderness. There is no guarding or rebound. Musculoskeletal: Cervical back: Normal range of motion and neck supple. No edema, erythema, rigidity or tenderness. No pain with movement. Normal range of motion. Lymphadenopathy: Cervical: No cervical adenopathy. Skin: General: Skin is warm and dry. Neurological: Mental Status: He is alert and oriented to person, place, and time. ASSESSMENT/PLAN: 1. Eustachian tube dysfunction, bilateral - ICD9: 381.81, ICD10: H69.93 (primary diagnosis) 2. Acute bronchitis with chronic obstructive pulmonary disease (COPD) ([facility]) ([facility]) - ICD9: 491.22, ICD10: J44.0, J20.9 Diagnosis eustachian tube dysfunction. Placed on Flonase. Additionally diagnosed with acute bronchitis. With the productive cough and history of underlying airway disease placed on doxycycline. Red flags for prompt reevaluation discussed. Patient was educated on supportive therapies. Patient will follow up with primary care provider as needed. Patient was instructed to immediately proceed to emergency room for any new, worsening, or symptoms lasting longer than anticipated. The patient's clinical presentation is otherwise unremarkable at this time. Based on exam and clinical finding, the patient is stable for discharge. Plan of care was discussed with patient. Patient verbalizes understanding and agrees to plan of care. This note was generated using Quick[employer] software. It may contain errors in wording, punctuation, or spelling. Wiliam Marrero APRN.ANANDA documented in this encounterSt. [facility]11-[facility]23 History of Present illness Narrative* Jennifer Schafer APRN.CNP - 01/31/2023 9:11 AM EST Images from the original note were not included. Subjective Patient came in with complains of pain in the right ear and below the ear patient said it started this morning. Denies any difficulty opening jaw, fever, chills. Denies any other symptoms at this time. The history is provided by the patient. No language and literature division chair was used. Ear Pain Review of Systems Constitutional: Negative. Skin: Negative. Objective Physical Exam Constitutional: Appearance: Normal appearance. HENT: Head: Comments: Patient is having pain in the area marked above. Right Ear: Tympanic membrane is erythematous. Left Ear: Hearing, tympanic membrane, ear canal and external ear normal. Pulmonary: Effort: Pulmonary effort is normal. Neurological: Mental Status: He is alert. PAST MEDICAL HISTORY Diagnosis Date Advance directive discussed with patient 11/11/2021 Discussed 10/2021 AK (actinic keratosis) 10/23/2018 right frontal scalp treated with Cryo 10/23/2018 Albuminuria 03/26/2020 Anemia due to stage 3 chronic kidney disease (HCC) 07/28/2022 Arthritis Benign neoplasm of rectum and anal canal Benign non-nodular prostatic hyperplasia without lower urinary tract symptoms 08/19/2015 Bilateral carotid artery stenosis 10/24/2018 US 10/2018: 20-40% tere Calculus of gallbladder with chronic cholecystitis without obstruction 03/27/2021 CT 03/2021 Chronic diarrhea 11/11/2021 Class 1 obesity due to excess calories without serious comorbidity with body mass index (BMI) of 34.0 to 34.9 in adult 10/05/2017 Controlled type 2 diabetes mellitus with diabetic nephropathy, without long-term current use of insulin (HCC) 08/19/2015 Coronary artery disease Dermatitis 11/16/2018 thigh lesion removed 10/2018 Diabetic eye exam (HCC) 04/09/2015 Last done: 08/01/2018 No Retinopathy Diabetic peripheral neuropathy (HCC) 03/16/2011 Essential hypertension with goal blood pressure less than 130/85 08/19/2015 Gastroesophageal reflux disease without esophagitis 04/07/2015 Glaucoma Hypothyroidism (acquired) Lichenoid dermatitis 11/16/2018 left chest, removed 10/2018 Living will on file 11/11/2021 DPA: Michelle () Macrocytic anemia 06/15/2020 Medicare annual wellness visit, subsequent 09/29/2016 last done: 02/27/2019 Mixed hyperlipidemia Moderate aortic stenosis 05/03/[address] Holder Obstructive chronic bronchitis with exacerbation (HCC) 07/29/2008 Ocular histoplasmosis syndrome of left eye at 19yo, vision loss Other dietary vitamin B12 deficiency anemia 04/06/2017 Hg typically 11-11.5 Other proteinuria 03/26/2020 Personal history of colonic polyps Colon polyps Psychosexual dysfunction, unspecified 01/28/2008 Unspecified tinnitus 05/27/2008 PAST SURGICAL HISTORY Procedure Laterality Date 2D ECHO (EXEP) 01/13/2020 EF=60%, mild-mod , COLONOSCOPY & POLYPECTOMY 12/30/03 COLONOSCOPY FLX DX W/COLLJ SPEC WHEN PFRMD 04/05/2011 Colonoscopy repeat 5 yrs COLONOSCOPY FLX DX W/COLLJ SPEC WHEN PFRMD 12/20/2016 Colonoscopy NUCLEAR STRESS LEXISCAN (CARD) 05/30/2018 negative SKIN BIOPSY HX ALLERGIES Januvia [Sitagliptin] MEDICATIONS levothyroxine (SYNTHROID) 125 mcg tablet Take 1 tablet by mouth once daily. lisinopril (ZESTRIL) 10 mg tablet Take 1 tablet by mouth once daily. amLODIPine (NORVASC) 2.5 mg tablet Take 1 tablet by mouth once daily. metFORMIN ER (GLUCOPHAGE XR) 500 mg 24 hr tablet Take 1 tablet by mouth daily with breakfast. pioglitazone (ACTOS) 45 mg tablet Take 1 tablet by mouth once daily. simvastatin (ZOCOR) 20 mg tablet Take 1 tablet by mouth once daily. folic acid 1 mg tablet Take 1 tablet by mouth once daily. linaGLIPtin (TRADJENTA) 5 mg tab Take 1 tablet by mouth once daily. copper citrate 2 mg capsule Take 2 mg by mouth once daily. cholecalciferol (VITAMIN D3) 50 mcg (2,000 unit) tablet Take 2,000 Units by mouth once daily. fluticasone (FLONASE) 50 mcg/actuation nasal spray Use 2 Sprays in each nostril once daily. Rinse mouth after use. cyanocobalamin (VITAMIN B-12) 1,000 mcg tab Take 2 tablets by mouth once daily. (Patient taking differently: Take 1,000 mcg by mouth two times a day.) DOCOSAHEXANOIC ACID/EPA (FISH OIL ORAL) Take 1,000 mg by mouth once daily. blood sugar diagnostic (BLOOD GLUCOSE TEST) test strip Test blood sugar(s) 1 time daily. Dx: E11.9.Insulin: No timolol maleate (ISTALOL) 0.5 % OPHTHALMIC DrpD One drop daily in left eye XALATAN 0.005 % EYE DROPS one drop each at bedtime ASPIRIN 81 MG TAB Take one(1) tablet daily. amoxicillin-clavulanate potassium (AUGMENTIN) 875-125 mg per tablet Take 1 tablet by mouth two times a day for 7 days. FAMILY HISTORY Problem Relation Age of Onset Diabetes Mother Heart Mother [place] Stroke Father Cancer Father lung Heart Sister Social History Tobacco Use Smoking status: Former Types: Pipe Quit date: 03/13/1989 Years since quittin.9 Smokeless tobacco: Never Vaping Use Vaping Use: Never used Substance Use Topics Alcohol use: Yes Comment: rarely Drug use: No ASSESSMENT/PLAN: 1. Acute otitis media, right - ICD9: 382.9, ICD10: H66.91 - AMOXICILLIN 875 MG-POTASSIUM CLAVULANATE 125 MG TABLET Educated about proper use of medication and supportive therapies. Patient will follow up with signsand symptoms seem to getting worse not better. Patient was okay with this and patient was educated about red flag symptoms to watch for. Jennifer Schafer APRN.[place] documented [facility] encounter[facility] Miscellaneous Notes* Telephone Encounter - Wiliam Mandel MD - 01/23/2023 5:16 PM EST The following approved medication requests have been transmitted electronically. Requested Prescriptions Signed Prescriptions Disp Refills levothyroxine (SYNTHROID) 125 mcg tablet 90 tablet 1 Sig: Take 1 tablet by mouth once daily. Authorizing Provider: WILIAM MANDEL MD * Telephone Encounter - Alisa Schafer MA - 01/23/2023 11:56 AM EST Patient has been identified by name and date of : Yes Requested Prescriptions Pending Prescriptions Disp Refills levothyroxine (SYNTHROID) 125 mcg tablet 90 tablet 1 Sig: Take 1 tablet by mouth once daily. RX INSTRUCTIONS: Patient aware RX will be sent to pharmacy. No need to notify patient. Alisa Schafer MA Fabio 11/2022 Nov 05/2022 Last refill: 07/2022 documented in this encounterSt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 2) Anemia. HPI: The patient is a 77 year-old male with a past medical history significant for hypothyroidism, hypertension, type 2 diabetes (Dx ~25 years ago; neuropathy), hypercholesterolemia, GERD, stage 3b chronic kidney disease and B12 deficiency. Patient was noted to have elevated creatinine of 1.27 in August 2019. It was 1.68 in March 2020. UAin March 2020 demonstrated 1+ protein with no evidence of RBCs or WBCs. Creatinine on 03/24/2020 was 1.47 g/dL whereas it had been 1.68 mg/dL on 03/16/2020. He had an ultrasound of the kidneys on 05/04/2020. Was interpreted as a normal ultrasound kidneys and urinary bladder. Patient's recent lab work from 05/12/2020 includes a chemistry panel showing a serum creatinine of 1.42 mg/dL. Serum calcium was 9.3 mg/dL. Patient had a protein electrophoresis of the serum and a random urine sample performed. No M spike was observed on the urine protein electrophoresis but on the serum protein electrophoresis note was made of a faint band in the gamma region suspicious for monoclonal immunoglobulin. However was thought to possibly represent a benign spike as seen in older individuals or potential paraprotein. Immunofixation of the urine and serum had not been performed. Has sensory neuropathy of feet. Noticed ulcers on posterior lower gum about 6-8 months ago. Saw oral surgeon. Biopsy c/w mucous membrane pemphigoid. On steroid mouth rinse and has follow up in August. Seems to be helping. Serum folate from last summer recently posted and was low. Presents for ongoing hematologic management. Interim history: Started on folic acid supplement-continues. Continues on copper and B12 supplement. Takes care of 2 [place]2 [address] property. No limitations. Stable chronic sensory neuropathy symptoms in the feet. PMH, medications and allergies personally reviewed by me today. Any changes documented in appropriate section. ROS: Constitutional: Denies episodes of fever and night sweats. Not significantly fatigued. Decreased appetite. Neuro: Denies GUTIERREZ, vertigo and dizziness. +Chronic imbalance. HEENT: No recent change in voice, vision or hearing. Resp: Denies cough, wheeze and hemoptysis. Denies shortness of breath at rest. Denies KEY. CVS: Denies exertional chest pain, PND, orthopnea and LE edema. GI: Denies dysgeusia. Denies symptoms of stomatitis. Denies dysphagia and odynophagia. Denies n/v, change in bowel habits and abdominal pain. : Denies dysuria or gross hematuria. No symptoms of bladder outlet obstruction. Endo: Denies hot flashes. Denies polyuria and polydipsia. Denies heat and cold intolerance. Musculoskeletal: Joint pain all the time. Attributes it to his statin drug. Derm: Denies rash. Denies jaundice and diffuse pruritis. Heme: Denies unusual bleeding and unexplained bruising. Psych: Normal mood. PHYSICAL EXAM: Vitals: Blood pressure 127/61, pulse 76, temperature 36.3 C (97.4 F), temperature source Temporal, weight 97.1 kg (214 lb), SpO2 98 %. Well-appearing and in no acute distress. EYES: Sclerae are anicteric bilaterally. LYMPHATIC: There is no palpable cervical or supraclavicular adenopathy. RESPIRATORY: Inspiratory breath sounds are of normal intensity in all peres. No rales, wheezes or rhonchi. CARDIOVASCULAR: Rhythm is regular. ABDOMEN: The abdomen is nondistended. No organomegaly. No tenderness. Extremities: No swelling or edema. SKIN: No jaundice or rash. NEUROLOGIC: helpdesk analyst II-XII are grossly intact. No focal motor weakness. LABS: Component Latest Ref Rng & Units 01/16/2023 WBC 3.70 - 11.00 k/uL 9.36 RBC 4.20 - 6.00 m/uL 2.92 (L) Hemoglobin 13.0 - 17.0 g/dL 9.6 (L) Hematocrit 39.0 - 51.0 % 31.0 (L) MCV 80.0 - 100.0 fL 106.2 (H) MCH 26.0 - 34.0 pg 32.9 MCHC 30.5 - 36.0 g/dL 31.0 RDW-CV 11.5 - 15.0 % 13.1 Platelet Count 150 - 400 k/uL 145 (L) MPV 9.0 - 12.7 fL 10.1 Neut% % 62.4 Abs Neut (ANC) 1.45 - 7.50 k/uL 5.84 Lymph% % 23.8 Abs Lymph 1.00 - 4.00 k/uL 2.23 Henry% % 9.6 Abs Henry <0.87 k/uL 0.90 (H) Eosin% % 3.0 Abs Eosin <0.46 k/uL 0.28 Baso% % 0.9 Abs Baso <0.11 k/uL 0.08 Immature Gran % % 0.3 IMMATURE GRANS (ABS) <0.10 k/uL 0.03 NRBC /100 WBC 0.0 Absolute nRBC <0.01 k/uL <0.01 DTYPE Auto Iron 41 - 186 ug/dL 103 TIBC 232 - 386 ug/dL 275 Transferrin Saturation 15.0 - 57.0 % 37.5 Ferritin 30.3 - 565.7 ng/mL 163.0 PATHOLOGY: Bone marrow biopsy 08/18/2021: A-C. Bone marrow, aspirate smear and core biopsy, with clot section: - Cellular marrow (variable, 10-40%) with trilineage hematopoiesis. - Multiple lymphoid aggregates, favor reactive process. - Stainable iron present. - See comment. D. Peripheral blood smear: - Macrocytic anemia and monocytosis. The patient has a history of macrocytic anemia. Flow cytometry on this specimen shows no immunophenotypic evidence of lymphoproliferative disorder or abnormal blast population (see flow report). Correlation with clinical findings and pending cytogenetic result to rule out clonal neoplasm is suggested. 2% PCs. DIAGNOSIS: 46,XY[20] INTERPRETATION: Normal, male karyotype ASSESSMENT/PLAN: (D53.9) Macrocytic anemia (primary encounter diagnosis) Assessment: -The patient is a 77-year-old male who has a history of chronic kidney disease. Found to have a questionable serum monoclonal protein on electrophoresis. -Renal function had been stable dating to at least March 2017. -Repeat testing here significant only for a poorly defined region of restricted mobility in the lambda rafita potentially route sales representative of low-level lambda monoclonal gammopathy. The serum kappa free light chain was mildly elevated and the lambda light chain is normal as is the ratio. 24-hour urine collection negative for monoclonal protein by both electrophoresis and immunofixation. No evidence of serum monoclonal protein by both electrophoresis and immunofixation. -Previous bone marrow biopsy with no morphologic evidence of myelodysplastic syndrome or plasma cell disorder. Cytogenetics normal. Myeloid NGS panel negative. Reviewed again today. -Likely anemia secondary to chronic kidney disease. -Iron levels adequate for CKD. -Discussed potentially starting ANIKA, but he feels well and is not limited in his activities by dyspnea, so will continue to monitor. Plan: -CBC/BMP/Iron studies then OV in about 3-4 months. Portions of this documentation were copied and pasted from previous office visit notes in order to provide a cohesive continuity of the history. The note has been reviewed and edited and updated as necessary. I spent a total of 20 minutes on the date of the service which included preparing to see the patient, [id number] patient care, completing clinical documentation, obtaining and/or reviewing separately obtained history, performing a medically appropriate examination, counseling and educating the pat ient/family/caregiver, communicating with other HCPs (not separately reported), and communicating results to the patient/family/caregiver. Paul Arzola DO documented in this encounterSt[facility]11-[facility] History of Past illness Narrative* Problem Noted Date Diagnosed Date Resolved Date Platelets decreased 01/18/2023 05/25/19 24 documented as of this encounter (statuses as of 05/26/2023) [facility] of Past illness Narrative* Problem Noted Date Diagnosed Date Resolved Date Platelets decreased 01/18/2023 05/25/19 24 documented as of this encounter (statuses as of 05/31/2023) [facility] of Past illness Narrative* Problem Noted Date Diagnosed Date Resolved Date Platelets decreased 01/18/2023 05/25/19 24 documented as of this encounter (statuses as of 06/13/2023) [facility] Evaluation note* Diagnosis Macrocytic anemia- Primary Unspecified deficiency anemia Stage 3a chronic kidney disease (HCC) Anemia due to stage 3a chronic kidney disease (HCC) [facility] Miscellaneous Notes* Telephone Encounter - Francisca Aldana RN - 12/12/2022 2:22 PM EDT Patient returned call and given provider's message below and patient verbalized understanding. Red Aldana RN * Telephone Encounter - Margie Sexton Ma - 12/12/2022 9:49 AM EDT Message left for pt to call back for results. Margie Sexton MA * Telephone Encounter - Lilliam Monaco PA-C - 12/10/2022 11:23 PM EDT Let patient know that his carotid US was stable. Lilliam Monaco PA-C documented in this encounterSt[facility]09-12-2023 Instructions* Patient Instructions* Wiliam Mandel MD - 11/22/2022 2:19 PM EDT Please get labs and urine test done on or after 05/11/2022 prior to your next visit. documented in this encounterSt. [facility]09-[facility]-2023 History of Present illness Narrative* Wiliam Mandel MD - 11/22/2022 1:40 PM EDT Chief Complaint Patient presents with: F/U 6 months HPI Meg Bryant is a 77 year old male who presents here today for 6 month follow up. Patient with Hx of DM 2, neuropathy, hyperlipidemia, HTN, obesity, hypothyroidism, carotid stenosis, diabetic proteinuria, GERD, mod aortic Stenosis, COPD, macrocytic anemia as well as those reviewedand addressed below and in ROS. Patient has been doing ok. Patient continues to do better with less diarrhea with taking the metformin only once a day. List of current specialists seen Dr. Holder (cardio) last visit 12/07/2021 Dr. Dove (renal) last visit 11/16/2022 [facility] - last visit 09/23/2022 - No retinopathy. Dr. Arzola - -last office visit 06/2022 was receiving iron surcose for his macrocystic anemia. Past medical history, appointments, medications, allergies reviewed. Previous Medical History PAST MEDICAL HISTORY Diagnosis Date Advance directive discussed with patient 11/11/2021 Discussed 10/2021 AK (actinic keratosis) 10/23/2018 right frontal scalp treated with Cryo 10/23/2018 Albuminuria 03/26/2020 Anemia due to stage 3 chronic kidney disease (HCC) 07/28/2022 Arthritis Benign neoplasm of rectum and anal canal Benign non-nodular prostatic hyperplasia without lower urinary tract symptoms 08/19/2015 Bilateral carotid artery stenosis 10/24/2018 US 10/2018: 20-40% tere Calculus of gallbladder with chronic cholecystitis without obstruction 03/27/2021 CT 03/2021 Chronic diarrhea 11/11/2021 CKD (chronic kidney disease) stage 3, GFR 30-59 ml/min (HCC) 02/27/2019 Class 1 obesity due to excess calories without serious comorbidity with body mass index (BMI) of 34.0 to 34.9 in adult 10/05/2017 Controlled type 2 diabetes mellitus with diabetic nephropathy, without long-term current use of insulin ([facility]) 08/19/2015 Coronary artery disease Dermatitis 11/16/2018 thigh lesion removed 10/2018 Diabetic eye exam ([facility]) 04/09/2015 Last done: 08/01/2018 No Retinopathy Diabetic peripheral neuropathy ([facility]) 03/16/2011 Essential hypertension with goal blood pressure less than 130/85 08/19/2015 Gastroesophageal reflux disease without esophagitis 04/07/2015 Glaucoma Hypothyroidism (acquired) Lichenoid dermatitis 11/16/2018 left chest, removed 10/2018 Living will on file 11/11/2021 DPA: Michelle () Macrocytic anemia 06/15/2020 Medicare annual wellness visit, subsequent 09/29/2016 last done: 02/27/2019 Mixed hyperlipidemia Moderate aortic stenosis 05/03/[address] Holder Obstructive chronic bronchitis with exacerbation ([facility]) 07/29/2008 Ocular histoplasmosis syndrome of left eye at 19yo, vision loss Other dietary vitamin B12 deficiency anemia 04/06/2017 Hg typically 11-11.5 Other proteinuria 03/26/2020 Personal history of colonic polyps Colon polyps Psychosexual dysfunction, unspecified 01/28/2008 Unspecified tinnitus 05/27/2008 Previous Surgical History PAST SURGICAL HISTORY Procedure Laterality Date 2D ECHO (EXEP) 01/13/2020 EF=60%, mild-mod , COLONOSCOPY & POLYPECTOMY 12/30/03 COLONOSCOPY FLX DX W/COLLJ SPEC WHEN PFRMD 04/05/2011 Colonoscopy repeat 5 yrs COLONOSCOPY FLX DX W/COLLJ SPEC WHEN PFRMD 12/20/2016 Colonoscopy NUCLEAR STRESS LEXISCAN (CARD) 05/30/2018 negative SKIN BIOPSY HX Family History FAMILY HISTORY Problem Relation Age of Onset Diabetes Mother Heart Mother IN Stroke Father Cancer Father lung Heart Sister Patient Allergies ALLERGIES Allergen Reactions Januvia [Sitaglipti* Myalgia Current Medications Current Outpatient Medications on File Prior to Visit Medication Sig pioglitazone (ACTOS) 45 mg tablet Take 1 tablet by mouth once daily. simvastatin (ZOCOR) 20 mg tablet Take 1 tablet by mouth once daily. levothyroxine (SYNTHROID) 125 mcg tablet Take 1 tablet by mouth once daily. dexAMETHasone (DECADRON) 0.5 mg/5 mL mouthwash Swish & spit 0.5oz by mouth 3-4 times daily as needed. folic acid 1 mg tablet Take 1 tablet by mouth once daily. lisinopril (ZESTRIL, PRINIVIL) 10 mg tablet Take 1 tablet by mouth once daily. amLODIPine (NORVASC) 2.5 mg tablet Take 1 tablet by mouth once daily. metFORMIN (GLUCOPHAGE) 1,000 mg tablet Take 1 tablet by mouth twice daily. linaGLIPtin (TRADJENTA) 5 mg tab Take 1 tablet by mouth once daily. copper citrate 2 mg capsule Take 2 mg by mouth once daily. cholecalciferol (VITAMIN D3) 50 mcg (2,000 unit) tablet Take 2,000 Units by mouth once daily. fluticasone (FLONASE) 50 mcg/actuation nasal spray Use 2 Sprays in each nostril once daily. Rinse mouth after use. cyanocobalamin (VITAMIN B-12) 1,000 mcg tab Take 2 tablets by mouth once daily. (Patient taking differently: Take 1,000 mcg by mouth twice daily.) DOCOSAHEXANOIC ACID/EPA (FISH OIL ORAL) Take 1,000 mg by mouth twice daily. blood sugar diagnostic (BLOOD GLUCOSE TEST) test strip Test blood sugar(s) 1 time daily. Dx: E11.9.Insulin: No timolol maleate (ISTALOL) 0.5 % OPHTHALMIC DrpD One drop daily in left eye XALATAN 0.005 % EYE DROPS one drop each at bedtime ASPIRIN 81 MG TAB Take one(1) tablet daily. No current facility-administered medications on file prior to visit. Social History Social History Tobacco Use Smoking status: Former Types: Pipe Quit date: 03/13/1989 Years since quittin.7 Smokeless tobacco: Never Vaping Use Vaping Use: Never used Substance Use Topics Alcohol use: Yes Comment: rarely Drug use: No Review of Symptoms REVIEW OF SYSTEMS GENERAL: No significant weight loss, malaise or fevers NECK: Negative for lumps, goiter, pain and significant neck swelling RESPIRATORY: Negative for cough, hemoptysis, wheezing, COPD, dyspnea or shortness of breath CARDIOVASCULAR: Negative for chest pain, leg swelling, hypertension, CHF or palpitations GI: No nausea, vomiting, or increased diarrhea and No heartburn or reflux symptoms : No history of dysuria, frequency or blood ENDOCRINE: Negative for symptoms of low BS's NEURO: No history of headaches, syncope, paralysis, seizures or tremors EXAM: BP 126/68 (BP Site: Left Arm, BP Position: Sitting, BP Cuff Size: Regular Adult) Pulse 68 Resp 16 Wt 97.1 kg (214 lb) BMI 32.78 kg/m Last 5 Encounter Wt Readings: Date: Wt: 11/22/2022 97.1 kg (214 lb) 07/04/2022 98.4 kg (217 lb) 05/25/2022 96.6 kg (213 lb) 11/11/2021 95.7 kg (211 lb) 09/06/2021 95.5 kg (210 lb 8 oz) General Appearance: Well appearing, alert, in no acute distress, well-hydrated, well nourished. andObese. Eyes: Anicteric sclera. Pupils are equally round and reactive to light. Extraocular movements are intact. . Neck: Supple, no adenopathy; thyroid symmetric, normal size, no bruits. Lungs: Lungs clear to auscultation. No wheezing, rhonchi, rales.. Heart: RRR without murmur, gallop, or rubs. No ectopy. Abdomen: Normal abdominal exam, Abdomen soft, non-tender. Bowel sounds normal. No masses, organomegaly. Extremities: No deformities, edema, skin discoloration, clubbing or cyanosis. Good capillary refill. . Peripheral Pulses: Normal. Neurologic: Gait normal. Reflexes normal and symmetric. Sensation to light touch and crainal nerves2-12 intact.. Health Maintenance List Covid-19 Vaccine(6 - Moderna series) due on 04/22/2022 BP Controlled (<130/80) due on 11/11/2022 Influenza Vaccine(1) due on 11/11/2022 Shingrix Vaccine(2 of 3) due on 05/26/2023 HbA1C due on 05/17/2023 Diabetic Foot Exam due on 05/26/2023 Annual PCP Team Chronic Disease Visit due on 05/26/2023 Hemoglobin/Hematocrit due on 09/22/2023 Dilated Retinal Exam due on 09/24/2023 Urine Albumin:Creatinine Ratio due on 11/17/2023 LDL Cholesterol due on 11/17/2023 Serum Creatinine due on 11/17/2023 DTaP,Tdap,Td Vaccine(4 - Td or Tdap) due on 03/31/2027 Advance Directive Discussion Completed Depression Assessment Completed Hepatitis C Screening Completed Pneumococcal Vaccine: 65+ Completed Colorectal Cancer Screening Discontinued Data reviewed Component Latest Ref Rng & Units 05/18/2022 09/21/2022 11/16/2022 WBC 3.70 - 11.00 k/uL 8.56 7.95 RBC 4.20 - 6.00 m/uL 3.12 (L) 3.08 (L) Hemoglobin 13.0 - 17.0 g/dL 10.1 (L) 10.2 (L) Hematocrit 39.0 - 51.0 % 31.5 (L) 32.0 (L) MCV 80.0 - 100.0 fL 101.0 (H) 103.9 (H) MCH 26.0 - 34.0 pg 32.4 33.1 MCHC 30.5 - 36.0 g/dL 32.1 31.9 RDW-CV 11.5 - 15.0 % 13.0 14.0 Platelet Count 150 - 400 k/uL 117 (L) 151 MPV 9.0 - 12.7 fL 12.1 10.7 Neut% % 50.7 61.0 Abs Neut (ANC) 1.45 - 7.50 k/uL 4.35 4.86 Lymph% % 33.2 25.3 Abs Lymph 1.00 - 4.00 k/uL 2.84 2.01 Henry% % 11.0 9.7 Abs Henry <0.87 k/uL 0.94 (H) 0.77 Eosin% % 3.6 2.8 Abs Eosin <0.46 k/uL 0.31 0.22 Baso% % 1.1 0.8 Abs Baso <0.11 k/uL 0.09 0.06 Immature Gran % % 0.4 0.4 IMMATURE GRANS (ABS) <0.10 k/uL 0.03 0.03 NRBC /100 WBC 0.0 0.0 Absolute nRBC <0.01 k/uL <0.01 <0.01 DTYPE Auto Auto Protein, Total 6.3 - 8.0 g/dL 6.7 Albumin 3.9 - 4.9 g/dL 3.9 Calcium 8.5 - 10.2 mg/dL 9.5 9.1 Bilirubin, Total 0.2 - 1.3 mg/dL 0.3 Alkaline Phosphatase 38 - 113 U/L 50 AST 14 - 40 U/L 15 ALT 10 - 54 U/L 10 Glucose 74 - 99 mg/dL 157 (H) 164 (H) BUN 9 - 24 mg/dL 22 22 Creatinine 0.73 - 1.22 mg/dL 1.44 (H) 1.51 (H) Sodium 136 - 144 mmol/L 147 (H) 141 Potassium 3.7 - 5.1 mmol/L 4.2 4.6 Chloride 97 - 105 mmol/L 112 (H) 110 (H) CO2 22 - 30 mmol/L 24 21 (L) Anion Gap 9 - 18 mmol/L 11 10 eGFR >=60 mL/min/1.73m 50 (L) 48 (L) Total Cholesterol, Nonfasting <200 mg/dL 156 157 Triglycerides, Nonfasting <150 mg/dL 94 99 HDL Cholesterol, Nonfasting >39 mg/dL 41 40 LDL Cholesterol, Nonfasting <100 mg/dL 96 97 Non HDL Cholesterol, Nonfasting <130 mg/dL 115 117 VLDL Cholesterol, Nonfasting <30 mg/dL 19 20 Total Chol/HDL Ratio, Nonfasting <5.10 mg/dL 3.80 3.93 LDL/HDL Ratio, Nonfasting <2.54 mg/dL 2.34 2.43 Creatinine, Ur Random (UCRR) 20.0 - 300.0 mg/dL 80.5 78.2 Albumin, Urine Random mg/L 54.4 32.9 Albumin/Creat Ratio <30 mg/g 68 (H) 42 (H) Hemoglobin A1C 4.3 - 5.6 % 6.7 (H) 6.2 (H) Estimated Average Glucose mg/dL 146 131 Vitamin B12 232 - 1,245 pg/mL 1,614 (H) TSH 0.270 - 4.200 mIU/L 0.838 0.633 A/P ASSESSMENT/PLAN: 1. Controlled type 2 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 disease, without long-term current use of insulin (HCC) - ICD9: 250.40, 585.3, ICD10: E11.22, N18.30 (primary diagnosis) - Controlled - Improving control: Will decrease the metformin to 500 mg a day - Continue current medications - Counseled on healthy diet and regular exercise 2. Diabetic peripheral neuropathy (HCC) - ICD9: 250.60, 357.2, ICD10: E11.42 - controlled no changes. 3. Diabetic eye exam (HCC) - ICD9: V72.0, 250.00, ICD10: Z01.00, E11.9 Up to day 4. Essential hypertension with goal blood pressure less than 130/85 - ICD9: 401.9, ICD10: I10 - Controlled - Continue current medications - Recommend home blood pressure monitoring, to bring results to next visit - Encouraged sodium restriction, DASH or Mediterranean diet - Recommend regular aerobic exercise 5. Mixed hyperlipidemia - ICD9: 272.2, ICD10: E78.2 - Controlled - Continue current medications - Counseled on healthy diet and regular exercise 6. Gastroesophageal reflux disease without esophagitis - ICD9: 530.81, ICD10: K21.9 - controlled with diet. 7. Bilateral carotid artery stenosis - ICD9: 433.10, 433.30, ICD10: I65.23 - cont current Tx. - check US and if Rt still 60-80% or higher would increase zocor to 40 mg a day. 8. Hypothyroidism (acquired) - ICD9: 244.9, ICD10: E03.9 - Instructed patient on importance of taking on an empty stomach either first thing in the morning or at bedtime. - continue current dose of Synthroid 9. Moderate aortic stenosis - ICD9: 424.1, ICD10: I35.0 - management per cardio 10. Obstructive chronic bronchitis with exacerbation (HCC) - ICD9: 491.21, ICD10: J44.1 - clinically stable no changes. 11. Stage 3a chronic kidney disease (HCC) - ICD9: 585.3, ICD10: N18.31 - management per renal. 12. Class 1 obesity due to excess calories without serious comorbidity with body mass index (BMI) of 34.0 to 34.9 in adult - ICD9: 278.00, V85.34, ICD10: E66.09, Z68.34 Weight decreasing - Behavioral intervention 13. Macrocytic anemia - ICD9: 281.9, ICD10: D53.9 - management per hematology 14. Other dietary vitamin B12 deficiency anemia - ICD9: 281.1, ICD10: D51.3 - continue replacement. Requested Prescriptions Signed Prescriptions Disp Refills metFORMIN ER (GLUCOPHAGE XR) 500 mg 24 hr tablet 90 tablet 1 Sig: Take 1 tablet by mouth daily with breakfast. F/u 6 months extensive check CMP, lipid, UA, urine micro albumin, A1c, CBC, TSH, PSA, B12, Wiliam Mandel MD documented in this encounterSt[facility]23 Miscellaneous Notes* Telephone Encounter - Wiliam Mandel MD - 11/07/2022 8:14 AM EDT The following approved medication requests have been transmitted electronically. Requested Prescriptions Signed Prescriptions Disp Refills pioglitazone (ACTOS) 45 mg tablet 90 tablet 1 Sig: Take 1 tablet by mouth once daily. Wiliam Mandel MD * Telephone Encounter - Alisa Schafer MA - 11/07/2022 8:01 AM EDT Patient has been identified by name and date of : Yes Requested Prescriptions Pending Prescriptions Disp Refills pioglitazone (ACTOS) 45 mg tablet 90 tablet 1 Sig: Take 1 tablet by mouth once daily. RX INSTRUCTIONS: Patient aware RX will be sent to pharmacy. No need to notify patient. Alisa Schafer MA documented in this encounterSt. [facility]08-25-2023 Miscellaneous Notes* Telephone Encounter - Brielle Robert MA - 11/04/2022 10:52 AM EDT FABIO: 05/25/22 with PCP NOV: 11/22/22-6 month F/U with PCP Last refill: 05/25/22 With 90 and 1 refills Brielle Robert MA documented in this encounterSt. [facility]08-07-2023 Miscellaneous Notes* Telephone Encounter - Wiliam Mandel MD - 10/17/2022 1:12 PM EDT The following approved medication requests have been transmitted electronically. Requested Prescriptions Signed Prescriptions Disp Refills simvastatin (ZOCOR) 20 mg tablet 90 tablet 1 Sig: Take 1 tablet by mouth once daily. Authorizing Provider: WILIAM MANDEL MD * Telephone Encounter - Amber Cox MA - 10/17/2022 12:50 PM EDT Patient has been identified by name and date of : Yes Requested Prescriptions Pending Prescriptions Disp Refills simvastatin (ZOCOR) 20 mg tablet 90 tablet 1 Sig: Take 1 tablet by mouth once daily. RX INSTRUCTIONS: Patient aware RX will be sent to pharmacy. No need to notify patient. Patient last office visit: 05/25/22 Patient next office visit: 11/25/22 Amber Cox MA documented in this encounterSt. [facility]07-[facility]-2023 History of Present illness Narrative* Tara Bustillo LPN - 09/24/2022 8:55 AM EDT Scan on 09/23/2022 1:59 PM by Provider, DINORAH Lopes: Consultation - Ophthalmology documented in this encounterSt. [facility]07-12-2023 Evaluation note* Diagnosis Macrocytic anemia- Primary Unspecified deficiency anemia Anemia due to stage 3a chronic kidney disease (HCC) Stage 3a chronic kidney disease (HCC) [facility] Miscellaneous Notes* Telephone Encounter - Nay Luther - 07/25/2022 9:08 AM EDT Patient scheduled as requested. * Telephone Encounter - Ramya Stack LPN - 07/25/2022 8:29 AM EDT Spoke with pt. Given results of molecular analysis ,informed his anemia may possibly be due to anemia. PSS please put on schedule for labs 07/27/@ 2:30 pm CBC/BMP/Retic count / Iron studies. Ramya Stack LPN * Telephone Encounter - Paul Arzola DO - 07/25/2022 6:11 AM EDT Can let him know that the molecular analysis of his bone marrow stem cells was normal. 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 He may benefit from IV iron infusions if iron saturation less than 20%. Please have him come to the lab this week for a repeat CBC/reticulocyte count/ironstudies and BMP. Paul Arzola DO documented in this encounterSt. [facility]05-02-2023 Miscellaneous Notes* Telephone Encounter - Tara Bustillo LPN - 07/12/2022 9:55 AM EDT Last refill 01/24/22 Qty: 90 with 1 refill FABIO 05/25/22 NOV 11/25/22 Tara Bustillo LPN documented in this encounterSt. [facility]03-15-2023 Instructions* Patient Instructions* Wiliam Mandel MD - 05/25/2022 11:33 AM EDT Please get labs and urine test done on or after 11/11/2022 prior to your next visit. documented in this encounterSt. [facility]03-15-2023 History of Present illness Narrative* Wiliam Mandel MD - 05/25/2022 10:22 AM EDT Medicare Yearly Visit Medical B eligibilty date not able to find Date of last exam 03/24/2021 PAST MEDICAL HISTORY PAST MEDICAL HISTORY Diagnosis Date Benign neoplasm of rectum and anal canal Diabetic peripheral neuropathy (HCC) 03/16/2011 ESOPHAGITIS REFLUX 04/26/2005 Essential hypertension, benign Glaucoma Glaucoma OBESITY NOS 05/09/2006 Ocular histoplasmosis syndrome of left eye at 19yo, vision loss Other and unspecified hyperlipidemia Other dietary vitamin B12 deficiency anemia 04/06/2017 Snoring Type II or unspecified type diabetes mellitus without mention of complication, not stated as uncontrolled Unspecified hypothyroidism s/p radioactive iodine PAST SURGICAL HISTORY PAST SURGICAL HISTORY Procedure Laterality Date COLONOSCOP W/ OR W/O BRSH SPEC 04/05/2011 Colonoscopy repeat 5 yrs COLONOSCOP W/ OR W/O BRSH SPEC 12/20/2016 Colonoscopy COLONOSCOPY & POLYPECTOMY 12/30/03 Januvia [Sitagliptin] Medications reviewed: Yes FAMILY HISTORY FAMILY HISTORY Problem Relation Age of Onset Diabetes Mother Heart Mother [place] Stroke Father Cancer Father lung Heart Sister SOCIAL HISTORY: Social History Marital status: Spouse name: Years of education: Number of children: 2 Occupational History 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 He watches his diet for sodium, but regarding low fat and low cholesterol has tried to reduce intake List of current specialists seen: Dr. Holder (cardio) Dr. Dove (renal) optho End of Live Planning discussed including patients advanced directive wishes: Yes I am willing to follow Meg's advanced directives. Depression screen Depression Screening 10/05/2017 10/23/2018 02/09/2021 05/25/2022 PHQ-2 Score 0 0 1 0 Depression screening tool completed and reviewed. Based on score and interview, patient is not at risk for depression. Screening tool discussed with patient, and I recommended no further interventionat this time. Functional Ability/Safety Screen 1. Was the patient's timed Up and Go test unsteady or longer than 30 seconds? No 2. Does the patient need help with the phone, transportation, shopping,preparing meals, housework, laundry, medications or managing money? No 3. Does your home have rugs in the hallway, lack of grab bars in the bathroom, lack of handrails onthe stairs or have poor lighting? No Hearing Evaluation: normal PHYSICAL EXAM BP 120/72 (BP Site: Left Arm, BP Position: Sitting, BP Cuff Size: Regular Adult) Pulse 60 Resp 18 Ht 172.1 cm (5' 7.75) Wt 96.6 kg (213 lb) BMI 32.63 kg/m Alert and oriented X 3: YES Body mass index is 32.63 kg/m . seeing optho See below ASSESSMENT/PLAN: 77 year old male The following prevention plan was discussed during the office visit and provided to the patient: See below Wiliam Mandel MD Chief Complaint Patient presents with: Medicare Wellness Exam HPI Meg Bryant is a 77 year old male who presents here today for Chronic Medical Conditions. and Medicare Annual Visit. Patient with Hx of DM 2, neuropathy, hyperlipidemia, HTN, obesity, hypothyroidism, carotid stenosis, diabetic proteinuria, GERD, mod aortic Stenosis, COPD, macrocytic anemia as well as those reviewedand addressed below and in ROS. Patient has been doing ok. Yesterday lifted a 40 lb salt bag and today the right arm is sore. Since cutting back on the metformin to once a day his diarrhea has reduced a lot and is tolerable. Past medical history, appointments, medications, allergies reviewed. Previous Medical History PAST MEDICAL HISTORY Diagnosis Date Advance directive discussed with patient 11/11/2021 Discussed 10/2021 AK (actinic keratosis) 10/23/2018 right frontal scalp treated with Cryo 10/23/2018 Albuminuria 03/26/2020 Arthritis Benign neoplasm of rectum and anal canal Benign non-nodular prostatic hyperplasia without lower urinary tract symptoms 08/19/2015 Bilateral carotid artery stenosis 10/24/2018 US 10/2018: 20-40% tere Calculus of gallbladder with chronic cholecystitis without obstruction 03/27/2021 CT 03/2021 CKD (chronic kidney disease) stage 3, GFR 30-59 ml/min ([facility]) 02/27/2019 Class 1 obesity due to excess calories without serious comorbidity with body mass index (BMI) of 34.0 to 34.9 in adult 10/05/2017 Controlled type 2 diabetes mellitus with diabetic nephropathy, without long-term current use of insulin ([facility]) 08/19/2015 Coronary artery disease Dermatitis 11/16/2018 thigh lesion removed 10/2018 Diabetic eye exam ([facility]) 04/09/2015 Last done: 08/01/2018 No Retinopathy Diabetic peripheral neuropathy (HCC) 03/16/2011 Essential hypertension with goal blood pressure less than 130/85 08/19/2015 Gastroesophageal reflux disease without esophagitis 04/07/2015 Glaucoma Hypothyroidism (acquired) Lichenoid dermatitis 11/16/2018 left chest, removed 10/2018 Living will on file 11/11/2021 DPA: Michelle () Macrocytic anemia 06/15/2020 Medicare annual wellness visit, subsequent 09/29/2016 last done: 02/27/2019 Mixed hyperlipidemia Moderate aortic stenosis 05/03/[address] Holder Obstructive chronic bronchitis with exacerbation (HCC) 07/29/2008 Ocular histoplasmosis syndrome of left eye at 19yo, vision loss Other dietary vitamin B12 deficiency anemia 04/06/2017 Hg typically 11-11.5 Other proteinuria 03/26/2020 Personal history of colonic polyps Colon polyps Psychosexual dysfunction, unspecified 01/28/2008 Unspecified tinnitus 05/27/2008 Previous Surgical History PAST SURGICAL HISTORY Procedure Laterality Date 2D ECHO (EXEP) 01/13/2020 EF=60%, mild-mod , COLONOSCOPY & POLYPECTOMY 12/30/03 COLONOSCOPY FLX DX W/COLLJ SPEC WHEN PFRMD 04/05/2011 Colonoscopy repeat 5 yrs COLONOSCOPY FLX DX W/COLLJ SPEC WHEN PFRMD 12/20/2016 Colonoscopy NUCLEAR STRESS LEXISCAN (CARD) 05/30/2018 negative SKIN BIOPSY HX Family History FAMILY HISTORY Problem Relation Age of Onset Diabetes Mother Heart Mother IN Stroke Father Cancer Father lung Heart Sister Patient Allergies ALLERGIES Allergen Reactions Januvia [Sitaglipti* Myalgia Current Medications Current Outpatient Medications on File Prior to Visit Medication Sig folic acid 1 mg tablet Take 1 tablet by mouth once daily. lisinopril (ZESTRIL, PRINIVIL) 10 mg tablet Take 1 tablet by mouth once daily. amLODIPine (NORVASC) 2.5 mg tablet Take 1 tablet by mouth once daily. metFORMIN (GLUCOPHAGE) 1,000 mg tablet Take 1 tablet by mouth twice daily. levothyroxine (SYNTHROID) 125 mcg tablet Take 1 tablet by mouth once daily. pioglitazone (ACTOS) 45 mg tablet Take 1 tablet by mouth once daily. linaGLIPtin (TRADJENTA) 5 mg tab Take 1 tablet by mouth once daily. simvastatin (ZOCOR) 20 mg tablet Take 1 tablet by mouth once daily. copper citrate 2 mg capsule Take 2 mg by mouth once daily. cholecalciferol (VITAMIN D3) 50 mcg (2,000 unit) tablet Take 2,000 Units by mouth once daily. fluticasone (FLONASE) 50 mcg/actuation nasal spray Use 2 Sprays in each nostril once daily. Rinse mouth after use. cyanocobalamin (VITAMIN B-12) 1,000 mcg tab Take 2 tablets by mouth once daily. (Patient taking differently: Take 1,000 mcg by mouth twice daily.) DOCOSAHEXANOIC ACID/EPA (FISH OIL ORAL) Take 1,000 mg by mouth twice daily. blood sugar diagnostic (BLOOD GLUCOSE TEST) test strip Test blood sugar(s) 1 time daily. Dx: E11.9.Insulin: No timolol maleate (ISTALOL) 0.5 % OPHTHALMIC DrpD One drop daily in left eye XALATAN 0.005 % EYE DROPS one drop each at bedtime ASPIRIN 81 MG TAB Take one(1) tablet daily. No current facility-administered medications on file prior to visit. Social History Social History Tobacco Use Smoking status: Never Smokeless tobacco: Never Vaping Use Vaping Use: Never used Substance Use Topics Alcohol use: Yes Comment: rarely Drug use: No Review of Symptoms REVIEW OF SYSTEMS GENERAL: No weight loss, malaise or fevers HEENT: Negative for frequent or significant headaches, No changes in hearing or vision, no nose bleeds or other nasal problems NECK: Negative for lumps, goiter, pain and significant neck swelling RESPIRATORY: Negative for cough, hemoptysis, wheezing, COPD, dyspnea or shortness of breath CARDIOVASCULAR: Negative for chest pain, leg swelling, hypertension, CHF or palpitations GI: No nausea, vomiting, or diarrhea, No heartburn or reflux symptoms, See HPI, and no blood : No history of dysuria, blood MUSCULOSKELETAL: see HPI SKIN: Negative for lesions, rash, and itching PSYCH: Negative for sleep disturbance, mood disorder and recent psychosocial stressors HEMATOLOGY/LYMPHOLOGY: Negative for prolonged bleeding, bruising easily or swollen nodes ENDOCRINE: Negative for cold or heat intolerance, symptoms of low BS's NEURO: No history of headaches, syncope, paralysis, seizures or tremors EXAM: BP 120/72 (BP Site: Left Arm, BP Position: Sitting, BP Cuff Size: Regular Adult) Pulse 60 Resp 18 Ht 172.1 cm (5' 7.75) Wt 96.6 kg (213 lb) BMI 32.63 kg/m Last 5 Encounter Wt Readings: Date: Wt: 05/25/2022 96.6 kg (213 lb) 11/11/2021 95.7 kg (211 lb) 09/06/2021 95.5 kg (210 lb 8 oz) 08/12/2021 98 kg (216 lb) 04/12/2021 100.2 kg (220 lb 12.8 oz) General Appearance: Well appearing, alert, in no acute distress, well-hydrated, well nourished.. Skin: Skin color, texture, turgor normal, no suspicious rashes or lesions. Head: Normocephalic, no masses, lesions, tenderness or abnormalities. Eyes: Anicteric sclera. Pupils are equally round and reactive to light. Extraocular movements are intact. . Ears: External ears, TM's normal, canals clear. Neck: Supple, no adenopathy; thyroid symmetric, normal size, no bruits. Lungs: Lungs clear to auscultation. No wheezing, rhonchi, rales.. Heart: RRR without murmur, gallop, or rubs. No ectopy. Abdomen: Normal abdominal exam, Abdomen soft, non-tender. Bowel sounds normal. No masses, organomegaly. Extremities: No deformities, edema, skin discoloration, clubbing or cyanosis. Good capillary refill. . Musculoskeletal: Muscular strength intact, No joint swelling, deformity, or tenderness. Peripheral Pulses: Normal. Neurologic: Gait normal. Reflexes normal and symmetric. Sensation grossly intact.. Genitalia: Normal, Penis normal. No urethral discharge. Scrotum normal to palpation. No hernia.. Rectal: Normal exam. Prostate slightly enlarged but smooth firm capsule. Health Maintenance List SHINGRIX VACCINE(2 of 3) due on 11/16/2011 DILATED RETINAL EXAM due on 08/26/2021 ADVANCE DIRECTIVE DISCUSSION due on 03/13/2022 DEPRESSION ASSESSMENT Never done DIABETIC FOOT EXAM due on 03/24/2022 ANNUAL PCP TEAM CHRONIC DISEASE VISIT due on 11/11/2022 BP CONTROLLED (<130/80) due on 11/11/2022 HBA1C due on 11/18/2022 URINE ALBUMIN:CREATININE RATIO due on 05/19/2023 LDL CHOLESTEROL due on 05/19/2023 SERUM CREATININE due on 05/19/2023 HEMOGLOBIN/HEMATOCRIT due on 05/19/2023 DTAP,TDAP,TD(4 - Td or Tdap) due on 03/31/2027 INFLUENZA Completed HEPATITIS C SCREENING Completed COVID-19 VACCINE Completed PNEUMOCOCCAL: 65+ Completed Data reviewed Component Latest Ref Rng & Units 03/18/2021 08/05/2021 10/26/2021 11/11/2021 05/18/2022 WBC 3.70 - 11.00 k/uL 8.39 8.56 RBC 4.20 - 6.00 m/uL 3.10 (L) 3.12 (L) Hemoglobin 13.0 - 17.0 g/dL 10.3 (L) 10.1 (L) Hematocrit 39.0 - 51.0 % 32.5 (L) 31.5 (L) MCV 80.0 - 100.0 fL 104.8 (H) 101.0 (H) MCH 26.0 - 34.0 pg 33.2 32.4 MCHC 30.5 - 36.0 g/dL 31.7 32.1 RDW-CV 11.5 - 15.0 % 13.2 13.0 Platelet Count 150 - 400 k/uL 150 117 (L) MPV 9.0 - 12.7 fL 11.5 12.1 Neut% % 54.7 50.7 Abs Neut (ANC) 1.45 - 7.50 k/uL 4.59 4.35 Lymph% % 30.2 33.2 Abs Lymph 1.00 - 4.00 k/uL 2.53 2.84 Henry% % 10.7 11.0 Abs Henry <0.87 k/uL 0.90 (H) 0.94 (H) Eosin% % 3.1 3.6 Abs Eosin <0.46 k/uL 0.26 0.31 Baso% % 1.3 1.1 Abs Baso <0.11 k/uL 0.11 (H) 0.09 Immature Gran % % 0.4 IMMATURE GRANS (ABS) <0.10 k/uL 0.03 NRBC /100 WBC 0.0 Absolute nRBC <0.01 k/uL <0.01 <0.01 DTYPE Auto Nucleated Reds 0 /100 WBC 0.0 Diff Type Auto Diff Protein, Total 6.3 - 8.0 g/dL 6.7 Albumin 3.9 - 4.9 g/dL 3.9 Calcium 8.5 - 10.2 mg/dL 9.5 9.5 Bilirubin, Total 0.2 - 1.3 mg/dL 0.3 Alkaline Phosphatase 38 - 113 U/L 50 AST 14 - 40 U/L 15 ALT 10 - 54 U/L 10 Glucose 74 - 99 mg/dL 142 (H) 157 (H) BUN 9 - 24 mg/dL 24 22 Creatinine 0.73 - 1.22 mg/dL 1.57 (H) 1.44 (H) Sodium 136 - 144 mmol/L 143 147 (H) Potassium 3.7 - 5.1 mmol/L 5.4 (H) 4.9 4.2 Chloride 97 - 105 mmol/L 114 (H) 112 (H) CO2 22 - 30 mmol/L 18 (L) 24 Anion Gap 9 - 18 mmol/L 11 11 eGFR >=60 mL/min/1.73m 46 (L) 50 (L) Color Yellow Light Yellow Clarity Clear Clear Glucose, Urine Trace, Negative Negative Bilirubin, Urine Negative Negative Ketones, Urine Trace, Negative Negative Specific [place], Ur 1.005 - 1.030 1.011 Hemoglobin/Blood,Ur Negative, Trace Negative pH, Urine 5.0 - 8.0 5.5 Protein, Urine Trace, Negative Trace Urobilinogen Negative Negative Nitrites Negative Negative Leukest Negative, 25 Claudy/uL Negative WBC, Urine 0-5 /HPF 0-5 /HPF RBC, Urine 0-3 /HPF 0-3 /HPF Total Cholesterol, Nonfasting <200 mg/dL 131 156 Triglycerides, Nonfasting <150 mg/dL 87 94 HDL Cholesterol, Nonfasting >39 mg/dL 42 41 LDL Cholesterol, Nonfasting <100 mg/dL 72 96 Non HDL Cholesterol, Nonfasting <130 mg/dL 89 115 VLDL Cholesterol, Nonfasting <30 mg/dL 17 19 Total Chol/HDL Ratio, Nonfasting <5.10 mg/dL 3.12 3.80 LDL/HDL Ratio, Nonfasting <2.54 mg/dL 1.71 2.34 Creatinine, Ur Random (UCRR) 20.0 - 300.0 mg/dL 174.6 80.5 Albumin, Urine Random mg/L 13.8 54.4 Albumin/Creat Ratio <30 mg/g 8 68 (H) Hemoglobin A1C 4.3 - 5.6 % 6.4 (H) 6.7 (H) Estimated Average Glucose mg/dL 137 146 Vitamin B12 232 - 1,245 pg/mL 395 1,614 (H) TSH 0.270 - 4.200 mIU/L 1.040 0.838 Magnesium 1.7 - 2.3 mg/dL 1.7 PSA <2.60 ng/mL 1.34 A/P ASSESSMENT/PLAN: 1. Medicare annual wellness visit, subsequent - ICD9: V70.0, ICD10: Z00.00 (primary diagnosis) - Counseled on healthy diet and regular exercise - Discussed need for and benefit of weight loss. BMI 32.63 kg/(m^2) - Follow up for annual exam in one year 2. Controlled type 2 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 disease, without long-term current use of insulin (HCC) - ICD9: 250.40, 585.3, ICD10: E11.22, N18.30 - Controlled - Continue current medications - Counseled on healthy diet and regular exercise - Discussed need for and benefit of weight loss. BMI 32.63 kg/(m^2) - cont f/u with renal 3. Diabetic peripheral neuropathy (HCC) - ICD9: 250.60, 357.2, ICD10: E11.42 - stable no changes. 4. Diabetic eye exam (HCC) - ICD9: V72.0, 250.00, ICD10: Z01.00, E11.9 - will get most recent report. 5. Essential hypertension with goal blood pressure less than 130/85 - ICD9: 401.9, ICD10: I10 - good control - Continue current medication(s) - Recommended regular aerobic exercise. - Recommend home blood pressure monitoring, to bring results in on next visit - Goal of BP <130/80 6. Mixed hyperlipidemia - ICD9: 272.2, ICD10: E78.2 - good control - Encouraged following a low fat, low cholesterol diet. - Discussed the benefits of regular aerobic exercise and weight loss. - Encouraged following a low carbohydrate, healthy oil intake diet. - Continue current therapy. 7. Hypothyroidism (acquired) - ICD9: 244.9, ICD10: E03.9 - Instructed patient on importance of taking on an empty stomach either first thing in the morning or at bedtime. - continue current dose of Synthroid 8. Obstructive chronic bronchitis with exacerbation (HCC) - ICD9: 491.21, ICD10: J44.1 - clinically stable 9. Gastroesophageal reflux disease without esophagitis - ICD9: 530.81, ICD10: K21.9 - management per diet. 10. Moderate aortic stenosis - ICD9: 424.1, ICD10: I35.0 - management per cardio 11. Bilateral carotid artery stenosis - ICD9: 433.10, 433.30, ICD10: I65.23 - cont current tx. Repeat US on Nov 22. Stage 3a chronic kidney disease (HCC) - ICD9: 585.3, ICD10: N18.31 - management per renal 13. Albuminuria - ICD9: 791.0, ICD10: R80.9 - slightly increased this time. 14. Other dietary vitamin B12 deficiency anemia - ICD9: 281.1, ICD10: D51.3 - cont replacement 15. Class 1 obesity due to excess calories without serious comorbidity with body mass index (BMI) of 34.0 to 34.9 in adult - ICD9: 278.00, V85.34, ICD10: E66.09, Z68.34 Stable - Behavioral intervention 16. Macrocytic anemia - ICD9: 281.9, ICD10: D53.9 - recently started on folic acid and following with hematology 17. Benign non-nodular prostatic hyperplasia without lower urinary tract symptoms - ICD9: 600.90, ICD10: N40.0 - stable no changes. 18. Advance directive discussed with patient - ICD9: V65.49, ICD10: Z71.89 - up to date 19. Calculus of gallbladder with chronic cholecystitis without obstruction - ICD9: 574.10, ICD10: K80.10 - no clinical issues. Will monitor. Requested Prescriptions Signed Prescriptions Disp Refills pioglitazone (ACTOS) 45 mg tablet 90 tablet 1 Sig: Take 1 tablet by mouth once daily. F/u 6 months routine, check lipid, A1c, urin micro albumin TSH and BMP prior I spent a total of 40 minutes on the date of the service which included preparing to see the patient, [id number] patient care, completing clinical documentation, performing a medically appropriate examination, counseling and educating the patient/family/caregiver and ordering medications, tests, or procedures. Wiliam Mandel MD documented in this encounterSt[facility]03-[facility]23 Miscellaneous Notes* Telephone Encounter - Sommer Rojo LPN - 05/23/2022 8:53 AM EDT Patient is aware that the folic acid Rx is correct and is for him. 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 I clarified with the pharmacy that this is correct as well. Sommer Rojo LPN documented in this encounterSt. [facility]02-10-2023 Miscellaneous Notes* Telephone Encounter - Alisa Schafer MA - 04/22/2022 1:54 PM EST Patient has been identified by name and date of : Yes Requested Prescriptions Pending Prescriptions Disp Refills lisinopril (ZESTRIL, PRINIVIL) 10 mg tablet 90 tablet 1 Sig: Take 1 tablet by mouth once daily. amLODIPine (NORVASC) 2.5 mg tablet 90 tablet 1 Sig: Take 1 tablet by mouth once daily. RX INSTRUCTIONS: Patient aware RX will be sent to pharmacy. No need to notify patient. Alisa Schafer MA Fabio: 11/2021 Nov: 05/2022 Last refill: 11/2021 documented in this encounterSt. [facility]12-07-2022 Miscellaneous Notes* Telephone Encounter - Jeanette Mayfield Ma - 02/16/2022 11:18 AM EST Patient last visit with PCP 11/11/21 Follow up appointment scheduled 05/25/22 Jeanette Mayfield Ma documented in this encounterSt. [facility] Miscellaneous Notes* Telephone Encounter - ETHAN Galvez - 01/24/2022 2:46 PM EST Patient phones requesting refills as follows: Requested Prescriptions Pending Prescriptions Disp Refills levothyroxine (SYNTHROID) 125 mcg tablet 90 tablet 1 Sig: Take 1 tablet by mouth once daily. FABIO 11/11/2021 NOV 05/25/2022 Please review and advise. ETHAN Galvez documented in this encounterSt. [facility]09-[facility]-2022 Miscellaneous Notes* Telephone Encounter - Margie Sexton Ma - 11/25/2021 9:59 AM EDT Pt notified of results via [employer]. Margie Sexton Ma * Telephone Encounter - Wiliam Mandel MD - 11/24/2021 9:04 PM EDT Let Meg know that the narrowing in both his neck arteries are stable. No changes needed in Tx. Will repeat in a year. documented in this encounterSt. [facility]09-[facility]-2022 Miscellaneous Notes* Telephone Encounter - Alisa Schafer MA - 11/12/2021 8:18 AM EDT Patient notified and voiced understanding. Alisa Schafer MA * Telephone Encounter - Wiliam Mandel MD - 11/11/2021 11:02 PM EDT Let patient know repeat potassium was normal. documented in this encounterSt. [facility]09-01-2022 Instructions* Patient Instructions* Wiliam Mandel MD - 11/11/2021 8:45 AM EDT hold your metformin to see if the diarrhea lets up. If so try to go back to just one a day. If returns stop and then give Dr. Mandel an update. Please get labs and urine test done on or after 04/29/2022 prior to your next visit. documented in this encounterSt. [facility]09-01-2022 History of Present illness Narrative* Wiliam Mandel MD - 11/11/2021 8:00 AM EDT Chief Complaint Patient presents with: Recheck HPI Meg Bryant is a 76 year old male who presents here today for 6 month follow up. Patient with Hx of DM 2, neuropathy, hyperlipidemia, HTN, obesity, hypothyroidism, carotid stenosis, diabetic proteinuria, GERD, mod aortic Stenosis, COPD, macrocytic anemia as well as those reviewedand addressed below and in ROS. Patient has been doing well. No new issues or concerns. Past medical history, appointments, medications, allergies reviewed. Previous Medical History PAST MEDICAL HISTORY Diagnosis Date AK (actinic keratosis) 10/23/2018 right frontal scalp treated with Cryo 10/23/2018 Albuminuria 03/26/2020 Arthritis Benign neoplasm of rectum and anal canal Benign non-nodular prostatic hyperplasia without lower urinary tract symptoms 08/19/2015 Bilateral carotid artery stenosis 10/24/2018 US 10/2018: 20-40% tere Calculus of gallbladder with chronic cholecystitis without obstruction 03/27/2021 CT 03/2021 CKD (chronic kidney disease) stage 3, GFR 30-59 ml/min ([facility]) 02/27/2019 Class 1 obesity due to excess calories without serious comorbidity with body mass index (BMI) of 34.0 to 34.9 in adult 10/05/2017 Controlled type 2 diabetes mellitus with diabetic nephropathy, without long-term current use of insulin ([facility]) 08/19/2015 Coronary artery disease Dermatitis 11/16/2018 thigh lesion removed 10/2018 Diabetic eye exam (HCC) 04/09/2015 Last done: 08/01/2018 No Retinopathy Diabetic peripheral neuropathy (HCC) 03/16/2011 Essential hypertension with goal blood pressure less than 130/85 08/19/2015 Gastroesophageal reflux disease without esophagitis 04/07/2015 Glaucoma Hypothyroidism (acquired) Lichenoid dermatitis 11/16/2018 left chest, removed 10/2018 Macrocytic anemia 06/15/2020 Medicare annual wellness visit, subsequent 09/29/2016 last done: 02/27/2019 Mixed hyperlipidemia Moderate aortic stenosis 05/03/[address] Holder Obstructive chronic bronchitis with exacerbation (HCC) 07/29/2008 Ocular histoplasmosis syndrome of left eye at 19yo, vision loss Other dietary vitamin B12 deficiency anemia 04/06/2017 Hg typically 11-11.5 Other proteinuria 03/26/2020 Personal history of colonic polyps Colon polyps Psychosexual dysfunction, unspecified 01/28/2008 Unspecified tinnitus 05/27/2008 Previous Surgical History PAST SURGICAL HISTORY Procedure Laterality Date 2D ECHO (EXEP) 01/13/2020 EF=60%, mild-mod , COLONOSCOPY & POLYPECTOMY 12/30/03 COLONOSCOPY FLX DX W/COLLJ SPEC WHEN PFRMD 04/05/2011 Colonoscopy repeat 5 yrs COLONOSCOPY FLX DX W/COLLJ SPEC WHEN PFRMD 12/20/2016 Colonoscopy NUCLEAR STRESS LEXISCAN (CARD) 05/30/2018 negative SKIN BIOPSY HX Family History FAMILY HISTORY Problem Relation Age of Onset Diabetes Mother Heart Mother IN Stroke Father Cancer Father lung Heart Sister Patient Allergies ALLERGIES Allergen Reactions Januvia [Sitaglipti* Myalgia Current Medications Current Outpatient Medications on File Prior to Visit Medication Sig levothyroxine (SYNTHROID) 125 mcg tablet Take 1 tablet by mouth once daily. metFORMIN (GLUCOPHAGE) 1,000 mg tablet Take 1 tablet by mouth twice daily. amLODIPine (NORVASC) 2.5 mg tablet Take 1 tablet by mouth once daily. pioglitazone (ACTOS) 45 mg tablet Take 1 tablet by mouth once daily. lisinopril (ZESTRIL, PRINIVIL) 10 mg tablet Take 1 tablet by mouth once daily. linaGLIPtin (TRADJENTA) 5 mg tab Take 1 tablet by mouth once daily. simvastatin (ZOCOR) 20 mg tablet Take 1 tablet by mouth once daily. copper citrate 2 mg capsule Take 2 mg by mouth once daily. cholecalciferol (VITAMIN D-3) 50 mcg (2,000 unit) tablet Take 2,000 Units by mouth once daily. fluticasone (FLONASE) 50 mcg/actuation nasal spray Use 2 Sprays in each nostril once daily. Rinse mouth after use. cyanocobalamin (VITAMIN B-12) 1,000 mcg tab Take 2 tablets by mouth once daily. (Patient taking differently: Take 1,000 mcg by mouth twice daily. ) DOCOSAHEXANOIC ACID/EPA (FISH OIL ORAL) Take 1,000 mg by mouth twice daily. blood sugar diagnostic (BLOOD GLUCOSE TEST) test strip Test blood sugar(s) 1 time daily. Dx: E11.9.Insulin: No timolol maleate (ISTALOL) 0.5 % OPHTHALMIC DrpD One drop daily in left eye XALATAN 0.005 % EYE DROPS one drop each at bedtime ASPIRIN 81 MG TAB Take one(1) tablet daily. No current facility-administered medications on file prior to visit. Social History Social History Tobacco Use Smoking status: Never Smokeless tobacco: Never Vaping Use Vaping Use: Never used Substance Use Topics Alcohol use: Yes Comment: rarely Drug use: No Review of Symptoms REVIEW OF SYSTEMS GENERAL: No unintentional weight loss, malaise or fevers NECK: Negative for lumps, goiter, pain and significant neck swelling RESPIRATORY: Negative for cough, hemoptysis, wheezing, COPD, dyspnea or shortness of breath CARDIOVASCULAR: Negative for chest pain, leg swelling, hypertension, CHF or palpitations GI: No nausea, vomiting, or increased diarrhea and No heartburn or reflux symptoms. Wonders if the diarrhea could be the metformin. : No history of dysuria, blood ENDOCRINE: Negative for symptoms of low BS's NEURO: No history of headaches, syncope, paralysis, seizures or tremors EXAM: BP 120/60 (BP Site: Left Arm, BP Position: Sitting, BP Cuff Size: Regular Adult) Pulse 72 Resp 14 Wt 95.7 kg (211 lb) BMI 32.16 kg/m Last 5 Encounter Wt Readings: Date: Wt: 11/11/2021 95.7 kg (211 lb) 09/06/2021 95.5 kg (210 lb 8 oz) 08/12/2021 98 kg (216 lb) 04/12/2021 100.2 kg (220 lb 12.8 oz) 03/24/2021 98.4 kg (217 lb) General Appearance: Well appearing, alert, in no acute distress, well-hydrated, well nourished.. Eyes: Anicteric sclera. Pupils are equally round and reactive to light. Extraocular movements are intact. . Neck: Supple, no adenopathy; thyroid symmetric, normal size, no bruits. Lungs: Lungs clear to auscultation. No wheezing, rhonchi, rales.. Heart: RRR without murmur, gallop, or rubs. No ectopy. Abdomen: Normal abdominal exam, Abdomen soft, non-tender. Bowel sounds normal. No masses, organomegaly. Extremities: No deformities, edema, skin discoloration, Good capillary refill. . Musculoskeletal: Spine range of motion normal. Muscular strength intact, No joint swelling, deformity, or tenderness. Peripheral Pulses: Normal. Neurologic: Gait normal. Reflexes normal and symmetric. Sensation to light touch and crainal nerves2-12 intact.. Health Maintenance List ADVANCE DIRECTIVE DISCUSSION Never done DILATED RETINAL EXAM due on 08/26/2021 BP CONTROLLED (<130/80) due on 09/16/2021 INFLUENZA(1) due on 11/11/2021 SHINGRIX VACCINE(2 of 3) due on 03/24/2022 COLORECTAL CANCER SCREENING due on 12/20/2021 URINE ALBUMIN:CREATININE RATIO due on 03/18/2022 DIABETIC FOOT EXAM due on 03/24/2022 HBA1C due on 04/28/2022 HEMOGLOBIN/HEMATOCRIT due on 08/18/2022 LDL CHOLESTEROL due on 10/26/2022 SERUM CREATININE due on 10/26/2022 ANNUAL PCP TEAM CHRONIC DISEASE VISIT due on 11/03/2022 DTAP,TDAP,TD(4 - Td or Tdap) due on 03/31/2027 HEPATITIS C SCREENING Completed COVID-19 VACCINE Completed PNEUMOCOCCAL: 65+ Completed DEPRESSION SCREENING Discontinued Data reviewed Component Latest Ref Rng & Units 03/18/2021 10/26/2021 Protein, Total 6.3 - 8.0 g/dL 6.6 Albumin 3.9 - 4.9 g/dL 4.1 Calcium 8.5 - 10.2 mg/dL 9.2 9.5 Bilirubin, Total 0.2 - 1.3 mg/dL 0.4 Alkaline Phosphatase 38 - 113 U/L 44 AST 14 - 40 U/L 19 Glucose 74 - 99 mg/dL 262 (H) 142 (H) BUN 9 - 24 mg/dL 26 (H) 24 Creatinine 0.73 - 1.22 mg/dL 1.52 (H) 1.57 (H) Sodium 136 - 144 mmol/L 140 143 Potassium 3.7 - 5.1 mmol/L 4.4 5.4 (H) Chloride 97 - 105 mmol/L 107 (H) 114 (H) CO2 22 - 30 mmol/L 20 (L) 18 (L) Anion Gap 9 - 18 mmol/L 13 11 ALT 10 - 54 U/L 10 eGFR- 54 eGFR-All Other Races . 45 eGFR >=60 mL/min/1.73m 46 (L) Total Cholesterol, Nonfasting <200 mg/dL 179 131 Triglycerides, Nonfasting <150 mg/dL 76 87 HDL Cholesterol, Nonfasting >39 mg/dL 48 42 LDL Cholesterol, Nonfasting <100 mg/dL 116 (H) 72 Non HDL Cholesterol, Nonfasting <130 mg/dL 131 (H) 89 VLDL Cholesterol, Nonfasting <30 mg/dL 15 17 Total Chol/HDL Ratio, Nonfasting <5.10 mg/dL 3.73 3.12 LDL/HDL Ratio, Nonfasting <2.54 mg/dL 2.42 1.71 Creatinine, Ur Random (UCRR) 20 - 300 mg/dL 174.6 Albumin, Urine Random mg/L 13.8 Albumin/Creat Ratio <30 mg/g 8 Hemoglobin A1C 4.3 - 5.6 % 6.6 (H) 6.4 (H) Estimated Average Glucose mg/dL 143 137 Vitamin B12 232 - 1,245 pg/mL 918 TSH 0.270 - 4.200 uU/mL 1.650 Magnesium 1.7 - 2.3 mg/dL 1.6 (L) 1.7 A/P ASSESSMENT/PLAN: 1. Controlled type 2 diabetes mellitus with diabetic nephropathy, without long- term current use of insulin (HCC) - ICD9: 250.40, 583.81, ICD10: E11.21 (primary diagnosis) Controlled. improved control - Continue current medications - Encouraged regular aerobic exercise and weight loss - BP goal of <130/80 - LDL goal of <100 - patient is going to hold his metformin to see if the diarrhea lets up. If so he will go back to just one a day. If returns he is ti stop and will decide if new med needed. 2. Diabetic peripheral neuropathy (HCC) - ICD9: 250.60, 357.2, ICD10: E11.42 - as per #1, stable no changes. 3. Albuminuria - ICD9: 791.0, ICD10: R80.9 - improved diabertic control 4. Other proteinuria - ICD9: 791.0, ICD10: R80.8 - as per #4, seeing renal 5. Diabetic eye exam (HCC) - ICD9: V72.0, 250.00, ICD10: Z01.00, E11.9 - will get most recent eye report 6. Essential hypertension with goal blood pressure less than 130/85 - ICD9: 401.9, ICD10: I10 - good control - Continue current medication(s) - Recommended regular aerobic exercise. - Recommend home blood pressure monitoring, to bring results in on next visit - Goal of BP <130/80 7. Mixed hyperlipidemia - ICD9: 272.2, ICD10: E78.2 - good control - Encouraged following a low fat, low cholesterol diet. - Discussed the benefits of regular aerobic exercise and weight loss. - Encouraged following a low carbohydrate, healthy oil intake diet. - Continue current therapy. 8. Hypothyroidism (acquired) - ICD9: 244.9, ICD10: E03.9 - Instructed patient on importance of taking on an empty stomach either first thing in the morning or at bedtime. - continue current dose of Synthroid 9. Gastroesophageal reflux disease without esophagitis - ICD9: 530.81, ICD10: K21.9 - controlled via diet 10. Bilateral carotid artery stenosis - ICD9: 433.10, 433.30, ICD10: I65.23 Check - US CAROTID ARTERIES TERE VAS LAB 11. Stage 3a chronic kidney disease (HCC) - ICD9: 585.3, ICD10: N18.31 - management per renal 12. Moderate aortic stenosis - ICD9: 424.1, ICD10: I35.0 - stable cont f/u wit cardio 13. Obstructive chronic bronchitis with exacerbation (HCC) - ICD9: 491.21, ICD10: J44.1 - clinically stable no changes 14. Class 1 obesity due to excess calories without serious comorbidity with body mass index (BMI) of 34.0 to 34.9 in adult - ICD9: 278.00, V85.34, ICD10: E66.09, Z68.34 Weight decreasing - Behavioral intervention 15. Macrocytic anemia - ICD9: 281.9, ICD10: D53.9 - saw hematology. Will monitor for now. 16. Other dietary vitamin B12 deficiency anemia - ICD9: 281.1, ICD10: D51.3 - cont replacement 17. Living will on file - ICD9: V49.89, ICD10: Z87.898 - updated 18. Advance directive discussed with patient - ICD9: V65.49, ICD10: Z71.89 - updated 19. Chronic diarrhea - ICD9: 787.91, ICD10: K52.9 - patient is going to hold his metformin to see if the diarrhea lets up. If so he will go back to just one a day. If returns he is ti stop and will decide if new med needed. 21. Hyperkalemia - ICD9: 276.7, ICD10: E87.5 Check - POTASSIUM BLD Requested Prescriptions Signed Prescriptions Disp Refills metFORMIN (GLUCOPHAGE) 1,000 mg tablet 180 tablet 1 Sig: Take 1 tablet by mouth twice daily. levothyroxine (SYNTHROID) 125 mcg tablet 90 tablet 1 Sig: Take 1 tablet by mouth once daily. lisinopril (ZESTRIL, PRINIVIL) 10 mg tablet 90 tablet 1 Sig: Take 1 tablet by mouth once daily. amLODIPine (NORVASC) 2.5 mg tablet 90 tablet 1 Sig: Take 1 tablet by mouth once daily. pioglitazone (ACTOS) 45 mg tablet 90 tablet 1 Sig: Take 1 tablet by mouth once daily. linaGLIPtin (TRADJENTA) 5 mg tab 90 tablet 1 Sig: Take 1 tablet by mouth once daily. simvastatin (ZOCOR) 20 mg tablet 90 tablet 1 Sig: Take 1 tablet by mouth once daily. F/u 6 months extensive check CMP, lipid, UA, urine micro albumin, CBC, PSA, , TSH, B12, A1c prior Wiliam Mandel MD documented in this encounterSt[facility]08-[facility] History of Present illness Narrative* Wiliam Mandel MD - 11/03/2021 3:34 PM EDT Chief Complaint Patient presents with: Patient Left Without Being Seen documented in this encounterSt. 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 2) Anemia. HPI: The patient is a 76-year-old male with a past medical history significant for hypothyroidism, hypertension, type 2 diabetes (Dx ~25 years ago; neuropathy), hypercholesterolemia, GERD, stage 3b chronic kidney disease and B12 deficiency. Patient was noted to have elevated creatinine of 1.27 in August 2019. It was 1.68 in March 2020. UAin March 2020 demonstrated 1+ protein with no evidence of RBCs or WBCs. Creatinine on 03/24/2020 was 1.47 g/dL whereas it had been 1.68 mg/dL on 03/16/2020. He had an ultrasound of the kidneys on 05/04/2020. Was interpreted as a normal ultrasound kidneys and urinary bladder. Patient's recent lab work from 05/12/2020 includes a chemistry panel showing a serum creatinine of 1.42 mg/dL. Serum calcium was 9.3 mg/dL. Patient had a protein electrophoresis of the serum and a random urine sample performed. No M spike was observed on the urine protein electrophoresis but on the serum protein electrophoresis note was made of a faint band in the gamma region suspicious for monoclonal immunoglobulin. However was thought to possibly represent a benign spike as seen in older individuals or potential paraprotein. Immunofixation of the urine and serum had not been performed. Has sensory neuropathy of feet. Presents for ongoing hematologic management. Interim history: He offers no complaints today. He is taking copper citrate once daily. A twice daily dosing he was getting stomachaches. No side effects with once daily dosing. Stable chronic sensory neuropathy symptoms in the feet. Still fatigues easily. PMH, medications and allergies personally reviewed by me today. Any changes documented in appropriate section. ROS: Constitutional: Denies episodes of fever and night sweats. Not significantly fatigued. Decreased appetite. Neuro: Denies GUTIERREZ, vertigo and dizziness. +Chronic imbalance. HEENT: No recent change in voice, vision or hearing. Resp: Denies cough, wheeze and hemoptysis. Denies shortness of breath at rest. Denies KEY. CVS: Denies exertional chest pain, PND, orthopnea and LE edema. GI: Denies dysgeusia. Denies symptoms of stomatitis. Denies dysphagia and odynophagia. Denies n/v, change in bowel habits and abdominal pain. : Denies dysuria or gross hematuria. No symptoms of bladder outlet obstruction. Endo: Denies hot flashes. Denies polyuria and polydipsia. Denies heat and cold intolerance. Musculoskeletal: Joint pain all the time. Attributes it to his statin drug. Derm: Denies rash. Denies jaundice and diffuse pruritis. Heme: Denies unusual bleeding and unexplained bruising. Psych: Normal mood. PHYSICAL EXAM: Vitals: Blood pressure 166/70, pulse 63, temperature 36.8 C (98.2 F), temperature source Temporal, resp. rate 14, weight 95.5 kg (210 lb 8 oz), SpO2 97 %. Well-appearing and in no acute distress. EYES: Sclerae are anicteric bilaterally. NECK: Supple. LYMPHATIC: There is no palpable cervical or supraclavicular adenopathy. RESPIRATORY: Inspiratory breath sounds are of normal intensity in all peres. No rales, wheezes or rhonchi. CARDIOVASCULAR: Rhythm is regular. ABDOMEN: The abdomen is nondistended. No organomegaly. No tenderness. Extremities: No swelling or edema. SKIN: No jaundice or rash. NEUROLOGIC: helpdesk analyst II-XII are grossly intact. No focal motor weakness. LABS: Component Latest Ref Rng & Units 04/05/2017 09/28/2017 04/04/2018 06/25/2018 02/20/2019 08/27/2019 03/16/2020 12/14/2020 02/09/2021 03/18/2021 08/05/2021 08/18/2021 WBC 3.70 - 11.00 k/uL 7.88 8.80 8.87 8.38 8.37 6.63 8.83 8.11 8.19 8.39 7.44 8.77 RBC 4.20 - 6.00 m/uL 3.50 (L) 3.40 (L) 3.26 (L) 3.44 (L) 3.51 (L) 3.30 (L) 3.27 (L) 3.01 (L) 3.38 (L) 3.10 (L) 3.21 (L) 3.38 (L) Hemoglobin 13.0 - 17.0 g/dL 11.4 (L) 11.3 (L) 10.7 (L) 11.2 (L) 11.5 (L) 11.0 (L) 11.0 (L) 10.1 (L)11.1 (L) 10.3 (L) 10.7 (L) 11.2 (L) Hematocrit 39.0 - 51.0 % 36.0 (L) 35.5 (L) 34.3 (L) 36.0 (L) 36.3 (L) 34.8 (L) 34.3 (L) 30.6 (L) 34.7 (L) 32.5 (L) 33.1 (L) 34.5 (L) MCV 80.0 - 100.0 fL 102.9 (H) 104.4 (H) 105.2 (H) 104.7 (H) 103.4 (H) 105.5 (H) 104.9 (H) 101.7 (H)102.7 (H) 104.8 (H) 103.1 (H) 102.1 (H) MCH 26.0 - 34.0 pg 32.6 33.2 32.8 32.6 32.8 33.3 33.6 33.6 32.8 33.2 33.3 33.1 MCHC 30.5 - 36.0 g/dL 31.7 31.8 31.2 31.1 31.7 31.6 32.1 33.0 32.0 31.7 32.3 32.5 RDW-CV 11.5 - 15.0 % 13.2 13.2 13.2 13.4 13.1 13.1 13.0 13.2 13.3 13.2 13.0 13.2 Platelet Count 150 - 400 k/uL 113 (L) 157 116 (L) 126 (L) 101 (L) 172 121 (L) 166 211 150 170 214 MPV 9.0 - 12.7 fL 11.9 11.5 11.2 11.3 11.6 11.5 11.9 10.1 9.9 11.5 9.8 10.6 Neut% % 61.4 57.1 57.8 61.0 59.9 54.3 55.6 58.1 56.4 54.7 55.4 57.2 Abs Neut (ANC) 1.45 - 7.50 k/uL 4.83 5.02 5.12 5.12 5.01 3.60 4.90 4.69 4.60 4.59 4.13 5.01 Lymph% % 24.0 27.5 27.4 24.0 26.6 30.6 28.5 26.0 29.8 30.2 29.2 26.8 Abs Lymph 1.00 - 4.00 k/uL 1.89 2.42 2.43 2.01 2.23 2.03 2.52 2.11 2.44 2.53 2.17 2.35 Henry% % 9.6 10.8 11.0 10.9 10.0 10.6 12.1 10.7 9.6 10.7 10.9 11.6 Abs Henry <0.87 k/uL 0.76 0.95 (H) 0.98 (H) 0.91 (H) 0.84 0.70 1.07 (H) 0.87 (H) 0.79 0.90 (H) 0.81 1.02 (H) Eosin% % 3.9 3.5 3.0 3.0 2.5 3.3 2.8 4.2 3.1 3.1 3.5 3.3 Abs Eosin <0.46 k/uL 0.31 0.31 0.27 0.25 0.21 0.22 0.25 0.34 0.25 0.26 0.26 0.29 Baso% % 1.1 1.1 0.8 1.1 1.0 1.2 1.0 1.0 1.1 1.3 0.7 0.9 Abs Baso <0.11 k/uL 0.09 0.10 0.07 0.09 0.08 0.08 0.09 0.08 0.09 0.11 (H) 0.05 0.08 Immature Gran % % 0.3 0.2 IMMATURE GRANS (ABS) <0.10 k/uL <0.03 <0.03 NRBC /100 WBC 0.0 0.0 Absolute nRBC <0.01 k/uL <0.01 <0.01 0.01 (H) <0.01 <0.01 <0.01 <0.01 <0.01<0.01 <0.01 <0.01 <0.01 DTYPE Auto Auto Nucleated Reds 0 /100 WBC 0.0 0.0 0.1 (H) 0.0 0.0 0.0 0.0 0.0 0.0 0.0 Diff Type Auto Diff Auto Diff Auto Diff Auto Diff Auto Diff Auto Diff Auto Diff Auto Diff Auto DiffAuto Diff Component Latest Ref Rng & Units 05/22/2020 12/14/2020 Protein, Total 6.3 - 8.0 g/dL 6.9 6.6 Albumin 3.37 - 4.23 gm/dL 3.92 3.81 Alpha 1 Globulin 0.18 - 0.31 gm/dL 0.19 0.23 Alpha 2 Globulin 0.52 - 0.97 gm/dL 0.79 0.74 Beta Globulin 0.84 - 1.36 gm/dL 1.09 0.97 Gamma Globulin 0.70 - 1.44 gm/dL 0.91 0.85 Interpretation (Prot Electro) SEE COMMENT SEE COMMENT M-Protein Location N/A N/A M-Protein Concentration 0.00 gm/dL 0.00 0.00 SPE Staff Review Reviewed by Jeanette Katz M.D., Ph.D ([id number]) Reviewed by Kenya Rolon MD ([id number]) MPA IgG, Serum 700 - 1,600 mg/dL 893 830 MPA IgA, Serum 70 - 400 mg/dL 321 300 MPA IgM, Serum 40 - 230 mg/dL 30 (L) 25 (L) [place] Free, Serum 3.30 - 19.40 mg/L 29.7 (H) 28.3 (H) Lambda Free, Serum 5.7 - 26.3 mg/L 20.0 18.3 K/L Ratio, Serum 0.26 - 1.65 1.49 1.55 MPA Result No M protein is identified. A poorly defined region of restricted mobility is present that may represent an M (A) . . . No M protein is identified. Interpretation (MPA) SEE COMMENT Staff Review (MPA) Reviewed by Kenya Rolon MD ([id number]) Reviewed by Kenya Rolon MD ([id number]) PATHOLOGY: Bone marrow biopsy 08/18/2021: A-C. Bone marrow, aspirate smear and core biopsy, with clot section: - Cellular marrow (variable, 10-40%) with trilineage hematopoiesis. - Multiple lymphoid aggregates, favor reactive process. - Stainable iron present. - See comment. D. Peripheral blood smear: - Macrocytic anemia and monocytosis. The patient has a history of macrocytic anemia. Flow cytometry on this specimen shows no immunophenotypic evidence of lymphoproliferative disorder or abnormal blast population (see flow report). Correlation with clinical findings and pending cytogenetic result to rule out clonal neoplasm is suggested. 2% PCs. DIAGNOSIS: 46,XY[20] INTERPRETATION: Normal, male karyotype ASSESSMENT/PLAN: (D53.9) Macrocytic anemia (primary encounter diagnosis) Assessment: -The patient is a 76-year-old male who has a history of chronic kidney disease. Found to have a questionable serum monoclonal protein on electrophoresis. -Renal function has been stable dating to at least March 2017. -Repeat testing here significant only for a poorly defined region of restricted mobility in the lambda rafita potentially route sales representative of low-level lambda monoclonal gammopathy. The serum kappa free light chain was mildly elevated and the lambda light chain is normal as is the ratio. 24-hour urine collection negative for monoclonal protein by both electrophoresis and immunofixation. -No evidence of serum monoclonal protein by both electrophoresis and immunofixation. -He has persistent otherwise unexplained mild macrocytic anemia and in the past has had mild thrombocytopenia. Copper level not quite normal. -Reviewed bone marrow biopsy results in detail. No evidence of myelodysplastic syndrome or plasma cell disorder. -Possibly has anemia secondary to chronic kidney disease. Plan: -Continue copper supplement once daily. -Recommend monitoring CBC every 6 months. -He should be referred back if hemoglobin declines under 10 g/dL. At that time we would give consideration to starting Aranesp injections.. Portions of this documentation were copied and pasted from previous office visit notes in order to provide a cohesive continuity of the history. The note has been reviewed and edited and updated as necessary. During this patient visit I have spent approximately 15 minutes out of 20 in counseling regarding test results, procedure for biopsy and coordinating care. Paul Arzola DO documented in this encounterSt. [facility]06-[facility]-2022 Miscellaneous Notes* Telephone Encounter - Bernadette Luther - 08/12/2021 10:22 AM EDT BMBX IN [facility] ON 08/18 @ 1:00 PM W/ DR. ARZOLA/CBC/PBSX2/SPECIMEN TO [facility]* documented in this encounterSt. 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 2) Anemia. HPI: The patient is a 76-year-old male with a past medical history significant for hypothyroidism, hypertension, type 2 diabetes (Dx ~25 years ago; neuropathy), hypercholesterolemia, GERD, stage 3b chronic kidney disease and B12 deficiency. Patient was noted to have elevated creatinine of 1.27 in August 2019. It was 1.68 in March 2020. UAin March 2020 demonstrated 1+ protein with no evidence of RBCs or WBCs. Creatinine on 03/24/2020 was 1.47 g/dL whereas it had been 1.68 mg/dL on 03/16/2020. He had an ultrasound of the kidneys on 05/04/2020. Was interpreted as a normal ultrasound kidneys and urinary bladder. Patient's recent lab work from 05/12/2020 includes a chemistry panel showing a serum creatinine of 1.42 mg/dL. Serum calcium was 9.3 mg/dL. Patient had a protein electrophoresis of the serum and a random urine sample performed. No M spike was observed on the urine protein electrophoresis but on the serum protein electrophoresis note was made of a faint band in the gamma region suspicious for monoclonal immunoglobulin. However was thought to possibly represent a benign spike as seen in older individuals or potential paraprotein. Immunofixation of the urine and serum had not been performed. Has sensory neuropathy of feet. Presents for ongoing hematologic management. Interim history: He offers no complaints today. He is taking copper citrate once daily. A twice daily dosing he was getting stomachaches. No side effects with once daily dosing. Stable chronic sensory neuropathy symptoms in the feet. Fatigues easily. PMH, medications and allergies personally reviewed by me today. Any changes documented in appropriate section. ROS: Constitutional: Denies episodes of fever and night sweats. Not significantly fatigued. Decreased appetite. Neuro: Denies GUTIERREZ, vertigo and dizziness. +Chronic imbalance. HEENT: No recent change in voice, vision or hearing. Resp: Denies cough, wheeze and hemoptysis. Denies shortness of breath at rest. Denies KEY. CVS: Denies exertional chest pain, PND, orthopnea and LE edema. GI: Denies dysgeusia. Denies symptoms of stomatitis. Denies dysphagia and odynophagia. Denies n/v, change in bowel habits and abdominal pain. : Denies dysuria or gross hematuria. No symptoms of bladder outlet obstruction. Endo: Denies hot flashes. Denies polyuria and polydipsia. Denies heat and cold intolerance. Musculoskeletal: Joint pain all the time. Attributes it to his statin drug. Derm: Denies rash. Denies jaundice and diffuse pruritis. Heme: Denies unusual bleeding and unexplained bruising. Psych: Normal mood. PHYSICAL EXAM: Vitals: Blood pressure 132/50, pulse 78, temperature 36.4 C (97.5 F), height 172.5 cm (5' 7.91), weight 98 kg (216 lb), SpO2 98 %. Well-appearing and in no acute distress. EYES: Sclerae are anicteric bilaterally. NECK: Supple. LYMPHATIC: There is no palpable cervical or supraclavicular adenopathy. RESPIRATORY: Inspiratory breath sounds are of normal intensity in all peres. No rales, wheezes or rhonchi. CARDIOVASCULAR: Rhythm is regular. ABDOMEN: The abdomen is nondistended. No organomegaly. No tenderness. Extremities: No swelling or edema. SKIN: No jaundice or rash. NEUROLOGIC: helpdesk analyst II-XII are grossly intact. No focal motor weakness. LABS: Component Latest Ref Rng & Units 03/18/2021 08/05/2021 WBC 3.70 - 11.00 k/uL 8.39 7.44 RBC 4.20 - 6.00 m/uL 3.10 (L) 3.21 (L) Hemoglobin 13.0 - 17.0 g/dL 10.3 (L) 10.7 (L) Hematocrit 39.0 - 51.0 % 32.5 (L) 33.1 (L) MCV 80.0 - 100.0 fL 104.8 (H) 103.1 (H) MCH 26.0 - 34.0 pg 33.2 33.3 MCHC 30.5 - 36.0 g/dL 31.7 32.3 RDW-CV 11.5 - 15.0 % 13.2 13.0 Platelet Count 150 - 400 k/uL 150 170 MPV 9.0 - 12.7 fL 11.5 9.8 Neut% % 54.7 55.4 Abs Neut (ANC) 1.45 - 7.50 k/uL 4.59 4.13 Lymph% % 30.2 29.2 Abs Lymph 1.00 - 4.00 k/uL 2.53 2.17 Henry% % 10.7 10.9 Abs Henry <0.87 k/uL 0.90 (H) 0.81 Eosin% % 3.1 3.5 Abs Eosin <0.46 k/uL 0.26 0.26 Baso% % 1.3 0.7 Abs Baso <0.11 k/uL 0.11 (H) 0.05 Immature Gran % % 0.3 IMMATURE GRANS (ABS) <0.10 k/uL <0.03 NRBC /100 WBC 0.0 Absolute nRBC <0.01 k/uL <0.01 <0.01 DTYPE Auto Nucleated Reds 0 /100 WBC 0.0 Diff Type Auto Diff Vitamin B12 232-1,245 pg/mL 395 TSH 0.270 - 4.200 mIU/L 1.040 Copper 70 - 140 ug/dL 65 (L) RBC Folate >=366 ng/mL 346 (L) MMA 79 - 376 nmol/L 281 Component Latest Ref Rng & Units 05/22/2020 12/14/2020 Protein, Total 6.3 - 8.0 g/dL 6.9 6.6 Albumin 3.37 - 4.23 gm/dL 3.92 3.81 Alpha 1 Globulin 0.18 - 0.31 gm/dL 0.19 0.23 Alpha 2 Globulin 0.52 - 0.97 gm/dL 0.79 0.74 Beta Globulin 0.84 - 1.36 gm/dL 1.09 0.97 Gamma Globulin 0.70 - 1.44 gm/dL 0.91 0.85 Interpretation (Prot Electro) SEE COMMENT SEE COMMENT M-Protein Location N/A N/A M-Protein Concentration 0.00 gm/dL 0.00 0.00 SPE Staff Review Reviewed by Jeanette Katz M.D., Ph.D ([id number]) Reviewed by Kenya Rolon MD ([id number]) MPA IgG, Serum 700 - 1,600 mg/dL 893 830 MPA IgA, Serum 70 - 400 mg/dL 321 300 MPA IgM, Serum 40 - 230 mg/dL 30 (L) 25 (L) [place] Free, Serum 3.30 - 19.40 mg/L 29.7 (H) 28.3 (H) Lambda Free, Serum 5.7 - 26.3 mg/L 20.0 18.3 K/L Ratio, Serum 0.26 - 1.65 1.49 1.55 MPA Result No M protein is identified. A poorly defined region of restricted mobility is present that may represent an M (A) . . . No M protein is identified. Interpretation (MPA) SEE COMMENT Staff Review (MPA) Reviewed by Kenya Rolon MD ([id number]) Reviewed by Kenya Rolon MD ([id number]) ASSESSMENT/PLAN: (D47.2) Monoclonal gammopathy (primary encounter diagnosis) Assessment: -The patient is a 76-year-old male who has a history of chronic kidney disease. Found to have a questionable serum monoclonal protein on electrophoresis. -Renal function has been stable dating to at least March 2017. -Repeat testing here significant only for a poorly defined region of restricted mobility in the lambda rafita potentially route sales representative of low-level lambda monoclonal gammopathy. The serum kappa free light chain was mildly elevated and the lambda light chain is normal as is the ratio. 24-hour urine collection negative for monoclonal protein by both electrophoresis and immunofixation. -No evidence of serum monoclonal protein by both electrophoresis and immunofixation. -He has persistent otherwise unexplained mild macrocytic anemia and in the past has had mild thrombocytopenia. Copper level not quite normal, but despite that bone marrow biopsy warranted. Discussed with him in detail. See consent. Plan: -Continue copper supplement once daily. -Bone marrow biopsy next week. Reviewed written instructions with him. Hold aspirin. He may restartday after biopsy. -Office visit about 2 to 3 weeks following biopsy. Portions of this documentation were copied and pasted from previous office visit notes in order to provide a cohesive continuity of the history. The note has been reviewed and edited and updated as necessary. During this patient visit I have spent approximately 20 minutes out of 25 in counseling regarding test results, procedure for biopsy and coordinating care. Paul Arzola DO documented [facility] Miscellaneous Notes* Telephone Encounter - Ramya Stack LPN - 08/06/2021 8:17 AM EDT Spoke with Norm @ client services , given information to add MMA. Will be ran. Ramya Stack LPN * Telephone Encounter - Paul Arzola DO - 08/06/2021 6:20 AM EDT Please ask lab to add MMA to labs drawn 08/05. Paul Arzola DO documented in this encounterSt[facility] Miscellaneous Notes* Telephone Encounter - Wiliam Mandel MD - 07/19/2021 5:39 PM EDT The following approved medication requests have been transmitted electronically. Signed Prescriptions Disp Refills levothyroxine (SYNTHROID) 125 mcg tablet 90 tablet 1 Sig: Take 1 tablet by mouth once daily. SAMANTHA: No Authorizing Provider: WILIAM MANDEL MD * Telephone Encounter - Alisa Schafer MA - 07/19/2021 2:54 PM EDT Patient has been identified by name and date of : Yes Pending Prescriptions Disp Refills LEVOTHYROXINE 125 MCG TABLET 90 tablet 1 Sig: Take 1 tablet by mouth once daily. SAMANTHA: No RX INSTRUCTIONS: Patient aware RX will be sent to pharmacy. No need to notify patient. Alisa Schafer MA Fabio: 03/2021 Nov: 10/2021 Last refill: 01/2021 documented in this encounterSt[facility] Miscellaneous Notes* Telephone Encounter - Margie Sexton Ma - 07/13/2021 1:11 PM EDT Immunization record updated. Margie Sexton Ma documented in this encounterSt. [facility]22 Miscellaneous Notes* Telephone Encounter - Wiliam Mandel MD - 05/31/2021 1:58 PM EDT The following approved medication requests have been transmitted electronically. Signed Prescriptions Disp Refills amLODIPine (NORVASC) 2.5 mg tablet 90 tablet 1 Sig: Take 1 tablet by mouth once daily. SAMANTHA: No Authorizing Provider: WILIAM MANDEL pioglitazone (ACTOS) 45 mg tablet 90 tablet 1 Sig: Take 1 tablet by mouth once daily. SAMANTHA: No Authorizing Provider: WILIAM MANDEL MD * Telephone Encounter - Margie Sexton Ma - 05/31/2021 12:30 PM EDT Last office visit: 03/24/21 F/u scheduled: 11/03/21 Margie Sexton Ma documented in this encounterSt. [facility]03-[facility]22 Miscellaneous Notes* Telephone Encounter - Wiliam Mandel MD - 05/31/2021 12:58 PM EDT The following approved medication requests have been transmitted electronically. Signed Prescriptions Disp Refills lisinopril (ZESTRIL, PRINIVIL) 10 mg tablet 90 tablet 1 Sig: Take 1 tablet by mouth once daily. SAMANTHA: No Wiliam Mandel MD * Telephone Encounter - Tara Bustillo LPN - 05/31/2021 12:53 PM EDT Pt is requesting refill. Last refill went to [facility] and needs to go to [facility]. Pt has appt 11/03/21 Tara Bustillo LPN documented in this encounterSt. [facility]01-[facility]22 History of Present illness Narrative* Mili Ann RT(R) - 04/12/2021 10:00 AM EST Radiology Service Progress Note PATIENT NAME: Meg Bryant DATE OF SERVICE: April 12, 2021 TIME: 10:13 AM PATIENT IDENTITY VERIFICATION COMPLETED USING TWO (2) IDENTIFIERS: Name and Date of confirmedby patient verbally. FALL SCREENING: Has the patient had 2 falls in the last year or 1 fall with injury or currently using an Ambulatory Assistive Device (Walker, Cane, Wheelchair, Crutches, etc.)? No PATIENT GENDER DATA: Male PATIENT RELEVANT IMPLANT DATA REVIEWED: Yes RADIOLOGY DEPARTMENT: General X-ray: Exam(s) Completed: Upper Extremity X- Ray(s): Wrist, right PERIPHERAL IV DATA: Not applicable SIGNED BY: RT Damien(R) April 12, 2021 10:13 AM documented in this encounterSt. [facility]01-[facility]-2022 History of Present illness Narrative* Mili Ann RT(R) - 03/24/2021 12:50 PM EST Radiology Service Progress Note PATIENT NAME: Meg Bryant DATE OF SERVICE: March 24, 2021 TIME: 1:16 PM PATIENT IDENTITY VERIFICATION COMPLETED USING TWO (2) IDENTIFIERS: Name and Date of confirmedby patient verbally. FALL SCREENING: Has the patient had 2 falls in the last year or 1 fall with injury or currently using an Ambulatory Assistive Device (Walker, Cane, Wheelchair, Crutches, etc.)? No PATIENT GENDER DATA: Male PATIENT RELEVANT IMPLANT DATA REVIEWED: Yes RADIOLOGY DEPARTMENT: General X-ray: Exam(s) Completed: Upper Extremity X- Ray(s): Shoulder, AP / TRUE AP / AXILLARY bilateral PERIPHERAL IV DATA: Not applicable SIGNED BY: RT Damien(R) March 24, 2021 1:16 PM [facility] [place] [facility]* Diagnosis Macrocytic anemia- Primary Unspecified deficiency anemia documented in this encounter [facility] note* Diagnosis Macrocytic anemia- Primary Unspecified deficiency anemia [facility] [place] [facility]* Diagnosis Macrocytic anemia- Primary Unspecified deficiency anemia Macrocytic anemia Unspecified deficiency anemia [facility] [place] [facility]* Diagnosis Monoclonal gammopathy- Primary Monoclonal paraproteinemia Macrocytic anemia Unspecified deficiency anemia Macrocytic anemia Unspecified deficiency anemia [facility] [place] [facility]* Diagnosis Macrocytic anemia- Primary Unspecified deficiency anemia [facility] [place] [facility]* Diagnosis Macrocytic anemia- Primary Unspecified deficiency anemia [facility] [place] [facility]* Diagnosis Patient left without being seen- Primary Surgical or other procedure not carried out because of patient's decision documented [facility] [place] [facility]* Diagnosis Controlled type 2 diabetes mellitus with diabetic nephropathy, without long-term current use of insulin (HCC)- Primary Diabetic peripheral neuropathy (HCC) Type II or unspecified type diabetes mellitus with neurological manifestations, not stated as uncontrolled Albuminuria Proteinuria Other proteinuria Diabetic eye exam (HCC) Type II or unspecified type diabetes mellitus without mention of complication, not stated as uncontrolled Essential hypertension with goal blood pressure less than 130/85 Mixed hyperlipidemia Hypothyroidism (acquired) Unspecified hypothyroidism Gastroesophageal reflux disease without esophagitis Esophageal reflux Bilateral carotid artery stenosis Occlusion and stenosis of carotid artery without mention of cerebral infarction Stage 3a chronic kidney disease (HCC) Moderate aortic stenosis Aortic valve disorders Obstructive chronic bronchitis with exacerbation (HCC) Obstructive chronic bronchitis with exacerbation Class 1 obesity due to excess calories without serious comorbidity with body mass index (BMI) of 34.0 to 34.9 in adult Macrocytic anemia Unspecified deficiency anemia Other dietary vitamin B12 deficiency anemia Living will on file Advance directive discussed with patient Other specified counseling Chronic diarrhea Diarrhea Prostate disorder Unspecified disorder of prostate Hyperkalemia Hyperpotassemia [facility] [place] [facility]* Diagnosis Bilateral carotid artery stenosis Occlusion and stenosis of carotid artery without mention of cerebral infarction [facility] [place] [facility]* Diagnosis Medicare annual wellness visit, subsequent- Primary Routine [facility] examination at a [facility] Controlled type 2 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 disease, without long-term current use of insulin (HCC) Diabetic peripheral neuropathy (HCC) Type II or unspecified type diabetes mellitus with neurological manifestations, not stated as uncontrolled Diabetic eye exam (HCC) Type II or unspecified type diabetes mellitus without mention of complication, not stated as uncontrolled Essential hypertension with goal blood pressure less than 130/85 Mixed hyperlipidemia Hypothyroidism (acquired) Unspecified hypothyroidism Obstructive chronic bronchitis with exacerbation (HCC) Obstructive chronic bronchitis with exacerbation Gastroesophageal reflux disease without esophagitis Esophageal reflux Moderate aortic stenosis Aortic valve disorders Bilateral carotid artery stenosis Occlusion and stenosis of carotid artery without mention of cerebral infarction Stage 3a chronic kidney disease (HCC) Albuminuria Proteinuria Other dietary vitamin B12 deficiency anemia Class 1 obesity due to excess calories without serious comorbidity with body mass index (BMI) of 34.0 to 34.9 in adult Macrocytic anemia Unspecified deficiency anemia Benign non-nodular prostatic hyperplasia without lower urinary tract symptoms Advance directive discussed with patient Other specified counseling Calculus of gallbladder with chronic cholecystitis without obstruction Calculus of gallbladder with other cholecystitis, without mention of obstruction [facility]* Diagnosis Macrocytic anemia- Primary Unspecified deficiency anemia [facility] [place] [facility]* Diagnosis Anemia due to stage 3a chronic kidney disease (HCC)- Primary Stage 3a chronic kidney disease (HCC) [facility]* Diagnosis Anemia due to stage 3a chronic kidney disease (HCC)- Primary Stage 3a chronic kidney disease (HCC) [facility] [place] [facility]* Diagnosis Diabetic eye exam (HCC) Type II or unspecified type diabetes mellitus without mention of complication, not stated as uncontrolled [facility] [place] [facility]* Diagnosis Controlled type 2 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 disease, without long-term current use of insulin (HCC)- Primary [facility] [place] [facility]* Diagnosis Controlled type 2 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 disease, without long-term current use of insulin (HCC) [facility] [place] noteNo assessment information availableWSalem [facility] Work Phone: Evaluation note* Diagnosis Controlled type 2 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 disease, without long-term current use of insulin (HCC)- Primary Diabetic peripheral neuropathy (HCC) Type II or unspecified type diabetes mellitus with neurological manifestations, not stated as uncontrolled Diabetic eye exam (HCC) Type II or unspecified type diabetes mellitus without mention of complication, not stated as uncontrolled Essential hypertension with goal blood pressure less than 130/85 Mixed hyperlipidemia Gastroesophageal reflux disease without esophagitis Esophageal reflux Bilateral carotid artery stenosis Occlusion and stenosis of carotid artery without mention of cerebral infarction Hypothyroidism (acquired) Unspecified hypothyroidism Moderate aortic stenosis Aortic valve disorders Obstructive chronic bronchitis with exacerbation (HCC) Obstructive chronic bronchitis with exacerbation Stage 3a chronic kidney disease (HCC) Class 1 obesity due to excess calories without serious comorbidity with body mass index (BMI) of 34.0 to 34.9 in adult Macrocytic anemia Unspecified deficiency anemia Other dietary vitamin B12 deficiency anemia Disorder of prostate Unspecified disorder of prostate [facility] [place] [facility]* Diagnosis Bilateral carotid artery stenosis Occlusion and stenosis of carotid artery without mention of cerebral infarction [facility] [place] [facility]* Diagnosis Anemia due to stage 3b chronic kidney disease (HCC)- Primary Platelets decreased (HCC) Thrombocytopenia, unspecified documented [facility] encounter [facility] [place] [facility]* Diagnosis Acute otitis media, right- Primary Unspecified otitis media documented [facility] encounter [facility] [place] [facility]* Diagnosis Onset Date Resolution Status Carotid stenosis, bilateral chronic Essential (primary) hypertension chronic Hyperlipidemia chronic Non-rheumatic aortic stenosis [facility] Work Phone: Evaluation note* Diagnosis Eustachian tube dysfunction, bilateral- Primary Acute bronchitis with chronic obstructive pulmonary disease (COPD) (HCC) (HCC) Obstructive chronic bronchitis with acute bronchitis documented [facility] encounter [facility] [place] [facility]* Diagnosis Impacted cerumen of left ear- Primary Impacted cerumen documented [facility] this encounter [facility] [place] [facility]* Diagnosis Anemia due to stage 3b chronic kidney disease (HCC) (HCC)- Primary Platelets decreased (HCC) Thrombocytopenia, unspecified [facility] [place] [facility]* Diagnosis Anemia due to stage 3b chronic kidney disease (HCC) (HCC)- Primary Macrocytic anemia Unspecified deficiency anemia documented [facility] [place] [facility]* Diagnosis Anemia due to stage 3b chronic kidney disease (HCC) (HCC) Platelets decreased (HCC) Thrombocytopenia, unspecified Controlled type 2 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 disease, without long-term current use of insulin (HCC) Diabetic peripheral neuropathy (HCC) Type II or unspecified type diabetes mellitus with neurological manifestations, not stated as uncontrolled Essential hypertension with goal blood pressure less than 130/85 Mixed hyperlipidemia Other dietary vitamin B12 deficiency anemia Stage 3a chronic kidney disease (HCC) Hypothyroidism (acquired) Unspecified hypothyroidism Disorder of prostate Unspecified disorder of prostate documented in this encounter [facility] note* Diagnosis Medicare annual wellness visit, subsequent- Primary Routine general medical examination at a health care facility Controlled type 2 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 disease, without long-term current use of insulin ([facility]) Diabetic eye exam ([facility]) Type II or unspecified type diabetes mellitus without mention of complication, not stated as uncontrolled Essential hypertension with goal blood pressure less than 130/85 Mixed hyperlipidemia Hypothyroidism (acquired) Unspecified hypothyroidism Obstructive chronic bronchitis with exacerbation (HCC) Obstructive chronic bronchitis with exacerbation Gastroesophageal reflux disease without esophagitis Esophageal reflux Diabetic peripheral neuropathy (HCC) Type II or unspecified type diabetes mellitus with neurological manifestations, not stated as uncontrolled Moderate aortic stenosis Aortic valve disorders Albuminuria Proteinuria Stage 3a chronic kidney disease (HCC) Bilateral carotid artery stenosis Occlusion and stenosis of carotid artery without mention of cerebral infarction Class 1 obesity due to excess calories without serious comorbidity with body mass index (BMI) of 34.0 to 34.9 in adult Other dietary vitamin B12 deficiency anemia Macrocytic anemia Unspecified deficiency anemia Benign non-nodular prostatic hyperplasia without lower urinary tract symptoms Calculus of gallbladder with chronic cholecystitis without obstruction Calculus of gallbladder with other cholecystitis, without mention of obstruction Advance directive discussed with patient Other specified counseling Anemia due to stage 3b chronic kidney disease (HCC) (HCC) Diarrhea, unspecified type documented in this encounter [facility] note* Diagnosis Macrocytic anemia- Primary Unspecified deficiency anemia Anemia due to stage 3b chronic kidney disease (HCC) (HCC) documented in this encounter [facility] note* Diagnosis Controlled type 2 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 disease, without long-term current use of insulin ([facility])- Primary Diabetic eye exam ([facility]) Type II or unspecified type diabetes mellitus without mention of complication, not stated as uncontrolled Diabetic peripheral neuropathy (HCC) Type II or unspecified type diabetes mellitus with neurological manifestations, not stated as uncontrolled Essential hypertension with goal blood pressure less than 130/85 Mixed hyperlipidemia Hypothyroidism (acquired) Unspecified hypothyroidism Gastroesophageal reflux disease without esophagitis Esophageal reflux Obstructive chronic bronchitis with exacerbation (HCC) Obstructive chronic bronchitis with exacerbation Bilateral carotid artery stenosis Occlusion and stenosis of carotid artery without mention of cerebral infarction Moderate aortic stenosis Aortic valve disorders Stage 3a chronic kidney disease (HCC) Class 1 obesity due to excess calories without serious comorbidity with body mass index (BMI) of 34.0 to 34.9 in adult Macrocytic anemia Unspecified deficiency anemia Other dietary vitamin B12 deficiency anemia Calculus of gallbladder with chronic cholecystitis without obstruction Calculus of gallbladder with other cholecystitis, without mention of obstruction Chest pain, unspecified type KEY (dyspnea on exertion) Other dyspnea and respiratory abnormality Disorder of prostate Unspecified disorder of prostate Medication management Encounter for long-term (current) use of other medications [facility] [place] [facility] Diagnosis Acute left ankle pain- Primary [facility] [place] [facility] Diagnosis Acute left ankle pain [facility] [place] [facility]* Diagnosis Acute idiopathic gout, unspecified site- Primary [facility] [place] [facility]* Diagnosis Acute wrist pain, right [facility] [place] [facility]* Diagnosis Chronic pain of both shoulders Pain in joint, shoulder region [facility] [place] [facility]* Diagnosis Controlled type 2 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 disease, without long-term current use of insulin ([facility]) [facility] [place] [facility]* Diagnosis Obstructive chronic bronchitis with exacerbation (HCC) Obstructive chronic bronchitis with exacerbation KEY (dyspnea on exertion) Other dyspnea and respiratory abnormality [facility] [place] [facility]* Diagnosis Medicare annual wellness visit, subsequent- Primary Routine general medical examination at a health care facility Controlled type 2 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 disease, without long-term current use of insulin (HCC) Diabetic peripheral neuropathy (HCC) Type II or unspecified type diabetes mellitus with neurological manifestations, not stated as uncontrolled Diabetic eye exam ([facility]) Type II or unspecified type diabetes mellitus without mention of complication, not stated as uncontrolled Essential hypertension with goal blood pressure less than 130/85 Mixed hyperlipidemia Hypothyroidism (acquired) Unspecified hypothyroidism Gastroesophageal reflux disease without esophagitis Esophageal reflux Bilateral carotid artery stenosis Occlusion and stenosis of carotid artery without mention of cerebral infarction Moderate aortic stenosis Aortic valve disorders Nonrheumatic mitral valve regurgitation Obstructive chronic bronchitis with exacerbation (HCC) Obstructive chronic bronchitis with exacerbation Stage 3a chronic kidney disease (HCC) Anemia due to stage 3b chronic kidney disease (HCC) (HCC) Class 1 obesity due to excess calories without serious comorbidity with body mass index (BMI) of 34.0 to 34.9 in adult Acute idiopathic gout, unspecified site Macrocytic anemia Unspecified deficiency anemia Other dietary vitamin B12 deficiency anemia Benign non-nodular prostatic hyperplasia without lower urinary tract symptoms Calculus of gallbladder with chronic cholecystitis without obstruction Calculus of gallbladder with other cholecystitis, without mention of obstruction Advance directive discussed with patient Other specified counseling Kidney stone Calculus of kidney Screening for depression Renal stones Calculus of kidney Chronic diarrhea Diarrhea documented in this encounter [facility] note* Diagnosis Onset Date Resolution Status Admit Date Diarrhea acute October 24, 12:53pm Abdominal pain noneactive October 12:53pm [facility] [employer] Work Phone: [facility] [place] [facility]* Diagnosis Controlled type 2 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 disease, without long-term current use of insulin (HCC) documented in this encounter [facility] note* Diagnosis Macrocytic anemia- Primary Unspecified deficiency anemia Anemia due to stage 3b chronic kidney disease (HCC) documented in this encounter [facility] for referral (narrative)* Outpatient Procedure (Routine) - Authorized Specialty Diagnoses / Procedures Referred By Contac t Referred To Contact [facility] Diagnoses Bilateral carotid artery stenosis Procedures US CAROTID ARTERIES TERE VAS LAB DUPLEX SCAN EXTRACRANIAL ART COMPL BI STUDY Wiliam Mandel MD [address] [place] [address] [facility] [place] [id number] [address] Referral ID Status Reason Start Date Expiration Date Visits Requested Visits Authorized [id number] Authorized Auto-Generat ed Referral 11/11/2021 11/11/2022 1 1 [facility] for referral (narrative)* Outpatient Procedure (Routine) - Authorized Specialty Diagnoses / Procedures Referred By Contac t Referred To Contact [facility] Diagnoses Bilateral carotid artery stenosis Procedures US CAROTID ARTERIES TERE VAS LAB DUPLEX SCAN EXTRACRANIAL ART COMPL BI STUDY Wiliam Mandel MD [address] [place] [address] [facility] [place] [id number] [place] [address] Referral ID Status Reason Start Date Expiration Date Visits Requested Visits Authorized [id number] Authorized Auto-Generat ed Referral 11/22/2022 11/22/2023 1 1 [facility] for referral (narrative)* Outpatient Procedure (Routine) - Authorized Specialty Diagnoses / Procedures Referred By Contac t Referred To Contact [facility] Diagnoses Obstructive chronic bronchitis with exacerbation (HCC) KEY (dyspnea on exertion) Procedures SPIROMETRY - BASELINE AND POST DILATOR BRNCDILAT RSPSE SPMTRY PRE&POST-BRNCDILAT ADMN Wiliam Mandel MD [address] [place] [address] [facility] [address] [place] [address] Referral ID Status Reason Start Date Expiration Date Visits Requested Visits Authorized [id number] Authorized Auto-Generat ed Referral 11/22/2023 12/21/2024 1 1 [facility] for referral (narrative)* Diagnostic Procedure Only (Routine) - Closed Specialty Diagnoses / Procedures Referred By Contac t Referred To Contact [facility]AG[facility] Diagnoses Acute left ankle pain Procedures XR ANKLE GENERAL 3V AP/LAT/OBL LEFT RADEX ANKLE COMPLETE MINIMUM 3 VIEWS Wiliam Mandel MD [address] [place] [address] [place] [address] Referral ID Status Reason Start Date Expiration Date V isits Requested Visits Authorized [id number] Closed Auto-Generate d Referral 12/08/2023 01/06/2025 1 1 [facility] for referral (narrative)* Diagnostic Procedure Only (Urgent) - Closed Specialty Diagnoses / Procedures Referred By Contac t Referred To Contact XR IMAGING Diagnoses Acute wrist pain, right Procedures XR WRIST GENERAL 3V PA/LAT/OBL RIGHT RADEX WRIST COMPLETE MINIMUM 3 VIEWS Reed France MD [address] [place] [address] [place] [address] Referral ID Status Reason Start Date Expiration Date V isits Requested Visits Authorized [id number] Closed Auto-Generate d Referral 04/12/2021 05/12/2022 1 1 [facility] for referral (narrative)* Diagnostic Procedure Only (Routine) - Closed Specialty Diagnoses / Procedures Referred By Contac t Referred To Contact XR IMAGING Diagnoses Chronic pain of both shoulders Procedures XR SHOULDER GENERAL 3V OR MORE AP/TRUE AP/OTHER RIGHT X-RAY SHOULDER COMPLET MIN 2 VIEWS Wiliam Mandel MD [address] [place] [address] [place] [address] Referral ID Status Reason Start Date Expiration Date V isits Requested Visits Authorized [id number] Closed Auto-Generate d Referral 03/24/2021 04/23/2022 1 1 * Diagnostic Procedure Only (Routine) - Closed Specialty Diagnoses / Procedures Referred By Contac t Referred To Contact XR IMAGING Diagnoses Chronic pain of both shoulders Procedures XR SHOULDER GENERAL 3V OR MORE AP/TRUE AP/OTHER LEFT X-RAY SHOULDER COMPLET MIN 2 VIEWS Wiliam Mandel MD [address] [place] [address] [place] [address] Referral ID Status Reason Start Date Expiration Date V isits Requested Visits Authorized Closed Auto-Generate d Referral 03/24/2021 04/23/2022 1 1 [facility] for referral (narrative)No reason for referral information [facility] Work Phone: reason for visit Narrative* Diagnostic Procedure Only (Routine) - Closed Specialty Diagnoses / Procedures Referred By Contac t Referred To Contact XR IMAGING Diagnoses Acute left ankle pain Procedures XR ANKLE GENERAL 3V AP/LAT/OBL LEFT RADEX ANKLE COMPLETE MINIMUM 3 VIEWS Wiliam Mandel MD [address] [place] [address] [place] [address] Referral ID Status Reason Start Date Expiration Date V isits Requested Visits Authorized [id number] Closed Auto-Generate d Referral 12/08/2023 01/06/2025 1 1 [facility] for visit Narrative* Diagnostic Procedure Only (Urgent) - Closed Specialty Diagnoses / Procedures Referred By Contac t Referred To Contact XR IMAGING Diagnoses Acute wrist pain, right Procedures XR WRIST GENERAL 3V PA/LAT/OBL RIGHT RADEX WRIST COMPLETE MINIMUM 3 VIEWS Reed France MD [address] [place] [address] [place] [address] Referral ID Status Reason Start Date Expiration Date V isits Requested Visits Authorized [id number] Closed Auto-Generate d Referral 04/12/2021 05/12/2022 1 1 [facility] for visit Narrative* Diagnostic Procedure Only (Routine) - Closed Specialty Diagnoses / Procedures Referred By Contac t Referred To Contact XR IMAGING Diagnoses Chronic pain of both shoulders Procedures XR SHOULDER GENERAL 3V OR MORE AP/TRUE AP/OTHER RIGHT X-RAY SHOULDER COMPLET MIN 2 VIEWS Wiliam Mandel MD [address] [place] [address] [place] [address] Referral ID Status Reason Start Date Expiration Date V isits Requested Visits Authorized [id number] Closed Auto-Generate d Referral 03/24/2021 04/23/[address] 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 Yes November 26, 2024 9:01am Name of Medical Power of Vocational Nurse Lvn MICHELLE BRYANT November 26, 2024 9:01am Medications Administered Section Inactive Administered Medications - up to 3 most recent administrations Medication Order MAR Action Action Date Dose Rate Site iron sucrose 200 mg in NaCl 0.9% 100ml (VENOFER) 200 mg, INTRAVENOUS, at 400 mL/hr, Administer over 15 Minutes, ONCE, 1 dose, On Mon08/11/22 at 1530, Please conduct a 30 minute post dose observation. New Bag/Syringe/Bottle 08/11/2022 3:22 PM EDT 200 mg 400 mL/hr Inactive Administered Medications - up to 3 most recent administrations Medication Order MAR Action Action Date Dose Rate Site iron sucrose 200 mg in NaCl 0.9% 100ml (VENOFER) 200 mg, INTRAVENOUS, at 400 mL/hr, Administer over 15 Minutes, ONCE, 1 dose, On Mon08/15/22 at 1500, Please conduct a 30 minute post dose observation. New Bag/Syringe/Bottle 08/15/2022 2:56 PM EDT 200 mg 400 mL/hr Inactive Administered Medications - up to 3 most recent administrations Medication Order MAR Action Action Date Dose Rate Site iron sucrose 200 mg in NaCl 0.9% 100ml (VENOFER) 200 mg, INTRAVENOUS, at 400 mL/hr, Administer over 15 Minutes, ONCE, 1 dose, On Mon08/17/22 at 1400, Please conduct a 30 minute post dose observation. New Bag/Syringe/Bottle 08/17/2022 1:56 PM EDT 200 mg 400 mL/hr Family History No Family History Records Found Relationship Condition Age at Onset Recorded Date/T monika mother Myocardial infarction Unknown Diabetes mellitus Unknown Cardiac disease Unknown father Cerebrovascular accident (CVA) Unknown Malignant neoplasm Unknown sister Cardiac disease Unknown Chief Complaint and Reason for Visit Chief Complaint Admit Date Abdominal pain October 24, 2024 12 :53pm E ORDERS October 24, 2024 2: 22pm Reason for Visit Admit Date Diarrhea October 24, 2024 12 :53pm Abdominal pain October 24, 2024 12 :53pm Chief Complaint 1 Y FU Nonrheumatic aortic (valve) stenosis Amb Documentation Reason for Visit Carotid stenosis, bi lateral Essential (primary) hypertension Hyperlipidemia Non-rheumatic aortic stenosis Chief Complaint Admit Date Abdominal pain October 24, 2024 12 :53pm Chief Complaint Admit Date Abdominal pain October 24, 2024 12 :53pm E ORDERS October 24, 2024 2: 22pm FATTY LIVER November 18, 2024 9:52am RESULTS November 19, 2024 1:25pm Reason for Visit Admit Date Diarrhea October 24, 2024 12 :53pm Abdominal pain October 24, 2024 12 :53pm Diarrhea November 19, 2024 1:25pm Reason for Visit Admit Date Diarrhea October 24, 2024 12 :53pm Abdominal pain October 24, 2024 12 :53pm Diarrhea November 19, 2024 1:25pm Diarrhea November 28, 2024 7:50am Summary Purpose Additional Source Comments Source Comments (unrecognize d section and content) In the event this informatio n is protected by the Federal Confidentiality of Alcohol and Drug Abuse Patient Records regulations: The Federal rules restrict any use of the information to criminally investigate or prosecute any alcohol or drug abuse patient.[facility] event this information is protected by the Federal Confidentiality of Alcohol and Drug Abuse Patient Records regulations: The Federal rules restrict any use of the information to criminally investigate or prosecute any alcohol or drug abuse patient.[facility] the event this information is protected by the Federal Confidentiality of Alcohol and Drug Abuse Patient Records regulations: The Federal rules restrict any use of the information to criminally investigate or prosecute any alcohol or drug abuse patient.[facility] the event this information is protected by the Federal Confidentiality of Alcohol and Drug Abuse Patient Records regulations: The Federal rules restrict any use of the information to criminally investigate or prosecute any alcohol or drug abuse patient.[facility] the event this information is protected by the Federal Confidentiality of Alcohol and Drug Abuse Patient Records regulations: The Federal rules restrict any use of the information to criminally investigate or prosecute any alcohol or drug abuse patient.[facility] the event this information is protected by the Federal Confidentiality of Alcohol and Drug Abuse Patient Records regulations: The Federal rules restrict any use of the information to criminally investigate or prosecute any alcohol or drug abuse patient.[facility] the event this information is protected by the Federal Confidentiality of Alcohol and Drug Abuse Patient Records regulations: The Federal rules restrict any use of the information to criminally investigate or prosecute any alcohol or drug abuse patient.[facility] the event this information is protected by the Federal Confidentiality of Alcohol and Drug Abuse Patient Records regulations: The Federal rules restrict any use of the information to criminally investigate or prosecute any alcohol or drug abuse patient.[facility] the event this information is protected by the Federal Confidentiality of Alcohol and Drug Abuse Patient Records regulations: The Federal rules restrict any use of the information to criminally investigate or prosecute any alcohol or drug abuse patient.[facility] the event this information is protected by the Federal Confidentiality of Alcohol and Drug Abuse Patient Records regulations: The Federal rules restrict any use of the information to criminally investigate or prosecute any alcohol or drug abuse patient.[facility] the event this information is protected by the Federal Confidentiality of Alcohol and Drug Abuse Patient Records regulations: The Federal rules restrict any use of the information to criminally investigate or prosecute any alcohol or drug abuse patient.[facility] the event this information is protected by the Federal Confidentiality of Alcohol and Drug Abuse Patient Records regulations: The Federal rules restrict any use of the information to criminally investigate or prosecute any alcohol or drug abuse patient.[facility] the event this information is protected by the Federal Confidentiality of Alcohol and Drug Abuse Patient Records regulations: The Federal rules restrict any use of the information to criminally investigate or prosecute any alcohol or drug abuse patient.[facility] the event this information is protected by the Federal Confidentiality of Alcohol and Drug Abuse Patient Records regulations: The Federal rules restrict any use of the information to criminally investigate or prosecute any alcohol or drug abuse patient.[facility] the event this information is protected by the Federal Confidentiality of Alcohol and Drug Abuse Patient Records regulations: The Federal rules restrict any use of the information to criminally investigate or prosecute any alcohol or drug abuse patient.[facility] the event this information is protected by the Federal Confidentiality of Alcohol and Drug Abuse Patient Records regulations: The Federal rules restrict any use of the information to criminally investigate or prosecute any alcohol or drug abuse patient.[facility] the event this information is protected by the Federal Confidentiality of Alcohol and Drug Abuse Patient Records regulations: The Federal rules restrict any use of the information to criminally investigate or prosecute any alcohol or drug abuse patient.[facility] the event this information is protected by the Federal Confidentiality of Alcohol and Drug Abuse Patient Records regulations: The Federal rules restrict any use of the information to criminally investigate or prosecute any alcohol or drug abuse patient.[facility] the event this information is protected by the Federal Confidentiality of Alcohol and Drug Abuse Patient Records regulations: The Federal rules restrict any use of the information to criminally investigate or prosecute any alcohol or drug abuse patient.[facility] the event this information is protected by the Federal Confidentiality of Alcohol and Drug Abuse Patient Records regulations: The Federal rules restrict any use of the information to criminally investigate or prosecute any alcohol or drug abuse patient.[facility] the event this information is protected by the Federal Confidentiality of Alcohol and Drug Abuse Patient Records regulations: The Federal rules restrict any use of the information to criminally investigate or prosecute any alcohol or drug abuse patient.[facility] the event this information is protected by the Federal Confidentiality of Alcohol and Drug Abuse Patient Records regulations: The Federal rules restrict any use of the information to criminally investigate or prosecute any alcohol or drug abuse patient.[facility] the event this information is protected by the Federal Confidentiality of Alcohol and Drug Abuse Patient Records regulations: The Federal rules restrict any use of the information to criminally investigate or prosecute any alcohol or drug abuse patient.[facility] the event this information is protected by the Federal Confidentiality of Alcohol and Drug Abuse Patient Records regulations: The Federal rules restrict any use of the information to criminally investigate or prosecute any alcohol or drug abuse patient.[facility] the event this information is protected by the Federal Confidentiality of Alcohol and Drug Abuse Patient Records regulations: The Federal rules restrict any use of the information to criminally investigate or prosecute any alcohol or drug abuse patient.[facility] the event this information is protected by the Federal Confidentiality of Alcohol and Drug Abuse Patient Records regulations: The Federal rules restrict any use of the information to criminally investigate or prosecute any alcohol or drug abuse patient.[facility] the event this information is protected by the Federal Confidentiality of Alcohol and Drug Abuse Patient Records regulations: The Federal rules restrict any use of the information to criminally investigate or prosecute any alcohol or drug abuse patient.[facility] the event this information is protected by the Federal Confidentiality of Alcohol and Drug Abuse Patient Records regulations: The Federal rules restrict any use of the information to criminally investigate or prosecute any alcohol or drug abuse patient.[facility] the event this information is protected by the Federal Confidentiality of Alcohol and Drug Abuse Patient Records regulations: The Federal rules restrict any use of the information to criminally investigate or prosecute any alcohol or drug abuse patient.[facility] the event this information is protected by the Federal Confidentiality of Alcohol and Drug Abuse Patient Records regulations: The Federal rules restrict any use of the information to criminally investigate or prosecute any alcohol or drug abuse patient.[facility] the event this information is protected by the Federal Confidentiality of Alcohol and Drug Abuse Patient Records regulations: The Federal rules restrict any use of the information to criminally investigate or prosecute any alcohol or drug abuse patient.[facility] the event this information is protected by the Federal Confidentiality of Alcohol and Drug Abuse Patient Records regulations: The Federal rules restrict any use of the information to criminally investigate or prosecute any alcohol or drug abuse patient.[facility] the event this information is protected by the Federal Confidentiality of Alcohol and Drug Abuse Patient Records regulations: The Federal rules restrict any use of the information to criminally investigate or prosecute any alcohol or drug abuse patient.[facility] the event this information is protected by the Federal Confidentiality of Alcohol and Drug Abuse Patient Records regulations: The Federal rules restrict any use of the information to criminally investigate or prosecute any alcohol or drug abuse patient.[facility] the event this information is protected by the Federal Confidentiality of Alcohol and Drug Abuse Patient Records regulations: The Federal rules restrict any use of the information to criminally investigate or prosecute any alcohol or drug abuse patient.[facility] the event this information is protected by the Federal Confidentiality of Alcohol and Drug Abuse Patient Records regulations: The Federal rules restrict any use of the information to criminally investigate or prosecute any alcohol or drug abuse patient.[facility]In the event this information is protected by the Federal Confidentiality of Alcohol and Drug Abuse Patient Records regulations: The Federal rules restrict any use of the information to criminally investigate or prosecute any alcohol or drug abuse patient.[facility] HospitalIn the event this information is protected by the Federal Confidentiality of Alcohol and Drug Abuse Patient Records regulations: The Federal rules restrict any use of the information to criminally investigate or prosecute any alcohol or drug abuse patient.[facility] HospitalIn the event this information is protected by the Federal Confidentiality of Alcohol and Drug Abuse Patient Records regulations: The Federal rules restrict any use of the information to criminally investigate or prosecute any alcohol or drug abuse patient.[facility] HospitalIn the event this information is protected by the Federal Confidentiality of Alcohol and Drug Abuse Patient Records regulations: The Federal rules restrict any use of the information to criminally investigate or prosecute any alcohol or drug abuse patient.[facility] HospitalIn the event this information is protected by the Federal Confidentiality of Alcohol and Drug Abuse Patient Records regulations: The Federal rules restrict any use of the information to criminally investigate or prosecute any alcohol or drug abuse patient.[facility] HospitalIn the event this information is protected by the Federal Confidentiality of Alcohol and Drug Abuse Patient Records regulations: The Federal rules restrict any use of the information to criminally investigate or prosecute any alcohol or drug abuse patient.[facility] HospitalIn the event this information is protected by the Federal Confidentiality of Alcohol and Drug Abuse Patient Records regulations: The Federal rules restrict any use of the information to criminally investigate or prosecute any alcohol or drug abuse patient.[facility] HospitalIn the event this information is protected by the Federal Confidentiality of Alcohol and Drug Abuse Patient Records regulations: The Federal rules restrict any use of the information to criminally investigate or prosecute any alcohol or drug abuse patient.[facility] HospitalIn the event this information is protected by the Federal Confidentiality of Alcohol and Drug Abuse Patient Records regulations: The Federal rules restrict any use of the information to criminally investigate or prosecute any alcohol or drug abuse patient.[facility] HospitalIn the event this information is protected by the Federal Confidentiality of Alcohol and Drug Abuse Patient Records regulations: The Federal rules restrict any use of the information to criminally investigate or prosecute any alcohol or drug abuse patient.[facility] HospitalIn the event this information is protected by the Federal Confidentiality of Alcohol and Drug Abuse Patient Records regulations: The Federal rules restrict any use of the information to criminally investigate or prosecute any alcohol or drug abuse patient.[facility] HospitalIn the event this information is protected by the Federal Confidentiality of Alcohol and Drug Abuse Patient Records regulations: The Federal rules restrict any use of the information to criminally investigate or prosecute any alcohol or drug abuse patient.[facility] HospitalIn the event this information is protected by the Federal Confidentiality of Alcohol and Drug Abuse Patient Records regulations: The Federal rules restrict any use of the information to criminally investigate or prosecute any alcohol or drug abuse patient.[facility] HospitalIn the event this information is protected by the Federal Confidentiality of Alcohol and Drug Abuse Patient Records regulations: The Federal rules restrict any use of the information to criminally investigate or prosecute any alcohol or drug abuse patient.[facility] HospitalIn the event this information is protected by the Federal Confidentiality of Alcohol and Drug Abuse Patient Records regulations: The Federal rules restrict any use of the information to criminally investigate or prosecute any alcohol or drug abuse patient.[facility] HospitalIn the event this information is protected by the Federal Confidentiality of Alcohol and Drug Abuse Patient Records regulations: The Federal rules restrict any use of the information to criminally investigate or prosecute any alcohol or drug abuse patient.[facility] HospitalIn the event this information is protected by the Federal Confidentiality of Alcohol and Drug Abuse Patient Records regulations: The Federal rules restrict any use of the information to criminally investigate or prosecute any alcohol or drug abuse patient.[facility] HospitalIn the event this information is protected by the Federal Confidentiality of Alcohol and Drug Abuse Patient Records regulations: The Federal rules restrict any use of the information to criminally investigate or prosecute any alcohol or drug abuse patient.[facility] HospitalIn the event this information is protected by the Federal Confidentiality of Alcohol and Drug Abuse Patient Records regulations: The Federal rules restrict any use of the information to criminally investigate or prosecute any alcohol or drug abuse patient.[facility] HospitalIn the event this information is protected by the Federal Confidentiality of Alcohol and Drug Abuse Patient Records regulations: The Federal rules restrict any use of the information to criminally investigate or prosecute any alcohol or drug abuse patient.[facility] HospitalIn the event this information is protected by the Federal Confidentiality of Alcohol and Drug Abuse Patient Records regulations: The Federal rules restrict any use of the information to criminally investigate or prosecute any alcohol or drug abuse patient.[facility] HospitalIn the event this information is protected by the Federal Confidentiality of Alcohol and Drug Abuse Patient Records regulations: The Federal rules restrict any use of the information to criminally investigate or prosecute any alcohol or drug abuse patient.[facility] HospitalIn the event this information is protected by the Federal Confidentiality of Alcohol and Drug Abuse Patient Records regulations: The Federal rules restrict any use of the information to criminally investigate or prosecute any alcohol or drug abuse patient.[facility] HospitalIn the event this information is protected by the Federal Confidentiality of Alcohol and Drug Abuse Patient Records regulations: The Federal rules restrict any use of the information to criminally investigate or prosecute any alcohol or drug abuse patient.[facility] HospitalIn the event this information is protected by the Federal Confidentiality of Alcohol and Drug Abuse Patient Records regulations: The Federal rules restrict any use of the information to criminally investigate or prosecute any alcohol or drug abuse patient.[facility] HospitalIn the event this information is protected by the Federal Confidentiality of Alcohol and Drug Abuse Patient Records regulations: The Federal rules restrict any use of the information to criminally investigate or prosecute any alcohol or drug abuse patient.[facility] HospitalIn the event this information is protected by the Federal Confidentiality of Alcohol and Drug Abuse Patient Records regulations: The Federal rules restrict any use of the information to criminally investigate or prosecute any alcohol or drug abuse patient.[facility] HospitalIn the event this information is protected by the Federal Confidentiality of Alcohol and Drug Abuse Patient Records regulations: The Federal rules restrict any use of the information to criminally investigate or prosecute any alcohol or drug abuse patient.[facility] HospitalIn the event this information is protected by the Federal Confidentiality of Alcohol and Drug Abuse Patient Records regulations: The Federal rules restrict any use of the information to criminally investigate or prosecute any alcohol or drug abuse patient.[facility] HospitalIn the event this information is protected by the Federal Confidentiality of Alcohol and Drug Abuse Patient Records regulations: The Federal rules restrict any use of the information to criminally investigate or prosecute any alcohol or drug abuse patient.[facility] HospitalIn the event this information is protected by the Federal Confidentiality of Alcohol and Drug Abuse Patient Records regulations: The Federal rules restrict any use of the information to criminally investigate or prosecute any alcohol or drug abuse patient.[facility] HospitalIn the event this information is protected by the Federal Confidentiality of Alcohol and Drug Abuse Patient Records regulations: The Federal rules restrict any use of the information to criminally investigate or prosecute any alcohol or drug abuse patient.[facility] the event this information is protected by the Federal Confidentiality of Alcohol and Drug Abuse Patient Records regulations: The Federal rules restrict any use of the information to criminally investigate or prosecute any alcohol or drug abuse patient.[facility] HospitalIn the event this information is protected by the Federal Confidentiality of Alcohol and Drug Abuse Patient Records regulations: The Federal rules restrict any use of the information to criminally investigate or prosecute any alcohol or drug abuse patient.[facility] HospitalIn the event this information is protected by the Federal Confidentiality of Alcohol and Drug Abuse Patient Records regulations: The Federal rules restrict any use of the information to criminally investigate or prosecute any alcohol or drug abuse patient.[facility] ClinicIn the event this information is protected by the Federal Confidentiality of Alcohol and Drug Abuse Patient Records regulations: The Federal rules restrict any use of the information to criminally investigate or prosecute any alcohol or drug abuse patient.[facility] HospitalIn the event this information is protected by the Federal Confidentiality of Alcohol and Drug Abuse Patient Records regulations: The Federal rules restrict any use of the information to criminally investigate or prosecute any alcohol or drug abuse patient.[facility] HospitalIn the event this information is protected by the Federal Confidentiality of Alcohol and Drug Abuse Patient Records regulations: The Federal rules restrict any use of the information to criminally investigate or prosecute any alcohol or drug abuse patient.[facility] HospitalIn the event this information is protected by the Federal Confidentiality of Alcohol and Drug Abuse Patient Records regulations: The Federal rules restrict any use of the information to criminally investigate or prosecute any alcohol or drug abuse patient.[facility] HospitalIn the event this information is protected by the Federal Confidentiality of Alcohol and Drug Abuse Patient Records regulations: The Federal rules restrict any use of the information to criminally investigate or prosecute any alcohol or drug abuse patient.[facility] HospitalIn the event this information is protected by the Federal Confidentiality of Alcohol and Drug Abuse Patient Records regulations: The Federal rules restrict any use of the information to criminally investigate or prosecute any alcohol or drug abuse patient.[facility] HospitalIn the event this information is protected by the Federal Confidentiality of Alcohol and Drug Abuse Patient Records regulations: The Federal rules restrict any use of the information to criminally investigate or prosecute any alcohol or drug abuse patient.[facility] HospitalIn the event this information is protected by the Federal Confidentiality of Alcohol and Drug Abuse Patient Records regulations: The Federal rules restrict any use of the information to criminally investigate or prosecute any alcohol or drug abuse patient.[facility] HospitalIn the event this information is protected by the Federal Confidentiality of Alcohol and Drug Abuse Patient Records regulations: The Federal rules restrict any use of the information to criminally investigate or prosecute any alcohol or drug abuse patient.[facility] HospitalIn the event this information is protected by the Federal Confidentiality of Alcohol and Drug Abuse Patient Records regulations: The Federal rules restrict any use of the information to criminally investigate or prosecute any alcohol or drug abuse patient.[facility] HospitalIn the event this information is protected by the Federal Confidentiality of Alcohol and Drug Abuse Patient Records regulations: The Federal rules restrict any use of the information to criminally investigate or prosecute any alcohol or drug abuse patient.[facility] HospitalIn the event this information is protected by the Federal Confidentiality of Alcohol and Drug Abuse Patient Records regulations: The Federal rules restrict any use of the information to criminally investigate or prosecute any alcohol or drug abuse patient.[facility] HospitalIn the event this information is protected by the Federal Confidentiality of Alcohol and Drug Abuse Patient Records regulations: The Federal rules restrict any use of the information to criminally investigate or prosecute any alcohol or drug abuse patient.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 Relationship Specialty Start Date End Date Wiliam Mandel MD [address] [facility] [place] [address] PCP - General Family Practice 12/02/14 Eden Dove MD [address] [place] [address] M[facility] Nephrology 12/18/20 Knife Edger Relationship Specialty Start Date End Date Wliiam Mandel MD [address] [facility] [place] [address] PCP - General Family Practice 12/02/14 Eden Dove MD [address] [place] [address] [facility]lt Nephrology 12/18/20 Knife Edger Relationship Specialty Start Date End Date Wiliam Mandel MD [address] [facility] [place] [address] PCP - General Family Practice 12/02/14 Eden Dove MD [address] [place] [address] [facility] Neph[facility] 12/18/20 Knife Edger Relationship Specialty Start Date End Date Wiliam Mandel MD [address] [facility] [place] [address] PCP - General Family Practice 12/02/14 Eden Dove MD [address] [place] [address] [facility] Neph[facility] 12/18/20 Knife Edger Relationship Specialty Start Date End Date Wiliam Mandel MD [address] [facility] [place] [address] PCP - General Family Practice 12/02/14 Eden Dove MD [address] [place] [address] [facility] Neph[facility] 12/18/20 Knife Edger Relationship Specialty Start Date End Date Wiliam Mandel MD [address] [facility] [place] [address] PCP - General Family Practice 12/02/14 Eden Dove MD [address] [place] [address] [facility] Nephrology 12/18/20 Knife Edger Relationship Specialty Start Date End Date Wiliam Mandel MD [address] [facility] [place] [address] PCP - General Family Practice 12/02/14 Eden Dove MD [address] [place] [address] [facility] Neph[facility] 12/18/20 Knife Edger Relationship Specialty Start Date End Date Wiliam Mandel MD [address] [facility] [place] [address] PCP - General Family Medicine 12/02/14 Eden Dove MD [address] [place] [address] [facility] Neph[facility] 12/18/20 Knife Edger Relationship Specialty Start Date End Date Wiliam Mandel MD [address] [facility] [place] [address] PCP - General Family Medicine 12/02/14 Eden Dove MD [address] [place] [address] [facility]lt Neph[facility] 12/18/20 Knife Edger Relationship Specialty Start Date End Date Wiliam Mandel MD [address] [facility] [place] [address] PCP - General Family Medicine 12/02/14 Eden Dove MD [address] [place] [address] [facility] Neph[facility] 12/18/20 Knife Edger Relationship Specialty Start Date End Date Wiliam Mandel MD [address] [facility] [place] [address] PCP - General Family Medicine 12/02/14 Eden Dove MD [address] [place] [address] [facility] Neph[facility] 12/18/20 Knife Edger Relationship Specialty Start Date End Date Wiliam Mandel MD [address] [facility] [place] [address] PCP - General Family Medicine 12/02/14 Eden Dove MD [address] [place] [address] [facility] Neph[facility] 12/18/20 Knife Edger Relationship Specialty Start Date End Date Wiliam Mandel MD [address] [facility] [place] [address] PCP - General Family Medicine 12/02/14 Eden Dove MD [address] [place] [address] Mlt Nephrology 12/18/20 Knife Edger Relationship Specialty Start Date End Date Wiliam Mandel MD [address] [facility] [place] [address] PCP - General Family Medicine 12/02/14 Eden Dove MD [address] [place] [address] [facility] Neph[facility] 12/18/20 Knife Edger Relationship Specialty Start Date End Date Wiliam Mandel MD [address] [facility] [place] [address] PCP - General Family Medicine 12/02/14 Eden Dove MD [address] [address] [facility] Neph[facility] 12/18/20 Knife Edger Relationship Specialty Start Date End Date Wiliam Mandel MD [address] [facility] [place] [address] PCP - General Family Medicine 12/02/14 Eden Dove MD [address] [address] [facility] Ne[facility] 12/18/20 Knife Edger Relationship Specialty Start Date End Date Wiliam Mandel MD [address] [facility] [place] [address] PCP - General Family Medicine 12/02/14 Eden Dove MD [address] [place] [address] [facility] Ne[facility] 12/18/20 Knife Edger Relationship Specialty Start Date End Date Wiliam Mandel MD [address] [facility] [place] [address] PCP - General Family Medicine 12/02/14 Eden Dove MD [address] [place] [address] [facility] Ne[facility] 12/18/20 Knife Edger Relationship Specialty Start Date End Date Wiliam Mandel MD [address] [facility] [place] [address] PCP - General Family Medicine 12/02/14 Eden Dove MD [address] [address] [facility] Ne[facility] 12/18/20 Knife Edger Relationship Specialty Start Date End Date Wiliam Mandel MD [address] [facility], [place] [address] PCP - General Family Medicine 12/02/14 Eden Dove MD [address] [place], [place] [address] [facility] 12/18/20 Team Status: Active Member Role Status Dates Dr. Wiliam Mandel MD Family Provider Active Dr. Wiliam Mandel MD Primary Care Provider Active Team Status: Inactive Member Role Status Dates Dr. Wiliam Mandel MD Primary Care Provider Active Dr. Lisa Dove MD Attending Provider, [facility] Active Knife Edger Relationship Specialty Start Date End Date Wiliam Mandel MD [address] [facility] [place] [address] PCP - General Family Medicine 12/02/14 Eden Dove MD [address] [address] [facility] Ne[facility] 12/18/20 Knife Edger Relationship Specialty Start Date End Date Wiliam Mandel MD [address] [facility] [place] [address] PCP - General Family Medicine 12/02/14 Eden Dove MD [address] [place], [place] [address] [facility] 12/18/20 Knife Edger Relationship Specialty Start Date End Date Wiliam Mandel MD [address] [place] [address] PCP - General Family Medicine 12/02/14 Eden Dove MD [address] [place] [address] [facility] Ne[facility] 12/18/20 Knife Edger Relationship Specialty Start Date End Date Wiliam Mandel MD [address] [place] [address] PCP - General [facility] 12/02/14 Eden Dove MD [address] [place] [address] [facility] Ne[facility] 12/18/20 Knife Edger Relationship Specialty Start Date End Date Wiliam Mandel MD [address] [place] [address] PCP - General [facility] 12/02/14 Eden Dove MD [address] [place] [address] [facility] 12/18/20 Team Status: Inactive Member Role Status Dates Dr. Wiliam Mandel MD Primary Care Provider, Referri ng Provider Active Dr. Donald Holder MD Attending Provider Active Team Status: Active Member Role Status Dates Dr. Wiliam Mandel MD Primary Care Provider Active Dr. Donald Holder MD Attending Provider Active Team Status: Active Member Role Status Dates Dr. Wiliam Mandel MD Primary Care Provider Active Penny Ramirez PROSTHETIC AIDES TEACHER, PROSTHETIC AIDES TEACHER-C Attending Provider Active Team Status: Inactive Member Role Status Dates Dr. Wiliam Mandel MD Primary Care Provider Active Dr. Donald Holder MD Attending Provider, Referring Pro vider Active Knife Edger Relationship Specialty Start Date End Date Wiliam Mandel MD [address] [place] [address] PCP - General Family Medicine 12/02/14 Eden Dove MD [address] [place] [address] [facility] Ne[facility] 12/18/20 Knife Edger Relationship Specialty Start Date End Date Wiliam Mandel MD [address] [place] [address] PCP - General Family Medicine 12/02/14 Eden Dove MD [address] [place] [address] [facility] Ne[facility] 12/18/20 Knife Edger Relationship Specialty Start Date End Date Wiliam Mandel MD [address] [place] [address] PCP - General Family Medicine 12/02/14 Eden Dove MD [address] [place] [address] [facility] Ne[facility] 12/18/20 Knife Edger Relationship Specialty Start Date End Date Wiliam Mandel MD [address] [place] [address] PCP - General Family Medicine 12/02/14 Eden Dove MD [address] [place] [address] [facility] Ne[facility] 12/18/20 Knife Edger Relationship Specialty Start Date End Date Wiliam Mandel MD [address] [place] [address] PCP - General Family Medicine 12/02/14 Eden Dove MD [address] [place] [address] [facility] Ne[facility] 12/18/20 Knife Edger Relationship Specialty Start Date End Date Wiliam Mandel MD [address] [place] [address] PCP - General Family Medicine 12/02/14 Eden Dove MD [address] [place] [address] [facility] Ne[facility] 12/18/20 Knife Edger Relationship Specialty Start Date End Date Wiliam Mandel MD [address] [place] [address] PCP - General Family Medicine 12/02/14 Eden Dove MD [address] [place] [address] [facility] Ne[facility] 12/18/20 Knife Edger Relationship Specialty Start Date End Date Wiliam Mandel MD [address] [place] [address] PCP - General Family Medicine 12/02/14 Eden Dove MD [address] [place] [address] [facility] Ne[facility] 12/18/20 Knife Edger Relationship Specialty Start Date End Date Wiliam Mandel MD [address] [place] [address] PCP - General Family Medicine 12/02/14 Eden Dove MD [address] [place] [address] [facility] Ne[facility] 12/18/20 Knife Edger Relationship Specialty Start Date End Date Wiliam Mandel MD [address] [place] [address] PCP - General Family Medicine 12/02/14 Eden Dove MD [address] [place] [address] [facility] Ne[facility] 12/18/20 Knife Edger Relationship Specialty Start Date End Date Wiliam Mandel MD [address] [place] [address] PCP - General Family Medicine 12/02/14 Eden Dove MD [address] [place] [address] [facility] 12/18/20 Knife Edger Relationship Specialty Start Date End Date Wiliam Mandel MD [address] [place] [address] PCP - General Family Medicine 12/02/14 Eden Dove MD [address] [place] [address] [facility] Ne[facility] 12/18/20 Knife Edger Relationship Specialty Start Date End Date Wiliam Mandel MD [address] [place], [place] [address] PCP - General Family Medicine 12/02/14 Eden Dove MD [address] [place] [address] [facility] 12/18/20 Knife Edger Relationship Specialty Start Date End Date Wiliam Mandel MD [facility] [place], [place] [address] PCP - General Family Medicine 12/02/14 Eden Dove MD [address] [place] [address] [facility] 12/18/20 Nima Hobbs APRN.CNP [facility]0 [place], [place] [id number] Nba [facility] 02/17/24 Lilliam Monaco PA-C [address] [place], [place] [address] [facility] 02/17/24 Knife Edger Relationship Specialty Start Date End Date Wiliam Mandel MD [address] [place], [place] [id number] PCP - General Family Medicine 12/02/14 Eden Dove MD [address] [place] [address] [facility] 12/18/20 Nima Hobbs APRN.CONGRESSIONAL DISTRICT AIDE [address] [place], [place] [id number] [facility] 02/17/24 Lilliam Monaco PA-C [address] [place] [address] [facility] 02/17/24 Knife Edger Relationship Specialty Start Date End Date Wiliam Mandel MD [address] [place] [address] PCP - General Family Medicine 12/02/14 Eden Dove MD [address] [place] [address] [facility] 12/18/20 Nima Hobbs, SOCIAL WELFARE ADMINISTRATOR.CONGRESSIONAL DISTRICT AIDE [address] [place], [place] [id number] [facility] 02/17/24 Lilliam Monaco PA-C [address] [place] [address] [facility] 02/17/24 Knife Edger Relationship Specialty Start Date End Date Wiliam Mandel MD [address] [place] [address] PCP - General Family Medicine 12/02/14 Eden Dove MD [address] [address] [facility] 12/18/20 Nima Hobbs APRN.CONGRESSIONAL DISTRICT AIDE [address] [place] [address] [facility] 02/17/24 Lilliam Monaco PA-C [address] [facility] [place] [address] [facility] 02/17/24 Knife Edger Relationship Specialty Start Date End Date Wiliam Mandel MD [address] [place] [address] PCP - General Family Medicine 12/02/14 Eden Dove MD [address] [place] [address] [facility] 12/18/20 Nima Hobbs, MATHEW.CONGRESSIONAL DISTRICT AIDE [address] [place] [address] [facility] 02/17/24 Lilliam Monaco PA-C [address] [facility] [place] [address] [facility] 02/17/24 Knife Edger Relationship Specialty Start Date End Date Wiliam Mandel MD [address] [facility] [place] [address] PCP - General Family Medicine 12/02/14 Eden Dove MD [address] [place] [address] [facility] 12/18/20 Nima Hobbs APRN.CONGRESSIONAL DISTRICT AIDE [address] [place] [address] Nba Player [facility] 08/12/24 Lilliam Monaco PA-C [address] [place], [place] [address] Nba Player [facility] 08/12/24 Knife Edger Relationship Specialty Start Date End Date Wiliam Mandel MD [address] [place] [address] PCP - General Family Medicine 12/02/14 Eden Dove MD [address] [place] [address] [facility] 12/18/20 Nima Hobbs APRN.CONGRESSIONAL DISTRICT AIDE [address] [place] [id number] [facility] 08/12/24 Lilliam Monaco PA-C [address] [place] [address] [facility] Team Status: Active Member Role/Relationship Status Dates Dr. Wiliam Mandel MD Family Provider Active Dr. Wiliam Mandel MD Primary Care Provider Active Team Status: Inactive Member Role/Relationship Status Dates Dr. Wiliam Mandel MD Primary Care Provider Active Start: October 24, 2024 End: October 24, 2024 Dr. Wiliam Mandel MD Referring Provider Active Start: October 24, 2024 End: October 24, 2024 Dr. Caleb Allen DO Attending Provider Active Start: October 24, 2024 End: October 24, 2024 Team Status: Active Member Role/Relationship Status Dates Dr. Wiliam Mandel MD Primary Care Provider Active Team Status: Inactive Member Role/Relationship Status Dates Dr. Wiliam Mandel MD Primary Care Provider Active Start: October 24, 2024 End: October 24, 2024 Dr. Caleb Allen DO Attending Provider Active Start: October 24, 2024 End: October 24, 2024 Dr. Caleb Allen DO Referring Provider Active Start: October 24, 2024 End: October 24, 2024 Team Status: Active Member Role/Relationship Status Dates Dr. Wiliam Mandel MD Primary Care Provider Active Start: October 29, 2024 Dr. Caleb Allen DO Attending Provider Active Start: October 29, 2024 Dr. Caleb Allen DO Referring Provider Active Start: October 29, 2024 Knife Edger Relationship Specialty Start Date End Date Wiliam Mandel MD [facility] [place] [address] PCP - General Family Medicine 12/02/14 Eden Dove MD [address] [place] [phone] [facility] 12/18/20 Nima Hobbs APRN.CONGRESSIONAL DISTRICT AIDE [address] [place] [id number] [facility] 08/12/24 Lilliam Monaco PA-C [address] [place], [place] [phone] [facility] 08/12/24 Team Status: Inactive Member Role/Relationship Status Dates Dr. Wiliam Mandel MD Primary Care Provider Active Start: October 29, 2024 End: October 29, 2024 Dr. Caleb Allen DO Attending Provider Active Start: October 29, 2024 End: October 29, 2024 Dr. Caleb Allen DO Referring Provider Active Start: October 29, 2024 End: October 29, 2024 Team Status: Active Member Role/Relationship Status Dates Dr. Wiliam Mandel MD Primary Care Provider Active Start: November 04, 2024 Dr. Lisa Dove MD Attending Provider Active Start: November 04, 2024 Dr. Lisa Dove MD Referring Provider Active Start: November 04, 2024 Team Status: Inactive Member Role/Relationship Status Dates Dr. Wiliam Mandel MD Primary Care Provider Active Start: November 04, 2024 End: November 04, 2024 Dr. Lisa Dove MD Attending Provider Active Start: November 04, 2024 End: November 04, 2024 Dr. Lisa Dove MD Referring Provider Active Start: November 04, 2024 End: November 04, 2024 Knife Edger Relationship Specialty Start Date End Date Wiliam Mandel MD [address] [place] [address] PCP - General Family Medicine 12/02/14 Eden Dove MD [address] [place] [phone] [facility] 12/18/20 Nima Hobbs APRN.[facility] [address] [place] [phone] [facility] 08/12/24 Lilliam Monaco PA-C [facility]0 [place], [place] [id number] [facility] 08/12/24 Team Status: Active Member Role/Relationship Status Dates Dr. Wiliam Mandel MD Primary Care Provider Active Start: November 18, 2024 Dr. Caleb Allen DO Attending Provider Active Start: November 18, 2024 Dr. Caleb Allen DO Referring Provider Active Start: November 18, 2024 Team Status: Inactive Member Role/Relationship Status Dates Dr. Wiliam Mandel MD Primary Care Provider Active Start: November 19, 2024 End: November 19, 2024 Dr. Wiliam Mandel MD Referring Provider Active Start: November 19, 2024 End: November 19, 2024 EUGENE Payne Attending Provider Active Start: November 19, 2024 End: November 19, 2024 Team Status: Inactive Member Role/Relationship Status Dates Dr. Wiliam Mandel MD Primary Care Provider Active Start: November 18, 2024 End: November 18, 2024 Dr. Caleb Allen DO Attending Provider Active Start: November 18, 2024 End: November 18, 2024 Dr. Caleb Allen DO Referring Provider Active Start: November 18, 2024 End: November 18, 2024 Knife Edger Relationship Specialty Start Date End Date Wiliam Mandel MD [address] [place], [place] [id number] PCP - General Family Medicine 12/02/14 Eden Dove MD [address] [place] [phone] [facility] 12/18/20 Nima Hobbs APRN.CONGRESSIONAL DISTRICT AIDE [address] [place], [place] [phone] [facility] 08/12/24 Lilliam Monaco PA-C [address] [place], [place] [phone] [facility] 08/12/24 Team Status: Active Member Role/Relationship Status Dates Dr. Wiliam Mandel MD Primary care physician Active Team Status: Inactive Member Role/Relationship Status Dates Dr. Wiliam Mandel MD Primary care physician Active Start: October 24, 2024 End: October 24, 2024 Dr. Wiliam Mandel MD Referring Provider Active Start: October 24, 2024 End: October 24, 2024 Dr. Caleb Allen DO Attending physician Active Start: October 24, 2024 End: October 24, 2024 Team Status: Inactive Member Role/Relationship Status Dates Dr. Wiliam Mandel MD Primary care physician Active Start: October 24, 2024 End: October 24, 2024 Dr. Caleb Allen DO Attending physician Active Start: October 24, 2024 End: October 24, 2024 Dr. Caleb Allen DO Referring Provider Active Start: October 24, 2024 End: October 24, 2024 Team Status: Inactive Member Role/Relationship Status Dates Dr. Wiliam Mandel MD Primary care physician Active Start: October 29, 2024 End: October 29, 2024 Dr. Caleb Allen DO Attending physician Active Start: October 29, 2024 End: October 29, 2024 Dr. Caleb Allen DO Referring Provider Active Start: October 29, 2024 End: October 29, 2024 Team Status: Inactive Member Role/Relationship Status Dates Dr. Wiliam Mandel MD Primary care physician Active Start: November 04, 2024 End: November 04, 2024 Dr. Lisa Dove MD Attending physician Active Start: November 04, 2024 End: November 04, 2024 Dr. Lisa Dove MD Referring Provider Active Start: November 04, 2024 End: November 04, 2024 Team Status: Inactive Member Role/Relationship Status Dates Dr. Wiliam Mandel MD Primary care physician Active Start: November 18, 2024 End: November 18, 2024 Dr. Caleb Allen DO Attending physician Active Start: November 18, 2024 End: November 18, 2024 Dr. Caleb Allen DO Referring Provider Active Start: November 18, 2024 End: November 18, 2024 Team Status: Inactive Member Role/Relationship Status Dates Dr. Wiliam Mandel MD Primary care physician Active Start: November 19, 2024 End: November 19, 2024 Dr. Wiliam Mandel MD Referring Provider Active Start: November 19, 2024 End: November 19, 2024 EUGENE Payne Attending physician Active Start: November 19, 2024 End: November 19, 2024 Team Status: Inactive Member Role/Relationship Status Dates Dr. Wiliam Mandel MD Primary care physician Active Start: November 28, 2024 End: November 28, 2024 Dr. Wiliam Mandel MD Referring Provider Active Start: November 28, 2024 End: November 28, 2024 Dr. Caleb Allen DO Attending physician Active Start: November 28, 2024 End: November 28, 2024 Team Status: Active Member Role/Relationship Status Dates Dr. Wiliam Mandel MD Primary care physician Active Start: November 28, 2024 Dr. Wiliam Mandel MD Referring Provider Active Start: November 28, 2024 Dr. Caleb Allen DO Attending physician Active Start: November 28, 2024 Dr. Caleb Allen DO Nurse Practitioner Active Start: November 28, 2024 Reason for Visit (unrecogniz ed section and content) Reason Onset Date Comments Refill Request 05/31/2021 Reason Onset Date Comments Refill Request 07/19/2021 Reason Comments Follow Up Add MMA Reason Comments Established Patient Reason Comments Bone Marrow Aspirate/Biopsy Reason Comments Patient Left Without Being Seen Reason Comments Recheck Reason Comments Results Reason Onset Date Comments Refill Request 01/24/2022 Reason Onset Date Comments Refill Request 02/16/2022 Reason Onset Date Comments Refill Request 04/22/2022 Reason Comments Medicare Wellness Exam Reason Onset Date Comments Refill Request 07/12/2022 Reason Comments Non-Chemotherapy Treatment Specialty Diagnoses / Procedures Referred By Contac t Referred To Contact Diagnoses Stage 3a chronic kidney disease (HCC) Anemia due to stage 3a chronic kidney disease (HCC) Paul Arzola, DO [address] [place] [address] [facility] [address] [place] [address] Referral ID Status Reason Start Date Expiration Date V isits Requested Visits Authorized [id number] Authorized 07/28/2022 10/26/2022 99 99 Reason Comments Diabetic Eye Exam Reason Onset Date Comments Refill Request 10/17/2022 Reason Comments F/U 6 months Reason Onset Date Comments Refill Request 01/23/2023 Reason Comments Ear Pain Right ear and Jaw pa in since this am Reason Comments Ear Pain R ear pain x1.5 [facility] hs, recent ear infection Reason Comments Ear Problem left ear ? fluid x 2 weeks, dizziness x 1 day Reason Onset Date Comments Refill Request 05/14/2023 Reason Comments Established Patient 4 month follow up wi th labs Reason Onset Date Comments Refill Request 06/12/2023 Reason Onset Date Comments Refill Request 07/27/2023 Reason Comments Consult Outside Ophthalmolog y Reason Onset Date Comments Refill Request 10/13/2023 Reason Comments Outside [id number] Ordered Reason Comments Same Day Appointment left ankle-was swol shiv, painful x 3 weeks Reason Onset Date Comments Refill Request 12/12/2023 Reason Comments Spirometry Specialty Diagnoses / Procedures Referred By Contemmy t Referred To [facility] Diagnoses Obstructive chronic bronchitis with exacerbation (HCC) KEY (dyspnea on exertion) Procedures SPIROMETRY - BASELINE AND POST DILATOR BRNCDILAT RSPSE SPMTRY PRE&POST-BRNCDILAT ADMWiliam Ash MD [address] [place] [address] [facility] [place] [address] [place] [address] Referral ID Status Reason Start Date Expiration Date V isits Requested Visits Authorized [id number] Closed Auto-Generate d Referral 11/22/2023 12/21/2024 1 1 Reason Comments Outside ECHO Reason Onset Date Comments Refill Request 02/05/2024 Reason Onset Date Comments Refill Request 05/01/2024 Reason Comments Medicare Wellness Exam Reason Onset Date Comments Refill Request 06/05/2024 Reason Onset Date Comments Refill Request 08/19/2024 Reason Comments ext document Reason Onset Date Comments Refill Request 11/18/2024 Reason Comments Patient Call Goals (unrecognized section and content) Goals may be documented in a n alternate sectionGoals may be documented in an alternate sectionGoals may be documented in an alternate sectionGoals may be documented in an alternate sectionGoals may be documented in an alternate sectionGoals may be documented in an alternate sectionGoals may be documented in an alternate sectionGoals may be documented in an alternate section (unrecognized sect ion and content) No Status Records FoundNo Status Records Found INFORMATION SOURCE (unrecogn ized section and content) DATE CREATED AUTHOR 01/17/2025 [facility] DATE CREATED AUTHOR AUTHOR'S PALAK [place]ALLEGO 01/19/2025 [facility] FOR RECORDS PERTAINING TO PATIENTS WHO ARE OR HAVE BEEN ENROLLED IN A CHEMICAL DEPENDENCY/SUBSTANCEABUSE PROGRAM, SOME INFORMATION MAY BE OMITTED. This clinical summary was aggregated from multiple sources. Caution should be exercised in using it in the provision of clinical care. This summary normalizes information from multiple sources, and as a consequence, information in this document may materially change the coding, format and clinical context of patient data. In addition, data may be omitted in some cases. CLINICAL DECISIONS SHOULD BE BASED ON THE PRIMARY CLINICAL RECORDS. [facility] [email or web address] [facility]. provides no warranty or guarantee of the accuracy or completeness of information in this document.
--- NOTE | 2025-02-17 09:49 | CL.D_ITS ---
Patient Name: MEG BRYANT Study Date: 02/17/2025 Performing: Donald Holder MD Ht: 69 inches 175.26 cm : 1945 Wt: 214 lbs 97.07 kg Age: 79 Gender: male BSA: 2.13 PROCEDURE(S) PERFORMED DC01-(29963)LHC/COR/LV CLINICAL PROFILE AND INDICATIONS Indications: Valvular Disease Heart Failure: None Stress/Imaging Stress/Image Study Performed: No CAD Presentations: No Sxs, no angina. CONCLUSIONS Mild diffuse coronary disease. Moderate aortic stenosis. Peak to peak gradient is approximately 30 mmHg. RECOMMENDATIONS Medical therapy DESCRIPTION OF PROCEDURE The patient arrived to the procedure lab. The risks and benefits of the procedure as well as a full description of our services here and current unavailability of surgical backup were fully explained to the patient and/or their significant other prior to the catheterization. The Timeout was completed, verifying the correct patient and procedure. The patient's procedural site was prepped and draped in the usual fashion. Local anesthetic was given subcutaneously to right radial region with Lidocaine 2%. Local anesthetic was given subcutaneously to right groin region with Lidocaine 2%. Using a modified Seldinger technique, arterial access was obtained via the right femoral artery, a 5Fr sheath was inserted. Left Coronary Artery selective angiography was performed in multiple views using a 5 Fr. JL4 catheter. Right Coronary Artery selective angiography was then performed in multiple views using a 5 Fr. 3DRC (Axel) catheter. Left Ventriculography was performed in MCLEAN projection using a 5 Fr. Pigtail catheter. LV to AO pullback pressures were then recorded.The arterial sheath was pulled and a TR Band was applied for hemostasis. The arterial sheath was pulled and manual compression applied until hemostasis is achieved. CORONARY ANGIOGRAPHY DOMINANCE: Right Dominant LEFT HEART ASSESSMENT Left Ventricular Ejection Fraction: by LV Gram 45 % Global Hypokinesis - Mild Depressed Left Ventricular systolic function LEFT MAIN: Angiographically normal, Mild luminal irregularities LEFT ANTERIOR DESCENDING ARTERY: Mild luminal irregularities less than 30% CIRCUMFLEX ARTERY: Mild luminal irregularities less than 30% RIGHT CORONARY ARTERY: Mild luminal irregularities less than 30% VALVE FINDINGS: Aortic Valve Stenosis - moderate COMPLICATIONS No Complications PROCEDURE MEDICATIONS Versed 1 mg IV Fentanyl 50 mcg IV Versed 1 mg IV Oxygen: 2 L/min via nasal cannula SUMMARY OF HEMODYNAMIC DATA Time AIR REST ECG 07:08:18 AO 109/40 (66) SA 08:27:33 LV 155/7, 17 08:35:52 LV 158/9, 17 08:36:01 LV 146/8, 16 08:36:47 LVp 152/10, 20 08:37:04 AOp 121/43 (72) 08:37:11 AIR REST 09:44:25 Signed By Donald Holder MD On 02/17/2025 09:48:35 Donald Holder MD
== END 2025-02-17 14:03 | disposition home or self-care (01) ==
PROVIDERS: Nurse Practitioner Gerontology; PCP Family Medicine; Referring Provider Internal Medicine Cardiovascular Disease; Visit Provider Internal Medicine Cardiovascular Disease
DX: I25.10 Atherosclerotic heart disease of native coronary artery without angina pectoris (principal); E11.9 Type 2 diabetes mellitus without complications; I35.0 Nonrheumatic aortic (valve) stenosis; I10 Essential (primary) hypertension; E78.5 Hyperlipidemia, unspecified; E66.9 Obesity, unspecified; E03.9 Hypothyroidism, unspecified; Z79.82 Long term (current) use of aspirin; Z79.890 Hormone replacement therapy; Z79.899 Other long term (current) drug therapy; K21.9 Gastro-esophageal reflux disease without esophagitis; Z87.891 Personal history of nicotine dependence; I65.23 Occlusion and stenosis of bilateral carotid arteries; R06.09 Other forms of dyspnea
CPT/HCPCS: 36415; 80048; 83880; 93458; 99152; 99153; C1894; Q9967; C1769